=== PATIENT | male | born 1965 | race Caucasian/White ===

== ENCOUNTER 2017-10-21 15:43 | Emergency (ER) | payer BC, OTHER ==
[2017-10-21 15:47] VITALS: TEMP 98; BMI 30.6
[2017-10-21] MEDS ORDERED: predniSONE 20 MG TABLET (UD) PO ONE (15:53)
--- NOTE | 2017-10-21 15:56 | PDOC ---
History of Present Illness - General History Source: Patient Exam Limitations: No Limitations - History of Present Illness Initial Comments: 10/21/17 16:01 The patient is a 52 year old male, with a significant past medical history of asthma(with prior hospitalizations and ICU stay without intubation) and hypertension, who presents to the emergency department with chest tightness for approximately 2 days. The patient reports waking up yesterday with chest tightness and shortness of breath. Patient reports using Symbicort daily Albuterol with no relief. Today, patient reports waking up with wheezing and a cough productive of white-yellow sputum. Patient reports using 6 pumps of his Albuterol today with relief of cough and wheezing. Patient reports tachycardia, which is typical after he uses his Albuterol. He denies any recent fever, chills , headache, or dizziness. He denies any chest pain or diaphoresis. He denies any nausea or vomiting. 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 Allergies: NKDA Past Surgical History: None reported. Social History: Nonsmoker. No ETOH or recreational drug use. <Dandre Harrington - Last Filed: 10/21/17 16:00> - General History Source: Patient Exam Limitations: No Limitations <Milton Escalante - Last Filed: 10/21/17 16:59> - General Chief Complaint: Asthma Stated Complaint: asthma Time Seen by Provider: 10/21/17 15:45 Past History <Dandre Harrington - Last Filed: 10/21/17 16:00> - Past Medical History Asthma: Yes Cardiac Disorders: Yes (TAA. 1 EPISODE ASTHMA RELATED A-FIB 5 YRS AGO) COPD: No HTN: Yes - Suicide/Smoking/Psychosocial Hx Smoking History: Never smoked Have you smoked in the past 12 months: Yes Number of Cigarettes Smoked Daily: 3 'Breaking Loose' booklet given: 09/13/14 Hx Alcohol Use: No Drug/Substance Use Hx: No Substance Use Type: None <Milton Escalante - Last Filed: 10/21/17 16:59> - Past Medical History Allergies/Adverse Reactions: Allergies Allergy/AdvReac Type Severity Reaction Status Date / Time No Known Allergies Allergy Verified 09/13/14 10:16 Home Medications: Ambulatory Orders Albuterol Sulfate Inhaler - [Ventolin HFA Inhaler -] 1 - 2 inh PO QID PRN Aspirin Coated [Ecotrin -] 325 mg PO Q48H 09/13/14 Budesonide/Formeterol Fumarate [SYMBICORT 160/4.5mcg -] 1 inh PO DAILY 10/21/17 Diltiazem Cd [Cardizem Cd -] 300 mg PO DAILY 10/21/17 Prednisone [Deltasone] 60 mg PO DAILY #12 tablet 10/21/17 Review of Systems - Review of Systems Able to Perform ROS?: Yes Comments:: 10/21/17 16:01 GENERAL/CONSTITUTIONAL: No fever or chills. No weakness. HEAD, EYES, EARS, NOSE AND THROAT: No change in vision. No ear pain or discharge. No sore throat. CARDIOVASCULAR: Yes shortness of breath. No chest pain. RESPIRATORY: Yes cough productive of white-yellow sputum, wheezing, and chest tightness, No hemoptysis. GASTROINTESTINAL: No nausea, vomiting, diarrhea or constipation. GENITOURINARY: No dysuria, frequency, or change in urination. MUSCULOSKELETAL: No joint or muscle swelling or pain. No neck or back pain. SKIN: No rash NEUROLOGIC: No headache, vertigo, loss of consciousness, or change in strength/ sensation. ENDOCRINE: No increased thirst. No abnormal weight change. HEMATOLOGIC/LYMPHATIC: No anemia, easy bleeding, or history of blood clots. ALLERGIC/IMMUNOLOGIC: No hives or skin allergy. <Dandre Harrington - Last Filed: 10/21/17 16:00> *Physical Exam - Vital Signs Last Vital Signs Temp Pulse Resp BP Pulse Ox 98 F 141 H 22 158/127 97 10/21/17 15:44 10/21/17 15:44 10/21/17 15:44 10/21/17 15:44 10/21/17 15:44 - Physical Exam Comments: 10/21/17 16:01 GENERAL: Awake, alert, and fully oriented, in no acute distress HEAD: No signs of trauma EYES: PERRLA, EOMI, sclera anicteric, conjunctiva clear ENT: Auricles normal inspection, hearing grossly normal, nares patent, oropharynx clear without exudates. Moist mucosa NECK: Normal ROM, supple, no lymphadenopathy, JVD, or masses LUNGS: Breath sounds equal, clear to auscultation bilaterally. No wheezes, and no crackles HEART: Tachycardic. Regular rhythm, normal S1 and S2, no murmurs, rubs or gallops ABDOMEN: Soft, nontender, normoactive bowel sounds. No guarding, no rebound. No masses EXTREMITIES: Normal range of motion, no edema. No clubbing or cyanosis. No cords, erythema, or tenderness NEUROLOGICAL: Cranial nerves II through XII grossly intact. Normal speech, normal gait SKIN: Warm, Dry, normal turgor, no rashes or lesions noted. <Dandre Harrington - Last Filed: 10/21/17 16:00> - Vital Signs Last Vital Signs Temp Pulse Resp BP Pulse Ox 98 F 141 H 22 158/127 97 10/21/17 15:44 10/21/17 15:44 10/21/17 15:44 10/21/17 15:44 10/21/17 15:44 <Milton Escalante - Last Filed: 10/21/17 16:59> Medical Decision Making - Medical Decision Making 10/21/17 15:54 A portion of this note was documented by scribe services under my direction. I have reviewed the details of the note, within reason, and agree with the documentation with the following case summary and management plan written by me. Patient treated in the ED. Nursing notes are reviewed and incorporated into the medical decision-making. Vital signs reviewed. Vital Signs Temp Pulse Resp BP Pulse Ox 98 F 141 H 22 158/127 97 10/21/17 15:44 10/21/17 15:44 10/21/17 15:44 10/21/17 15:44 10/21/17 15:44 52-year-old male with past mental history of hypertension, asthma with prior hospitalizations and ICU stays without intubations, currently on Symbicort, presents with asthma exacerbation. Patient reports that yesterday felt tightness and wheezing that worsened today. Reports clearish productive cough but denies fevers or chills. Patient had taken several pumps of his albuterol which states he always makes him tachycardic. Reports that his wheezing is cleared up but was concerned so came to the ED. Patient lungs are clear now but with notable tachycardia likely secondary to albuterol. We'll give him prednisone and observe the patient. If the patient's symptoms are improved the heart rate improves, patient be discharged home with albuterol and prednisone. Diagnosis: Asthma exacerbation 10/21/17 16:54 Patient has been observed. Breathing comfortably. HR 70. I discussed the physical exam findings, ancillary test results and final diagnoses with the patient. I answered all of the patient's questions. The patient was satisfied with the care received and felt comfortable with the discharge plan and treatment plan. The patient will call their primary care physician within 24 hours to arrange follow-up and will return to the Emergency Department with any new, persistant or worsening symptoms. <Milton Escalante - Last Filed: 10/21/17 16:59> *DC/Admit/Observation/Transfer - Attestations Scribe Attestion: 10/21/17 16:01 Documentation prepared by Dandre Harrington, acting as biomedical analytical scientist for Milton Escalante MD. <Dandre Harrington - Last Filed: 10/21/17 16:00> - Discharge Dispostion Admit: No <Milton Escalante - Last Filed: 10/21/17 16:59> Diagnosis at time of Disposition: Asthma exacerbation attacks Qualifiers: Asthma severity: unspecified severity Asthma persistence: unspecified Qualified Code(s): J45.901 - Unspecified asthma with (acute) exacerbation - Discharge Dispostion Disposition: HOME Condition at time of disposition: Improved - Prescriptions Prescriptions: Prednisone [Deltasone] 60 mg PO DAILY #12 tablet - Patient Instructions Printed Discharge Instructions: Asthma -- Adult Additional Instructions: Take 2 puffs of albuterol every 4 hours as needed for wheezing. Continue to take the prednisone daily. Follow up with your doctor.
[2017-10-21] MEDS ORDERED: predniSONE 20 MG TABLET (UD) ONE (16:01)
[2017-10-21 17:09] VITALS: BP 166/90; PULSE 70
== END 2017-10-21 17:09 | disposition home or self-care (01) ==
LOC: FER 15:43
DX: J45.901 Unspecified asthma with (acute) exacerbation (principal); I10 Essential (primary) hypertension; Z86.79 Personal history of other diseases of the circulatory system; Z79.82 Long term (current) use of aspirin
CPT/HCPCS: 99281-25

== ENCOUNTER 2018-09-20 23:17 | Inpatient (IN) | payer OTHER ==
[2018-09-20] MEDS ORDERED: ALBUTEROL SO4 2.5/IPRATROPIUM 0.5 INH SOL 3 ML VIAL.NEB. NEB ONE ×2 (23:23→23:47)
[2018-09-21 00:12] LABS: VENOUS PC02 34.4 mmHg (38-52); VENOUS PH 7.49 (7.32-7.42); VENOUS PO2 42.8 mmHg (28-48)
[2018-09-21] MEDS ORDERED: ALBUTEROL SO4 2.5/IPRATROPIUM 0.5 INH SOL 3 ML VIAL.NEB. NEB ONE (00:14)
[2018-09-21 00:18] LABS: BASO % 1.1 % (0-2.0); EOS % 0.1 % (0-4.5); HEMATOCRIT 43.8 % (35.4-49); HEMOGLOBIN 14.6 GM/dL (11.7-16.9); LYMPH % 7.8 % (8-40); MCHC 33.3 g/dl (32.0-35.9); MEAN PLT VOLUME 7.7 fl (7.5-11.1); MONO % 14.7 % (3.8-10.2); NEUT % 76.3 % (42.8-82.8); PLATELET COUNT 234 K/MM3 (134-434); RBC 4.71 M/mm3 (4.00-5.60); RDW 12.9 % (11.9-15.9)
--- NOTE | 2018-09-21 00:19 | PDOC ---
History of Present Illness - General Chief Complaint: Asthma Stated Complaint: ASTHMA Time Seen by Provider: 09/20/18 23:35 History Source: Patient Exam Limitations: No Limitations - History of Present Illness Initial Comments: 53 year old male, with a significant past medical history of AFIB, asthma(with prior hospitalizations and ICU stay without intubation) and hypertension is here with Shortness of breath, difficulty breathing, cough and a recent fever. He states that for the past 3 weeks he has experienced extreme SOB with exertion , the inability to lie flat at night, and feels like he is choking when he lies down. He states he needs to keep his head elevated in order to sleep properly. He went to urgent care twice and they originally gave him methylprednisolone, that didn't work, then he went back and they gave him azithromycin. He is almost done with his Abx course. He endorses significant chest pain with exertion. He is not currently experiencing any chest pain. He has also has a productive cough with Left sided chest pain for the past 3 days. Patient does not have a primary care provider - He needs a referall. He also describes these hot and cold symptoms where everyone else in the room is cold but he is sweating. Occasionally he breaks out in sweats, experiences heat and cold intolerance. PCP: None Allergies: NKA, NKDA Social Hx: Significant alcohol/beer consumption on weekends. Denies cigarettes or illicit drug usage. Past History - Past Medical History Allergies/Adverse Reactions: Allergies Allergy/AdvReac Type Severity Reaction Status Date / Time No Known Allergies Allergy Verified 09/13/14 10:16 Home Medications: Ambulatory Orders Albuterol Sulfate Inhaler - [Ventolin HFA Inhaler -] 1 - 2 inh PO QID PRN Budesonide/Formeterol Fumarate [SYMBICORT 160/4.5mcg -] 1 inh PO DAILY 10/21/17 Diltiazem Cd [Cardizem Cd -] 300 mg PO DAILY 10/21/17 Loratadine [Claritin] 10 mg PO DAILY 09/21/18 Valsartan 40 mg PO DAILY 09/21/18 Asthma: Yes Cardiac Disorders: Yes (TAA. 1 EPISODE ASTHMA RELATED A-FIB 5 YRS AGO) COPD: No HTN: Yes - Suicide/Smoking/Psychosocial Hx Smoking History: Never smoked Have you smoked in the past 12 months: Yes Number of Cigarettes Smoked Daily: 3 'Breaking Loose' booklet given: 09/13/14 Hx Alcohol Use: No Drug/Substance Use Hx: No Substance Use Type: None Review of Systems - Review of Systems Comments:: CONSTITUTIONAL: Present: Fever, chills, diaphoresis Absent: generalized weakness, malaise, loss of appetite HEENT: Absent: rhinorrhea, nasal congestion, throat pain, throat swelling, difficulty swallowing, mouth swelling, ear pain, eye pain, visual Changes CARDIOVASCULAR: Present: Chest pain, peripheral edema, lightheadedness Absent: syncope, palpitations, irregular heart rate RESPIRATORY: Present: Cough, shortness of breath, dyspnea with exertion, orthopnea Absent: wheezing, stridor, hemoptysis GASTROINTESTINAL: Present: Nausea Absent: abdominal pain, abdominal distension, vomiting, diarrhea, constipation, melena, hematochezia GENITOURINARY: Absent: dysuria, frequency, urgency, hesitancy, hematuria, flank pain, genital pain MUSCULOSKELETAL: Absent: myalgia, arthralgia, joint swelling SKIN: Absent: rash, itching, pallor HEMATOLOGIC/IMMUNOLOGIC: Absent: easy bleeding, easy bruising, lymphadenopathy, frequent infections ENDOCRINE: Absent: unexplained weight gain, unexplained weight loss, heat intolerance, cold intolerance NEUROLOGIC: Present: Dizziness Absent: headache, focal weakness or paresthesias, unsteady gait, seizure, mental status changes, bladder or bowel incontinence PSYCHIATRIC: Absent: anxiety, depression, suicidal or homicidal ideation, hallucinations. *Physical Exam - Vital Signs Last Vital Signs Temp Pulse Resp BP Pulse Ox 100.3 F H 135 H 26 H 115/83 100 09/20/18 23:20 09/20/18 23:20 09/20/18 23:20 09/20/18 23:20 09/20/18 23:20 - Physical Exam Comments: GENERAL: Well developed, well nourished. Awake and alert. No acute distress. HEENT: Normocephalic, atraumatic. PERRLA, EOMI. No conjunctival pallor. Sclera are non- icteric. Moist mucous membranes. Oropharynx is clear. NECK: Supple. Full ROM. No JVD. Carotid pulses 2+ and symmetric, without bruits. No thyromegaly. No lymphadenopathy. CARDIOVASCULAR: Tachycardic rate and regular rhythm. No murmurs, rubs, or gallops. Distal pulses are 2+ and symmetric. PULMONARY: Clear evidence of respiratory distress. However, Lungs are clear to auscultation bilaterally. No wheezing, rales or rhonchi. ABDOMINAL: Soft. Non-tender. Non-distended. No rebound or guarding. No organomegaly. Normoactive bowel sounds. MUSCULOSKELETAL Normal range of motion at all joints. No bony deformities or tenderness. No CVA tenderness. EXTREMITIES: No cyanosis. No clubbing. No edema. No calf tenderness. SKIN: Warm and dry. Normal capillary refill. No rashes. No jaundice. NEUROLOGICAL: Alert, awake, appropriate. Cranial nerves 2-12 intact. No deficits to light touch in face, upper extremities and lower extremities. No motor deficits in the in face, upper extremities and lower extremities. Normal speech. Gait is normal without ataxia. PSYCHIATRIC: Cooperative. Good eye contact. Appropriate mood and affect. ED Treatment Course - LABORATORY CBC & Chemistry Diagram: 09/21/18 00:09 09/21/18 00:09 - ADDITIONAL ORDERS Additional order review: Laboratory Results 09/20/18 23:58 VBG pH 7.49 H POC VBG pCO2 34.4 L POC VBG pO2 42.8 Mixed VBG HCO3 25.6 H - RADIOLOGY Radiology Studies Ordered: Category Date Time Status CHEST PA & LAT [RAD] Stat Radiology 09/20/18 23:47 Ordered Medical Decision Making - Medical Decision Making 53 year old male, with a significant past medical history of AFIB, asthma(with prior hospitalizations and ICU stay without intubation) and hypertension is here with Shortness of breath, difficulty breathing, cough and a recent fever. Patient is febrile here in the ED. DD includes but not limited to: CHF, Asthma exacerbation, PNA, AFIB, ACS, URI, influenza. Plan: Cbc, Cmp, Trop, Bnp, Tsh, Ekg, influenza, CXR, re-assess. Cbc shows elevated WBC of 11. Cmp shows hyponatremia of 130 BNP elevated to 2442 Trop negative. Given hot and cold symptoms, hx of AFIB, will send TSH to evaluate for thyroid abnormalities. CXR shows a Left sided Pneumonia. He has been taking azithromycin. This is failed outpatient treatment. 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 Patient meets SIRS. Also has a source of infection - lungs PNA. He is septic. Given clinical history, hx of AFIB and hypertension, elevated BNP this patient is likely experiencing new onset heart failure. Patient will be admitted for heart failure, PNA, AFIB, Sepsis. Abx started here in ED. Given CXR read of upper lobe PNA we will put the patient in isolation. *DC/Admit/Observation/Transfer Diagnosis at time of Disposition: Pneumonia, A-fib, Heart failure, Asthma attack - Discharge Dispostion Condition at time of disposition: Guarded Decision to Admit order: Yes - Referrals - Patient Instructions - Post Discharge Activity
[2018-09-21 00:32] LABS: URINE APPEARANCE CLEAR; URINE BILIRUBIN NEGATIVE (<2.0 mg/dL); URINE COLOR YELLOW; URINE GLUCOSE (UA) NEGATIVE (NEGATIVE); URINE KETONE 1+ (NEGATIVE); URINE LEUK ESTERASE TRACE (NEGATIVE); URINE NITRITE NEGATIVE (NEGATIVE); URINE PROTEIN 1+ (NEGATIVE); URINE UROBILINOGEN NEGATIVE mg/dL (0.2-1.0)
[2018-09-21 00:43] LABS: URINE BACTERIA RARE /hpf (NONE SEEN)
[2018-09-21 00:56] LABS: ALBUMIN 3.5 g/dl (3.4-5.0); ALK PHOS 66 U/L (45-117); ANION GAP 11 MMOL/L (8-16); BILIRUBIN,TOTAL 1.1 mg/dL (0.2-1); BLOOD UREA NITROGEN 14 mg/dL (7-18); CALCIUM 8.5 mg/dL (8.5-10.1); CHLORIDE 95 mmol/L (98-107); CO2 25 mmol/L (21-32); CREATININE 0.8 mg/dL (0.55-1.3); GLUCOSE,RANDOM 113 mg/dL (74-106); N-TERMINAL BNP 2442.2 pg/ml (5-125); POTASSIUM 3.9 mmol/L (3.5-5.1); SGOT/AST 24 U/L (15-37); SGPT/ALT 25 U/L (13-61); SODIUM 130 mmol/L (136-145); TOT PROT 6.9 g/dl (6.4-8.2)
[2018-09-21] MEDS ORDERED: ACETAMINOPHEN 1000 MG/100 ML VIAL (NON FORMULARY) IVPB ONE (01:07)
[2018-09-21] MEDS ORDERED: ACETAMINOPHEN INJECTION 100 ML IVPB ONE (01:21)
--- NOTE | 2018-09-21 01:42 | PDOC ---
Attending Attestation - Resident Resident Name: Ángel Olivares - ED Attending Attestation I have performed the following: I have examined & evaluated the patient, The case was reviewed & discussed with the resident, I agree w/resident's findings & plan, Exceptions are as noted - HPI HPI: 09/21/18 01:42 The patient is a 53 year old male with past medical history of atrial fibrillation, hypertension, and asthma (requiring ICU stay, no intubations) who presents with 3 weeks of worsening shortness of breath both at rest and with exertion, cough, and fever. His symptoms have not been relieved by courses of prednisone or z-pack which was prescribed by urgent care on two separate occasions. Patient states he also is unable to lie flat at night and was experiencing lower extremity swelling which was treated after taking his HCTZ. Patient denies any weakness, chest pain, palpitations, nausea, vomiting, diarrhea, or urinary complaints. - Physicial Exam PE: 09/21/18 01:42 agree with resident exam - Medical Decision Making 09/21/18 01:42 53yo M hx asthma presents to the ED with progressive ALCOCER, chest discomfort not releived by nebs, steroids, azithromycin. HR elevated to 130s, but pt getting nebs at the time of vitals check. Work up remarkable for elevated BNP. Story concerning for new onset CHF. CXR pending, will admit for cardiac w/u. Heart Score/ECG Review #1 09/21/18 01:44 Twelve-lead EKG was performed and reviewed by me. Sinus tachycardia, rate 133. Normal axis. Baseline is unclear, no evidence of ST elevations.
[2018-09-21] MEDS ORDERED: predniSONE 20 MG TABLET (UD) PO ONE (02:28)
[2018-09-21] MEDS ORDERED: VANCOMYCIN 1,000 MG in DEXTROSE 5%-WATER - 250 ML IVPB ONE (02:29)
[2018-09-21] MEDS ORDERED: PIPERACILLIN/TAZOB 4.5 GM 4.5 GM in DEXTROSE 5%-WATER 100 ML IVPB ONE (02:33)
[2018-09-21] MEDS ORDERED: predniSONE 20 MG TABLET (UD) ONE (02:53)
[2018-09-21] MEDS ORDERED: VANCOMYCIN 1 GRAM (PRE-DOCKED) 1,000 MG/250 ML BAG IVPB ONE (02:53)
[2018-09-21] MEDS ORDERED: PIPERACILLIN/TAZOB 4.5 GM 4.5 GM/100 ML BAG IVPB ONE (02:53)
--- NOTE | 2018-09-21 04:34 | HP ---
CHIEF COMPLAINT: Shortness of breath PCP: HISTORY OF PRESENT ILLNESS: Patient is a 53 year old male with history of asthma, Afib (no on anticoagulation), hypertension, presents with complaint of shortness of breath for the past three weeks. States that symptoms occurred with cough that has become productive with clear to yellow sputum. Denies subjective fevers, however admits chills, and night sweats. Endorses intermittent nausea, without vomiting. 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 Further admits new onset of two pillow orthopnea over the past three weeks. He went to urgent care center on two occasions, and received Medrol dose pack on first visit, and azithromycin on second visit which were not palliative. 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 ER course was notable for: (1) EKG showed Aflutter 2:1 AV conduction. (2) Vancomycin, Zosyn, Ofirmev, Duonebs, Prednisone (3) Recent Travel: PAST MEDICAL HISTORY: asthma, Afib (no on anticoagulation), hypertension PAST SURGICAL HISTORY: Social History: Smoking:Former smoker, Quit 3 years ago Alcohol: Admits approx 6 beers, socially three times a week Drugs: Denies Family History: Allergies No Known Allergies Allergy (Verified 09/13/14 10:16) HOME MEDICATIONS: Home Medications Medication Instructions Recorded Albuterol Sulfate Inhaler - 1 - 2 inh PO QID PRN 09/13/14 [Ventolin HFA Inhaler -] Budesonide/Formeterol Fumarate 1 inh PO DAILY 10/21/17 [SYMBICORT 160/4.5mcg -] Diltiazem Cd [Cardizem Cd -] 300 mg PO DAILY 10/21/17 Loratadine [Claritin] 10 mg PO DAILY 09/21/18 Valsartan 40 mg PO DAILY 09/21/18 REVIEW OF SYSTEMS As per HPI PHYSICAL EXAMINATION Vital Signs - 24 hr 09/20/18 09/21/18 23:20 03:41 Temperature 100.3 F H Pulse Rate 135 H Respiratory 26 H Rate Blood Pressure 115/83 O2 Sat by Pulse 100 96 Oximetry (%) GENERAL: Awake, alert, and fully oriented, in no acute distress. HEAD: Normal with no signs of trauma. EYES: Pupils equal, round and reactive to light, extraocular movements intact, sclera anicteric, conjunctiva clear. No lid lag. EARS, NOSE, THROAT: Ears normal, nares patent, oropharynx clear without exudates. Moist mucous membranes. NECK: Normal range of motion, supple without lymphadenopathy, JVD, or masses. LUNGS: Breath sounds equal, clear to auscultation bilaterally. No wheezes, and no crackles. No accessory muscle use. HEART: Regular rate and rhythm, normal S1 and S2 without murmur, rub or gallop. ABDOMEN: Soft, nontender, not distended, normoactive bowel sounds, no guarding, no rebound, no masses. No hepatomegaly or splenomegaly. MUSCULOSKELETAL: Normal range of motion at all joints. No bony deformities or tenderness. No CVA tenderness. UPPER EXTREMITIES: 2+ radial pulses b/l, warm, well-perfused. No cyanosis noted. LOWER EXTREMITIES: 2+ dorsalis pulses b/l, warm, well-perfused. No calf tenderness b/l. 1+ lower extremity pitting edema b/l. NEUROLOGICAL: Cranial nerves II-XII intact. Normal speech. Normal gait. PSYCHIATRIC: Cooperative. Good eye contact. Appropriate mood and affect. SKIN: Warm, dry, normal turgor, no rashes or lesions noted, normal capillary refill. Laboratory Results - last 24 hr 09/20/18 09/21/18 09/21/18 23:58 00:09 00:09 WBC 11.0 H RBC 4.71 Hgb 14.6 Hct 43.8 MCV 93.0 MCH 31.0 MCHC 33.3 RDW 12.9 Plt Count 234 MPV 7.7 Absolute Neuts (auto) 8.4 H Neutrophils % 76.3 Lymphocytes % 7.8 L Monocytes % 14.7 H Eosinophils % 0.1 Basophils % 1.1 Nucleated RBC % 0 VBG pH 7.49 H POC VBG pCO2 34.4 L POC VBG pO2 42.8 Mixed VBG HCO3 25.6 H Sodium 130 L Potassium 3.9 Chloride 95 L Carbon Dioxide 25 Anion Gap 11 BUN 14 Creatinine 0.8 Creat Clearance w eGFR > 60 Random Glucose 113 H Calcium 8.5 Total Bilirubin 1.1 H AST 24 ALT 25 Alkaline Phosphatase 66 Troponin I < 0.02 B-Natriuretic Peptide 2442.2 H Total Protein 6.9 Albumin 3.5 TSH 0.62 Urine Color Urine Appearance Urine pH Ur Specific [place] Urine Protein Urine Glucose (UA) Urine Ketones Urine Blood Urine Nitrite Urine Bilirubin Urine Urobilinogen Ur Leukocyte Esterase Urine WBC (Auto) Urine RBC (Auto) Urine Bacteria 09/21/18 09/21/18 00:11 02:35 WBC RBC Hgb Hct MCV MCH MCHC RDW Plt Count MPV Absolute Neuts (auto) Neutrophils % Lymphocytes % Monocytes % Eosinophils % Basophils % Nucleated RBC % VBG pH POC VBG pCO2 POC VBG pO2 Mixed VBG HCO3 Sodium Potassium Chloride Carbon Dioxide Anion Gap BUN Creatinine Creat Clearance w eGFR Random Glucose Calcium Total Bilirubin AST ALT Alkaline Phosphatase Troponin I B-Natriuretic Peptide Total Protein Albumin TSH 0.84 D Urine Color Yellow Urine Appearance Clear Urine pH 6.0 Ur Specific [place] 1.017 Urine Protein 1+ H Urine Glucose (UA) Negative Urine Ketones 1+ H Urine Blood 1+ H Urine Nitrite Negative Urine Bilirubin Negative Urine Urobilinogen Negative Ur Leukocyte Esterase Trace Urine WBC (Auto) 2 Urine RBC (Auto) 3 Urine Bacteria Rare ASSESSMENT/PLAN: Patient is a 53 year old male with history of asthma, Afib (no on anticoagulation), hypertension, presents with complaint of shortness of breath for the past three weeks. Shortness of breath -May be secondary to heart failure vs possible community acquired pneumonia -EKG showed atrial flutter with 2:1 AV conduction. HR 133bpm. -Troponin negative at 0.02. Trend troponins -BNP 2442.2 -F/U cardiac ECHO -F/U cardiology consult (Wil Lizarraga) -Daily weights -Intake and output -Lasix 40 IV Q12H -Metoprolol 25 mg PO daily -Lisinopril 5.0 mg PO daily Questionable pneumonia -Azithromycin 500mg IV daily -Ceftriaxone 1 gram IV daily -F/U urine for pneumonia, legionella -F/U blood cultures -F/U sputum cultures Hyponatremia -F/U urine electrolytes -F/U serum and urine osmolality -F/U urine creatinine Afib -Patient states he is not on coumadin anymore, and only takes aspirin for anticoagulation. -Continue cardizem 300mg PO daily -Continue Aspirin 325mg PO daily -F/U cardiology consult FEN -No IV fluids. -Hyponatremia. Follow CMP -Sodium controlled diet Prophylaxis -Heparin [id number] TID Disposition -Admit to telemetry Visit type - Emergency Visit Emergency Visit: Yes ED Registration Date: 09/21/18 Care time: The patient presented to the Emergency Department on the above date and was hospitalized for further evaluation of their emergent condition. - New Patient This patient is new to me today: Yes Date on this admission: 09/21/18 - Critical Care Critical Care patient: No
--- NOTE | 2018-09-21 06:41 | PN ---
Teaching Attending Note Name of Resident: Emil Esqueda ATTENDING PHYSICIAN STATEMENT I saw and evaluated the patient. Chart, data, imaging reviewed. I reviewed the resident's note and discussed the case with the resident. I agree with the resident's findings and plan as documented. SUBJECTIVE: 53 year old male with history of asthma, Afib (no on anticoagulation), hypertension, presents with progressive shortness of breath for the past three weeks. Endorses a productive yellow-sputum cough. States that he steady put on weight over last 2 years. Reports + orthopnea, decreased exercise tolerance. Denied overt chest pain. 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 OBJECTIVE: Last Vital Signs Temp Pulse Resp BP Pulse Ox 100.3 F H 135 H 26 H 115/83 96 09/20/18 23:20 09/20/18 23:20 09/20/18 23:20 09/20/18 23:20 09/21/18 03:41 General -nontoxic, nad heent-at, nc neck -no jvd noted cv-s1+s2+tachycardia, regular, s3 gallop+ chest -clear to auscultation abdomen-obese, soft, nt ext-1+ pedal edema b/l Abnormal Lab Results 09/20/18 09/21/18 09/21/18 23:58 00:09 00:09 WBC 11.0 H Absolute Neuts (auto) 8.4 H Lymphocytes % 7.8 L Monocytes % 14.7 H VBG pH 7.49 H POC VBG pCO2 34.4 L Mixed VBG HCO3 25.6 H Sodium 130 L Chloride 95 L Random Glucose 113 H Total Bilirubin 1.1 H B-Natriuretic Peptide 2442.2 H Urine Protein Urine Ketones Urine Blood 09/21/18 00:11 WBC Absolute Neuts (auto) Lymphocytes % Monocytes % VBG pH POC VBG pCO2 Mixed VBG HCO3 Sodium Chloride Random Glucose Total Bilirubin B-Natriuretic Peptide Urine Protein 1+ H Urine Ketones 1+ H Urine Blood 1+ H CXR reviewed- b/l pulmonary vascular congestion noted, sharp costophrenic angles ekg- a- flutter 2:1 ASSESSMENT AND PLAN: #Likely new onset of CHF given high BNP, +orthopnea, pedal edema, pulm vascular congestion. Possibly also underlying community acquired pneumonia as productive cough is endorsed, cannot r/o infiltrates on CXR. + aflutter with hx of afib, electively not on anticoagulation. -admit to telemetry -cardiology consult -transthoracic echo -i/o -daily weights -furosemide 40mg IV q12hrs -bblocker -ACEi -trend troponin -salt restriction -free water restriction #Possible CAP -blood cultures x2 -sputum culture -urine legionella ag -ceftriaxone -azithromycin #hyponatremia- likely SIADH possibly from CAP or hypervolemic hyponatremia in setting of CHF -urine lytes, cr -serum osm -urine osm -tsh heparin sc for DVT ppx
[2018-09-21] MEDS ORDERED: ALBUTEROL SO4 8 GM HFA INHALER IH PRN (07:26)
[2018-09-21 09:51] LABS: HEMATOCRIT 47.6 % (35.4-49); HEMOGLOBIN 15.7 GM/dL (11.7-16.9); MEAN CELL VOLUME 93.9 fl (80-96); MEAN PLT VOLUME 7.7 fl (7.5-11.1); PLATELET COUNT 241 K/MM3 (134-434); RBC 5.07 M/mm3 (4.00-5.60); RDW 13.3 % (11.9-15.9)
[2018-09-21] MEDS ORDERED: LORATADINE 10 MG TABLET ONE (09:52)
[2018-09-21] MEDS ORDERED: AZITHROMYCIN IVPB 500 MG/250 ML BAG IVPB ONE (09:52)
[2018-09-21] MEDS ORDERED: CEFTRIAXONE 1 GM/50 ML BAG ONE (09:53)
[2018-09-21] MEDS ORDERED: VALSARTAN 40 MG TABLET (FP) PO SCH (10:00)
[2018-09-21] MEDS ORDERED: LISINOPRIL 5 MG TABLET (FP) PO SCH (10:00)
[2018-09-21] MEDS ORDERED: metoPROLOL SUCCINATE 25 MG TAB.SR.24H (FP) PO SCH (10:00)
[2018-09-21] MEDS ORDERED: ASPIRIN 325 MG TABLET PO SCH (10:00)
[2018-09-21] MEDS: BUDESONIDE/FORMETEROL FUMARATE 160/4.5 mcg INHALER IH SCH (10:09)
[2018-09-21] MEDS: LORATADINE 10 MG TABLET PO SCH (10:09)
[2018-09-21] MEDS: HEPARIN NA (PORCINE) 5,000 UNITS/ML 1ML VIAL SQ SCH ×3 (10:09→22:06)
[2018-09-21] MEDS: CEFTRIAXONE 1 GM in DEXTROSE 5%-WATER - 50 ML IVPB SCH (10:09)
[2018-09-21] MEDS: AZITHROMYCIN IVPB 500 MG in DEXTROSE 5%-WATER - 250 ML IVPB SCH (10:38)
[2018-09-21 10:45] LABS: ALK PHOS 83 U/L (45-117); ANION GAP 12 MMOL/L (8-16); BILIRUBIN,TOTAL 1.2 mg/dL (0.2-1); BLOOD UREA NITROGEN 10 mg/dL (7-18); CHLORIDE 100 mmol/L (98-107); CO2 24 mmol/L (21-32); CREATININE 0.7 mg/dL (0.55-1.3); GLUCOSE,RANDOM 136 mg/dL (74-106); MAGNESIUM 2.7 mg/dL (1.8-2.4); POTASSIUM 4.1 mmol/L (3.5-5.1); SGOT/AST 23 U/L (15-37); SGPT/ALT 30 U/L (13-61); SODIUM 136 mmol/L (136-145); TOT PROT 8.2 g/dl (6.4-8.2)
--- NOTE | 2018-09-21 11:07 | EKG ---
Test Reason : Blood Pressure : / mmHG Vent. Rate : 133 BPM Atrial Rate : 266 BPM P-R Int : 000 ms QRS Dur : 084 ms QT Int : 270 ms P-R-T Axes : -88 -29 089 degrees QTc Int : 401 ms SINUS TACHYCARDIA INFERIOR INFARCT , AGE UNDETERMINED ANTERIOR INFARCT (CITED ON OR BEFORE 21-SEP-2018) ABNORMAL ECG Confirmed by CATHRYN FERREIRA MD ([id number]) on 09/21/2018 11:07:21 AM Referred By: Confirmed By:CATHRYN FERREIRA MD
[2018-09-21] MEDS ORDERED: dilTIAZem HCL 125 MG/25 ML - 25 ML VIAL ONE (13:22)
--- NOTE | 2018-09-21 13:23 | CON.CARD ---
Consult Consult Specialty:: Cardiology Referred by:: Hospitalist Reason for Consultation:: Cardiac evaluation - History of Present Illness Chief Complaint: Shortness of breath and cough History of Present Illness: Patient is 53 year old male with underlying history of PAF (not on anticoagulation) and bronchial asthma and history of bronchitis who presents with chills, shortness of breath and cough. He initially went to Urgent care 3 weeks ago and was given Medrol pack. He returned again with persistent symptoms and was given Zithromax, but his symptoms did not improve. He came in yesterday to [place] ED and was found with acute left upper lobe infiltrate compatible with pneumonia on CT of chest. He was given IV antibiotics. Monitor also reveals atrial flutter with RVR. He denies chest pain at this time. SOB has improved. Denies palpitations. Denies paroxysmal nocturnal dyspnea or orthopnea. Denies fever. Denies nausea, vomiting, diarrhea or abdominal pain. Denies headache or lightheadedness. - History Source History Provided By: Patient, Medical Record Limitations to Obtaining History: No Limitations - Past Medical History Cardio/Vascular: Yes: AFIB, HTN Pulmonary: Yes: Asthma, Bronchitis - Past Surgical History Past Surgical History: Yes: None - Alcohol/Substance Use Hx Alcohol Use: Yes - Smoking History Smoking history: Former smoker Have you smoked in the past 12 months: Yes Aproximately how many cigarettes per day: 3 Home Medications - Allergies Allergies/Adverse Reactions: Allergies Allergy/AdvReac Type Severity Reaction Status Date / Time No Known Allergies Allergy Verified 09/13/14 10:16 - Home Medications Home Medications: Ambulatory Orders Albuterol Sulfate Inhaler - [Ventolin HFA Inhaler -] 1 - 2 inh PO QID PRN Budesonide/Formeterol Fumarate [SYMBICORT 160/4.5mcg -] 1 inh PO DAILY 10/21/17 Diltiazem Cd [Cardizem Cd -] 300 mg PO DAILY 10/21/17 Loratadine [Claritin] 10 mg PO DAILY 09/21/18 Valsartan 40 mg PO DAILY 09/21/18 Family Disease History - Family Disease History Other Family History: History of AF Review of Systems - Review of Systems Constitutional: reports: Chills. denies: Fever Cardiovascular: reports: Chest Pain, Palpitations, Shortness of Breath Respiratory: reports: Cough, SOB, Wheezing. denies: Hemoptysis, Orthopnea, PND , SOB on Exertion Gastrointestinal: denies: Abdominal Pain, Constipation, Diarrhea, Melena, Nausea , Rectal Bleeding, Vomiting Genitourinary: denies: Dysuria, Hematuria Neurological: denies: Dizziness, Headache, Seizure, Syncope Vital Signs: Vital Signs Temperature 97.6 F 09/21/18 13:00 Pulse Rate 125 H 09/21/18 13:00 Respiratory Rate 100 H 09/21/18 13:00 Blood Pressure 114/84 09/21/18 13:00 O2 Sat by Pulse Oximetry (%) 100 09/21/18 13:00 Eyes: Yes: PERRL HENT: Yes: Atraumatic Neck: Yes: Supple Respiratory: Yes: Diminished Gastrointestinal: Yes: Normal Bowel Sounds, Soft. No: Tenderness Cardiovascular: Yes: Tachycardia, Pulse Irregular JVD: No Carotid Bruit: No PMI: Non-Displaced Heart Sounds: Yes: S1, S2. No: Gallop Murmur: No: Systolic Murmur, Diastolic Murmur Edema: No - Other Data Labs, Other Data: CBC, BMP 09/21/18 09:43 09/21/18 09:43 Troponin, BNP 09/21/18 09/21/18 00:09 09:43 Troponin I < 0.02 < 0.02 B-Natriuretic Peptide 2442.2 H Laboratory Results - last 24 hr 09/20/18 09/21/18 09/21/18 23:58 00:09 00:09 WBC 11.0 H RBC 4.71 Hgb 14.6 Hct 43.8 MCV 93.0 MCH 31.0 MCHC 33.3 RDW 12.9 Plt Count 234 MPV 7.7 Absolute Neuts (auto) 8.4 H Neutrophils % 76.3 Lymphocytes % 7.8 L Monocytes % 14.7 H Eosinophils % 0.1 Basophils % 1.1 Nucleated RBC % 0 ESR VBG pH 7.49 H POC VBG pCO2 34.4 L POC VBG pO2 42.8 Mixed VBG HCO3 25.6 H Sodium 130 L Potassium 3.9 Chloride 95 L Carbon Dioxide 25 Anion Gap 11 BUN 14 Creatinine 0.8 Creat Clearance w eGFR > 60 Random Glucose 113 H Serum Osmolality Calcium 8.5 Phosphorus Magnesium Total Bilirubin 1.1 H AST 24 ALT 25 Alkaline Phosphatase 66 Troponin I < 0.02 C-Reactive Protein B-Natriuretic Peptide 2442.2 H Total Protein 6.9 Albumin 3.5 TSH 0.62 Urine Color Urine Appearance Urine pH Ur Specific [place] Urine Protein Urine Glucose (UA) Urine Ketones Urine Blood Urine Nitrite Urine Bilirubin Urine Urobilinogen Ur Leukocyte Esterase Urine WBC (Auto) Urine RBC (Auto) Urine Bacteria 09/21/18 09/21/18 09/21/18 00:11 02:35 09:43 WBC 8.0 RBC 5.07 Hgb 15.7 Hct 47.6 MCV 93.9 MCH 31.0 MCHC 33.0 RDW 13.3 Plt Count 241 MPV 7.7 Absolute Neuts (auto) Neutrophils % Lymphocytes % Monocytes % Eosinophils % Basophils % Nucleated RBC % ESR VBG pH POC VBG pCO2 POC VBG pO2 Mixed VBG HCO3 Sodium Potassium Chloride Carbon Dioxide Anion Gap BUN Creatinine Creat Clearance w eGFR Random Glucose Serum Osmolality Calcium Phosphorus Magnesium Total Bilirubin AST ALT Alkaline Phosphatase Troponin I C-Reactive Protein B-Natriuretic Peptide Total Protein Albumin TSH 0.84 D Urine Color Yellow Urine Appearance Clear Urine pH 6.0 Ur Specific [place] 1.017 Urine Protein 1+ H Urine Glucose (UA) Negative Urine Ketones 1+ H Urine Blood 1+ H Urine Nitrite Negative Urine Bilirubin Negative Urine Urobilinogen Negative Ur Leukocyte Esterase Trace Urine WBC (Auto) 2 Urine RBC (Auto) 3 Urine Bacteria Rare 09/21/18 09/21/18 09/21/18 09:43 09:43 09:43 WBC RBC Hgb Hct MCV MCH MCHC RDW Plt Count MPV Absolute Neuts (auto) Neutrophils % Lymphocytes % Monocytes % Eosinophils % Basophils % Nucleated RBC % ESR 25 H VBG pH POC VBG pCO2 POC VBG pO2 Mixed VBG HCO3 Sodium 136 Potassium 4.1 Chloride 100 Carbon Dioxide 24 Anion Gap 12 BUN 10 Creatinine 0.7 Creat Clearance w eGFR > 60 Random Glucose 136 H Serum Osmolality Calcium 9.0 Phosphorus 4.0 Magnesium 2.7 H Total Bilirubin 1.2 H AST 23 ALT 30 Alkaline Phosphatase 83 Troponin I < 0.02 C-Reactive Protein 16.2 H B-Natriuretic Peptide Total Protein 8.2 Albumin 4.0 TSH Urine Color Urine Appearance Urine pH Ur Specific [place] Urine Protein Urine Glucose (UA) Urine Ketones Urine Blood Urine Nitrite Urine Bilirubin Urine Urobilinogen Ur Leukocyte Esterase Urine WBC (Auto) Urine RBC (Auto) Urine Bacteria Atrial flutter with RVR Imaging - Results Chest X-ray: Report Reviewed (Left upper lobe pneumonia) Cat Scan: Report Reviewed (CT of chest left upper lobe infiltrates c/w acute pneumonia) EKG: Report Reviewed Problem List - Problems (1) Bronchial asthma Code(s): J45.909 - UNSPECIFIED ASTHMA, UNCOMPLICATED Qualifiers: Asthma severity: unspecified severity Asthma persistence: unspecified Asthma complication type: unspecified Qualified Code(s): J45.909 - Unspecified asthma, uncomplicated (2) HTN (hypertension) Code(s): I10 - ESSENTIAL (PRIMARY) HYPERTENSION Qualifiers: Hypertension type: essential hypertension Qualified Code(s): I10 - Essential (primary) hypertension (3) Atrial fibrillation Code(s): I48.91 - UNSPECIFIED ATRIAL FIBRILLATION Qualifiers: Atrial fibrillation type: paroxysmal Qualified Code(s): I48.0 - Paroxysmal atrial fibrillation (4) Atrial flutter Code(s): I48.92 - UNSPECIFIED ATRIAL FLUTTER Qualifiers: Atrial flutter type: typical Qualified Code(s): I48.3 - Typical atrial flutter (5) Pneumonia Code(s): J18.9 - PNEUMONIA, UNSPECIFIED ORGANISM Qualifiers: Pneumonia type: due to unspecified organism Laterality: left Lung location: upper lobe of lung Qualified Code(s): J18.1 - Lobar pneumonia, unspecified organism Assessment/Plan 1. Clinical presentation c/w acute left upper lobe pneumonia 2. Atrial flutter with RVR with prior history of PAF not on anticoagulation [id number] score likely 1 3. HTN 4. Bronchial asthma with history of bronchitis PLAN: 1. D/C Metoprolol and continue with Cardizem CD 300 mg QD. Give Cardizem 10 mg IVP 2. Add Eliquis 5 mg BID. If patient continues to be in atrial flutter, may consider MONICA +/- DC synchronized cardioversion 3. Echocardiography to assess LV/RV and valvular function 4. Antibiotic coverage and pulmonary input to follow. Bronchodilators and O2 as needed 5. D/C Furosemide as he does not appear to be in heart failure Further plans are to follow Wil Gallo MD
[2018-09-21] MEDS ORDERED: dilTIAZem HCL 50 MG/10 ML - 10 ML VIAL IVPUSH ONE (13:35)
--- NOTE | 2018-09-21 13:41 | PN ---
Progress Note (short form) - Note Progress Note: PULMONARY CONSULTATION DICTATED 09/21/18 IMP DYSPNEA RAO PNEUMONIA AFLUTTER ASTHMA HTN PLAN IV ABX CULTURES INHALED BRONCHODILATORS O2 RATE CONTROL PER CARDIOLOGY AC LEGIONELLA URINARY ANTIGEN COLD AGGLUTININS SPUTUM C+S F/U CHEST X-RAYS F/U CHEST CT 6 WKS TO CONFIRM RESOLUTION ON INFILTRATES Problem List - Problems (1) A-fib Code(s): I48.91 - UNSPECIFIED ATRIAL FIBRILLATION (2) Atrial fibrillation Code(s): I48.91 - UNSPECIFIED ATRIAL FIBRILLATION Qualifiers: Atrial fibrillation type: paroxysmal Qualified Code(s): I48.0 - Paroxysmal atrial fibrillation (3) Atrial flutter Code(s): I48.92 - UNSPECIFIED ATRIAL FLUTTER Qualifiers: Atrial flutter type: typical Qualified Code(s): I48.3 - Typical atrial flutter (4) HTN (hypertension) Code(s): I10 - ESSENTIAL (PRIMARY) HYPERTENSION Qualifiers: Hypertension type: essential hypertension Qualified Code(s): I10 - Essential (primary) hypertension (5) Pneumonia Code(s): J18.9 - PNEUMONIA, UNSPECIFIED ORGANISM Qualifiers: Pneumonia type: due to unspecified organism Laterality: left Lung location: upper lobe of lung Qualified Code(s): J18.1 - Lobar pneumonia, unspecified organism (6) Asthma Code(s): J45.909 - UNSPECIFIED ASTHMA, UNCOMPLICATED
[2018-09-21] MEDS ORDERED: FUROSEMIDE 40 MG/4 ML INJECTABLE VIAL IVPUSH SCH (14:00)
--- NOTE | 2018-09-21 14:10 | CONS ---
DATE OF CONSULTATION: 09/21/2018 REFERRING PHYSICIAN: Wil Gallo MD The patient is a 53-year-old white male with a past medical history of chronic asthma, maintained on Symbicort and albuterol, paroxysmal atrial fibrillation, maintained on aspirin, hypertension, nonsmoker admitted to [facility] with a complaint of a 3-week history of increasing shortness of breath and nonproductive cough. Patient states he started feeling the above symptoms. He went to an urgent care center and, at that time, was prescribed a Medrol Dosepak. Initially, he felt some improvement, but his symptoms recurred. He went back to the urgent care center and, at this time, was prescribed Zithromax, which has not offered significant improvement, at which time he presented to the emergency room. Of note, the patient states that he did have subjective fevers and some chills and night sweats over the past couple of weeks. The urgent care center, apparently, did not send any blood work and/or obtain a chest x-ray. The patient has some nausea without vomiting. Denies hemoptysis. Denies any chest pain or palpitations. Denies any weight loss. 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 Denies any history of recent travel. There is no history of DVT or PE in the past. PAST MEDICAL HISTORY: Again, includes asthma, atrial fibrillation, and hypertension. REVIEW OF SYSTEMS: Positive cough, positive mild sputum, positive chills, positive subjective fever. No chest pain, no palpitations. Positive nausea. No vomiting. SOCIAL HISTORY: History of smoking; quit a few years ago. No occupational exposures. CURRENT MEDICATIONS: Symbicort 160/4.5; Diovan; Zithromax; ceftriaxone; heparin; Ventolin; Toprol; Cardizem; Lasix; aspiring; and Claritin. PHYSICAL EXAMINATION: General: The patient is a well-developed, well-nourished male, awake, alert, in no acute distress. Vital Signs: He is currently afebrile. Heart rate is 125, blood pressure is 114/84, respiratory rate is 18, and O2 saturation is 100%. HEENT: Normocephalic, atraumatic. Neck: Supple. Heart: Tachycardic, S1 and S2. Chest: Clear. Abdomen: Soft. Bowel sounds are positive. Extremities: No cyanosis, edema. WBCs 8, hemoglobin 15.7, hematocrit 47.6 with a platelet count of 241,000. Venous blood gas pH 7.49, pCO2 of 34, pO2 of 42, bicarbonate of 26. BUN is 10, creatinine 0.7. BNP is 2442. Bilirubin is 1.2. Magnesium 2.7. Chest CT reveals a large left upper lobe consolidation. IMPRESSION: 1. Left upper lobe consolidation, consistent with pneumonia. 2. Atrial fibrillation/flutter. 3. Hypertension. 4. Chronic asthma. PLAN: Broad-spectrum antibiotics; inhaled bronchodilators; rate control, as per Cardiology; obtain followup chest x-ray as well as followup chest CT in approximately 6 weeks to document resolution of consolidation; monitor peak flow; send serum and legionella urinary antigen. NAHOMI MONTERROSO M.D. [id number]
[2018-09-21] MEDS: METOPROLOL TARTRATE 25 MG TABLET (FP) PO SCH ×2 (14:15→22:07)
[2018-09-21] MEDS ORDERED: METOPROLOL TARTRATE 25 MG TABLET (FP) ONE ×2 (14:20→22:33)
--- NOTE | 2018-09-21 14:22 | PN ---
Physical Exam: SUBJECTIVE: Patient seen and examined, breathing with some improvement, cough with greenish clear sputum, no chest pain, palpitations, or dizziness. reports last 3 weeks of symptoms with productive cough, shortness of breath and subjective fevers. No recent travel noted. No prior h/o weight loss, night sweats or gradual symptom onset. 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 OBJECTIVE: Vital Signs Period Temp Pulse Resp BP Sys/Garg Pulse Ox Last 24 Hr 97.6 F-100.3 F 124-135 18-100 107-131/67-97 96-100 GENERAL: The patient is awake, alert, and fully oriented, in no acute distress. HEAD: Normal with no signs of trauma. EYES: PERRL, extraocular movements intact, sclera anicteric, conjunctiva clear. No ptosis. neck: soft, supple, no JVD visualized Chest: few right basilar and left upper lobe rales, positive air entry, no wheezing ENT: Ears normal, nares patent, oropharynx clear without exudates, moist mucous membranes. NECK: Trachea midline, full range of motion, supple. CVS: S1S2 irregular ABDOMEN: Soft, nontender, nondistended, normoactive bowel sounds, no guarding, no rebound EXTREMITIES: 2+ pulses, warm, well-perfused, no edema. NEUROLOGICAL: Cranial nerves II through XII grossly intact. Normal speech, ambulating well in the room PSYCH: Normal mood, normal affect. SKIN: Warm, dry, normal turgor, no rashes or lesions noted Laboratory Results - last 24 hr 09/20/18 09/21/18 09/21/18 23:58 00:09 00:09 WBC 11.0 H RBC 4.71 Hgb 14.6 Hct 43.8 MCV 93.0 MCH 31.0 MCHC 33.3 RDW 12.9 Plt Count 234 MPV 7.7 Absolute Neuts (auto) 8.4 H Neutrophils % 76.3 Lymphocytes % 7.8 L Monocytes % 14.7 H Eosinophils % 0.1 Basophils % 1.1 Nucleated RBC % 0 ESR VBG pH 7.49 H POC VBG pCO2 34.4 L POC VBG pO2 42.8 Mixed VBG HCO3 25.6 H Sodium 130 L Potassium 3.9 Chloride 95 L Carbon Dioxide 25 Anion Gap 11 BUN 14 Creatinine 0.8 Creat Clearance w eGFR > 60 Random Glucose 113 H Serum Osmolality Calcium 8.5 Phosphorus Magnesium Total Bilirubin 1.1 H AST 24 ALT 25 Alkaline Phosphatase 66 Troponin I < 0.02 C-Reactive Protein B-Natriuretic Peptide 2442.2 H Total Protein 6.9 Albumin 3.5 TSH 0.62 Urine Color Urine Appearance Urine pH Ur Specific [place] Urine Protein Urine Glucose (UA) Urine Ketones Urine Blood Urine Nitrite Urine Bilirubin Urine Urobilinogen Ur Leukocyte Esterase Urine WBC (Auto) Urine RBC (Auto) Urine Bacteria 09/21/18 09/21/18 09/21/18 00:11 02:35 09:43 WBC 8.0 RBC 5.07 Hgb 15.7 Hct 47.6 MCV 93.9 MCH 31.0 MCHC 33.0 RDW 13.3 Plt Count 241 MPV 7.7 Absolute Neuts (auto) Neutrophils % Lymphocytes % Monocytes % Eosinophils % Basophils % Nucleated RBC % ESR VBG pH POC VBG pCO2 POC VBG pO2 Mixed VBG HCO3 Sodium Potassium Chloride Carbon Dioxide Anion Gap BUN Creatinine Creat Clearance w eGFR Random Glucose Serum Osmolality Calcium Phosphorus Magnesium Total Bilirubin AST ALT Alkaline Phosphatase Troponin I C-Reactive Protein B-Natriuretic Peptide Total Protein Albumin TSH 0.84 D Urine Color Yellow Urine Appearance Clear Urine pH 6.0 Ur Specific [place] 1.017 Urine Protein 1+ H Urine Glucose (UA) Negative Urine Ketones 1+ H Urine Blood 1+ H Urine Nitrite Negative Urine Bilirubin Negative Urine Urobilinogen Negative Ur Leukocyte Esterase Trace Urine WBC (Auto) 2 Urine RBC (Auto) 3 Urine Bacteria Rare 09/21/18 09/21/18 09/21/18 09:43 09:43 09:43 WBC RBC Hgb Hct MCV MCH MCHC RDW Plt Count MPV Absolute Neuts (auto) Neutrophils % Lymphocytes % Monocytes % Eosinophils % Basophils % Nucleated RBC % ESR 25 H VBG pH POC VBG pCO2 POC VBG pO2 Mixed VBG HCO3 Sodium 136 Potassium 4.1 Chloride 100 Carbon Dioxide 24 Anion Gap 12 BUN 10 Creatinine 0.7 Creat Clearance w eGFR > 60 Random Glucose 136 H Serum Osmolality Calcium 9.0 Phosphorus 4.0 Magnesium 2.7 H Total Bilirubin 1.2 H AST 23 ALT 30 Alkaline Phosphatase 83 Troponin I < 0.02 C-Reactive Protein 16.2 H B-Natriuretic Peptide Total Protein 8.2 Albumin 4.0 TSH Urine Color Urine Appearance Urine pH Ur Specific [place] Urine Protein Urine Glucose (UA) Urine Ketones Urine Blood Urine Nitrite Urine Bilirubin Urine Urobilinogen Ur Leukocyte Esterase Urine WBC (Auto) Urine RBC (Auto) Urine Bacteria 09/21/18 09:43 WBC RBC Hgb Hct MCV MCH MCHC RDW Plt Count MPV Absolute Neuts (auto) Neutrophils % Lymphocytes % Monocytes % Eosinophils % Basophils % Nucleated RBC % ESR VBG pH POC VBG pCO2 POC VBG pO2 Mixed VBG HCO3 Sodium Potassium Chloride Carbon Dioxide Anion Gap BUN Creatinine Creat Clearance w eGFR Random Glucose Serum Osmolality 295 Calcium Phosphorus Magnesium Total Bilirubin AST ALT Alkaline Phosphatase Troponin I C-Reactive Protein B-Natriuretic Peptide Total Protein Albumin TSH Urine Color Urine Appearance Urine pH Ur Specific [place] Urine Protein Urine Glucose (UA) Urine Ketones Urine Blood Urine Nitrite Urine Bilirubin Urine Urobilinogen Ur Leukocyte Esterase Urine WBC (Auto) Urine RBC (Auto) Urine Bacteria Active Medications Generic Name Dose Route Start Last Admin Trade Name Freq PRN Reason Stop Dose Admin Albuterol Sulfate 2 puff 09/21/18 07:26 Ventolin Hfa Inhaler - IH Q6H PRN ASTHMA Apixaban 5 mg 09/21/18 13:45 Eliquis - PO BID RADHA Budesonide/Formoterol Fumarate 1 puff 09/21/18 10:00 09/21/18 10:09 Symbicort 160/4.5mcg - IH Not Given DAILY RADHA Diltiazem HCl 300 mg 09/21/18 10:00 09/21/18 10:08 Cardizem Cd - PO 300 mg DAILY RADHA Administration Heparin Sodium (Porcine) 5,000 unit 09/21/18 07:15 09/21/18 10:09 Heparin - SQ 5,000 unit TID RADHA Administration Azithromycin 500 mg/ Dextrose 250 mls @ 250 mls/hr 09/21/18 10:00 09/21/18 10 :38 IVPB 250 mls/hr DAILY RADHA Administration Ceftriaxone Sodium 1 gm/ 50 mls @ 100 mls/hr 09/21/18 10:00 09/21/18 10:09 Dextrose IVPB 100 mls/hr DAILY RADHA Administration Loratadine 10 mg 09/21/18 10:00 09/21/18 10:09 Claritin - PO 10 mg DAILY RADHA Administration Metoprolol Tartrate 25 mg 09/21/18 13:45 Lopressor - PO BID RADHA Valsartan 40 mg 09/21/18 10:00 09/21/18 10:09 Diovan - PO 40 mg DAILY RADHA Administration Microbiology 09/21/18 00:09 Nasopharyngeal Swab Influenza Types A,B Antigen - Final 09/21/18 00:09 Nasopharyngeal Swab - Final CXR - RAO PNA CT chest - RAO PNA EKG Aflutter with RVR ASSESSMENT/PLAN: 53 yom with PMHx of paroxysmal Afib not on AC (prior h/o being on coumadin), Asthma/bronchitis, admitted with RAO CAP and Atrial flutter with RVR. -RAO PNA with early sepsis -Atrial flutter with RVR -Hyponatremia, hypovolumic vs r/o Legionella -H/o Bronchial Asthma/Bronchitis -HTN PLan: Ceftriaxone/azithromycin. Blood/sputum cx. Urine PNA studies. Flu swab neg. Pulmonary input noted. Symbicort/Albuterol prn. Current clinical presentation consistent with CAP in the setting of sick contacts/Asthma rather than TB. Cardiology input noted. Cardizem/low dose betablocker. Started on eliquis. Follow up 2D echo. Hold off on lasix, strict I/Os, daily weights. Continue valsartan DVTPPX started on eliquis as above Dispo pending clinical improvement. Plan discussed with patient and nursing in detail, all questions answered. Visit type - Emergency Visit Emergency Visit: Yes ED Registration Date: 09/21/18 Care time: The patient presented to the Emergency Department on the above date and was hospitalized for further evaluation of their emergent condition. - New Patient This patient is new to me today: Yes Date on this admission: 09/21/18 - Critical Care Critical Care patient: No - Discharge Referral Referred to [facility] Med [facility] No
[2018-09-21] MEDS: APIXABAN 5 MG TABLET PO SCH ×2 (15:57→22:07)
[2018-09-21] MEDS ORDERED: HEPARIN NA (PORCINE) 5,000 UNITS/ML 1ML VIAL ONE (22:33)
[2018-09-22] MEDS ORDERED: HEPARIN NA (PORCINE) 5,000 UNITS/ML 1ML VIAL ONE (06:01)
[2018-09-22] MEDS: HEPARIN NA (PORCINE) 5,000 UNITS/ML 1ML VIAL SQ SCH (06:11)
[2018-09-22 06:19] LABS: BASO % 1.1 % (0-2.0); EOS % 1.3 % (0-4.5); HEMATOCRIT 43.2 % (35.4-49); HEMOGLOBIN 14.4 GM/dL (11.7-16.9); LYMPH % 18.7 % (8-40); MCH 30.9 pg (25.7-33.7); MCHC 33.3 g/dl (32.0-35.9); MEAN CELL VOLUME 92.9 fl (80-96); MEAN PLT VOLUME 7.2 fl (7.5-11.1); MONO % 11.6 % (3.8-10.2); NEUT % 67.3 % (42.8-82.8); PLATELET COUNT 234 K/MM3 (134-434); RBC 4.65 M/mm3 (4.00-5.60); RDW 13.1 % (11.9-15.9); WHITE BLOOD COUNT 9.5 K/mm3 (4.0-10.0)
[2018-09-22 06:48] LABS: ALBUMIN 3.2 g/dl (3.4-5.0); ALK PHOS 58 U/L (45-117); ANION GAP 11 MMOL/L (8-16); BILIRUBIN,TOTAL 0.6 mg/dL (0.2-1); BLOOD UREA NITROGEN 16 mg/dL (7-18); CALCIUM 8.1 mg/dL (8.5-10.1); CHLORIDE 103 mmol/L (98-107); CO2 24 mmol/L (21-32); CREATININE 0.7 mg/dL (0.55-1.3); GLUCOSE,RANDOM 103 mg/dL (74-106); MAGNESIUM 2.3 mg/dL (1.8-2.4); PHOSPHOROUS 3.2 mg/dL (2.5-4.9); POTASSIUM 3.9 mmol/L (3.5-5.1); SGOT/AST 19 U/L (15-37); SGPT/ALT 27 U/L (13-61); SODIUM 138 mmol/L (136-145); TOT PROT 6.4 g/dl (6.4-8.2)
[2018-09-22 06:57] LABS: INR 1.43 (0.83-1.09); PROTHROMBIN TIME (PATIENT) 16.9 SEC (9.7-13.0)
--- NOTE | 2018-09-22 09:13 | PN ---
Teaching Attending Note Name of Resident: Robyn Garcia ATTENDING PHYSICIAN STATEMENT I saw and evaluated the patient. I reviewed the resident's note and discussed the case with the resident. I agree with the resident's findings and plan as documented with exceptions below. SUBJECTIVE: Patient seen and examined. still with palpitations, dyspnea,cough. episode of dizziness yesterday. OBJECTIVE: Vital Signs Period Temp Pulse Resp BP Sys/Garg Pulse Ox Last 24 Hr 97.6 F-98.3 F 16-126 16-100 107-131/76-97 99-100 Intake & Output 09/19/18 09/20/18 09/21/18 09/22/18 23:59 23:59 23:59 23:59 Weight 245 lb General; sitting in bed, able to talk in full sentences Chest:decreased air entry all over, no wheezing or rales appreciated today Abdomen; soft, NT, ND, positive bowel sounds Extremities: no pedal edema Active Medications Albuterol Sulfate (Ventolin Hfa Inhaler -) 2 puff IH Q6H PRN PRN Reason: ASTHMA Last Admin: 09/21/18 17:04 Dose: 2 inh Apixaban (Eliquis -) 5 mg PO BID [facility] Last Admin: 09/21/18 22:07 Dose: 5 mg Budesonide/Formoterol Fumarate (Symbicort 160/4.5mcg -) 1 puff IH DAILY [facility] Last Admin: 09/21/18 10:09 Dose: Not Given Diltiazem HCl (Cardizem Cd -) 300 mg PO DAILY [facility] Last Admin: 09/21/18 10:08 Dose: 300 mg Heparin Sodium (Porcine) (Heparin -) 5,000 unit SQ TID [facility] Last Admin: 09/22/18 06:11 Dose: 5,000 unit Azithromycin 500 mg/ Dextrose 250 mls @ 250 mls/hr IVPB DAILY [facility] Last Admin: 09/21/18 10:38 Dose: 250 mls/hr Ceftriaxone Sodium 1 gm/ (Dextrose) 50 mls @ 100 mls/hr IVPB DAILY [facility] Last Admin: 09/21/18 10:09 Dose: 100 mls/hr Loratadine (Claritin -) 10 mg PO DAILY [facility] Last Admin: 09/21/18 10:09 Dose: 10 mg Metoprolol Tartrate (Lopressor -) 25 mg PO BID [facility] Last Admin: 09/21/18 22:07 Dose: 25 mg Valsartan (Diovan -) 40 mg PO DAILY [facility] Last Admin: 09/21/18 10:09 Dose: 40 mg Laboratory Results - last 24 hr 09/21/18 09/21/18 09/21/18 09:43 09:43 09:43 WBC 8.0 RBC 5.07 Hgb 15.7 Hct 47.6 MCV 93.9 MCH 31.0 MCHC 33.0 RDW 13.3 Plt Count 241 MPV 7.7 Absolute Neuts (auto) Neutrophils % Lymphocytes % Monocytes % Eosinophils % Basophils % Nucleated RBC % ESR PT with INR INR Sodium 136 Potassium 4.1 Chloride 100 Carbon Dioxide 24 Anion Gap 12 BUN 10 Creatinine 0.7 Creat Clearance w eGFR > 60 Random Glucose 136 H Serum Osmolality Calcium 9.0 Phosphorus 4.0 Magnesium 2.7 H Total Bilirubin 1.2 H AST 23 ALT 30 Alkaline Phosphatase 83 Troponin I < 0.02 C-Reactive Protein 16.2 H Total Protein 8.2 Albumin 4.0 Urine Osmolality Ur Random Sodium Ur Random Potassium Ur Random Chloride Urine Creatinine 09/21/18 09/21/18 09/21/18 09:43 09:43 18:50 WBC RBC Hgb Hct MCV MCH MCHC RDW Plt Count MPV Absolute Neuts (auto) Neutrophils % Lymphocytes % Monocytes % Eosinophils % Basophils % Nucleated RBC % ESR 25 H PT with INR INR Sodium Potassium Chloride Carbon Dioxide Anion Gap BUN Creatinine Creat Clearance w eGFR Random Glucose Serum Osmolality 295 Calcium Phosphorus Magnesium Total Bilirubin AST ALT Alkaline Phosphatase Troponin I C-Reactive Protein Total Protein Albumin Urine Osmolality Ur Random Sodium < 18 L Ur Random Potassium 44.0 Ur Random Chloride < 11 L Urine Creatinine 09/21/18 09/21/18 09/22/18 18:50 18:50 06:00 WBC 9.5 RBC 4.65 Hgb 14.4 Hct 43.2 MCV 92.9 MCH 30.9 MCHC 33.3 RDW 13.1 Plt Count 234 MPV 7.2 L Absolute Neuts (auto) 6.4 Neutrophils % 67.3 Lymphocytes % 18.7 D Monocytes % 11.6 H Eosinophils % 1.3 D Basophils % 1.1 Nucleated RBC % 0 ESR PT with INR INR Sodium Potassium Chloride Carbon Dioxide Anion Gap BUN Creatinine Creat Clearance w eGFR Random Glucose Serum Osmolality Calcium Phosphorus Magnesium Total Bilirubin AST ALT Alkaline Phosphatase Troponin I C-Reactive Protein Total Protein Albumin Urine Osmolality 582 Ur Random Sodium Ur Random Potassium Ur Random Chloride Urine Creatinine 158.0 H 09/22/18 09/22/18 06:00 06:00 WBC RBC Hgb Hct MCV MCH MCHC RDW Plt Count MPV Absolute Neuts (auto) Neutrophils % Lymphocytes % Monocytes % Eosinophils % Basophils % Nucleated RBC % ESR PT with INR 16.90 H INR 1.43 H Sodium 138 Potassium 3.9 Chloride 103 Carbon Dioxide 24 Anion Gap 11 BUN 16 Creatinine 0.7 Creat Clearance w eGFR > 60 Random Glucose 103 Serum Osmolality Calcium 8.1 L Phosphorus 3.2 Magnesium 2.3 Total Bilirubin 0.6 AST 19 ALT 27 Alkaline Phosphatase 58 Troponin I C-Reactive Protein Total Protein 6.4 Albumin 3.2 L Urine Osmolality Ur Random Sodium Ur Random Potassium Ur Random Chloride Urine Creatinine Microbiology 09/21/18 00:09 Nasopharyngeal Swab Influenza Types A,B Antigen - Final 09/21/18 00:09 Nasopharyngeal Swab - Final ASSESSMENT AND PLAN: 53 yom with PMHx of paroxysmal Afib not on AC (prior h/o being on coumadin), Asthma/bronchitis, admitted with RAO CAP and Atrial flutter with RVR. -RAO PNA with early sepsis -Atrial flutter with RVR -Hyponatremia, hypovolumic vs r/o Legionella -Suspected acute COPD exacerbation (heavy smoking history now with decreased entry and improvement with steroids) -H/o Bronchial Asthma/Bronchitis -HTN PLan: Ceftriaxone/azithromycin day 2. Blood/sputum cx. Urine PNA studies. Flu swab neg. Pulmonary input noted. Symbicort/Albuterol prn. HIV ab screen pos ID consult with Dr. Zaman. Isolation precautions per ID. Cardiology input noted. Start cardizem drip. Follow up 2D echo Sotalol per cardiology. If fails to revert, possible MONICA with DCCV tomorrow. Continue eliquis. Hold off on lasix, strict I/Os, daily weights. Continue valsartan as tolerated. DVTPPX started on eliquis as above Dispo pending clinical improvement. Plan discussed with patient and nursing in detail, all questions answered. Discussed with Dr. Zaman.
[2018-09-22] MEDS: LORATADINE 10 MG TABLET PO SCH (09:30)
[2018-09-22] MEDS: CEFTRIAXONE 1 GM in DEXTROSE 5%-WATER - 50 ML IVPB SCH (09:31)
[2018-09-22] MEDS: METOPROLOL TARTRATE 25 MG TABLET (FP) PO SCH (09:32)
[2018-09-22] MEDS: APIXABAN 5 MG TABLET PO SCH ×2 (09:32→21:25)
[2018-09-22] MEDS: AZITHROMYCIN IVPB 500 MG in DEXTROSE 5%-WATER - 250 ML IVPB SCH (09:32)
[2018-09-22] MEDS ORDERED: AZITHROMYCIN IVPB 500 MG/250 ML BAG IVPB ONE (09:35)
[2018-09-22] MEDS ORDERED: CEFTRIAXONE 1 GM/50 ML BAG ONE (09:35)
--- NOTE | 2018-09-22 11:25 | PN ---
Progress Note, Physician History of Present Illness: Remains in rapid aflutter despite efforts at rate-control, reports dyspnea, light-headedness, palpitations and chest tightness. - Current Medication List Current Medications: Active Medications Albuterol Sulfate (Ventolin Hfa Inhaler -) 2 puff IH Q6H PRN PRN Reason: ASTHMA Last Admin: 09/21/18 17:04 Dose: 2 inh Apixaban (Eliquis -) 5 mg PO BID [facility] Last Admin: 09/22/18 09:32 Dose: 5 mg Budesonide/Formoterol Fumarate (Symbicort 160/4.5mcg -) 1 puff IH DAILY [facility] Last Admin: 09/21/18 10:09 Dose: Not Given Diltiazem HCl (Cardizem Cd -) 300 mg PO DAILY [facility] Last Admin: 09/22/18 09:30 Dose: 300 mg Heparin Sodium (Porcine) (Heparin -) 5,000 unit SQ TID [facility] Last Admin: 09/22/18 06:11 Dose: 5,000 unit Azithromycin 500 mg/ Dextrose 250 mls @ 250 mls/hr IVPB DAILY [facility] Last Admin: 09/22/18 09:32 Dose: 250 mls/hr Ceftriaxone Sodium 1 gm/ (Dextrose) 50 mls @ 100 mls/hr IVPB DAILY [facility] Last Admin: 09/22/18 09:31 Dose: 100 mls/hr Loratadine (Claritin -) 10 mg PO DAILY [facility] Last Admin: 09/22/18 09:30 Dose: 10 mg Metoprolol Tartrate (Lopressor -) 25 mg PO BID [facility] Last Admin: 09/22/18 09:32 Dose: 25 mg Valsartan (Diovan -) 40 mg PO DAILY [facility] Last Admin: 09/21/18 10:09 Dose: 40 mg - Objective Vital Signs: Vital Signs Temperature 98.1 F 09/22/18 11:19 Pulse Rate 126 H 09/22/18 11:19 Respiratory Rate 17 09/22/18 11:19 Blood Pressure 107/70 09/22/18 11:19 O2 Sat by Pulse Oximetry (%) 98 09/22/18 09:52 Constitutional: Yes: No Distress, Calm Neck: Yes: Supple Cardiovascular: Yes: Regular Rate and Rhythm, Tachycardia Respiratory: Yes: Regular, CTA Bilaterally Gastrointestinal: Yes: Normal Bowel Sounds, Soft Edema: No Labs: CBC, BMP 09/22/18 06:00 09/22/18 06:00 INR, PTT INR 1.43 (0.83-1.09) H 09/22/18 06:00 - ....Imaging EKG: Report Reviewed (Tele: Rapid aflutter) Problem List - Problems (1) Asthma Code(s): J45.909 - UNSPECIFIED ASTHMA, UNCOMPLICATED Qualifiers: Asthma severity: mild Asthma persistence: intermittent (2) Atrial flutter Code(s): I48.92 - UNSPECIFIED ATRIAL FLUTTER Qualifiers: Atrial flutter type: typical Qualified Code(s): I48.3 - Typical atrial flutter (3) HTN (hypertension) Code(s): I10 - ESSENTIAL (PRIMARY) HYPERTENSION Qualifiers: Hypertension type: essential hypertension Qualified Code(s): I10 - Essential (primary) hypertension (4) Pneumonia Code(s): J18.9 - PNEUMONIA, UNSPECIFIED ORGANISM Qualifiers: Pneumonia type: due to unspecified organism Laterality: left Lung location: upper lobe of lung Qualified Code(s): J18.1 - Lobar pneumonia, unspecified organism Assessment/Plan 1. Dyspnea with acute left upper lobe pneumonia 2. Atrial flutter with RVR with prior history of PAF not on anticoagulation [id number] score likely 1 3. HTN 4. Bronchial asthma with history of bronchitis PLAN: 1. Change Lopressor 25 bid to sotalol 80 bid with check QTc after LVEF assessment, Diovan 40qd and start Cardizem gtt for improved rate-control 2. Continue Eliquis 5 mg BID, d/c subq heparin. If patient continues to be in atrial flutter, may consider MONICA +/- DC synchronized cardioversion, hold NPO after MN in case 3. F/u echocardiography to assess LV/RV and valvular function 4. Empiric antibiotic coverage, Bronchodilators and O2 as needed
[2018-09-22] MEDS ORDERED: dilTIAZem HCL 50 MG/10 ML - 10 ML VIAL IVPUSH ONE (12:19)
[2018-09-22] MEDS ORDERED: SOTALOL HCL 80 MG TABLET (FP) PO SCH (12:30)
[2018-09-22] MEDS ORDERED: DILTIAZEM INJECTION 125 MG in SODIUM CHLORIDE 100 ML IVPB SCH (12:30)
[2018-09-22 12:49] VITALS: BMI 29.4
[2018-09-22] MEDS: BUDESONIDE/FORMETEROL FUMARATE 160/4.5 mcg INHALER IH SCH (12:57)
--- NOTE | 2018-09-22 13:34 | CON.ID ---
Consult Consult Specialty:: infectious disease Referred by:: hospitalist Reason for Consultation:: pneumonia - History of Present Illness Chief Complaint: sob for 3 weeks. fevers. 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 in June history of afib as well no weight loss denies HIV risk factors lives with mother no vomiting, no chest pain prelim HIV test is positive- no history of blood transfusion no travel history has lived only in [place] - History Source History Provided By: Patient, Medical Record - Past Medical History Cardio/Vascular: Yes: AFIB, HTN Pulmonary: Yes: Asthma, Bronchitis - Past Surgical History Past Surgical History: Yes: Laminectomy (cervical) - Alcohol/Substance Use Hx Alcohol Use: No - Smoking History Smoking history: Former smoker Have you smoked in the past 12 months: Yes Aproximately how many cigarettes per day: 3 - Social History ADL: Independent Occupation: [employer] Place of : [facility] [facility] [employer] [facility] History of Recent Travel: No Home Medications - Allergies Allergies/Adverse Reactions: Allergies Allergy/AdvReac Type Severity Reaction Status Date / Time No Known Allergies Allergy Verified 09/13/14 10:16 - Home Medications Home Medications: Ambulatory Orders Albuterol Sulfate Inhaler - [Ventolin HFA Inhaler -] 1 - 2 inh PO QID PRN Budesonide/Formeterol Fumarate [SYMBICORT 160/4.5mcg -] 1 inh PO DAILY 10/21/17 Diltiazem Cd [Cardizem Cd -] 300 mg PO DAILY 10/21/17 Loratadine [Claritin] 10 mg PO DAILY 09/21/18 Valsartan 40 mg PO DAILY 09/21/18 Family Disease History - Family Disease History Other Family History: History of AF Review of Systems - Review of Systems Constitutional: reports: Chills, Fever Eyes: reports: No Symptoms HENT: reports: No Symptoms Neck: reports: No Symptoms Cardiovascular: reports: No Symptoms. denies: Chest Pain, Edema Respiratory: reports: Cough Gastrointestinal: reports: No Symptoms. denies: Abdominal Pain Genitourinary: reports: No Symptoms Musculoskeletal: reports: No Symptoms Physical Exam Vital Signs: Vital Signs Temperature 97.9 F 09/22/18 12:48 Pulse Rate 126 H 09/22/18 12:48 Respiratory Rate 17 09/22/18 12:48 Blood Pressure 107/70 09/22/18 12:48 O2 Sat by Pulse Oximetry (%) 97 09/22/18 12:33 Constitutional: Yes: Well Nourished, No Distress, Anxious Eyes: Yes: Conjunctiva Clear HENT: Yes: Atraumatic, Normocephalic Neck: Yes: Supple, Trachea Midline Cardiovascular: Yes: Regular Rate and Rhythm Respiratory: Yes: Regular, Diminished (RAO) Gastrointestinal: Yes: Normal Bowel Sounds, Soft. No: Tenderness, Tenderness, Rebound ...Rectal Exam: Yes: Deferred Renal/: No: CVA Tenderness - Left, CVA Tenderness - Right Musculoskeletal: Yes: WNL Extremities: Yes: WNL Edema: No Peripheral Pulses WNL: Yes Integumentary: Yes: WNL Psychiatric: Yes: Alert, Oriented Labs: CBC, BMP 09/22/18 06:00 09/22/18 06:00 Microbiology 09/21/18 18:50 Urine - Urine Clean Catch Legionella Antigen - Final 09/21/18 18:50 Urine - Urine Clean Catch Streptococcus pneumoniae Antigen ( M - Final 09/21/18 07:14 Blood - Peripheral Venous Blood Culture - Preliminary NO GROWTH OBTAINED AFTER 24 HOURS, INCUBATION TO CONTINUE FOR 4 DAYS. 09/21/18 07:14 Blood - Peripheral Venous Blood Culture - Preliminary NO GROWTH OBTAINED AFTER 24 HOURS, INCUBATION TO CONTINUE FOR 4 DAYS. 09/21/18 00:11 Urine - Urine Clean Catch Urine Culture - Final 09/21/18 00:09 Nasopharyngeal Swab Influenza Types A,B Antigen - Final 09/21/18 00:09 Nasopharyngeal Swab - Final Imaging - Results Chest X-ray: Report Reviewed, Image Reviewed Cat Scan: Report Reviewed, Image Reviewed Problem List - Problems (1) Pneumonia Code(s): J18.9 - PNEUMONIA, UNSPECIFIED ORGANISM Qualifiers: Pneumonia type: due to unspecified organism Laterality: left Lung location: upper lobe of lung Qualified Code(s): J18.1 - Lobar pneumonia, unspecified organism (2) A-fib Code(s): I48.91 - UNSPECIFIED ATRIAL FIBRILLATION Assessment/Plan RAO pneumonia- r/o TB, r/o CAP prelim hiv antibiody test positive- confirmation pending- WILL WAIT FOR CONFIRMATION BEFORE SPEAKING WITH PATIENT would isolate await quantiferon gold sputum afb time 3/AFB NAAT rocephin to continue d/c zithromax management afib per cardiology
--- NOTE | 2018-09-22 13:46 | PN ---
Progress Note (short form) - Note Progress Note: Congested cough. No hemoptysis. Right neck/back pain form stretcher. SOB a little better. Intake & Output 09/19/18 09/20/18 09/21/18 09/22/18 23:59 23:59 23:59 23:59 Weight 245 lb 241 lb 14.4 oz Last Vital Signs Temp Pulse Resp BP Pulse Ox 97.9 F 126 H 17 107/70 97 09/22/18 12:48 09/22/18 12:48 09/22/18 12:48 09/22/18 12:48 09/22/18 12:33 Active Medications Albuterol Sulfate (Ventolin Hfa Inhaler -) 2 puff IH Q6H PRN PRN Reason: ASTHMA Last Admin: 09/21/18 17:04 Dose: 2 inh Apixaban (Eliquis -) 5 mg PO BID [facility] Last Admin: 09/22/18 09:32 Dose: 5 mg Budesonide/Formoterol Fumarate (Symbicort 160/4.5mcg -) 1 puff IH DAILY [facility] Last Admin: 09/21/18 10:09 Dose: Not Given Ceftriaxone Sodium 1 gm/ (Dextrose) 50 mls @ 100 mls/hr IVPB DAILY [facility] Last Admin: 09/22/18 09:31 Dose: 100 mls/hr Diltiazem HCl 125 mg/ Sodium (Chloride) 125 mls @ 5 mls/hr IVPB TITR [facility]; Protocol Influenza Virus Vaccine Quadrival (Flulaval Quad [id number]) 60 mcg IM .ONCE ONE Stop: 09/24/18 10:01 Loratadine (Claritin -) 10 mg PO DAILY [facility] Last Admin: 09/22/18 09:30 Dose: 10 mg Prednisone (Deltasone -) 60 mg PO DAILY [facility] Sotalol HCl (Betapace -) 80 mg PO BID [facility] Last Admin: 09/22/18 12:57 Dose: 80 mg Valsartan (Diovan -) 40 mg PO DAILY [facility] Last Admin: 09/21/18 10:09 Dose: 40 mg Constitutional: Yes: No Distress Neck: Yes: Supple Cardiovascular: Yes: Regular Rate and Rhythm, Tachycardia Respiratory: Yes: few scattered rhonchi on the left Gastrointestinal: Yes: Normal Bowel Sounds, Soft Edema: No Labs: Laboratory Results - last 24 hr 09/21/18 09/21/18 09/21/18 18:50 18:50 18:50 WBC RBC Hgb Hct MCV MCH MCHC RDW Plt Count MPV Absolute Neuts (auto) Neutrophils % Lymphocytes % Monocytes % Eosinophils % Basophils % Nucleated RBC % PT with INR INR Sodium Potassium Chloride Carbon Dioxide Anion Gap BUN Creatinine Creat Clearance w eGFR Random Glucose Calcium Phosphorus Magnesium Total Bilirubin AST ALT Alkaline Phosphatase Total Protein Albumin Urine Osmolality 582 Ur Random Sodium < 18 L Ur Random Potassium 44.0 Ur Random Chloride < 11 L Urine Creatinine 158.0 H HIV 1&2 Antibody Screen HIV P24 Antigen 09/22/18 09/22/18 09/22/18 06:00 06:00 06:00 WBC 9.5 RBC 4.65 Hgb 14.4 Hct 43.2 MCV 92.9 MCH 30.9 MCHC 33.3 RDW 13.1 Plt Count 234 MPV 7.2 L Absolute Neuts (auto) 6.4 Neutrophils % 67.3 Lymphocytes % 18.7 D Monocytes % 11.6 H Eosinophils % 1.3 D Basophils % 1.1 Nucleated RBC % 0 PT with INR 16.90 H INR 1.43 H Sodium 138 Potassium 3.9 Chloride 103 Carbon Dioxide 24 Anion Gap 11 BUN 16 Creatinine 0.7 Creat Clearance w eGFR > 60 Random Glucose 103 Calcium 8.1 L Phosphorus 3.2 Magnesium 2.3 Total Bilirubin 0.6 AST 19 ALT 27 Alkaline Phosphatase 58 Total Protein 6.4 Albumin 3.2 L Urine Osmolality Ur Random Sodium Ur Random Potassium Ur Random Chloride Urine Creatinine HIV 1&2 Antibody Screen HIV P24 Antigen 09/22/18 06:00 WBC RBC Hgb Hct MCV MCH MCHC RDW Plt Count MPV Absolute Neuts (auto) Neutrophils % Lymphocytes % Monocytes % Eosinophils % Basophils % Nucleated RBC % PT with INR INR Sodium Potassium Chloride Carbon Dioxide Anion Gap BUN Creatinine Creat Clearance w eGFR Random Glucose Calcium Phosphorus Magnesium Total Bilirubin AST ALT Alkaline Phosphatase Total Protein Albumin Urine Osmolality Ur Random Sodium Ur Random Potassium Ur Random Chloride Urine Creatinine HIV 1&2 Antibody Screen Preliminary positive HIV P24 Antigen Negative Problem List - Problems (1) A-fib Code(s): I48.91 - UNSPECIFIED ATRIAL FIBRILLATION (2) Atrial fibrillation Code(s): I48.91 - UNSPECIFIED ATRIAL FIBRILLATION Qualifiers: Atrial fibrillation type: paroxysmal Qualified Code(s): I48.0 - Paroxysmal atrial fibrillation (3) Atrial flutter Code(s): I48.92 - UNSPECIFIED ATRIAL FLUTTER Qualifiers: Atrial flutter type: typical Qualified Code(s): I48.3 - Typical atrial flutter (4) HTN (hypertension) Code(s): I10 - ESSENTIAL (PRIMARY) HYPERTENSION Qualifiers: Hypertension type: essential hypertension Qualified Code(s): I10 - Essential (primary) hypertension (5) Pneumonia Code(s): J18.9 - PNEUMONIA, UNSPECIFIED ORGANISM Qualifiers: Pneumonia type: due to unspecified organism Laterality: left Lung location: upper lobe of lung Qualified Code(s): J18.1 - Lobar pneumonia, unspecified organism (6) Asthma Code(s): J45.909 - UNSPECIFIED ASTHMA, UNCOMPLICATED IMP DYSPNEA RAO PNEUMONIA AFLUTTER ASTHMA HTN PLAN IV ABX PER ID CULTURES INHALED BRONCHODILATORS O2 RATE CONTROL PER CARDIOLOGY AC LEGIONELLA URINARY ANTIGEN COLD AGGLUTININS SPUTUM C+S F/U CHEST X-RAYS F/U CHEST CT 6 WKS TO CONFIRM RESOLUTION ON INFILTRATES DR LITTLE
[2018-09-22] MEDS ORDERED: ACETAMINOPHEN 325 MG TABLET (FP) ONE (13:48)
[2018-09-22] MEDS ORDERED: MORPHINE SULFATE 2 MG/ML VIAL IVPUSH PRN ×2 (14:00→14:01)
[2018-09-22] MEDS: predniSONE 20 MG TABLET (UD) PO SCH (14:04)
[2018-09-22] MEDS ORDERED: CEFTRIAXONE 1 GM in DEXTROSE 5%-WATER - 50 ML IVPB ONE (14:30)
--- NOTE | 2018-09-22 14:30 | ECHO ---
Name: JACKIE DIANE Exam:Adult Echocardiogram Study Date: 09/22/2018 01:12 PM Age: 53 yrs Reason For Study: HEART FAILURE Height: 76 in Weight: 245 lb BSA: 2.4 m2 BP: 103/67 mmHg MMode/2D Measurements & Calculations IVSd: 1.1 cm Ao root diam: 3.8 cm LVIDd: 6.0 cm LA dimension: 5.6 cm LVIDs: 4.9 cm LVPWd: 1.2 cm EDV(Teich): 182.6 ml LVOT diam: 2.2 cm ESV(Teich): 110.8 ml TAPSE: 1.4 cm RV S Ty: 7.0 cm/sec Doppler Measurements & Calculations MR max ty: 345.4 cm/sec TR max ty: 236.2 cm/sec MR max P.7 mmHg TR max P.3 mmHg Procedure A complete two-dimensional transthoracic echocardiogram was performed (2D, M-mode, Doppler and color flow Doppler). Left Ventricle The left ventricle is mildly dilated. Left ventricular systolic function is severely reduced. Ejectio n Fraction = 30-35%. There is severe global hypokinesis of the left ventricle. Right Ventricle The right ventricle is not well visualized. Reduced RV systolic function with RV systolic TDI of 7 cm /s. Atria The left atrium is moderately dilated. The right atrium is moderately dilated. Mitral Valve The mitral valve is normal in structure and function. There is mild mitral regurgitation. Tricuspid Valve The tricuspid valve is normal in structure and function. There is mild to moderate tricuspid regurgit ation. Pulmonary artery systolic pressure is at least 37 mmHg assuming RA pressure of 15 mmHg (dilated IVC a nd <50% collapse). Aortic Valve The aortic valve is normal in structure and function. No aortic regurgitation is present. Pulmonic Valve The pulmonic valve is not well visualized. Great Vessels The aortic root is normal size. Pericardium/Pleura There is no pericardial effusion. Interpretation Summary The left ventricle is mildly dilated. Left ventricular systolic function is severely reduced. There is severe global hypokinesis of the left ventricle. Ejection Fraction = 30-35%. Reduced RV systolic function with RV systolic TDI of 7 cm/s The left atrium is moderately dilated. The right atrium is moderately dilated. There is mild mitral regurgitation. There is mild to moderate tricuspid regurgitation. Pulmonary artery systolic pressure is at least 37 mmHg assuming RA pressure of 15 mmHg (dilated IVC a nd <50% collapse) There is no pericardial effusion. Previous study is not available for comparison Wil Gallo MD 09/22/2018 02:30 PM
[2018-09-22] MEDS ORDERED: DEXTROSE 5%-WATER - 50 ML IVPB ONE (14:36)
[2018-09-22] MEDS ORDERED: cefTRIAXone SODIUM 1 GM VIAL ONE (14:36)
[2018-09-22] MEDS ORDERED: DIGOXIN 0.5 MG/2 ML AMPUL IVPUSH ONE (14:39)
--- NOTE | 2018-09-22 18:09 | PN ---
Physical Exam: SUBJECTIVE: Patient seen and examined this morning at bedside. Continues to have cough productive of yellow phlegm. Denies fevers, chills, chest pain, palpitations SOB, nausea, vomiting, diarrhea , constipation, abdominal pain, dysuria. OBJECTIVE: Vital Signs Period Temp Pulse Resp BP Sys/Garg Pulse Ox Last 24 Hr 97.6 F-98.2 F 16-126 16-18 107-125/70-94 97-99 GENERAL: A&Ox3, NAD HEAD: NCAT EYES: PERRL, EOMI EARS, NOSE, THROAT: Oropharynx clear without exudates. Moist mucous membranes. NECK: No JVD LUNGS: Diminished breath sounds throughout. No wheezes. HEART: Regular rate and rhythm, normal S1 and S2 without murmur ABDOMEN: Soft, nontender, not distended, + bowel sounds, no guarding EXTREMITIES: 2+ pulses, No edema. NEUROLOGICAL: Cranial nerves II-XII intact. Normal speech. C5-T1 and L4-S1 gross sensation intact. 5/5 Muscle strength to Handgrip, elbow flexion/extension , Hip flexion, Dorsiflexion, plantarflexion. SKIN: Warm, dry, no rashes or lesions noted Laboratory Results - last 24 hr 09/21/18 09/21/18 09/21/18 18:50 18:50 18:50 WBC RBC Hgb Hct MCV MCH MCHC RDW Plt Count MPV Absolute Neuts (auto) Neutrophils % Lymphocytes % Monocytes % Eosinophils % Basophils % Nucleated RBC % PT with INR INR Sodium Potassium Chloride Carbon Dioxide Anion Gap BUN Creatinine Creat Clearance w eGFR Random Glucose Calcium Phosphorus Magnesium Total Bilirubin AST ALT Alkaline Phosphatase Total Protein Albumin Urine Osmolality 582 Ur Random Sodium < 18 L Ur Random Potassium 44.0 Ur Random Chloride < 11 L Urine Creatinine 158.0 H HIV 1&2 Antibody Screen HIV P24 Antigen 09/22/18 09/22/18 09/22/18 06:00 06:00 06:00 WBC 9.5 RBC 4.65 Hgb 14.4 Hct 43.2 MCV 92.9 MCH 30.9 MCHC 33.3 RDW 13.1 Plt Count 234 MPV 7.2 L Absolute Neuts (auto) 6.4 Neutrophils % 67.3 Lymphocytes % 18.7 D Monocytes % 11.6 H Eosinophils % 1.3 D Basophils % 1.1 Nucleated RBC % 0 PT with INR 16.90 H INR 1.43 H Sodium 138 Potassium 3.9 Chloride 103 Carbon Dioxide 24 Anion Gap 11 BUN 16 Creatinine 0.7 Creat Clearance w eGFR > 60 Random Glucose 103 Calcium 8.1 L Phosphorus 3.2 Magnesium 2.3 Total Bilirubin 0.6 AST 19 ALT 27 Alkaline Phosphatase 58 Total Protein 6.4 Albumin 3.2 L Urine Osmolality Ur Random Sodium Ur Random Potassium Ur Random Chloride Urine Creatinine HIV 1&2 Antibody Screen HIV P24 Antigen 09/22/18 06:00 WBC RBC Hgb Hct MCV MCH MCHC RDW Plt Count MPV Absolute Neuts (auto) Neutrophils % Lymphocytes % Monocytes % Eosinophils % Basophils % Nucleated RBC % PT with INR INR Sodium Potassium Chloride Carbon Dioxide Anion Gap BUN Creatinine Creat Clearance w eGFR Random Glucose Calcium Phosphorus Magnesium Total Bilirubin AST ALT Alkaline Phosphatase Total Protein Albumin Urine Osmolality Ur Random Sodium Ur Random Potassium Ur Random Chloride Urine Creatinine HIV 1&2 Antibody Screen Negative HIV P24 Antigen Negative Microbiology 09/21/18 18:32 Sputum - Expectorated Gram Stain - Final 09/21/18 18:50 Urine - Urine Clean Catch Legionella Antigen - Final 09/21/18 18:50 Urine - Urine Clean Catch Streptococcus pneumoniae Antigen ( M - Final 09/21/18 07:14 Blood - Peripheral Venous Blood Culture - Preliminary NO GROWTH OBTAINED AFTER 24 HOURS, INCUBATION TO CONTINUE FOR 4 DAYS. 09/21/18 07:14 Blood - Peripheral Venous Blood Culture - Preliminary NO GROWTH OBTAINED AFTER 24 HOURS, INCUBATION TO CONTINUE FOR 4 DAYS. 09/21/18 00:11 Urine - Urine Clean Catch Urine Culture - Final 09/21/18 00:09 Nasopharyngeal Swab Influenza Types A,B Antigen - Final 09/21/18 00:09 Nasopharyngeal Swab - Final Active Medications Albuterol Sulfate (Ventolin Hfa Inhaler -) 2 puff IH Q6H PRN PRN Reason: ASTHMA Last Admin: 09/21/18 17:04 Dose: 2 inh Apixaban (Eliquis -) 5 mg PO BID [facility] Last Admin: 09/22/18 09:32 Dose: 5 mg Budesonide/Formoterol Fumarate (Symbicort 160/4.5mcg -) 1 puff IH DAILY [facility] Last Admin: 09/21/18 10:09 Dose: Not Given Carvedilol (Coreg -) 6.25 mg PO BID [facility] Ceftriaxone Sodium 2 gm/ (Dextrose) 100 mls @ 100 mls/hr IVPB DAILY [facility]; Protocol Influenza Virus Vaccine Quadrival (Flulaval Quad [id number]) 60 mcg IM .ONCE ONE Stop: 09/24/18 10:01 Loratadine (Claritin -) 10 mg PO DAILY [facility] Last Admin: 09/22/18 09:30 Dose: 10 mg Morphine Sulfate (Morphine Sulfate) 2 mg IVPUSH Q4H PRN PRN Reason: PAIN LEVEL 6-10 Last Admin: 09/22/18 16:10 Dose: 2 mg Morphine Sulfate (Morphine Sulfate) 1 mg IVPUSH Q4H PRN PRN Reason: PAIN LEVEL 1-5 Last Admin: 09/22/18 14:41 Dose: 1 mg Prednisone (Deltasone -) 60 mg PO DAILY [facility] Last Admin: 09/22/18 14:04 Dose: 60 mg Valsartan (Diovan -) 40 mg PO DAILY [facility] Last Admin: 09/21/18 10:09 Dose: 40 mg IMAGING: -EKG: SINUS TACHYCARDIA, INFERIOR INFARCT , AGE UNDETERMINED, ANTERIOR INFARCT ( CITED ON OR BEFORE 21-SEP-2018), VR 133 bpm, QTc 401 -ECHO: LV is mildly dilated, LV SF is severely reduced, Global hypokinesis of the LV, EF 30-35%, Reduced RV Systolic function, LA and RA are moderately dilated, Mild MR, Mild to Mod TR -CXR: Left upper lobe presumed pneumonia. If findings do not resolve then further imaging with CT is suggested. -CT Chest without contrast: Extensive left upper lobe consolidation consistent with an acute pneumonia. Clinical correlation and follow-up recommended. ASSESSMENT/PLAN: 53 y/o M with PMHx of asthma, Afib (not on anticoagulation), HTN, presents with SOB for the past three weeks. 1. AFib with RVR -Troponin < 0.02 x2 -BNP 2442.2 -EKG: Sinus tachy -ECHO: LV SF is severely reduced, Global hypokinesis of the LV, EF 30-35% -Cardiology (Dr. Gallo) consulted, appreciate rec's, Carvedilol 6.25 bid, Diovan 40qd, Continue Eliquis 5 mg BID, d/c subq heparin. If patient continues to be in atrial flutter, may consider MONICA +/- DC synchronized cardioversion, hold NPO after MN in case -Strict I&Os, Daily weights -Continue Carvedilol, Diovan -Continue Eliquis 5 mg BID 2. RAO pneumonia -Isoltation -Ceftriaxone 2 gram IV daily (Started on 09/21) -Continue Ventolin, Symbicort, Prednisone -Completed Azithromycin course (09/21-09/22) -Urine for pneumonia, legionella negative -Flu swab negative -Blood cultures NGTD -Sputum cultures pending -HIV Screen noted -ID (Dr. Zaman) consulted, appreciate rec's, would isolate, await quantiferon gold, sputum afb time 3/AFB NAAT, rocephin to continue, d/c zithromax -Pulmonology (Dr. Buck) consulted, appreciate rec's, COLD AGGLUTININS, F/ U CHEST X-RAYS, F/U CHEST CT 6 WKS TO CONFIRM RESOLUTION ON INFILTRATES 3. Hyponatremia -Resolved -Urine electrolytes, serum and urine osmolality, urine creatinine noted 4. FEN -PO fluids -Continue to monitor for Hyponatremia -Sodium controlled diet 5. PPx -DVT: Eliquis Dispo: telemetry-Inpatient Visit type - Emergency Visit Emergency Visit: Yes ED Registration Date: 09/21/18 Care time: The patient presented to the Emergency Department on the above date and was hospitalized for further evaluation of their emergent condition. - New Patient This patient is new to me today: Yes Date on this admission: 09/22/18 - Critical Care Critical Care patient: No - Discharge Referral Referred to [facility] Med P.C.: No
[2018-09-22] MEDS ORDERED: CARVEDILOL 6.25 MG TABLET (FP) PO SCH (22:00)
--- NOTE | 2018-09-23 06:35 | PN ---
Progress Note (short form) - Note Progress Note: Chief Complaint: Events noted, notes reviewed, denies any chest pain, reports dyspnea this morning with wheeze, atrial flutter persists with 2:1 conduction, rapid ventricular response History of Present Illness: Seen and examined on telemetry. Events noted, notes reviewed, denies any chest pain, reports dyspnea this morning with wheeze, atrial flutter persists with 2: 1 conduction, rapid ventricular response Echocardiography revealed systolic LV size dysfunction with LVEF 30-35%, LAE, mild MR, mild to moderate TR with RVSP 37 mmHg - Current Medication List Current Medications Albuterol Sulfate (Ventolin Hfa Inhaler -) 2 puff IH Q6H PRN PRN Reason: ASTHMA Last Admin: 09/21/18 17:04 Dose: 2 inh Apixaban (Eliquis -) 5 mg PO BID [facility] Last Admin: 09/22/18 21:25 Dose: 5 mg Budesonide/Formoterol Fumarate (Symbicort 160/4.5mcg -) 1 puff IH DAILY [facility] Last Admin: 09/22/18 12:57 Dose: 1 puff Carvedilol (Coreg -) 6.25 mg PO BID [facility] Last Admin: 09/22/18 21:25 Dose: 6.25 mg Ceftriaxone Sodium 2 gm/ (Dextrose) 100 mls @ 100 mls/hr IVPB DAILY [facility]; Protocol Influenza Virus Vaccine Quadrival (Flulaval Quad [id number]) 60 mcg IM .ONCE ONE Stop: 09/24/18 10:01 Loratadine (Claritin -) 10 mg PO DAILY [facility] Last Admin: 09/22/18 09:30 Dose: 10 mg Morphine Sulfate (Morphine Sulfate) 2 mg IVPUSH Q4H PRN PRN Reason: PAIN LEVEL 6-10 Last Admin: 09/22/18 16:10 Dose: 2 mg Morphine Sulfate (Morphine Sulfate) 1 mg IVPUSH Q4H PRN PRN Reason: PAIN LEVEL 1-5 Last Admin: 09/22/18 14:41 Dose: 1 mg Prednisone (Deltasone -) 60 mg PO DAILY [facility] Last Admin: 09/22/18 14:04 Dose: 60 mg Valsartan (Diovan -) 40 mg PO DAILY [facility] Last Admin: 09/21/18 10:09 Dose: 40 mg Review of Systems Cardiovascular: As noted above Respiratory: denies: reports: Cough and Sputum Production Gastrointestinal: denies: Nausea, Vomiting, Diarrhea, Constipation or Abdominal Discomfort Musculoskeletal: No Symptoms Reported Endocrine: No Symptoms Reported - Objective Vital Signs: Last Vital Signs Temp Pulse Resp BP Pulse Ox 98.0 F 110 H 17 125/97 96 09/23/18 06:03 09/23/18 06:03 09/23/18 06:03 09/23/18 06:03 09/22/18 21:00 Intake & Output 09/20/18 09/21/18 09/22/18 09/23/18 23:59 23:59 23:59 23:59 Intake Total 500 Output Total 800 Balance -300 Weight 245 lb 241 lb 14.4 oz Constitutional: No Distress Respiratory: Bilateral Scattered Rhonchi and Expiratory Wheeze Cardiovascular: S1 S2 Regular Rate and Rhythm Tachycardia Gastrointestinal: Soft Benign Normal Bowel Sounds Ext: No Edema intact distal pulses no calf tenderness Labs: CBC, BMP 09/23/18 05:30 BMP pending from this AM Hepatic Panel Total Bilirubin 0.6 mg/dL (0.2-1) 09/22/18 06:00 AST 19 U/L (15-37) 09/22/18 06:00 ALT 27 U/L (13-61) 09/22/18 06:00 Alkaline Phosphatase 58 U/L (45-117) 09/22/18 06:00 Albumin 3.2 g/dl (3.4-5.0) L 09/22/18 06:00 Assessment/Plan Assessment: 1. Dyspnea acute exacerbation of asthma with left upper lobe pneumonia 2. Persistent atrial flutter with RVR with prior history of paroxysmal atrial fibrillation on anticoagulation with DOAC's/Eliquis [id number] score of 1-2 3. 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 HTN 5. History of bronchial asthma with acute exacerbation as noted above 6. Preliminary HIV positive test 7. To exclude tuberculosis PLAN: 1. Continue Coreg and titrate as tolerated and as needed 2. Initiate Entresto in substitution for Diovan 3. Continue Eliquis 4. Will discuss with ID service in reference to timing of procedure MONICA guided synchronized cardioversion (since patient currently on respiratory isolation), above was reviewed in detail with the patient Thee Tompkins M.D.
[2018-09-23 06:45] LABS: BASO % 0.3 % (0-2.0); EOS % 0.1 % (0-4.5); HEMATOCRIT 43.1 % (35.4-49); LYMPH % 12.2 % (8-40); MCH 30.3 pg (25.7-33.7); MCHC 32.4 g/dl (32.0-35.9); MEAN CELL VOLUME 93.5 fl (80-96); MEAN PLT VOLUME 7.8 fl (7.5-11.1); MONO % 12.2 % (3.8-10.2); NEUT % 75.2 % (42.8-82.8); PLATELET COUNT 259 K/MM3 (134-434); RBC 4.61 M/mm3 (4.00-5.60); RDW 13.3 % (11.9-15.9); WHITE BLOOD COUNT 9.1 K/mm3 (4.0-10.0)
[2018-09-23 07:13] LABS: ALBUMIN 3.1 g/dl (3.4-5.0); ALK PHOS 58 U/L (45-117); ANION GAP 9 MMOL/L (8-16); BILIRUBIN,TOTAL 0.5 mg/dL (0.2-1); BLOOD UREA NITROGEN 13 mg/dL (7-18); CALCIUM 8.2 mg/dL (8.5-10.1); CHLORIDE 102 mmol/L (98-107); CO2 29 mmol/L (21-32); CREATININE 0.7 mg/dL (0.55-1.3); GLUCOSE,RANDOM 98 mg/dL (74-106); MAGNESIUM 2.5 mg/dL (1.8-2.4); PHOSPHOROUS 3.6 mg/dL (2.5-4.9); POTASSIUM 4.4 mmol/L (3.5-5.1); SGOT/AST 16 U/L (15-37); SGPT/ALT 29 U/L (13-61); SODIUM 140 mmol/L (136-145); TOT PROT 6.2 g/dl (6.4-8.2)
--- NOTE | 2018-09-23 08:37 | PN ---
Teaching Attending Note Name of Resident: Robyn Garcia ATTENDING PHYSICIAN STATEMENT I saw and evaluated the patient. I reviewed the resident's note and discussed the case with the resident. I agree with the resident's findings and plan as documented with exceptions below. SUBJECTIVE: Patient seen and examined. Breathing improved, Palpitations better, no chest pain or new concerns. OBJECTIVE: Vital Signs Period Temp Pulse Resp BP Sys/Garg Pulse Ox Last 24 Hr 97.9 F-98.2 F 76-126 16-17 104-125/70-97 96-98 Intake & Output 09/20/18 09/21/18 09/22/18 09/23/18 23:59 23:59 23:59 23:59 Intake Total 500 Output Total 800 Balance -300 Weight 245 lb 241 lb 14.4 oz General: sitting in bed breathing better, minimal use of accessory muscles of respiration Chest: improved air entry, few left sided rales Abdomen: soft, NT, ND, positive bowel sounds CVS: S1s2 irregular, tachycardic Extremities: no edema Home Medications Medication Instructions Recorded Albuterol Sulfate Inhaler - 1 - 2 inh PO QID PRN 09/13/14 [Ventolin HFA Inhaler -] Budesonide/Formeterol Fumarate 1 inh PO DAILY 10/21/17 [SYMBICORT 160/4.5mcg -] Diltiazem Cd [Cardizem Cd -] 300 mg PO DAILY 10/21/17 Loratadine [Claritin] 10 mg PO DAILY 09/21/18 Valsartan 40 mg PO DAILY 09/21/18 Active Medications Albuterol Sulfate (Ventolin Hfa Inhaler -) 2 puff IH Q6H PRN PRN Reason: ASTHMA Last Admin: 09/21/18 17:04 Dose: 2 inh Apixaban (Eliquis -) 5 mg PO BID [facility] Last Admin: 09/22/18 21:25 Dose: 5 mg Budesonide/Formoterol Fumarate (Symbicort 160/4.5mcg -) 1 puff IH DAILY [facility] Last Admin: 09/22/18 12:57 Dose: 1 puff Carvedilol (Coreg -) 12.5 mg PO BID [facility] Ceftriaxone Sodium 2 gm/ (Dextrose) 100 mls @ 100 mls/hr IVPB DAILY [facility]; Protocol Influenza Virus Vaccine Quadrival (Flulaval Quad [id number]) 60 mcg IM .ONCE ONE Stop: 09/24/18 10:01 Loratadine (Claritin -) 10 mg PO DAILY [facility] Last Admin: 09/22/18 09:30 Dose: 10 mg Morphine Sulfate (Morphine Sulfate) 2 mg IVPUSH Q4H PRN PRN Reason: PAIN LEVEL 6-10 Last Admin: 09/22/18 16:10 Dose: 2 mg Morphine Sulfate (Morphine Sulfate) 1 mg IVPUSH Q4H PRN PRN Reason: PAIN LEVEL 1-5 Last Admin: 09/22/18 14:41 Dose: 1 mg Prednisone (Deltasone -) 60 mg PO DAILY [facility] Last Admin: 09/22/18 14:04 Dose: 60 mg Sacubitril/Valsartan (Entresto 24 Mg-26 Mg Tablet) 1 tab PO BID [facility] Laboratory Results - last 24 hr 09/22/18 09/23/18 09/23/18 06:00 05:30 05:30 WBC 9.1 RBC 4.61 Hgb 14.0 Hct 43.1 MCV 93.5 MCH 30.3 MCHC 32.4 RDW 13.3 Plt Count 259 MPV 7.8 Absolute Neuts (auto) 6.8 Neutrophils % 75.2 Lymphocytes % 12.2 D Monocytes % 12.2 H Eosinophils % 0.1 D Basophils % 0.3 Nucleated RBC % 0 Sodium 140 Potassium 4.4 Chloride 102 Carbon Dioxide 29 Anion Gap 9 BUN 13 Creatinine 0.7 Creat Clearance w eGFR > 60 Random Glucose 98 Calcium 8.2 L Phosphorus 3.6 Magnesium 2.5 H Total Bilirubin 0.5 AST 16 ALT 29 Alkaline Phosphatase 58 Total Protein 6.2 L Albumin 3.1 L HIV 1&2 Antibody Screen Negative HIV P24 Antigen Negative Microbiology 09/22/18 21:45 Sputum - Expectorated AFB Smear Concentration - Preliminary 09/22/18 21:45 Sputum - Expectorated Mycobacterial Culture - Preliminary 09/22/18 15:20 Sputum - Expectorated AFB Smear Concentration - Preliminary 09/22/18 15:20 Sputum - Expectorated Mycobacterial Culture - Preliminary 09/21/18 18:32 Sputum - Expectorated Gram Stain - Final 09/21/18 18:50 Urine - Urine Clean Catch Legionella Antigen - Final 09/21/18 18:50 Urine - Urine Clean Catch Streptococcus pneumoniae Antigen ( M - Final 09/21/18 07:14 Blood - Peripheral Venous Blood Culture - Preliminary NO GROWTH OBTAINED AFTER 24 HOURS, INCUBATION TO CONTINUE FOR 4 DAYS. 09/21/18 07:14 Blood - Peripheral Venous Blood Culture - Preliminary NO GROWTH OBTAINED AFTER 24 HOURS, INCUBATION TO CONTINUE FOR 4 DAYS. 09/21/18 00:11 Urine - Urine Clean Catch Urine Culture - Final 09/21/18 00:09 Nasopharyngeal Swab Influenza Types A,B Antigen - Final 09/21/18 00:09 Nasopharyngeal Swab - Final 2D echo results reviewed ASSESSMENT AND PLAN: 53 yom with PMHx of paroxysmal Afib not on AC (prior h/o being on coumadin), Asthma/bronchitis, admitted with RAO CAP and Atrial flutter with RVR. -RAO PNA with early sepsis -Atrial flutter with RVR -New cardiomyopathy, ?Ischemic vs tachycardia induced -Hyponatremia, hypovolumic vs r/o Legionella -Suspected acute COPD exacerbation (heavy smoking history now with decreased entry and improvement with steroids) -H/o Bronchial Asthma/Bronchitis -HTN PLan: Ceftriaxone day 3, ID input noted, Off azithromycin for now. Blood/sputum cx Sputum AFB stain neg, but low suspicion based on presentation. Urine PNA studies/Flu swab neg. HIV screen neg. Isolation precautions per ID. Pulmonary input noted. Symbicort/Albuterol prn. Continue Prednisone Cardiology input noted. 2D noted. New cardiomyopathy. Started on coreg/eliquis. Valsartan changed to entresto. MONICA/DCCV per cardiology. Will need ischemic work up once rate improved and infectious concerns better Lasix prn per volume status. Strict I/Os and daily weights. DVTPPX started on eliquis as above Dispo pending clinical improvement. Plan discussed with patient in detail, all questions answered.
[2018-09-23] MEDS ORDERED: DEXTROSE 5%-WATER 100 ML IVPB ONE (09:51)
[2018-09-23] MEDS: CARVEDILOL 12.5 MG TABLET (FP) PO SCH ×2 (09:55→21:00)
[2018-09-23] MEDS: APIXABAN 5 MG TABLET PO SCH ×2 (09:55→21:00)
[2018-09-23] MEDS: predniSONE 20 MG TABLET (UD) PO SCH (09:55)
[2018-09-23] MEDS: LORATADINE 10 MG TABLET PO SCH (09:55)
[2018-09-23] MEDS: SACUBITRIL/VALSARTAN 24 MG-26 MG TABLET PO SCH ×2 (09:56→21:00)
[2018-09-23] MEDS: BUDESONIDE/FORMETEROL FUMARATE 160/4.5 mcg INHALER IH SCH (09:56)
[2018-09-23] MEDS: CEFTRIAXONE 2 GM in DEXTROSE 5%-WATER 100 ML IVPB SCH (09:56)
--- NOTE | 2018-09-23 14:27 | PN ---
Progress Note (short form) - Note Progress Note: much calmer breathing improved with steorids Vital Signs Period Temp Pulse Resp BP Sys/Garg Pulse Ox Last 24 Hr 98.0 F-98.2 F 76-126 17-18 104-136/77-97 96-100 cor-rrr, tachycardia lungs clear abd soft,nt ext no edema CBC, BMP 09/23/18 05:30 09/23/18 05:30 Microbiology 09/22/18 15:20 Sputum - Expectorated AFB Smear Concentration - Preliminary 09/22/18 15:20 Sputum - Expectorated Direct Acid Fast Bacilli Smear - Final 09/22/18 15:20 Sputum - Expectorated Mycobacterial Culture - Preliminary 09/22/18 21:45 Sputum - Expectorated AFB Smear Concentration - Preliminary 09/22/18 21:45 Sputum - Expectorated Direct Acid Fast Bacilli Smear - Final 09/22/18 21:45 Sputum - Expectorated Mycobacterial Culture - Preliminary 09/23/18 07:00 Sputum - Expectorated AFB Smear Concentration - Preliminary 09/23/18 07:00 Sputum - Expectorated Direct Acid Fast Bacilli Smear - Final 09/23/18 07:00 Sputum - Expectorated Mycobacterial Culture - Preliminary 09/21/18 07:14 Blood - Peripheral Venous Blood Culture - Preliminary NO GROWTH OBTAINED AFTER 48 HOURS, INCUBATION TO CONTINUE FOR 3 DAYS. 09/21/18 07:14 Blood - Peripheral Venous Blood Culture - Preliminary NO GROWTH OBTAINED AFTER 48 HOURS, INCUBATION TO CONTINUE FOR 3 DAYS. 09/21/18 18:32 Sputum - Expectorated Gram Stain - Final 09/21/18 18:32 Sputum - Expectorated Sputum Culture - Preliminary NORMAL RESPIRATORY ABIMAEL 09/21/18 18:50 Urine - Urine Clean Catch Legionella Antigen - Final 09/21/18 18:50 Urine - Urine Clean Catch Streptococcus pneumoniae Antigen ( M - Final 09/21/18 00:11 Urine - Urine Clean Catch Urine Culture - Final 09/21/18 00:09 Nasopharyngeal Swab Influenza Types A,B Antigen - Final 09/21/18 00:09 Nasopharyngeal Swab - Final a/p RUL pneumonia HIV negative! suspicion for TB is low should get quantiferon and smears from [facility] back in am would procedd with cardioversion if needed will d/w cardiology Problem List - Problems (1) Pneumonia Code(s): J18.9 - PNEUMONIA, UNSPECIFIED ORGANISM Qualifiers: Pneumonia type: due to unspecified organism Laterality: left Lung location: upper lobe of lung Qualified Code(s): J18.1 - Lobar pneumonia, unspecified organism (2) A-fib Code(s): I48.91 - UNSPECIFIED ATRIAL FIBRILLATION
--- NOTE | 2018-09-23 16:50 | PN ---
Progress Note (short form) - Note Progress Note: Cough and breathing improved. No CP. Feels overall better. No hemoptysis. Intake & Output 09/20/18 09/21/18 09/22/18 09/23/18 23:59 23:59 23:59 23:59 Intake Total 500 Output Total 800 Balance -300 Weight 245 lb 241 lb 14.4 oz 234 lb 7 oz Last Vital Signs Temp Pulse Resp BP Pulse Ox 98.1 F 125 H 18 124/77 100 09/23/18 13:11 09/23/18 13:11 09/23/18 13:11 09/23/18 13:11 09/23/18 09:00 Active Medications Albuterol Sulfate (Ventolin Hfa Inhaler -) 2 puff IH Q6H PRN PRN Reason: ASTHMA Last Admin: 09/21/18 17:04 Dose: 2 inh Apixaban (Eliquis -) 5 mg PO BID [facility] Last Admin: 09/23/18 09:55 Dose: 5 mg Budesonide/Formoterol Fumarate (Symbicort 160/4.5mcg -) 1 puff IH DAILY [facility] Last Admin: 09/23/18 09:56 Dose: 1 puff Carvedilol (Coreg -) 12.5 mg PO BID [facility] Last Admin: 09/23/18 09:55 Dose: 12.5 mg Ceftriaxone Sodium 2 gm/ (Dextrose) 100 mls @ 100 mls/hr IVPB DAILY [facility]; Protocol Last Admin: 09/23/18 09:56 Dose: 100 mls/hr Influenza Virus Vaccine Quadrival (Flulaval Quad [id number]) 60 mcg IM .ONCE ONE Stop: 09/24/18 10:01 Loratadine (Claritin -) 10 mg PO DAILY [facility] Last Admin: 09/23/18 09:55 Dose: 10 mg Morphine Sulfate (Morphine Sulfate) 2 mg IVPUSH Q4H PRN PRN Reason: PAIN LEVEL 6-10 Last Admin: 09/22/18 16:10 Dose: 2 mg Morphine Sulfate (Morphine Sulfate) 1 mg IVPUSH Q4H PRN PRN Reason: PAIN LEVEL 1-5 Last Admin: 09/22/18 14:41 Dose: 1 mg Prednisone (Deltasone -) 60 mg PO DAILY [facility] Last Admin: 09/23/18 09:55 Dose: 60 mg Sacubitril/Valsartan (Entresto 24 Mg-26 Mg Tablet) 1 tab PO BID [facility] Last Admin: 09/23/18 09:56 Dose: 1 tab Constitutional: Yes: No Distress Neck: Yes: Supple Cardiovascular: Yes: S1S2, AFlutter Respiratory: Yes: few scattered rhonchi on the left Gastrointestinal: Yes: Normal Bowel Sounds, Soft Edema: No Labs: Laboratory Results - last 24 hr 09/23/18 09/23/18 05:30 05:30 WBC 9.1 RBC 4.61 Hgb 14.0 Hct 43.1 MCV 93.5 MCH 30.3 MCHC 32.4 RDW 13.3 Plt Count 259 MPV 7.8 Absolute Neuts (auto) 6.8 Neutrophils % 75.2 Lymphocytes % 12.2 D Monocytes % 12.2 H Eosinophils % 0.1 D Basophils % 0.3 Nucleated RBC % 0 Sodium 140 Potassium 4.4 Chloride 102 Carbon Dioxide 29 Anion Gap 9 BUN 13 Creatinine 0.7 Creat Clearance w eGFR > 60 Random Glucose 98 Calcium 8.2 L Phosphorus 3.6 Magnesium 2.5 H Total Bilirubin 0.5 AST 16 ALT 29 Alkaline Phosphatase 58 Total Protein 6.2 L Albumin 3.1 L Problem List - Problems (1) A-fib Code(s): I48.91 - UNSPECIFIED ATRIAL FIBRILLATION (2) Atrial fibrillation Code(s): I48.91 - UNSPECIFIED ATRIAL FIBRILLATION Qualifiers: Atrial fibrillation type: paroxysmal Qualified Code(s): I48.0 - Paroxysmal atrial fibrillation (3) Atrial flutter Code(s): I48.92 - UNSPECIFIED ATRIAL FLUTTER Qualifiers: Atrial flutter type: typical Qualified Code(s): I48.3 - Typical atrial flutter (4) HTN (hypertension) Code(s): I10 - ESSENTIAL (PRIMARY) HYPERTENSION Qualifiers: Hypertension type: essential hypertension Qualified Code(s): I10 - Essential (primary) hypertension (5) Pneumonia Code(s): J18.9 - PNEUMONIA, UNSPECIFIED ORGANISM Qualifiers: Pneumonia type: due to unspecified organism Laterality: left Lung location: upper lobe of lung Qualified Code(s): J18.1 - Lobar pneumonia, unspecified organism (6) Asthma Code(s): J45.909 - UNSPECIFIED ASTHMA, UNCOMPLICATED IMP DYSPNEA RAO PNEUMONIA AFLUTTER ASTHMA HTN PLAN IV ABX PER ID FOLLOW CULTURES INHALED BRONCHODILATORS O2 RATE CONTROL PER CARDIOLOGY AC F/U CHEST CT 6 WKS TO CONFIRM RESOLUTION ON INFILTRATES FOR POSSIBLE DCCV DR LITTLE
--- NOTE | 2018-09-23 18:14 | PN ---
Physical Exam: SUBJECTIVE: Patient seen and examined this morning at bedside. No new complaints. No overnight events as per nursing staff. Denies fevers, chills, chest pain, palpitations SOB, nausea, vomiting, diarrhea , constipation, abdominal pain, dysuria. OBJECTIVE: Vital Signs Period Temp Pulse Resp BP Sys/Garg Pulse Ox Last 24 Hr 98.0 F-98.1 F 110-126 17-18 104-136/77-97 96-100 GENERAL: A&Ox3, NAD HEAD: NCAT EYES: PERRL, EOMI EARS, NOSE, THROAT: Oropharynx clear without exudates. Moist mucous membranes. NECK: No JVD LUNGS: Air entry improving. No wheezes. HEART: Regular rate and rhythm, normal S1 and S2 without murmur ABDOMEN: Soft, nontender, not distended, + bowel sounds, no guarding EXTREMITIES: 2+ pulses, No edema. NEUROLOGICAL: Cranial nerves II-XII intact. Normal speech. C5-T1 and L4-S1 gross sensation intact. 5/5 Muscle strength to Handgrip, elbow flexion/extension , Hip flexion, Dorsiflexion, plantarflexion. SKIN: Warm, dry, no rashes or lesions noted Laboratory Results - last 24 hr 09/23/18 09/23/18 05:30 05:30 WBC 9.1 RBC 4.61 Hgb 14.0 Hct 43.1 MCV 93.5 MCH 30.3 MCHC 32.4 RDW 13.3 Plt Count 259 MPV 7.8 Absolute Neuts (auto) 6.8 Neutrophils % 75.2 Lymphocytes % 12.2 D Monocytes % 12.2 H Eosinophils % 0.1 D Basophils % 0.3 Nucleated RBC % 0 Sodium 140 Potassium 4.4 Chloride 102 Carbon Dioxide 29 Anion Gap 9 BUN 13 Creatinine 0.7 Creat Clearance w eGFR > 60 Random Glucose 98 Calcium 8.2 L Phosphorus 3.6 Magnesium 2.5 H Total Bilirubin 0.5 AST 16 ALT 29 Alkaline Phosphatase 58 Total Protein 6.2 L Albumin 3.1 L Microbiology 09/22/18 15:20 Sputum - Expectorated AFB Smear Concentration - Preliminary 09/22/18 15:20 Sputum - Expectorated Direct Acid Fast Bacilli Smear - Final 09/22/18 15:20 Sputum - Expectorated Mycobacterial Culture - Preliminary 09/22/18 21:45 Sputum - Expectorated AFB Smear Concentration - Preliminary 09/22/18 21:45 Sputum - Expectorated Direct Acid Fast Bacilli Smear - Final 09/22/18 21:45 Sputum - Expectorated Mycobacterial Culture - Preliminary 09/23/18 07:00 Sputum - Expectorated AFB Smear Concentration - Preliminary 09/23/18 07:00 Sputum - Expectorated Direct Acid Fast Bacilli Smear - Final 09/23/18 07:00 Sputum - Expectorated Mycobacterial Culture - Preliminary 09/21/18 07:14 Blood - Peripheral Venous Blood Culture - Preliminary NO GROWTH OBTAINED AFTER 48 HOURS, INCUBATION TO CONTINUE FOR 3 DAYS. 09/21/18 07:14 Blood - Peripheral Venous Blood Culture - Preliminary NO GROWTH OBTAINED AFTER 48 HOURS, INCUBATION TO CONTINUE FOR 3 DAYS. 09/21/18 18:32 Sputum - Expectorated Gram Stain - Final 09/21/18 18:32 Sputum - Expectorated Sputum Culture - Preliminary NORMAL RESPIRATORY ABIMAEL 09/21/18 18:50 Urine - Urine Clean Catch Legionella Antigen - Final 09/21/18 18:50 Urine - Urine Clean Catch Streptococcus pneumoniae Antigen ( M - Final 09/21/18 00:11 Urine - Urine Clean Catch Urine Culture - Final 09/21/18 00:09 Nasopharyngeal Swab Influenza Types A,B Antigen - Final 09/21/18 00:09 Nasopharyngeal Swab - Final Active Medications Albuterol Sulfate (Ventolin Hfa Inhaler -) 2 puff IH Q6H PRN PRN Reason: ASTHMA Last Admin: 09/21/18 17:04 Dose: 2 inh Apixaban (Eliquis -) 5 mg PO BID [facility] Last Admin: 09/23/18 09:55 Dose: 5 mg Budesonide/Formoterol Fumarate (Symbicort 160/4.5mcg -) 1 puff IH DAILY [facility] Last Admin: 09/23/18 09:56 Dose: 1 puff Carvedilol (Coreg -) 12.5 mg PO BID [facility] Last Admin: 09/23/18 09:55 Dose: 12.5 mg Ceftriaxone Sodium 2 gm/ (Dextrose) 100 mls @ 100 mls/hr IVPB DAILY [facility]; Protocol Last Admin: 09/23/18 09:56 Dose: 100 mls/hr Influenza Virus Vaccine Quadrival (Flulaval Quad [id number]) 60 mcg IM .ONCE ONE Stop: 09/24/18 10:01 Loratadine (Claritin -) 10 mg PO DAILY [facility] Last Admin: 09/23/18 09:55 Dose: 10 mg Morphine Sulfate (Morphine Sulfate) 2 mg IVPUSH Q4H PRN PRN Reason: PAIN LEVEL 6-10 Last Admin: 09/22/18 16:10 Dose: 2 mg Morphine Sulfate (Morphine Sulfate) 1 mg IVPUSH Q4H PRN PRN Reason: PAIN LEVEL 1-5 Last Admin: 09/22/18 14:41 Dose: 1 mg Prednisone (Deltasone -) 60 mg PO DAILY [facility] Last Admin: 09/23/18 09:55 Dose: 60 mg Sacubitril/Valsartan (Entresto 24 Mg-26 Mg Tablet) 1 tab PO BID [facility] Last Admin: 09/23/18 09:56 Dose: 1 tab IMAGING: -EKG: SINUS TACHYCARDIA, INFERIOR INFARCT , AGE UNDETERMINED, ANTERIOR INFARCT ( CITED ON OR BEFORE 21-SEP-2018), VR 133 bpm, QTc 401 -ECHO: LV is mildly dilated, LV SF is severely reduced, Global hypokinesis of the LV, EF 30-35%, Reduced RV Systolic function, LA and RA are moderately dilated, Mild MR, Mild to Mod TR -CXR: Left upper lobe presumed pneumonia. If findings do not resolve then further imaging with CT is suggested. -CT Chest without contrast: Extensive left upper lobe consolidation consistent with an acute pneumonia. Clinical correlation and follow-up recommended. ASSESSMENT/PLAN: 53 y/o M with PMHx of asthma, Afib (not on anticoagulation), HTN, presents with SOB for the past three weeks. 1. Atrial Flutter with RVR -Cardiology (Dr. Gallo) consulted, appreciate rec's, Carvedilol 6.25 BID and titrate as needed. D/C Diovan, Started on Entresto. Continue Eliquis 5 mg BID. MONICA +/- DC synchronized cardioversion pending ID rec's -Started on Entresto -Continue Carvedilol -Continue Eliquis 5 mg BID -Troponin < 0.02 x2 -BNP 2442.2 -EKG: Sinus tachy -ECHO: LV SF is severely reduced, Global hypokinesis of the LV, EF 30-35% -Strict I&Os, Daily weights -Will likely need Ischemic work up once HR improved and infection resolved 2. RAO pneumonia -Isolation -Ceftriaxone 2 gram IV daily (Started on 09/21) -Continue Ventolin, Symbicort, Prednisone -Completed Azithromycin course (09/21-09/22) -Urine for pneumonia, legionella negative -Flu swab negative -Blood cultures NGTD -Sputum cultures pending -HIV Screen negative -ID (Dr. Zaman) consulted, appreciate rec's, would isolate, rocephin to continue, suspicion for TB is low should get quantiferon and smears from [facility] back in am, would proceed with cardioversion if needed -Pulmonology (Dr. Buck) consulted, appreciate rec's, COLD AGGLUTININS, F/ U CHEST X-RAYS, F/U CHEST CT 6 WKS TO CONFIRM RESOLUTION ON INFILTRATES 3. Hyponatremia -Resolved -Urine electrolytes, serum and urine osmolality, urine creatinine noted 4. FEN -PO fluids -Continue to monitor for Hyponatremia -Sodium controlled diet 5. PPx -DVT: Eliquis Dispo: telemetry-Inpatient Visit type - Emergency Visit Emergency Visit: Yes ED Registration Date: 09/21/18 Care time: The patient presented to the Emergency Department on the above date and was hospitalized for further evaluation of their emergent condition. - New Patient This patient is new to me today: No - Critical Care Critical Care patient: No - Discharge Referral Referred to [facility] Med [facility] No
[2018-09-24] MEDS ORDERED: MORPHINE SULFATE 2 MG/ML VIAL IVPUSH PRN (07:32)
--- NOTE | 2018-09-24 07:37 | PN ---
Teaching Attending Note Name of Resident: Robyn Garcia ATTENDING PHYSICIAN STATEMENT I saw and evaluated the patient. I reviewed the resident's note and discussed the case with the resident. I agree with the resident's findings and plan as documented with exceptions below. SUBJECTIVE: Patient seen and examined, breathing improved, intermittent palpitations, no chest pressure, but no new complaints. OBJECTIVE: Vital Signs Period Temp Pulse Resp BP Sys/Garg Pulse Ox Last 24 Hr 98.1 F-98.5 F 119-126 18-26 113-143/77-112 100-100 Intake & Output 09/21/18 09/22/18 09/23/18 09/24/18 23:59 23:59 23:59 23:59 Intake Total 500 400 0 Output Total 800 Balance -300 400 0 Weight 241 lb 14.4 oz 234 lb 7 oz 239 lb 10.279 oz General: sitting in bed in no acute distress, no tachypnea, able to talk in full sentences CVS: S1s2 regular tachycardic chest: improved air entry all over, no rales or wheezing appreciated. Abdomen; soft, obese, NT Extremities: no edema Active Medications Albuterol Sulfate (Ventolin Hfa Inhaler -) 2 puff IH Q6H PRN PRN Reason: ASTHMA Last Admin: 09/21/18 17:04 Dose: 2 inh Apixaban (Eliquis -) 5 mg PO BID [facility] Last Admin: 09/23/18 21:00 Dose: 5 mg Budesonide/Formoterol Fumarate (Symbicort 160/4.5mcg -) 1 puff IH DAILY [facility] Last Admin: 09/23/18 09:56 Dose: 1 puff Carvedilol (Coreg -) 12.5 mg PO BID [facility] Last Admin: 09/23/18 21:00 Dose: 12.5 mg Ceftriaxone Sodium 2 gm/ (Dextrose) 100 mls @ 100 mls/hr IVPB DAILY [facility]; Protocol Last Admin: 09/23/18 09:56 Dose: 100 mls/hr Influenza Virus Vaccine Quadrival (Flulaval Quad [id number]) 60 mcg IM .ONCE ONE Stop: 09/24/18 10:01 Loratadine (Claritin -) 10 mg PO DAILY [facility] Last Admin: 09/23/18 09:55 Dose: 10 mg Morphine Sulfate (Morphine Sulfate) 1 mg IVPUSH Q4H PRN PRN Reason: PAIN LEVEL 6-10 Prednisone (Deltasone -) 60 mg PO DAILY [facility] Last Admin: 09/23/18 09:55 Dose: 60 mg Sacubitril/Valsartan (Entresto 24 Mg-26 Mg Tablet) 1 tab PO BID [facility] Last Admin: 09/23/18 21:00 Dose: 1 tab Microbiology 09/22/18 15:20 Sputum - Expectorated AFB Smear Concentration - Preliminary 09/22/18 15:20 Sputum - Expectorated Direct Acid Fast Bacilli Smear - Final 09/22/18 15:20 Sputum - Expectorated Mycobacterial Culture - Preliminary 09/22/18 21:45 Sputum - Expectorated AFB Smear Concentration - Preliminary 09/22/18 21:45 Sputum - Expectorated Direct Acid Fast Bacilli Smear - Final 09/22/18 21:45 Sputum - Expectorated Mycobacterial Culture - Preliminary 09/23/18 07:00 Sputum - Expectorated AFB Smear Concentration - Preliminary 09/23/18 07:00 Sputum - Expectorated Direct Acid Fast Bacilli Smear - Final 09/23/18 07:00 Sputum - Expectorated Mycobacterial Culture - Preliminary 09/21/18 07:14 Blood - Peripheral Venous Blood Culture - Preliminary NO GROWTH OBTAINED AFTER 48 HOURS, INCUBATION TO CONTINUE FOR 3 DAYS. 09/21/18 07:14 Blood - Peripheral Venous Blood Culture - Preliminary NO GROWTH OBTAINED AFTER 48 HOURS, INCUBATION TO CONTINUE FOR 3 DAYS. 09/21/18 18:32 Sputum - Expectorated Gram Stain - Final 09/21/18 18:32 Sputum - Expectorated Sputum Culture - Preliminary NORMAL RESPIRATORY ABIMAEL 09/21/18 18:50 Urine - Urine Clean Catch Legionella Antigen - Final 09/21/18 18:50 Urine - Urine Clean Catch Streptococcus pneumoniae Antigen ( M - Final 09/21/18 00:11 Urine - Urine Clean Catch Urine Culture - Final 09/21/18 00:09 Nasopharyngeal Swab Influenza Types A,B Antigen - Final 09/21/18 00:09 Nasopharyngeal Swab - Final ASSESSMENT AND PLAN: 53 yom with PMHx of paroxysmal Afib not on AC (prior h/o being on coumadin), Asthma/bronchitis, admitted with RAO CAP and Atrial flutter with RVR, found with new cardiomyopathy -RAO PNA with early sepsis -Atrial flutter with RVR -New cardiomyopathy, ?Ischemic vs tachycardia induced -Hyponatremia, hypovolumic, legionella ruled out -Suspected acute COPD exacerbation (heavy smoking history now with decreased entry and improvement with steroids) -H/o Bronchial Asthma/Bronchitis -HTN PLan: Ceftriaxone day 4, ID input noted, Off azithromycin for now. Blood/sputum cx Sputum AFB stain neg, TB QFT neg, discussed with Dr. Zaman, d/c airborne precautions. Urine PNA studies/Flu swab neg. HIV screen neg. Pulmonary input noted. Symbicort/Albuterol prn. Taper prednisone to 50 mg daily. Cardiology input noted. 2D noted. New cardiomyopathy. Started on coreg/eliquis. Valsartan changed to entresto. Plan for MONICA/DCCV tomorrow. Will need ischemic work up once rate improved and infectious concerns better and repeat 2d Echo outpatient. Lasix prn per volume status. Strict I/Os and daily weights. DVTPPX started on eliquis as above Dispo pending clinical improvement. Plan discussed with patient and nursing in detail, all questions answered.
[2018-09-24] MEDS ORDERED: DEXTROSE 5%-WATER 100 ML IVPB ONE (08:29)
[2018-09-24] MEDS: APIXABAN 5 MG TABLET PO SCH ×2 (09:52→21:52)
[2018-09-24] MEDS: CARVEDILOL 12.5 MG TABLET (FP) PO SCH ×2 (09:52→21:52)
[2018-09-24] MEDS: LORATADINE 10 MG TABLET PO SCH (09:52)
[2018-09-24] MEDS: SACUBITRIL/VALSARTAN 24 MG-26 MG TABLET PO SCH ×2 (09:53→21:52)
[2018-09-24] MEDS: predniSONE 20 MG TABLET (UD) PO SCH (09:53)
[2018-09-24] MEDS: CEFTRIAXONE 2 GM in DEXTROSE 5%-WATER 100 ML IVPB SCH (09:54)
[2018-09-24] MEDS: BUDESONIDE/FORMETEROL FUMARATE 160/4.5 mcg INHALER IH SCH (09:54)
[2018-09-24] MEDS ORDERED: FLU VACCINE QUAD 60 MCG/0.5 ML (MDV 18-19) IM ONE (10:00)
[2018-09-24] MEDS ORDERED: HEMOQUE TEST 1 EACH EACH ONE (10:33)
--- NOTE | 2018-09-24 11:27 | PN ---
Progress Note, Physician History of Present Illness: Remains in rapid aflutter despite efforts at rate-control, reports dyspnea, light-headedness, palpitations and chest tightness. Low suspicion for TB. - Current Medication List Current Medications: Active Medications Albuterol Sulfate (Ventolin Hfa Inhaler -) 2 puff IH Q6H PRN PRN Reason: ASTHMA Last Admin: 09/21/18 17:04 Dose: 2 inh Apixaban (Eliquis -) 5 mg PO BID [facility] Last Admin: 09/24/18 09:52 Dose: 5 mg Budesonide/Formoterol Fumarate (Symbicort 160/4.5mcg -) 1 puff IH DAILY [facility] Last Admin: 09/24/18 09:54 Dose: 1 puff Carvedilol (Coreg -) 12.5 mg PO BID [facility] Last Admin: 09/24/18 09:52 Dose: 12.5 mg Ceftriaxone Sodium 2 gm/ (Dextrose) 100 mls @ 100 mls/hr IVPB DAILY [facility]; Protocol Last Admin: 09/24/18 09:54 Dose: 100 mls/hr Loratadine (Claritin -) 10 mg PO DAILY [facility] Last Admin: 09/24/18 09:52 Dose: 10 mg Prednisone (Deltasone -) 60 mg PO DAILY [facility] Last Admin: 09/24/18 09:53 Dose: 60 mg Sacubitril/Valsartan (Entresto 24 Mg-26 Mg Tablet) 1 tab PO BID [facility] Last Admin: 09/24/18 09:53 Dose: 1 tab - Objective Vital Signs: Vital Signs Temperature 98.5 F 09/24/18 06:00 Pulse Rate 126 H 09/24/18 06:00 Respiratory Rate 22 H 09/24/18 06:00 Blood Pressure 141/112 H 09/24/18 06:00 O2 Sat by Pulse Oximetry (%) 100 09/23/18 22:00 Constitutional: Yes: No Distress, Calm Neck: Yes: Supple Cardiovascular: Yes: Tachycardia Respiratory: Yes: Regular, CTA Bilaterally Gastrointestinal: Yes: Normal Bowel Sounds, Soft Edema: No Labs: CBC, BMP 09/23/18 05:30 09/23/18 05:30 INR, PTT INR 1.43 (0.83-1.09) H 09/22/18 06:00 - ....Imaging EKG: Report Reviewed (Rapid aflutter) Problem List - Problems (1) Asthma Code(s): J45.909 - UNSPECIFIED ASTHMA, UNCOMPLICATED Qualifiers: Asthma severity: mild Asthma persistence: intermittent (2) Atrial flutter Code(s): I48.92 - UNSPECIFIED ATRIAL FLUTTER Qualifiers: Atrial flutter type: typical Qualified Code(s): I48.3 - Typical atrial flutter (3) HTN (hypertension) Code(s): I10 - ESSENTIAL (PRIMARY) HYPERTENSION Qualifiers: Hypertension type: essential hypertension Qualified Code(s): I10 - Essential (primary) hypertension (4) Pneumonia Code(s): J18.9 - PNEUMONIA, UNSPECIFIED ORGANISM Qualifiers: Pneumonia type: due to unspecified organism Laterality: left Lung location: upper lobe of lung Qualified Code(s): J18.1 - Lobar pneumonia, unspecified organism Assessment/Plan Echocardiography revealed systolic LV size dysfunction with LVEF 30-35%, LAE, mild MR, mild to moderate TR with RVSP 37 mmHg 1. Dyspnea referable to acute exacerbation of asthma with left upper lobe pneumonia 2. Persistent atrial flutter with RVR with prior history of paroxysmal atrial fibrillation on anticoagulation with DOAC's/Eliquis [id number] score of 1-2 3. 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 HTN 5. Low suspicion for TB, HIV negative PLAN: 1. Start cardizem gtt for rate control 2. Continue Coreg 12.5 bid and Entresto 24/26 bid with uptitration as tolerated and as needed 3. Continue Eliquis 5 bid 4. Plan for MONICA guided synchronized cardioversion tomorrow given difficulty with rate-control 5. Empiric antibiotic coverage, bronchodilators, oral steroids and O2 as needed 6. Ischemic evaluation once clinically improved
[2018-09-24] MEDS ORDERED: dilTIAZem HCL 125 MG/25 ML - 25 ML VIAL ONE (11:40)
[2018-09-24] MEDS ORDERED: dilTIAZem HCL 50 MG/10 ML - 10 ML VIAL IVPUSH ONE (11:45)
[2018-09-24] MEDS ORDERED: DILTIAZEM INJECTION 125 MG in SODIUM CHLORIDE 100 ML IVPB SCH (11:45)
[2018-09-24] MEDS ORDERED: predniSONE 20 MG TABLET (UD) PO SCH (13:22)
--- NOTE | 2018-09-24 13:35 | PN ---
Progress Note (short form) - Note Progress Note: much calmer breathing improved with steroids no complaints still tachycardic Vital Signs Period Temp Pulse Resp BP Sys/Garg Pulse Ox Last 24 Hr 98.1 F-98.5 F 119-132 18-26 113-143/86-112 100-100 cor-rrr lungs decresed bs at bases abd soft,nt ext no edema CBC, BMP 09/23/18 05:30 09/23/18 05:30 sputum avb negative times 3,(smear) quantiferon negative Microbiology 09/21/18 18:32 Sputum - Expectorated Gram Stain - Final 09/21/18 18:32 Sputum - Expectorated Sputum Culture - Final NORMAL RESPIRATORY ABIMAEL 09/21/18 07:14 Blood - Peripheral Venous Blood Culture - Preliminary NO GROWTH OBTAINED AFTER 72 HOURS, INCUBATION TO CONTINUE FOR 2 DAYS. 09/21/18 07:14 Blood - Peripheral Venous Blood Culture - Preliminary NO GROWTH OBTAINED AFTER 72 HOURS, INCUBATION TO CONTINUE FOR 2 DAYS. 09/22/18 15:20 Sputum - Expectorated AFB Smear Concentration - Preliminary 09/22/18 15:20 Sputum - Expectorated Direct Acid Fast Bacilli Smear - Final 09/22/18 15:20 Sputum - Expectorated Mycobacterial Culture - Preliminary 09/22/18 21:45 Sputum - Expectorated AFB Smear Concentration - Preliminary 09/22/18 21:45 Sputum - Expectorated Direct Acid Fast Bacilli Smear - Final 09/22/18 21:45 Sputum - Expectorated Mycobacterial Culture - Preliminary 09/23/18 07:00 Sputum - Expectorated AFB Smear Concentration - Preliminary 09/23/18 07:00 Sputum - Expectorated Direct Acid Fast Bacilli Smear - Final 09/23/18 07:00 Sputum - Expectorated Mycobacterial Culture - Preliminary 09/21/18 18:50 Urine - Urine Clean Catch Legionella Antigen - Final 09/21/18 18:50 Urine - Urine Clean Catch Streptococcus pneumoniae Antigen ( M - Final 09/21/18 00:11 Urine - Urine Clean Catch Urine Culture - Final 09/21/18 00:09 Nasopharyngeal Swab Influenza Types A,B Antigen - Final 09/21/18 00:09 Nasopharyngeal Swab - Final a/p RUL pneumonia d/c isolation continue rocephin for pneumonia f/u chest ct atrial flutter- per cardiology Problem List - Problems (1) Pneumonia Code(s): J18.9 - PNEUMONIA, UNSPECIFIED ORGANISM Qualifiers: Pneumonia type: due to unspecified organism Laterality: left Lung location: upper lobe of lung Qualified Code(s): J18.1 - Lobar pneumonia, unspecified organism (2) A-fib Code(s): I48.91 - UNSPECIFIED ATRIAL FIBRILLATION
--- NOTE | 2018-09-24 13:50 | PN ---
Progress Note (short form) - Note Progress Note: PULMONARY States breathing is improving. Heart rates still rapid, does feel palpitations. Vital Signs Period Temp Pulse Resp BP Sys/Garg Pulse Ox Last 24 Hr 98.1 F-98.5 F 119-132 18-26 113-143/86-112 100-100 Intake & Output 09/21/18 09/22/18 09/23/18 09/24/18 23:59 23:59 23:59 23:59 Intake Total 500 400 0 Output Total 800 Balance -300 400 0 Weight 109.724 kg 106.339 kg 108.7 kg Gen: mildly tachypneic with speaking Heart: tachycardic, regular Lung: decreased breath sounds at the bases Abd: soft, nontender Ext: no edema CBC, BMP 09/23/18 05:30 09/23/18 05:30 Active Medications Albuterol Sulfate (Ventolin Hfa Inhaler -) 2 puff IH Q6H PRN PRN Reason: ASTHMA Last Admin: 09/21/18 17:04 Dose: 2 inh Apixaban (Eliquis -) 5 mg PO BID [facility] Last Admin: 09/24/18 09:52 Dose: 5 mg Budesonide/Formoterol Fumarate (Symbicort 160/4.5mcg -) 1 puff IH DAILY [facility] Last Admin: 09/24/18 09:54 Dose: 1 puff Carvedilol (Coreg -) 12.5 mg PO BID [facility] Last Admin: 09/24/18 09:52 Dose: 12.5 mg Ceftriaxone Sodium 2 gm/ (Dextrose) 100 mls @ 100 mls/hr IVPB DAILY [facility]; Protocol Last Admin: 09/24/18 09:54 Dose: 100 mls/hr Diltiazem HCl 125 mg/ Sodium (Chloride) 125 mls @ 5 mls/hr IVPB TITR [facility]; Protocol Loratadine (Claritin -) 10 mg PO DAILY [facility] Last Admin: 09/24/18 09:52 Dose: 10 mg Prednisone 40 mg/ Prednisone (10 mg) 50 mg PO DAILY [facility] Sacubitril/Valsartan (Entresto 24 Mg-26 Mg Tablet) 1 tab PO BID [facility] Last Admin: 09/24/18 09:53 Dose: 1 tab A/P Pneumonia Acute Asthma Exacerbation Atrial Flutter with RVR LV Systolic Dysfunction HTN - continue antibiotics - prednisone taper - inhaled bronchodilators with ipratropium - will hold symbicort due to uncontrolled rates - for possible MONICA/DCCV - continue anticoagulation - telemetry monitoring
--- NOTE | 2018-09-24 16:20 | PN ---
Physical Exam: SUBJECTIVE: Patient seen and examined this morning at bedside. Continues to have wheezes. No overnight events as per nursing staff. OBJECTIVE: Vital Signs Period Temp Pulse Resp BP Sys/Garg Pulse Ox Last 24 Hr 98.1 F-98.5 F 119-132 18-26 113-143/86-112 100-100 GENERAL: A&Ox3, NAD HEAD: NCAT EYES: PERRL, EOMI EARS, NOSE, THROAT: Oropharynx clear without exudates. Moist mucous membranes. NECK: No JVD LUNGS: Air entry improving. Wheezes heard at the bases HEART: Regular rate and rhythm, normal S1 and S2 without murmur ABDOMEN: Soft, nontender, not distended, + bowel sounds, no guarding EXTREMITIES: 2+ pulses, No edema. NEUROLOGICAL: Cranial nerves II-XII intact. Normal speech. C5-T1 and L4-S1 gross sensation intact. 5/5 Muscle strength to Handgrip, elbow flexion/extension , Hip flexion, Dorsiflexion, plantarflexion. SKIN: Warm, dry, no rashes or lesions noted Laboratory Results - last 24 hr 09/21/18 09:40 TB Test (QFT) Nil 0.05 TB Test (QFT) Mitogen >10.0 TB Test (QFT) Negative TB Positive Criteria TB Test (QFT) Interp No Result Required. Microbiology 09/23/18 07:00 Sputum - Expectorated AFB Smear Concentration - Final 09/23/18 07:00 Sputum - Expectorated Direct Acid Fast Bacilli Smear - Final 09/23/18 07:00 Sputum - Expectorated Mycobacterial Culture - Preliminary 09/22/18 15:20 Sputum - Expectorated AFB Smear Concentration - Final 09/22/18 15:20 Sputum - Expectorated Direct Acid Fast Bacilli Smear - Final 09/22/18 15:20 Sputum - Expectorated Mycobacterial Culture - Preliminary 09/22/18 21:45 Sputum - Expectorated AFB Smear Concentration - Final 09/22/18 21:45 Sputum - Expectorated Direct Acid Fast Bacilli Smear - Final 09/22/18 21:45 Sputum - Expectorated Mycobacterial Culture - Preliminary 09/21/18 18:32 Sputum - Expectorated Gram Stain - Final 09/21/18 18:32 Sputum - Expectorated Sputum Culture - Final NORMAL RESPIRATORY ABIMAEL 09/21/18 07:14 Blood - Peripheral Venous Blood Culture - Preliminary NO GROWTH OBTAINED AFTER 72 HOURS, INCUBATION TO CONTINUE FOR 2 DAYS. 09/21/18 07:14 Blood - Peripheral Venous Blood Culture - Preliminary NO GROWTH OBTAINED AFTER 72 HOURS, INCUBATION TO CONTINUE FOR 2 DAYS. 09/21/18 18:50 Urine - Urine Clean Catch Legionella Antigen - Final 09/21/18 18:50 Urine - Urine Clean Catch Streptococcus pneumoniae Antigen ( M - Final 09/21/18 00:11 Urine - Urine Clean Catch Urine Culture - Final 09/21/18 00:09 Nasopharyngeal Swab Influenza Types A,B Antigen - Final 09/21/18 00:09 Nasopharyngeal Swab - Final Active Medications Apixaban (Eliquis -) 5 mg PO BID [facility] Last Admin: 09/24/18 09:52 Dose: 5 mg Carvedilol (Coreg -) 12.5 mg PO BID [facility] Last Admin: 09/24/18 09:52 Dose: 12.5 mg Ceftriaxone Sodium 2 gm/ (Dextrose) 100 mls @ 100 mls/hr IVPB DAILY [facility]; Protocol Last Admin: 09/24/18 09:54 Dose: 100 mls/hr Diltiazem HCl 125 mg/ Sodium (Chloride) 125 mls @ 5 mls/hr IVPB TITR [facility]; Protocol Ipratropium [place] (Atrovent 0.02% Nebulizer -) 1 amp NEB RQID [facility] Loratadine (Claritin -) 10 mg PO DAILY [facility] Last Admin: 09/24/18 09:52 Dose: 10 mg Prednisone 40 mg/ Prednisone (10 mg) 50 mg PO DAILY [facility] Sacubitril/Valsartan (Entresto 24 Mg-26 Mg Tablet) 1 tab PO BID [facility] Last Admin: 09/24/18 09:53 Dose: 1 tab IMAGING: -EKG: SINUS TACHYCARDIA, INFERIOR INFARCT , AGE UNDETERMINED, ANTERIOR INFARCT ( CITED ON OR BEFORE 21-SEP-2018), VR 133 bpm, QTc 401 -ECHO: LV is mildly dilated, LV SF is severely reduced, Global hypokinesis of the LV, EF 30-35%, Reduced RV Systolic function, LA and RA are moderately dilated, Mild MR, Mild to Mod TR -CXR: Left upper lobe presumed pneumonia. If findings do not resolve then further imaging with CT is suggested. -CT Chest without contrast: Extensive left upper lobe consolidation consistent with an acute pneumonia. Clinical correlation and follow-up recommended. ASSESSMENT/PLAN: 53 y/o M with PMHx of asthma, Afib (not on anticoagulation), HTN, presents with SOB for the past three weeks. 1. Atrial Flutter with RVR -Cardiology (Dr. Gallo) consulted, appreciate rec's, Carvedilol 12.5mg BID and titrate as needed. D/C Diovan, Started on Entresto. Continue Eliquis 5 mg BID. MONICA +/- DC synchronized cardioversion pending tmrw -Cardizen GTT started -Continue Carvedilol, Entresto -Continue Eliquis 5 mg BID -Troponin < 0.02 x2 -BNP 2442.2 -EKG: Sinus tachy -ECHO: LV SF is severely reduced, Global hypokinesis of the LV, EF 30-35% -Strict I&Os, Daily weights -Will likely need Ischemic work up once HR improved and infection resolved 2. RAO pneumonia -D/C Isolation -TB Quantiferon negative, AFB Gram stain negative -Ceftriaxone 2 gram IV daily (Started on 09/21) -Continue Ventolin, Symbicort, Prednisone -Completed Azithromycin course (09/21-09/22) -Urine for pneumonia, legionella negative -Flu swab negative -Blood cultures NGTD -Sputum cultures pending -HIV Screen negative -ID (Dr. Zaman) consulted, appreciate rec's, would isolate, rocephin to continue, suspicion for TB is low should get quantiferon and smears from [facility] back in am, would proceed with cardioversion if needed -Pulmonology (Dr. Buck) consulted, appreciate rec's, COLD AGGLUTININS, F/ U CHEST X-RAYS, F/U CHEST CT 6 WKS TO CONFIRM RESOLUTION ON INFILTRATES 3. Hyponatremia -Resolved -Urine electrolytes, serum and urine osmolality, urine creatinine noted 4. FEN -PO fluids -Continue to monitor for Hyponatremia -Sodium controlled diet 5. PPx -DVT: Eliquis Dispo: DCCV tmrw Visit type - Emergency Visit Emergency Visit: Yes ED Registration Date: 09/21/18 Care time: The patient presented to the Emergency Department on the above date and was hospitalized for further evaluation of their emergent condition. - New Patient This patient is new to me today: No - Critical Care Critical Care patient: No - Discharge Referral Referred to [facility] Med P.C.: No
[2018-09-24] MEDS: IPRATROPIUM BR 0.02% 0.5 MG/2.5 ML VIAL.NEB. NEB SCH ×2 (19:00→20:50)
[2018-09-24] MEDS ORDERED: PT OWN MED DRAWER 7, Y5N ONE (21:43)
[2018-09-25 06:14] LABS: BASO % 1.1 % (0-2.0); EOS % 0.5 % (0-4.5); HEMATOCRIT 45.1 % (35.4-49); HEMOGLOBIN 14.9 GM/dL (11.7-16.9); LYMPH % 22.1 % (8-40); MCH 30.6 pg (25.7-33.7); MCHC 33.1 g/dl (32.0-35.9); MEAN CELL VOLUME 92.7 fl (80-96); MEAN PLT VOLUME 7.6 fl (7.5-11.1); NEUT % 63.3 % (42.8-82.8); PLATELET COUNT 333 K/MM3 (134-434); RBC 4.87 M/mm3 (4.00-5.60); WHITE BLOOD COUNT 8.6 K/mm3 (4.0-10.0)
[2018-09-25 06:56] LABS: ALK PHOS 53 U/L (45-117); ANION GAP 10 MMOL/L (8-16); BILIRUBIN,TOTAL 0.3 mg/dL (0.2-1); BLOOD UREA NITROGEN 15 mg/dL (7-18); CALCIUM 8.6 mg/dL (8.5-10.1); CHLORIDE 104 mmol/L (98-107); CO2 28 mmol/L (21-32); CREATININE 0.7 mg/dL (0.55-1.3); GLUCOSE,RANDOM 82 mg/dL (74-106); MAGNESIUM 2.5 mg/dL (1.8-2.4); PHOSPHOROUS 3.6 mg/dL (2.5-4.9); POTASSIUM 3.9 mmol/L (3.5-5.1); SGOT/AST 22 U/L (15-37); SGPT/ALT 36 U/L (13-61); SODIUM 141 mmol/L (136-145); TOT PROT 5.9 g/dl (6.4-8.2)
[2018-09-25] MEDS: IPRATROPIUM BR 0.02% 0.5 MG/2.5 ML VIAL.NEB. NEB SCH ×4 (08:05→21:06)
[2018-09-25] MEDS ORDERED: predniSONE 20 MG TABLET (UD) ONE (09:16)
[2018-09-25] MEDS ORDERED: predniSONE 10 MG TABLET (UD) ONE (09:17)
[2018-09-25] MEDS ORDERED: DEXTROSE 5%-WATER 100 ML IVPB ONE (09:18)
--- NOTE | 2018-09-25 09:37 | PN ---
Progress Note, Physician History of Present Illness: Afib/Aflutter with improved rate-control on Cardizem gtt, reports improvement in dyspnea, light-headedness, palpitations and chest tightness. - Current Medication List Current Medications: Active Medications Apixaban (Eliquis -) 5 mg PO BID [facility] Last Admin: 09/24/18 21:52 Dose: 5 mg Carvedilol (Coreg -) 12.5 mg PO BID [facility] Last Admin: 09/24/18 21:52 Dose: 12.5 mg Ceftriaxone Sodium 2 gm/ (Dextrose) 100 mls @ 100 mls/hr IVPB DAILY [facility]; Protocol Last Admin: 09/24/18 09:54 Dose: 100 mls/hr Diltiazem HCl 125 mg/ Sodium (Chloride) 125 mls @ 5 mls/hr IVPB TITR [facility]; Protocol Last Admin: 09/24/18 19:00 Dose: 10 mg/hr, 10 mls/hr Ipratropium [place] (Atrovent 0.02% Nebulizer -) 1 amp NEB RQID [facility] Last Admin: 09/25/18 08:05 Dose: 1 amp Loratadine (Claritin -) 10 mg PO DAILY [facility] Last Admin: 09/24/18 09:52 Dose: 10 mg Prednisone 40 mg/ Prednisone (10 mg) 50 mg PO DAILY [facility] Sacubitril/Valsartan (Entresto 24 Mg-26 Mg Tablet) 1 tab PO BID [facility] Last Admin: 09/24/18 21:52 Dose: 1 tab - Objective Vital Signs: Vital Signs Temperature 97.8 F 09/25/18 06:00 Pulse Rate 91 H 09/25/18 06:00 Respiratory Rate 16 09/25/18 06:00 Blood Pressure 123/84 09/25/18 06:00 O2 Sat by Pulse Oximetry (%) 100 09/24/18 22:00 Constitutional: Yes: No Distress, Calm Neck: Yes: Supple Cardiovascular: Yes: Pulse Irregular Respiratory: Yes: Regular, CTA Bilaterally Gastrointestinal: Yes: Normal Bowel Sounds, Soft Edema: No Labs: CBC, BMP 09/25/18 05:30 09/25/18 05:30 INR, PTT INR 1.43 (0.83-1.09) H 09/22/18 06:00 - ....Imaging EKG: Report Reviewed (Tele: Rate-controlled afib) Problem List - Problems (1) Asthma Code(s): J45.909 - UNSPECIFIED ASTHMA, UNCOMPLICATED Qualifiers: Asthma severity: mild Asthma persistence: intermittent (2) Atrial flutter Code(s): I48.92 - UNSPECIFIED ATRIAL FLUTTER Qualifiers: Atrial flutter type: typical Qualified Code(s): I48.3 - Typical atrial flutter (3) HTN (hypertension) Code(s): I10 - ESSENTIAL (PRIMARY) HYPERTENSION Qualifiers: Hypertension type: essential hypertension Qualified Code(s): I10 - Essential (primary) hypertension (4) Pneumonia Code(s): J18.9 - PNEUMONIA, UNSPECIFIED ORGANISM Qualifiers: Pneumonia type: due to unspecified organism Laterality: left Lung location: upper lobe of lung Qualified Code(s): J18.1 - Lobar pneumonia, unspecified organism Assessment/Plan Echocardiography revealed systolic LV size dysfunction with LVEF 30-35%, LAE, mild MR, mild to moderate TR with RVSP 37 mmHg 1. Dyspnea referable to acute exacerbation of asthma with left upper lobe pneumonia 2. Persistent atrial flutter with RVR with prior history of paroxysmal atrial fibrillation on anticoagulation with DOAC's/Eliquis [id number] score of 1-2 3. 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 HTN 5. Low suspicion for TB, HIV negative PLAN: 1. Continue cardizem gtt for rate control 2. Continue Coreg 12.5 bid and Entresto 24/26 bid with uptitration as tolerated and as needed 3. Continue Eliquis 5 bid 4. Plan for MONICA guided synchronized cardioversion tomorrow given difficulty with rate-control 5. Empiric antibiotic coverage, bronchodilators, oral steroids and O2 as needed 6. Ischemic evaluation once clinically improved
[2018-09-25] MEDS: CEFTRIAXONE 2 GM in DEXTROSE 5%-WATER 100 ML IVPB SCH (10:17)
[2018-09-25] MEDS: APIXABAN 5 MG TABLET PO SCH ×2 (10:18→21:25)
[2018-09-25] MEDS: CARVEDILOL 12.5 MG TABLET (FP) PO SCH ×2 (10:18→21:25)
[2018-09-25] MEDS: predniSONE 40 MG, predniSONE 10 MG PO SCH (10:18)
[2018-09-25] MEDS: LORATADINE 10 MG TABLET PO SCH (10:18)
[2018-09-25] MEDS: SACUBITRIL/VALSARTAN 24 MG-26 MG TABLET PO SCH ×2 (10:19→21:26)
[2018-09-25] MEDS ORDERED: LIDOCAINE VISCOUS 2% ORAL/TOP 20 ML UNIT-DOSE CUP ONE (10:30)
[2018-09-25] MEDS ORDERED: PROPOFOL 20 ML ONE ×3 (10:40)
[2018-09-25] MEDS ORDERED: MIDAZOLAM HCL 2 MG/2 ML SINGLE DOSE VIAL ONE (10:41)
[2018-09-25] MEDS ORDERED: LIDOCAINE HCL/PF 2% SDV 5ML VIAL ONE (10:41)
[2018-09-25] MEDS ORDERED: LIDOCAINE VISCOUS 2% ORAL/TOP 20 ML UNIT-DOSE CUP MM ONE (11:02)
--- NOTE | 2018-09-25 12:07 | EKG ---
Test Reason : Blood Pressure : / mmHG Vent. Rate : 081 BPM Atrial Rate : 081 BPM P-R Int : 198 ms QRS Dur : 096 ms QT Int : 370 ms P-R-T Axes : 054 004 118 degrees QTc Int : 429 ms NORMAL SINUS RHYTHM POSSIBLE LEFT ATRIAL ENLARGEMENT INFERIOR INFARCT (CITED ON OR BEFORE 21-SEP-2018) T WAVE ABNORMALITY, CONSIDER LATERAL ISCHEMIA ABNORMAL ECG WHEN COMPARED WITH ECG OF 21-SEP-2018 00:28, SIGNIFICANT CHANGES HAVE OCCURRED Confirmed by CATHRYN FERREIRA MD ([id number]) on 09/25/2018 12:07:27 PM Referred By: RONY PABON Confirmed By:CATHRYN FERREIRA MD
--- NOTE | 2018-09-25 12:43 | PN ---
Progress Note (short form) - Note Progress Note: MONICA/synchronized cardioversion Risks and benefits discussed with patient and consent was signed MONICA report is to follow 1. Severe LV systolic dysfunction 2. Mild to moderate eccentric MR 3. Mild TR 4. PFO with left to right shunt via color Doppler. Bubbles pass right to left with valsalva 5. No pericardial effusion 6. Small atherosclerotic plaque in thoracic aorta and aortic arch Successful synchronized cardioversion to sinus rhythm with 120J Check 12 lead ECG Consider adding Amiodarone for short term and consider sleep study as outpatient most likely has BEA Wil Gallo MD Problem List - Problems (1) Bronchial asthma Code(s): J45.909 - UNSPECIFIED ASTHMA, UNCOMPLICATED Qualifiers: Asthma severity: unspecified severity Asthma persistence: unspecified Asthma complication type: unspecified Qualified Code(s): J45.909 - Unspecified asthma, uncomplicated (2) HTN (hypertension) Code(s): I10 - ESSENTIAL (PRIMARY) HYPERTENSION Qualifiers: Hypertension type: essential hypertension Qualified Code(s): I10 - Essential (primary) hypertension (3) Atrial fibrillation Code(s): I48.91 - UNSPECIFIED ATRIAL FIBRILLATION Qualifiers: Atrial fibrillation type: paroxysmal Qualified Code(s): I48.0 - Paroxysmal atrial fibrillation (4) Atrial flutter Code(s): I48.92 - UNSPECIFIED ATRIAL FLUTTER Qualifiers: Atrial flutter type: typical Qualified Code(s): I48.3 - Typical atrial flutter (5) Pneumonia Code(s): J18.9 - PNEUMONIA, UNSPECIFIED ORGANISM Qualifiers: Pneumonia type: due to unspecified organism Laterality: left Lung location: upper lobe of lung Qualified Code(s): J18.1 - Lobar pneumonia, unspecified organism
--- NOTE | 2018-09-25 12:54 | PN ---
Physical Exam: SUBJECTIVE: Patient seen and examined this morning at bedside. Breathing continues to improve. No new complaints. OBJECTIVE: Vital Signs Period Temp Pulse Resp BP Sys/Garg Pulse Ox Last 24 Hr 97.8 F-98.5 F 91-133 16-23 93-133/70-98 100 GENERAL: A&Ox3, NAD HEAD: NCAT EYES: PERRL, EOMI EARS, NOSE, THROAT: Oropharynx clear without exudates. Moist mucous membranes. NECK: No JVD LUNGS: Air entry improving. Wheezes improving HEART: Regular rate and rhythm, normal S1 and S2 without murmur ABDOMEN: Soft, nontender, not distended, + bowel sounds, no guarding EXTREMITIES: 2+ pulses, No edema. NEUROLOGICAL: Cranial nerves II-XII intact. Normal speech. C5-T1 and L4-S1 gross sensation intact. 5/5 Muscle strength to Handgrip, elbow flexion/extension , Hip flexion, Dorsiflexion, plantarflexion. SKIN: Warm, dry, no rashes or lesions noted Laboratory Results - last 24 hr 09/21/18 09/25/18 09/25/18 09:40 05:30 05:30 WBC 8.6 RBC 4.87 Hgb 14.9 Hct 45.1 MCV 92.7 MCH 30.6 MCHC 33.1 RDW 13.0 Plt Count 333 D MPV 7.6 Absolute Neuts (auto) 5.5 Neutrophils % 63.3 Lymphocytes % 22.1 D Monocytes % 13.0 H Eosinophils % 0.5 D Basophils % 1.1 D Nucleated RBC % 0 Sodium 141 Potassium 3.9 Chloride 104 Carbon Dioxide 28 Anion Gap 10 BUN 15 Creatinine 0.7 Creat Clearance w eGFR > 60 Random Glucose 82 Calcium 8.6 Phosphorus 3.6 Magnesium 2.5 H Total Bilirubin 0.3 AST 22 ALT 36 Alkaline Phosphatase 53 Total Protein 5.9 L Albumin 3.0 L TB Test (QFT) Nil 0.05 TB Test (QFT) Mitogen >10.0 TB Test (QFT) Negative TB Positive Criteria TB Test (QFT) Interp No Result Required. Microbiology 09/21/18 07:14 Blood - Peripheral Venous Blood Culture - Preliminary NO GROWTH OBTAINED AFTER 96 HOURS, INCUBATION TO CONTINUE FOR 1 DAYS. 09/21/18 07:14 Blood - Peripheral Venous Blood Culture - Preliminary NO GROWTH OBTAINED AFTER 96 HOURS, INCUBATION TO CONTINUE FOR 1 DAYS. 09/23/18 07:00 Sputum - Expectorated AFB Smear Concentration - Final 09/23/18 07:00 Sputum - Expectorated Direct Acid Fast Bacilli Smear - Final 09/23/18 07:00 Sputum - Expectorated Mycobacterial Culture - Preliminary 09/22/18 15:20 Sputum - Expectorated AFB Smear Concentration - Final 09/22/18 15:20 Sputum - Expectorated Direct Acid Fast Bacilli Smear - Final 09/22/18 15:20 Sputum - Expectorated Mycobacterial Culture - Preliminary 09/22/18 21:45 Sputum - Expectorated AFB Smear Concentration - Final 09/22/18 21:45 Sputum - Expectorated Direct Acid Fast Bacilli Smear - Final 09/22/18 21:45 Sputum - Expectorated Mycobacterial Culture - Preliminary 09/21/18 18:32 Sputum - Expectorated Gram Stain - Final 09/21/18 18:32 Sputum - Expectorated Sputum Culture - Final NORMAL RESPIRATORY ABIMAEL 09/21/18 18:50 Urine - Urine Clean Catch Legionella Antigen - Final 09/21/18 18:50 Urine - Urine Clean Catch Streptococcus pneumoniae Antigen ( M - Final 09/21/18 00:11 Urine - Urine Clean Catch Urine Culture - Final 09/21/18 00:09 Nasopharyngeal Swab Influenza Types A,B Antigen - Final 09/21/18 00:09 Nasopharyngeal Swab - Final Active Medications Apixaban (Eliquis -) 5 mg PO BID [facility] Last Admin: 09/25/18 10:18 Dose: 5 mg Carvedilol (Coreg -) 12.5 mg PO BID [facility] Last Admin: 09/25/18 10:18 Dose: 12.5 mg Ceftriaxone Sodium 2 gm/ (Dextrose) 100 mls @ 100 mls/hr IVPB DAILY [facility]; Protocol Last Admin: 09/25/18 10:17 Dose: 100 mls/hr Diltiazem HCl 125 mg/ Sodium (Chloride) 125 mls @ 5 mls/hr IVPB TITR [facility]; Protocol Last Admin: 09/24/18 19:00 Dose: 10 mg/hr, 10 mls/hr Ipratropium [place] (Atrovent 0.02% Nebulizer -) 1 amp NEB RQID [facility] Last Admin: 09/25/18 11:10 Dose: Not Given Loratadine (Claritin -) 10 mg PO DAILY [facility] Last Admin: 09/25/18 10:18 Dose: 10 mg Prednisone 40 mg/ Prednisone (10 mg) 50 mg PO DAILY [facility] Last Admin: 09/25/18 10:18 Dose: 50 mg Sacubitril/Valsartan (Entresto 24 Mg-26 Mg Tablet) 1 tab PO BID [facility] Last Admin: 09/25/18 10:19 Dose: 1 tab IMAGING: -EKG: SINUS TACHYCARDIA, INFERIOR INFARCT , AGE UNDETERMINED, ANTERIOR INFARCT ( CITED ON OR BEFORE 21-SEP-2018), VR 133 bpm, QTc 401 -ECHO: LV is mildly dilated, LV SF is severely reduced, Global hypokinesis of the LV, EF 30-35%, Reduced RV Systolic function, LA and RA are moderately dilated, Mild MR, Mild to Mod TR -CXR: Left upper lobe presumed pneumonia. If findings do not resolve then further imaging with CT is suggested. -CT Chest without contrast: Extensive left upper lobe consolidation consistent with an acute pneumonia. Clinical correlation and follow-up recommended. ASSESSMENT/PLAN: 53 y/o M with PMHx of asthma, Afib (not on anticoagulation), HTN, presents with SOB for the past three weeks. 1. Atrial Flutter with RVR -Cardiology (Dr. Gallo) consulted, appreciate rec's -DC synchronized cardioversion (09/25), Successful synchronized cardioversion to sinus rhythm with 120J -MONICA report pending -Continue Cardizen GTT -Continue Carvedilol, Entresto -Continue Eliquis 5 mg BID -Troponin < 0.02 x2 -BNP 2442.2 -EKG: Sinus tachy -ECHO: LV SF is severely reduced, Global hypokinesis of the LV, EF 30-35% -Strict I&Os, Daily weights -Will likely need Ischemic work up once HR improved and infection resolved 2. RAO pneumonia -D/C Isolation -TB Quantiferon negative, AFB Gram stain negative -Ceftriaxone 2 gram IV daily (Started on 09/21) -Continue Ventolin, Symbicort, Prednisone -Completed Azithromycin course (09/21-09/22) -Urine for pneumonia, legionella negative -Flu swab negative -Blood cultures NGTD -Sputum cultures pending -HIV Screen negative -ID (Dr. Zaman) consulted, appreciate rec's -Pulmonology (Dr. Buck) consulted, appreciate rec's, COLD AGGLUTININS, F/ U CHEST X-RAYS, F/U CHEST CT 6 WKS TO CONFIRM RESOLUTION ON INFILTRATES 3. Hyponatremia -Resolved -Urine electrolytes, serum and urine osmolality, urine creatinine noted 4. FEN -PO fluids -Continue to monitor for Hyponatremia -Sodium controlled diet 5. PPx -DVT: Eliquis Dispo: DCCV tmrw Visit type - Emergency Visit Emergency Visit: Yes ED Registration Date: 09/21/18 Care time: The patient presented to the Emergency Department on the above date and was hospitalized for further evaluation of their emergent condition. - New Patient This patient is new to me today: No - Critical Care Critical Care patient: No - Discharge Referral Referred to [facility] Med P.C.: No
[2018-09-25] MEDS ORDERED: AMIODARONE HCL 200 MG TABLET (FP) PO SCH (13:00)
[2018-09-25] MEDS: AMIODARONE HCL 200 MG TABLET (FP) PO SCH ×2 (13:39→21:25)
--- NOTE | 2018-09-25 13:40 | PN ---
Progress Note (short form) - Note Progress Note: s/p cardioversion this am alert Vital Signs Period Temp Pulse Resp BP Sys/Garg Pulse Ox Last 24 Hr 97.7 F-98.5 F 86-133 16-24 93-133/70-97 94-100 cor-rrr lungs scattered wheeze abd soft,nt ext no edema CBC, BMP 09/25/18 05:30 09/25/18 05:30 Microbiology 09/21/18 07:14 Blood - Peripheral Venous Blood Culture - Preliminary NO GROWTH OBTAINED AFTER 96 HOURS, INCUBATION TO CONTINUE FOR 1 DAYS. 09/21/18 07:14 Blood - Peripheral Venous Blood Culture - Preliminary NO GROWTH OBTAINED AFTER 96 HOURS, INCUBATION TO CONTINUE FOR 1 DAYS. 09/23/18 07:00 Sputum - Expectorated AFB Smear Concentration - Final 09/23/18 07:00 Sputum - Expectorated Direct Acid Fast Bacilli Smear - Final 09/23/18 07:00 Sputum - Expectorated Mycobacterial Culture - Preliminary 09/22/18 15:20 Sputum - Expectorated AFB Smear Concentration - Final 09/22/18 15:20 Sputum - Expectorated Direct Acid Fast Bacilli Smear - Final 09/22/18 15:20 Sputum - Expectorated Mycobacterial Culture - Preliminary 09/22/18 21:45 Sputum - Expectorated AFB Smear Concentration - Final 09/22/18 21:45 Sputum - Expectorated Direct Acid Fast Bacilli Smear - Final 09/22/18 21:45 Sputum - Expectorated Mycobacterial Culture - Preliminary 09/21/18 18:32 Sputum - Expectorated Gram Stain - Final 09/21/18 18:32 Sputum - Expectorated Sputum Culture - Final NORMAL RESPIRATORY ABIMAEL 09/21/18 18:50 Urine - Urine Clean Catch Legionella Antigen - Final 09/21/18 18:50 Urine - Urine Clean Catch Streptococcus pneumoniae Antigen ( M - Final 09/21/18 00:11 Urine - Urine Clean Catch Urine Culture - Final 09/21/18 00:09 Nasopharyngeal Swab Influenza Types A,B Antigen - Final 09/21/18 00:09 Nasopharyngeal Swab - Final sputum afb negative times 3,(smear) quantiferon negative Current Medications Amiodarone HCl (Cordarone -) 200 mg PO BID [facility] Last Admin: 09/25/18 13:39 Dose: 200 mg Apixaban (Eliquis -) 5 mg PO BID [facility] Last Admin: 09/25/18 10:18 Dose: 5 mg Carvedilol (Coreg -) 12.5 mg PO BID [facility] Last Admin: 09/25/18 10:18 Dose: 12.5 mg Ceftriaxone Sodium 2 gm/ (Dextrose) 100 mls @ 100 mls/hr IVPB DAILY [facility]; Protocol Last Admin: 09/25/18 10:17 Dose: 100 mls/hr Ipratropium [place] (Atrovent 0.02% Nebulizer -) 1 amp NEB RQID [facility] Last Admin: 09/25/18 11:10 Dose: Not Given Loratadine (Claritin -) 10 mg PO DAILY [facility] Last Admin: 09/25/18 10:18 Dose: 10 mg Prednisone 40 mg/ Prednisone (10 mg) 50 mg PO DAILY [facility] Last Admin: 09/25/18 10:18 Dose: 50 mg Sacubitril/Valsartan (Entresto 24 Mg-26 Mg Tablet) 1 tab PO BID [facility] Last Admin: 09/25/18 10:19 Dose: 1 tab a/p RUL pneumonia continue rocephin for pneumonia repeat cxray in am f/u chest ct atrial flutter- s/p cardioversion Problem List - Problems (1) Pneumonia Code(s): J18.9 - PNEUMONIA, UNSPECIFIED ORGANISM Qualifiers: Pneumonia type: due to unspecified organism Laterality: left Lung location: upper lobe of lung Qualified Code(s): J18.1 - Lobar pneumonia, unspecified organism (2) A-fib Code(s): I48.91 - UNSPECIFIED ATRIAL FIBRILLATION
--- NOTE | 2018-09-25 14:13 | PN ---
Progress Note (short form) - Note Progress Note: Just returning from [facility]. Sleepy but arousable. Overall cough and breathing improved. No CP. No hemoptysis. Intake & Output 09/22/18 09/23/18 09/24/18 09/25/18 23:59 23:59 23:59 23:59 Intake Total 500 400 620 270 Output Total 800 350 Balance -300 400 620 -80 Weight 241 lb 14.4 oz 234 lb 7 oz 239 lb 10.279 oz 235 lb 10.786 oz Last Vital Signs Temp Pulse Resp BP Pulse Ox 97.7 F 86 24 H 133/79 94 L 09/25/18 10:00 09/25/18 10:00 09/25/18 10:00 09/25/18 10:00 09/25/18 09:00 Active Medications Amiodarone HCl (Cordarone -) 200 mg PO BID [facility] Last Admin: 09/25/18 13:39 Dose: 200 mg Apixaban (Eliquis -) 5 mg PO BID [facility] Last Admin: 09/25/18 10:18 Dose: 5 mg Carvedilol (Coreg -) 12.5 mg PO BID [facility] Last Admin: 09/25/18 10:18 Dose: 12.5 mg Ceftriaxone Sodium 2 gm/ (Dextrose) 100 mls @ 100 mls/hr IVPB DAILY [facility]; Protocol Last Admin: 09/25/18 10:17 Dose: 100 mls/hr Ipratropium [place] (Atrovent 0.02% Nebulizer -) 1 amp NEB RQID [facility] Last Admin: 09/25/18 11:10 Dose: Not Given Loratadine (Claritin -) 10 mg PO DAILY [facility] Last Admin: 09/25/18 10:18 Dose: 10 mg Prednisone 40 mg/ Prednisone (10 mg) 50 mg PO DAILY [facility] Last Admin: 09/25/18 10:18 Dose: 50 mg Sacubitril/Valsartan (Entresto 24 Mg-26 Mg Tablet) 1 tab PO BID [facility] Last Admin: 09/25/18 10:19 Dose: 1 tab Constitutional: Yes: No Distress Neck: Yes: Supple Cardiovascular: Yes: S1S2, AFlutter Respiratory: Yes: few scattered rhonchi on the left Gastrointestinal: Yes: Normal Bowel Sounds, Soft Edema: No Labs: Laboratory Results - last 24 hr 09/21/18 09/25/1809/25/18 09:40 05:30 05:30 WBC 8.6 RBC 4.87 Hgb 14.9 Hct 45.1 MCV 92.7 MCH 30.6 MCHC 33.1 RDW 13.0 Plt Count 333 D MPV 7.6 Absolute Neuts (auto) 5.5 Neutrophils % 63.3 Lymphocytes % 22.1 D Monocytes % 13.0 H Eosinophils % 0.5 D Basophils % 1.1 D Nucleated RBC % 0 Sodium 141 Potassium 3.9 Chloride 104 Carbon Dioxide 28 Anion Gap 10 BUN 15 Creatinine 0.7 Creat Clearance w eGFR > 60 Random Glucose 82 Calcium 8.6 Phosphorus 3.6 Magnesium 2.5 H Total Bilirubin 0.3 AST 22 ALT 36 Alkaline Phosphatase 53 Total Protein 5.9 L Albumin 3.0 L TB Test (QFT) Nil 0.05 TB Test (QFT) Mitogen >10.0 TB Test (QFT) Negative TB Positive Criteria TB Test (QFT) Interp No Result Required. Problem List - Problems (1) A-fib Code(s): I48.91 - UNSPECIFIED ATRIAL FIBRILLATION (2) Atrial fibrillation Code(s): I48.91 - UNSPECIFIED ATRIAL FIBRILLATION Qualifiers: Atrial fibrillation type: paroxysmal Qualified Code(s): I48.0 - Paroxysmal atrial fibrillation (3) Atrial flutter Code(s): I48.92 - UNSPECIFIED ATRIAL FLUTTER Qualifiers: Atrial flutter type: typical Qualified Code(s): I48.3 - Typical atrial flutter (4) HTN (hypertension) Code(s): I10 - ESSENTIAL (PRIMARY) HYPERTENSION Qualifiers: Hypertension type: essential hypertension Qualified Code(s): I10 - Essential (primary) hypertension (5) Pneumonia Code(s): J18.9 - PNEUMONIA, UNSPECIFIED ORGANISM Qualifiers: Pneumonia type: due to unspecified organism Laterality: left Lung location: upper lobe of lung Qualified Code(s): J18.1 - Lobar pneumonia, unspecified organism (6) Asthma Code(s): J45.909 - UNSPECIFIED ASTHMA, UNCOMPLICATED IMP DYSPNEA RAO PNEUMONIA AFLUTTER ASTHMA HTN PLAN IV ABX PER ID FOLLOW CULTURES INHALED BRONCHODILATORS O2 RATE CONTROL PER CARDIOLOGY AC F/U CHEST CT 6 WKS TO CONFIRM RESOLUTION ON INFILTRATES DR LITTLE
[2018-09-25] MEDS ORDERED: PT OWN MED DRAWER 7, Y5N ONE (19:55)
--- NOTE | 2018-09-25 20:17 | PN ---
Teaching Attending Note Name of Resident: Jovany Sloan ATTENDING PHYSICIAN STATEMENT I saw and evaluated the patient. I reviewed the resident's note and discussed the case with the resident. I agree with the resident's findings and plan as documented. SUBJECTIVE: Patient is feeling better with no acute distress s/p MONICA today and cardioversion for uncontrolled afib. OBJECTIVE: Vital Signs Temperature 98.4 F 09/25/18 14:00 Pulse Rate 99 H 09/25/18 16:00 Respiratory Rate 19 09/25/18 16:00 Blood Pressure 108/73 09/25/18 16:00 O2 Sat by Pulse Oximetry (%) 94 L 09/25/18 09:00 GENERAL: The patient is awake, alert, and fully oriented, in no acute distress. HEAD: Normal with no signs of trauma. EYES: PERRL, extraocular movements intact, sclera anicteric, conjunctiva clear. No ptosis. neck: soft, supple, no JVD visualized Chest: few right basilar and left upper lobe rales, positive air entry, no wheezing ENT: Ears normal, nares patent, oropharynx clear without exudates, moist mucous membranes. NECK: Trachea midline, full range of motion, supple. CVS: S1S2 irregular ABDOMEN: Soft, nontender, nondistended, normoactive bowel sounds, no guarding, no rebound EXTREMITIES: 2+ pulses, warm, well-perfused, no edema. NEUROLOGICAL: Cranial nerves II through XII grossly intact. Normal speech, ambulating well in the room PSYCH: Normal mood, normal affect. SKIN: Warm, dry, normal turgor, no rashes or lesions noted CBCD WBC 8.6 K/mm3 (4.0-10.0) 09/25/18 05:30 RBC 4.87 M/mm3 (4.00-5.60) 09/25/18 05:30 Hgb 14.9 GM/dL (11.7-16.9) 09/25/18 05:30 Hct 45.1 % (35.4-49) 09/25/18 05:30 MCV 92.7 fl (80-96) 09/25/18 05:30 MCHC 33.1 g/dl (32.0-35.9) 09/25/18 05:30 RDW 13.0 % (11.9-15.9) 09/25/18 05:30 Plt Count 333 K/MM3 (134-434) D 09/25/18 05:30 MPV 7.6 fl (7.5-11.1) 09/25/18 05:30 CMP Sodium 141 mmol/L (136-145) 09/25/18 05:30 Potassium 3.9 mmol/L (3.5-5.1) 09/25/18 05:30 Chloride 104 mmol/L (98-107) 09/25/18 05:30 Carbon Dioxide 28 mmol/L (21-32) 09/25/18 05:30 Anion Gap 10 MMOL/L (8-16) 09/25/18 05:30 BUN 15 mg/dL (7-18) 09/25/18 05:30 Creatinine 0.7 mg/dL (0.55-1.3) 09/25/18 05:30 Creat Clearance w eGFR > 60 (>60) 09/25/18 05:30 Random Glucose 82 mg/dL (74-106) 09/25/18 05:30 Calcium 8.6 mg/dL (8.5-10.1) 09/25/18 05:30 Total Bilirubin 0.3 mg/dL (0.2-1) 09/25/18 05:30 AST 22 U/L (15-37) 09/25/18 05:30 ALT 36 U/L (13-61) 09/25/18 05:30 Alkaline Phosphatase 53 U/L (45-117) 09/25/18 05:30 Total Protein 5.9 g/dl (6.4-8.2) L 09/25/18 05:30 Albumin 3.0 g/dl (3.4-5.0) L 09/25/18 05:30 CARDIAC ENZYMES Troponin I < 0.02 ng/ml (0.00-0.05) 09/21/18 09:43 Home Medications Medication Instructions Recorded Albuterol Sulfate Inhaler - 1 - 2 inh PO QID PRN 09/13/14 [Ventolin HFA Inhaler -] Budesonide/Formeterol Fumarate 1 inh PO DAILY 10/21/17 [SYMBICORT 160/4.5mcg -] Diltiazem Cd [Cardizem Cd -] 300 mg PO DAILY 10/21/17 Loratadine [Claritin] 10 mg PO DAILY 09/21/18 Valsartan 40 mg PO DAILY 09/21/18 Current Medications Generic Name Dose Route Start Last Admin Trade Name Ravinq PRN Reason Stop Dose Admin Amiodarone HCl 200 mg 09/25/18 13:00 09/25/18 21:25 Cordarone - PO 200 mg BID [facility] Administration Apixaban 5 mg 09/21/18 13:45 09/25/18 21:25 Eliquis - PO 5 mg BID [facility] Administration Carvedilol 12.5 mg 09/23/18 10:00 09/25/18 21:25 Coreg - PO 12.5 mg BID [facility] Administration Ceftriaxone Sodium 2 gm/ 100 mls @ 100 mls/hr 09/23/18 10:00 09/25/18 10:17 Dextrose IVPB 100 mls/hr DAILY [facility] Administration Protocol Ipratropium [place] 1 amp 09/24/18 16:00 09/25/18 21:06 Atrovent 0.02% Nebulizer - NEB 1 amp RQID [facility] Administration Loratadine 10 mg 09/21/18 10:00 09/25/18 10:18 Claritin - PO 10 mg DAILY [facility] Administration Prednisone 40 mg/ Prednisone 50 mg 09/25/18 10:00 09/25/18 10:18 10 mg PO 50 mg DAILY [facility] Administration Sacubitril/Valsartan 1 tab 09/23/18 10:00 09/25/18 21:26 Entresto 24 Mg-26 Mg Tablet PO 1 tab BID [facility] Administration Microbiology 09/21/18 07:14 Blood - Peripheral Venous Blood Culture - Preliminary NO GROWTH OBTAINED AFTER 96 HOURS, INCUBATION TO CONTINUE FOR 1 DAYS. 09/21/18 07:14 Blood - Peripheral Venous Blood Culture - Preliminary NO GROWTH OBTAINED AFTER 96 HOURS, INCUBATION TO CONTINUE FOR 1 DAYS. 09/23/18 07:00 Sputum - Expectorated AFB Smear Concentration - Final 09/23/18 07:00 Sputum - Expectorated Direct Acid Fast Bacilli Smear - Final 09/23/18 07:00 Sputum - Expectorated Mycobacterial Culture - Preliminary 09/22/18 15:20 Sputum - Expectorated AFB Smear Concentration - Final 09/22/18 15:20 Sputum - Expectorated Direct Acid Fast Bacilli Smear - Final 09/22/18 15:20 Sputum - Expectorated Mycobacterial Culture - Preliminary 09/22/18 21:45 Sputum - Expectorated AFB Smear Concentration - Final 09/22/18 21:45 Sputum - Expectorated Direct Acid Fast Bacilli Smear - Final 09/22/18 21:45 Sputum - Expectorated Mycobacterial Culture - Preliminary 09/21/18 18:32 Sputum - Expectorated Gram Stain - Final 09/21/18 18:32 Sputum - Expectorated Sputum Culture - Final NORMAL RESPIRATORY ABIMAEL 09/21/18 18:50 Urine - Urine Clean Catch Legionella Antigen - Final 09/21/18 18:50 Urine - Urine Clean Catch Streptococcus pneumoniae Antigen ( M - Final 09/21/18 00:11 Urine - Urine Clean Catch Urine Culture - Final 09/21/18 00:09 Nasopharyngeal Swab Influenza Types A,B Antigen - Final 09/21/18 00:09 Nasopharyngeal Swab - Final ECHO 09/22/2018: left ventricle dilated mildly, Left ventricular systolic function is severely reduced, severe global hypokinesis of the left ventricle, EJF 30-35%, LV function is severely reduced. left atrium and right atrium is dilated moderately, mild to moderate MR, mild to moderate TR, pulmonary artery pressure is at least 37mmhg, RA pressure of 15mmHg. No pericardial effusion. ASSESSMENT AND PLAN: Patient is a 53 yo male with PMHx of paroxysmal Afib not on AC (prior h/o being on coumadin), Asthma/bronchitis, admitted with RAO CAP and Atrial flutter with RVR, found with new cardiomyopathy #RAO PNA with early sepsis, Ceftriaxone day 5 , id appreciated ,legionella ruled out, AFBx3 negative, Strept pneum.neagtive, Influenza is neg. #Atrial flutter with RVR s/p Cardioversion and MONICA, on Eliquis #Global hypokinesis of left ventricle with EJF of 30-35%, cardio is on the case. patient is started on Coreg, Ricardo and Amiodorane (TSH 0.84) #Suspected COPD exacerbation/asthma with heavy smoking history , will continue with Prednisone, atrovent nebs, #HTN on Ricardo, Coreg. DVT PX: Eliquis
[2018-09-26 06:21] LABS: BASO % 0.7 % (0-2.0); EOS % 0.3 % (0-4.5); HEMATOCRIT 43.3 % (35.4-49); HEMOGLOBIN 14.4 GM/dL (11.7-16.9); LYMPH % 19.4 % (8-40); MCH 30.8 pg (25.7-33.7); MCHC 33.2 g/dl (32.0-35.9); MEAN CELL VOLUME 92.7 fl (80-96); MEAN PLT VOLUME 7.1 fl (7.5-11.1); MONO % 11.2 % (3.8-10.2); NEUT % 68.4 % (42.8-82.8); PLATELET COUNT 324 K/MM3 (134-434); RBC 4.67 M/mm3 (4.00-5.60); RDW 12.8 % (11.9-15.9); WHITE BLOOD COUNT 8.8 K/mm3 (4.0-10.0)
[2018-09-26 07:53] LABS: ALK PHOS 51 U/L (45-117); ANION GAP 10 MMOL/L (8-16); BILIRUBIN,TOTAL 0.4 mg/dL (0.2-1); BLOOD UREA NITROGEN 15 mg/dL (7-18); CALCIUM 8.2 mg/dL (8.5-10.1); CHLORIDE 103 mmol/L (98-107); CO2 29 mmol/L (21-32); CREATININE 0.8 mg/dL (0.55-1.3); GLUCOSE,RANDOM 81 mg/dL (74-106); MAGNESIUM 2.3 mg/dL (1.8-2.4); PHOSPHOROUS 3.5 mg/dL (2.5-4.9); POTASSIUM 4.3 mmol/L (3.5-5.1); SGOT/AST 14 U/L (15-37); SGPT/ALT 35 U/L (13-61); SODIUM 141 mmol/L (136-145)
[2018-09-26] MEDS: IPRATROPIUM BR 0.02% 0.5 MG/2.5 ML VIAL.NEB. NEB SCH ×4 (08:36→22:27)
--- NOTE | 2018-09-26 08:49 | PN ---
Teaching Attending Note Name of Resident: Robyn Garcia ATTENDING PHYSICIAN STATEMENT I saw and evaluated the patient. I reviewed the resident's note and discussed the case with the resident. I agree with the resident's findings and plan as documented. SUBJECTIVE: Patient is comfortable with no acute distress, HR is better controlled now. s/p cardioversion. OBJECTIVE: Vital Signs Temperature 98 F 09/26/18 06:20 Pulse Rate 101 H 09/26/18 06:20 Respiratory Rate 20 09/26/18 06:20 Blood Pressure 136/104 H 09/26/18 06:20 O2 Sat by Pulse Oximetry (%) 94 L 09/25/18 20:00 GENERAL: The patient is awake, alert, and fully oriented, in no acute distress. HEAD: Normal with no signs of trauma. EYES: PERRL, extraocular movements intact, sclera anicteric, conjunctiva clear. neck: soft, supple, no JVD visualized Chest: few right basilar and left upper lobe rales, positive air entry, no wheezing ENT: Ears normal, oropharynx clear without exudates, moist mucous membranes. NECK: Trachea midline, full range of motion, supple. CVS: S1S2 irregular ABDOMEN: Soft, nontender, nondistended, normoactive bowel sounds, no guarding, no rebound EXTREMITIES: 2+ pulses, warm, well-perfused, no edema. NEUROLOGICAL: Cranial nerves II through XII grossly intact. Normal speech, ambulating well in the room PSYCH: Normal mood, normal affect. SKIN: Warm, dry, normal turgor, no rashes or lesions noted CBCD WBC 8.8 K/mm3 (4.0-10.0) 09/26/18 05:30 RBC 4.67 M/mm3 (4.00-5.60) 09/26/18 05:30 Hgb 14.4 GM/dL (11.7-16.9) 09/26/18 05:30 Hct 43.3 % (35.4-49) 09/26/18 05:30 MCV 92.7 fl (80-96) 09/26/18 05:30 MCHC 33.2 g/dl (32.0-35.9) 09/26/18 05:30 RDW 12.8 % (11.9-15.9) 09/26/18 05:30 Plt Count 324 K/MM3 (134-434) 09/26/18 05:30 MPV 7.1 fl (7.5-11.1) L 09/26/18 05:30 CMP Sodium 141 mmol/L (136-145) 09/26/18 05:30 Potassium 4.3 mmol/L (3.5-5.1) 09/26/18 05:30 Chloride 103 mmol/L (98-107) 09/26/18 05:30 Carbon Dioxide 29 mmol/L (21-32) 09/26/18 05:30 Anion Gap 10 MMOL/L (8-16) 09/26/18 05:30 BUN 15 mg/dL (7-18) 09/26/18 05:30 Creatinine 0.8 mg/dL (0.55-1.3) 09/26/18 05:30 Creat Clearance w eGFR > 60 (>60) 09/26/18 05:30 Random Glucose 81 mg/dL (74-106) 09/26/18 05:30 Calcium 8.2 mg/dL (8.5-10.1) L 09/26/18 05:30 Total Bilirubin 0.4 mg/dL (0.2-1) 09/26/18 05:30 AST 14 U/L (15-37) L 09/26/18 05:30 ALT 35 U/L (13-61) 09/26/18 05:30 Alkaline Phosphatase 51 U/L (45-117) 09/26/18 05:30 Total Protein 6.0 g/dl (6.4-8.2) L 09/26/18 05:30 Albumin 3.0 g/dl (3.4-5.0) L 09/26/18 05:30 CARDIAC ENZYMES Troponin I < 0.02 ng/ml (0.00-0.05) 09/21/18 09:43 Current Medications Generic Name Dose Route Start Last Admin Trade Name Freq PRN Reason Stop Dose Admin Amiodarone HCl 200 mg 09/25/18 13:00 09/25/18 21:25 Cordarone - PO 200 mg BID [facility] Administration Apixaban 5 mg 09/21/18 13:45 09/25/18 21:25 Eliquis - PO 5 mg BID [facility] Administration Carvedilol 12.5 mg 09/23/18 10:00 09/25/18 21:25 Coreg - PO 12.5 mg BID [facility] Administration Ceftriaxone Sodium 2 gm/ 100 mls @ 100 mls/hr 09/23/18 10:00 09/25/18 10:17 Dextrose IVPB 100 mls/hr DAILY [facility] Administration Protocol Ipratropium [place] 1 amp 09/24/18 16:00 09/26/18 08:36 Atrovent 0.02% Nebulizer - NEB 1 amp RQID [facility] Administration Loratadine 10 mg 09/21/18 10:00 09/25/18 10:18 Claritin - PO 10 mg DAILY [facility] Administration Prednisone 40 mg/ Prednisone 50 mg 09/25/18 10:00 09/25/18 10:18 10 mg PO 50 mg DAILY [facility] Administration Sacubitril/Valsartan 1 tab 09/23/18 10:00 09/25/18 21:26 Entresto 24 Mg-26 Mg Tablet PO 1 tab BID [facility] Administration Home Medications Medication Instructions Recorded Albuterol Sulfate Inhaler - 1 - 2 inh PO QID PRN 09/13/14 [Ventolin HFA Inhaler -] Budesonide/Formeterol Fumarate 1 inh PO DAILY 10/21/17 [SYMBICORT 160/4.5mcg -] Diltiazem Cd [Cardizem Cd -] 300 mg PO DAILY 10/21/17 Loratadine [Claritin] 10 mg PO DAILY 09/21/18 Valsartan 40 mg PO DAILY 09/21/18 Microbiology 09/21/18 07:14 Blood - Peripheral Venous Blood Culture - Preliminary NO GROWTH OBTAINED AFTER 96 HOURS, INCUBATION TO CONTINUE FOR 1 DAYS. 09/21/18 07:14 Blood - Peripheral Venous Blood Culture - Preliminary NO GROWTH OBTAINED AFTER 96 HOURS, INCUBATION TO CONTINUE FOR 1 DAYS. 09/23/18 07:00 Sputum - Expectorated AFB Smear Concentration - Final 09/23/18 07:00 Sputum - Expectorated Direct Acid Fast Bacilli Smear - Final 09/23/18 07:00 Sputum - Expectorated Mycobacterial Culture - Preliminary 09/22/18 15:20 Sputum - Expectorated AFB Smear Concentration - Final 09/22/18 15:20 Sputum - Expectorated Direct Acid Fast Bacilli Smear - Final 09/22/18 15:20 Sputum - Expectorated Mycobacterial Culture - Preliminary 09/22/18 21:45 Sputum - Expectorated AFB Smear Concentration - Final 09/22/18 21:45 Sputum - Expectorated Direct Acid Fast Bacilli Smear - Final 09/22/18 21:45 Sputum - Expectorated Mycobacterial Culture - Preliminary 09/21/18 18:32 Sputum - Expectorated Gram Stain - Final 09/21/18 18:32 Sputum - Expectorated Sputum Culture - Final NORMAL RESPIRATORY ABIMAEL 09/21/18 18:50 Urine - Urine Clean Catch Legionella Antigen - Final 09/21/18 18:50 Urine - Urine Clean Catch Streptococcus pneumoniae Antigen ( M - Final 09/21/18 00:11 Urine - Urine Clean Catch Urine Culture - Final 09/21/18 00:09 Nasopharyngeal Swab Influenza Types A,B Antigen - Final 09/21/18 00:09 Nasopharyngeal Swab - Final ECHO 09/22/2018: left ventricle dilated mildly, Left ventricular systolic function is severely reduced, severe global hypokinesis of the left ventricle, EJF 30-35%, LV function is severely reduced. left atrium and right atrium is dilated moderately, mild to moderate MR, mild to moderate TR, pulmonary artery pressure is at least 37mmhg, RA pressure of 15mmHg. No pericardial effusion. ASSESSMENT AND PLAN: Patient is a 53 yo male with PMHx of paroxysmal Afib not on AC (prior h/o being on coumadin), Asthma/bronchitis, admitted with RAO CAP and Atrial flutter with RVR, found with new cardiomyopathy #RAO PNA with sepsis, On Ceftriaxone , id appreciated ,legionella ruled out, AFBx3 negative, Strept pneum.neagtive, Influenza is neg. #Atrial flutter with RVR s/p Cardioversion and MONICA, on Eliquis , will continue to monitor the HR , on Amiodoran for now, cardio on the case #Global hypokinesis of left ventricle with EJF of 30-35%, cardio is on the case. patient is started on Coreg, Ricardo and Amiodorane (TSH 0.84) #Suspected COPD exacerbation/asthma with heavy smoking history , will continue with Prednisone, atrovent nebs, #HTN on Ricardo, Coreg. DVT PX: Eliquis
[2018-09-26] MEDS ORDERED: predniSONE 10 MG TABLET (UD) ONE (10:16)
[2018-09-26] MEDS ORDERED: predniSONE 20 MG TABLET (UD) ONE (10:16)
[2018-09-26] MEDS ORDERED: DEXTROSE 5%-WATER 100 ML IVPB ONE (10:17)
[2018-09-26] MEDS ORDERED: PT OWN MED DRAWER 7, Y5N ONE (10:17)
[2018-09-26] MEDS: CARVEDILOL 12.5 MG TABLET (FP) PO SCH (10:19)
[2018-09-26] MEDS: LORATADINE 10 MG TABLET PO SCH (10:19)
[2018-09-26] MEDS: AMIODARONE HCL 200 MG TABLET (FP) PO SCH ×2 (10:19→22:06)
[2018-09-26] MEDS: predniSONE 40 MG, predniSONE 10 MG PO SCH (10:19)
[2018-09-26] MEDS: APIXABAN 5 MG TABLET PO SCH ×2 (10:19→22:06)
[2018-09-26] MEDS: SACUBITRIL/VALSARTAN 24 MG-26 MG TABLET PO SCH ×2 (10:20→22:07)
[2018-09-26] MEDS: CEFTRIAXONE 2 GM in DEXTROSE 5%-WATER 100 ML IVPB SCH (10:20)
--- NOTE | 2018-09-26 10:55 | PN ---
Progress Note, Physician History of Present Illness: Reports improvement in dyspnea, light-headedness, palpitations and chest tightness post DCCV and remain in SR. - Current Medication List Current Medications: Active Medications Amiodarone HCl (Cordarone -) 200 mg PO BID [facility] Last Admin: 09/26/18 10:19 Dose: 200 mg Apixaban (Eliquis -) 5 mg PO BID [facility] Last Admin: 09/26/18 10:19 Dose: 5 mg Carvedilol (Coreg -) 12.5 mg PO BID [facility] Last Admin: 09/26/18 10:19 Dose: 12.5 mg Ceftriaxone Sodium 2 gm/ (Dextrose) 100 mls @ 100 mls/hr IVPB DAILY [facility]; Protocol Last Admin: 09/26/18 10:20 Dose: 100 mls/hr Ipratropium [place] (Atrovent 0.02% Nebulizer -) 1 amp NEB RQID [facility] Last Admin: 09/26/18 08:36 Dose: 1 amp Loratadine (Claritin -) 10 mg PO DAILY [facility] Last Admin: 09/26/18 10:19 Dose: 10 mg Prednisone 40 mg/ Prednisone (10 mg) 50 mg PO DAILY [facility] Last Admin: 09/26/18 10:19 Dose: 50 mg Sacubitril/Valsartan (Entresto 24 Mg-26 Mg Tablet) 1 tab PO BID [facility] Last Admin: 09/26/18 10:20 Dose: 1 tab - Objective Vital Signs: Vital Signs Temperature 98 F 09/26/18 06:20 Pulse Rate 101 H 09/26/18 06:20 Respiratory Rate 20 09/26/18 06:20 Blood Pressure 136/104 H 09/26/18 06:20 O2 Sat by Pulse Oximetry (%) 94 L 09/25/18 20:00 Constitutional: Yes: No Distress, Calm Neck: Yes: Supple Cardiovascular: Yes: Regular Rate and Rhythm Respiratory: Yes: Regular, CTA Bilaterally, On Nasal O2 Gastrointestinal: Yes: Normal Bowel Sounds, Soft Edema: No Labs: CBC, BMP 09/26/18 05:30 09/26/18 05:30 INR, PTT INR 1.43 (0.83-1.09) H 09/22/18 06:00 - ....Imaging Chest X-ray: Report Reviewed (Resolved RAO infiltrate) EKG: Report Reviewed (Tele: SR) Problem List - Problems (1) Asthma Code(s): J45.909 - UNSPECIFIED ASTHMA, UNCOMPLICATED Qualifiers: Asthma severity: mild Asthma persistence: intermittent (2) Atrial flutter Code(s): I48.92 - UNSPECIFIED ATRIAL FLUTTER Qualifiers: Atrial flutter type: typical Qualified Code(s): I48.3 - Typical atrial flutter (3) HTN (hypertension) Code(s): I10 - ESSENTIAL (PRIMARY) HYPERTENSION Qualifiers: Hypertension type: essential hypertension Qualified Code(s): I10 - Essential (primary) hypertension (4) Pneumonia Code(s): J18.9 - PNEUMONIA, UNSPECIFIED ORGANISM Qualifiers: Pneumonia type: due to unspecified organism Laterality: left Lung location: upper lobe of lung Qualified Code(s): J18.1 - Lobar pneumonia, unspecified organism (5) History of cardioversion Code(s): Z98.890 - OTHER SPECIFIED POSTPROCEDURAL STATES (6) Systolic dysfunction without heart failure Code(s): I51.89 - OTHER ILL-DEFINED HEART DISEASES (7) Patent foramen ovale Code(s): Q21.1 - ATRIAL SEPTAL DEFECT Assessment/Plan Echocardiography revealed severe LV systolic dysfunction with LVEF 30-35%, LAE, mild MR, mild to moderate TR with RVSP 37 mmHg MONICA report is to follow 1. Severe LV systolic dysfunction 2. Mild to moderate eccentric MR 3. Mild TR 4. PFO with left to right shunt via color Doppler. Bubbles pass right to left with valsalva 5. No pericardial effusion 6. Small atherosclerotic plaque in thoracic aorta and aortic arch ASSESSMENT: 1. Dyspnea referable to acute exacerbation of asthma with left upper lobe pneumonia improving 2. Persistent atrial flutter with RVR with prior history of paroxysmal atrial fibrillation on anticoagulation with DOAC's/Eliquis [id number] score of 1-2 3. Dilated probably nonischemic cardiomyopathy, possible tachycardia-induced myopathy 4. PFO 5. HTN 6. Ruled out for AFB, HIV negative 7. Suspect OSAS PLAN: 1. Continue amio 200 bid oral load 2. Increase Coreg 25 bid and Entresto 24/26 bid and eventual aldactone with uptitration as tolerated 3. Continue Eliquis 5 bid 4. Complete empiric antibiotic coverage, bronchodilators, oral steroids and O2 as needed 5. Ischemic evaluation once clinically improved 6. PSG as outpatient, [facility] prior to d/c
--- NOTE | 2018-09-26 13:04 | PN ---
Progress Note (short form) - Note Progress Note: s/p cardioversion feels well alert Vital Signs Period Temp Pulse Resp BP Sys/Garg Pulse Ox Last 24 Hr 97.6 F-98.4 F 88-108 18-24 95-136/66-104 94 cor-rrr lungs clear crackles Left upper lobe abd soft,nt ext no edema CBC, BMP 09/26/18 05:30 09/26/18 05:30 Microbiology 09/21/18 07:14 Blood - Peripheral Venous Blood Culture - Final NO GROWTH AFTER 5 DAYS INCUBATION 09/21/18 07:14 Blood - Peripheral Venous Blood Culture - Final NO GROWTH AFTER 5 DAYS INCUBATION 09/23/18 07:00 Sputum - Expectorated AFB Smear Concentration - Final 09/23/18 07:00 Sputum - Expectorated Direct Acid Fast Bacilli Smear - Final 09/23/18 07:00 Sputum - Expectorated Mycobacterial Culture - Preliminary 09/22/18 15:20 Sputum - Expectorated AFB Smear Concentration - Final 09/22/18 15:20 Sputum - Expectorated Direct Acid Fast Bacilli Smear - Final 09/22/18 15:20 Sputum - Expectorated Mycobacterial Culture - Preliminary 09/22/18 21:45 Sputum - Expectorated AFB Smear Concentration - Final 09/22/18 21:45 Sputum - Expectorated Direct Acid Fast Bacilli Smear - Final 09/22/18 21:45 Sputum - Expectorated Mycobacterial Culture - Preliminary 09/21/18 18:32 Sputum - Expectorated Gram Stain - Final 09/21/18 18:32 Sputum - Expectorated Sputum Culture - Final NORMAL RESPIRATORY ABIMAEL 09/21/18 18:50 Urine - Urine Clean Catch Legionella Antigen - Final 09/21/18 18:50 Urine - Urine Clean Catch Streptococcus pneumoniae Antigen ( M - Final 09/21/18 00:11 Urine - Urine Clean Catch Urine Culture - Final 09/21/18 00:09 Nasopharyngeal Swab Influenza Types A,B Antigen - Final 09/21/18 00:09 Nasopharyngeal Swab - Final sputum afb negative times 3,(smear) quantiferon negative Current Medications Amiodarone HCl (Cordarone -) 200 mg PO BID [facility] Last Admin: 09/26/18 10:19 Dose: 200 mg Apixaban (Eliquis -) 5 mg PO BID [facility] Last Admin: 10/26/18 10:19 Dose: 5 mg Carvedilol (Coreg -) 12.5 mg PO BID [facility] Last Admin: 09/26/18 10:19 Dose: 12.5 mg Ceftriaxone Sodium 2 gm/ (Dextrose) 100 mls @ 100 mls/hr IVPB DAILY [facility]; Protocol Last Admin: 09/26/18 10:20 Dose: 100 mls/hr Ipratropium [place] (Atrovent 0.02% Nebulizer -) 1 amp NEB RQID [facility] Last Admin: 09/26/18 12:29 Dose: 1 amp Loratadine (Claritin -) 10 mg PO DAILY [facility] Last Admin: 09/26/18 10:19 Dose: 10 mg Prednisone 40 mg/ Prednisone (10 mg) 50 mg PO DAILY [facility] Last Admin: 09/26/18 10:19 Dose: 50 mg Sacubitril/Valsartan (Entresto 24 Mg-26 Mg Tablet) 1 tab PO BID [facility] Last Admin: 09/26/18 10:20 Dose: 1 tab cxray resolving a/p RUL pneumoniar-resolving day #6 of 7 ceftriaxone atrial flutter- s/p cardioversion please call back if needed Problem List - Problems (1) Pneumonia Code(s): J18.9 - PNEUMONIA, UNSPECIFIED ORGANISM Qualifiers: Pneumonia type: due to unspecified organism Laterality: left Lung location: upper lobe of lung Qualified Code(s): J18.1 - Lobar pneumonia, unspecified organism (2) A-fib Code(s): I48.91 - UNSPECIFIED ATRIAL FIBRILLATION
--- NOTE | 2018-09-26 13:25 | PN ---
Progress Note (short form) - Note Progress Note: OOB to chair. Overall feels better. SOB and cough improving. No CP. Intake & Output 09/23/18 09/24/18 09/25/18 09/26/18 23:59 23:59 23:59 23:59 Intake Total 400 620 920 100 Output Total 350 Balance 400 620 570 100 Weight 234 lb 7 oz 239 lb 10.279 oz 235 lb 10.786 oz 233 lb 7 oz Last Vital Signs Temp Pulse Resp BP Pulse Ox 98 F 101 H 20 136/104 H 94 L 09/26/18 06:20 09/26/18 06:20 09/26/18 06:20 09/26/18 06:20 09/25/18 20:00 Active Medications Amiodarone HCl (Cordarone -) 200 mg PO BID [facility] Last Admin: 09/26/18 10:19 Dose: 200 mg Apixaban (Eliquis -) 5 mg PO BID [facility] Last Admin: 09/26/18 10:19 Dose: 5 mg Carvedilol (Coreg -) 12.5 mg PO BID [facility] Last Admin: 09/26/18 10:19 Dose: 12.5 mg Ceftriaxone Sodium 2 gm/ (Dextrose) 100 mls @ 100 mls/hr IVPB DAILY [facility]; Protocol Last Admin: 09/26/18 10:20 Dose: 100 mls/hr Ipratropium [place] (Atrovent 0.02% Nebulizer -) 1 amp NEB RQID [facility] Last Admin: 09/26/18 12:29 Dose: 1 amp Loratadine (Claritin -) 10 mg PO DAILY [facility] Last Admin: 09/26/18 10:19 Dose: 10 mg Prednisone 40 mg/ Prednisone (10 mg) 50 mg PO DAILY [facility] Last Admin: 09/26/18 10:19 Dose: 50 mg Sacubitril/Valsartan (Entresto 24 Mg-26 Mg Tablet) 1 tab PO BID [facility] Last Admin: 09/26/18 10:20 Dose: 1 tab Constitutional: Yes: No Distress Neck: Yes: Supple Cardiovascular: Yes: S1S2, normal Respiratory: Yes: few scattered rhonchi on the left Gastrointestinal: Yes: Normal Bowel Sounds, Soft Edema: No Labs: Laboratory Results - last 24 hr 09/26/18 09/26/18 05:30 05:30 WBC 8.8 RBC 4.67 Hgb 14.4 Hct 43.3 MCV 92.7 MCH 30.8 MCHC 33.2 RDW 12.8 Plt Count 324 MPV 7.1 L Absolute Neuts (auto) 6.0 Neutrophils % 68.4 Lymphocytes % 19.4 Monocytes % 11.2 H Eosinophils % 0.3 Basophils % 0.7 Nucleated RBC % 0 Sodium 141 Potassium 4.3 Chloride 103 Carbon Dioxide 29 Anion Gap 10 BUN 15 Creatinine 0.8 Creat Clearance w eGFR > 60 Random Glucose 81 Calcium 8.2 L Phosphorus 3.5 Magnesium 2.3 Total Bilirubin 0.4 AST 14 L ALT 35 Alkaline Phosphatase 51 Total Protein 6.0 L Albumin 3.0 L Problem List - Problems (1) A-fib Code(s): I48.91 - UNSPECIFIED ATRIAL FIBRILLATION (2) Atrial fibrillation Code(s): I48.91 - UNSPECIFIED ATRIAL FIBRILLATION Qualifiers: Atrial fibrillation type: paroxysmal Qualified Code(s): I48.0 - Paroxysmal atrial fibrillation (3) Atrial flutter Code(s): I48.92 - UNSPECIFIED ATRIAL FLUTTER Qualifiers: Atrial flutter type: typical Qualified Code(s): I48.3 - Typical atrial flutter (4) HTN (hypertension) Code(s): I10 - ESSENTIAL (PRIMARY) HYPERTENSION Qualifiers: Hypertension type: essential hypertension Qualified Code(s): I10 - Essential (primary) hypertension (5) Pneumonia Code(s): J18.9 - PNEUMONIA, UNSPECIFIED ORGANISM Qualifiers: Pneumonia type: due to unspecified organism Laterality: left Lung location: upper lobe of lung Qualified Code(s): J18.1 - Lobar pneumonia, unspecified organism (6) Asthma Code(s): J45.909 - UNSPECIFIED ASTHMA, UNCOMPLICATED IMP DYSPNEA RAO PNEUMONIA AFLUTTER ASTHMA HTN PLAN IV ABX PER ID INHALED BRONCHODILATORS O2 AC F/U CHEST CT 6 WKS TO CONFIRM RESOLUTION ON INFILTRATES DR LITTLE
--- NOTE | 2018-09-26 14:02 | PN ---
Physical Exam: SUBJECTIVE: Patient seen and examined this morning at bedside. Breathing continues to improve. No new complaints. OBJECTIVE: Vital Signs Period Temp Pulse Resp BP Sys/Garg Pulse Ox Last 24 Hr 97.6 F-98.4 F 88-108 18-24 95-136/66-104 94 GENERAL: A&Ox3, NAD HEAD: NCAT EYES: PERRL, EOMI EARS, NOSE, THROAT: Oropharynx clear without exudates. Moist mucous membranes. NECK: No JVD LUNGS: Air entry improving. Wheezes improving HEART: Regular rate and rhythm, normal S1 and S2 without murmur ABDOMEN: Soft, nontender, not distended, + bowel sounds, no guarding EXTREMITIES: 2+ pulses, No edema. NEUROLOGICAL: Cranial nerves II-XII intact. Normal speech. C5-T1 and L4-S1 gross sensation intact. 5/5 Muscle strength to Handgrip, elbow flexion/extension , Hip flexion, Dorsiflexion, plantarflexion. SKIN: Warm, dry, no rashes or lesions noted Laboratory Results - last 24 hr 09/26/18 09/26/18 05:30 05:30 WBC 8.8 RBC 4.67 Hgb 14.4 Hct 43.3 MCV 92.7 MCH 30.8 MCHC 33.2 RDW 12.8 Plt Count 324 MPV 7.1 L Absolute Neuts (auto) 6.0 Neutrophils % 68.4 Lymphocytes % 19.4 Monocytes % 11.2 H Eosinophils % 0.3 Basophils % 0.7 Nucleated RBC % 0 Sodium 141 Potassium 4.3 Chloride 103 Carbon Dioxide 29 Anion Gap 10 BUN 15 Creatinine 0.8 Creat Clearance w eGFR > 60 Random Glucose 81 Calcium 8.2 L Phosphorus 3.5 Magnesium 2.3 Total Bilirubin 0.4 AST 14 L ALT 35 Alkaline Phosphatase 51 Total Protein 6.0 L Albumin 3.0 L Microbiology 09/21/18 07:14 Blood - Peripheral Venous Blood Culture - Final NO GROWTH AFTER 5 DAYS INCUBATION 09/21/18 07:14 Blood - Peripheral Venous Blood Culture - Final NO GROWTH AFTER 5 DAYS INCUBATION 09/23/18 07:00 Sputum - Expectorated AFB Smear Concentration - Final 09/23/18 07:00 Sputum - Expectorated Direct Acid Fast Bacilli Smear - Final 09/23/18 07:00 Sputum - Expectorated Mycobacterial Culture - Preliminary 09/22/18 15:20 Sputum - Expectorated AFB Smear Concentration - Final 09/22/18 15:20 Sputum - Expectorated Direct Acid Fast Bacilli Smear - Final 09/22/18 15:20 Sputum - Expectorated Mycobacterial Culture - Preliminary 09/22/18 21:45 Sputum - Expectorated AFB Smear Concentration - Final 09/22/18 21:45 Sputum - Expectorated Direct Acid Fast Bacilli Smear - Final 09/22/18 21:45 Sputum - Expectorated Mycobacterial Culture - Preliminary 09/21/18 18:32 Sputum - Expectorated Gram Stain - Final 09/21/18 18:32 Sputum - Expectorated Sputum Culture - Final NORMAL RESPIRATORY ABIMAEL 09/21/18 18:50 Urine - Urine Clean Catch Legionella Antigen - Final 09/21/18 18:50 Urine - Urine Clean Catch Streptococcus pneumoniae Antigen ( M - Final 09/21/18 00:11 Urine - Urine Clean Catch Urine Culture - Final 09/21/18 00:09 Nasopharyngeal Swab Influenza Types A,B Antigen - Final 09/21/18 00:09 Nasopharyngeal Swab - Final Active Medications Amiodarone HCl (Cordarone -) 200 mg PO BID [facility] Last Admin: 09/26/18 10:19 Dose: 200 mg Apixaban (Eliquis -) 5 mg PO BID [facility] Last Admin: 09/26/18 10:19 Dose: 5 mg Carvedilol (Coreg -) 12.5 mg PO BID [facility] Last Admin: 09/26/18 10:19 Dose: 12.5 mg Ceftriaxone Sodium 2 gm/ (Dextrose) 100 mls @ 100 mls/hr IVPB DAILY [facility]; Protocol Last Admin: 09/26/18 10:20 Dose: 100 mls/hr Ipratropium [place] (Atrovent 0.02% Nebulizer -) 1 amp NEB RQID [facility] Last Admin: 09/26/18 12:29 Dose: 1 amp Loratadine (Claritin -) 10 mg PO DAILY [facility] Last Admin: 09/26/18 10:19 Dose: 10 mg Prednisone 40 mg/ Prednisone (10 mg) 50 mg PO DAILY [facility] Last Admin: 09/26/18 10:19 Dose: 50 mg Sacubitril/Valsartan (Entresto 24 Mg-26 Mg Tablet) 1 tab PO BID [facility] Last Admin: 09/26/18 10:20 Dose: 1 tab IMAGING: -EKG: SINUS TACHYCARDIA, INFERIOR INFARCT , AGE UNDETERMINED, ANTERIOR INFARCT ( CITED ON OR BEFORE 21-SEP-2018), VR 133 bpm, QTc 401 -ECHO: LV is mildly dilated, LV SF is severely reduced, Global hypokinesis of the LV, EF 30-35%, Reduced RV Systolic function, LA and RA are moderately dilated, Mild MR, Mild to Mod TR -CXR: Left upper lobe presumed pneumonia. If findings do not resolve then further imaging with CT is suggested. -CT Chest without contrast: Extensive left upper lobe consolidation consistent with an acute pneumonia. Clinical correlation and follow-up recommended. ASSESSMENT/PLAN: 53 y/o M with PMHx of asthma, Afib (not on anticoagulation), HTN, presents with SOB for the past three weeks. 1. Atrial Flutter with RVR -Cardiology (Dr. Park) consulted, appreciate rec's, Continue Amiodarone, Eliquis. Increase Coreg. Uptitrate Entresto and aldactone. -DC synchronized cardioversion (09/25), Successful synchronized cardioversion to sinus rhythm with 120J -MONICA report pending -Increase Carvedilol to 25mg BID (12.5 previously) -Continue Entresto, Amiodarone -Continue Eliquis 5 mg BID -Troponin < 0.02 x2 -BNP 2442.2 -EKG: Sinus tachy -ECHO: LV SF is severely reduced, Global hypokinesis of the LV, EF 30-35% -Strict I&Os, Daily weights -Will likely need Ischemic work up once HR improved and infection resolved 2. RAO pneumonia -D/C Isolation -TB Quantiferon negative, AFB Gram stain negative -Ceftriaxone 2 gram IV daily (Started on 09/21), course completion on 09/27 -Continue Ventolin, Symbicort, Prednisone -Completed Azithromycin course (09/21-09/22) -Urine for pneumonia, legionella negative -Flu swab negative -Blood cultures NGTD -Sputum cultures pending -HIV Screen negative -ID (Dr. Zaman) consulted, appreciate rec's -Pulmonology (Dr. Buck) consulted, appreciate rec's, COLD AGGLUTININS, F/ U CHEST X-RAYS, F/U CHEST CT 6 WKS TO CONFIRM RESOLUTION ON INFILTRATES 3. Hyponatremia -Resolved -Urine electrolytes, serum and urine osmolality, urine creatinine noted 4. FEN -PO fluids -Continue to monitor for Hyponatremia -Sodium controlled diet 5. PPx -DVT: Eliquis Dispo: Tele monitoring Visit type - Emergency Visit Emergency Visit: Yes ED Registration Date: 09/21/18 Care time: The patient presented to the Emergency Department on the above date and was hospitalized for further evaluation of their emergent condition. - New Patient This patient is new to me today: No - Critical Care Critical Care patient: No - Discharge Referral Referred to [facility] No
[2018-09-26] MEDS ORDERED: CARVEDILOL 12.5 MG TABLET (FP) PO ONE (15:05)
[2018-09-26] MEDS: CARVEDILOL 25 MG TABLET (FP) PO SCH (22:06)
[2018-09-27] MEDS: IPRATROPIUM BR 0.02% 0.5 MG/2.5 ML VIAL.NEB. NEB SCH ×2 (08:40→12:09)
--- NOTE | 2018-09-27 08:46 | PN ---
Progress Note (short form) - Note Progress Note: Vital Signs Temperature 98.3 F 09/27/18 05:00 Pulse Rate 92 H 09/27/18 05:00 Respiratory Rate 18 09/27/18 05:00 Blood Pressure 125/88 09/27/18 05:00 O2 Sat by Pulse Oximetry (%) 95 09/26/18 21:00 GENERAL: The patient is awake, alert, and fully oriented, in no acute distress. HEAD: Normal with no signs of trauma. EYES: PERRL, extraocular movements intact, sclera anicteric, conjunctiva clear. neck: soft, supple, no JVD visualized Chest: few right basilar and left upper lobe rales, positive air entry, no wheezing ENT: Ears normal, oropharynx clear without exudates, moist mucous membranes. NECK: Trachea midline, full range of motion, supple. CVS: S1S2 irregular ABDOMEN: Soft, nontender, nondistended, normoactive bowel sounds, no guarding, no rebound EXTREMITIES: 2+ pulses, warm, well-perfused, no edema. NEUROLOGICAL: Cranial nerves II through XII grossly intact. Normal speech, ambulating well in the room PSYCH: Normal mood, normal affect. SKIN: Warm, dry, normal turgor, no rashes or lesions noted CBCD WBC 8.8 K/mm3 (4.0-10.0) 09/26/18 05:30 RBC 4.67 M/mm3 (4.00-5.60) 09/26/18 05:30 Hgb 14.4 GM/dL (11.7-16.9) 09/26/18 05:30 Hct 43.3 % (35.4-49) 09/26/18 05:30 MCV 92.7 fl (80-96) 09/26/18 05:30 MCHC 33.2 g/dl (32.0-35.9) 09/26/18 05:30 RDW 12.8 % (11.9-15.9) 09/26/18 05:30 Plt Count 324 K/MM3 (134-434) 09/26/18 05:30 MPV 7.1 fl (7.5-11.1) L 09/26/18 05:30 CMP Sodium 141 mmol/L (136-145) 09/26/18 05:30 Potassium 4.3 mmol/L (3.5-5.1) 09/26/18 05:30 Chloride 103 mmol/L (98-107) 09/26/18 05:30 Carbon Dioxide 29 mmol/L (21-32) 09/26/18 05:30 Anion Gap 10 MMOL/L (8-16) 09/26/18 05:30 BUN 15 mg/dL (7-18) 09/26/18 05:30 Creatinine 0.8 mg/dL (0.55-1.3) 09/26/18 05:30 Creat Clearance w eGFR > 60 (>60) 09/26/18 05:30 Random Glucose 81 mg/dL (74-106) 09/26/18 05:30 Calcium 8.2 mg/dL (8.5-10.1) L 09/26/18 05:30 Total Bilirubin 0.4 mg/dL (0.2-1) 09/26/18 05:30 AST 14 U/L (15-37) L 09/26/18 05:30 ALT 35 U/L (13-61) 09/26/18 05:30 Alkaline Phosphatase 51 U/L (45-117) 09/26/18 05:30 Total Protein 6.0 g/dl (6.4-8.2) L 09/26/18 05:30 Albumin 3.0 g/dl (3.4-5.0) L 09/26/18 05:30 CARDIAC ENZYMES Troponin I < 0.02 ng/ml (0.00-0.05) 09/21/18 09:43 Current Medications Generic Name Dose Route Start Last Admin Trade Name Niels PRN Reason Stop Dose Admin Amiodarone HCl 200 mg 09/25/18 13:00 09/26/18 22:06 Cordarone - PO 200 mg BID [facility] Administration Apixaban 5 mg 09/21/18 13:45 09/26/18 22:06 Eliquis - PO 5 mg BID [facility] Administration Carvedilol 25 mg 09/26/18 22:00 09/26/18 22:06 Coreg - PO 25 mg BID [facility] Administration Ceftriaxone Sodium 2 gm/ 100 mls @ 100 mls/hr 09/23/18 10:00 09/26/18 10:20 Dextrose IVPB 100 mls/hr DAILY [facility] Administration Protocol Ipratropium [place] 1 amp 09/24/18 16:00 09/26/18 22:27 Atrovent 0.02% Nebulizer - NEB 1 amp RQID [facility] Administration Loratadine 10 mg 09/21/18 10:00 09/26/18 10:19 Claritin - PO 10 mg DAILY [facility] Administration Prednisone 40 mg/ Prednisone 50 mg 09/25/18 10:00 09/26/18 10:19 10 mg PO 50 mg DAILY [facility] Administration Sacubitril/Valsartan 1 tab 09/23/18 10:00 09/26/18 22:07 Entresto 24 Mg-26 Mg Tablet PO 1 tab BID [facility] Administration Home Medications Medication Instructions Recorded Albuterol Sulfate Inhaler - 1 - 2 inh PO QID PRN 09/13/14 [Ventolin HFA Inhaler -] Budesonide/Formeterol Fumarate 1 inh PO DAILY 10/21/17 [SYMBICORT 160/4.5mcg -] Diltiazem Cd [Cardizem Cd -] 300 mg PO DAILY 10/21/17 Loratadine [Claritin] 10 mg PO DAILY 09/21/18 Valsartan 40 mg PO DAILY 09/21/18 ECHO 09/22/2018: left ventricle dilated mildly, Left ventricular systolic function is severely reduced, severe global hypokinesis of the left ventricle, EJF 30-35%, LV function is severely reduced. left atrium and right atrium is dilated moderately, mild to moderate MR, mild to moderate TR, pulmonary artery pressure is at least 37mmhg, RA pressure of 15mmHg. No pericardial effusion. ASSESSMENT AND PLAN: Patient is a 53 yo male with PMHx of paroxysmal Afib not on AC (prior h/o being on coumadin), Asthma/bronchitis, admitted with RAO CAP and Atrial flutter with RVR, found with new cardiomyopathy #RAO PNA with sepsis, On Ceftriaxone , id appreciated ,legionella ruled out, AFBx3 negative, Strept pneum.neagtive, Influenza is neg. #Atrial flutter with RVR s/p Cardioversion and MONICA, on Eliquis , will continue to monitor the HR , on Amiodoran for now, cardio on the case #Global hypokinesis of left ventricle with EJF of 30-35%, cardio is on the case. patient is started on Coreg, Ricardo and Amiodorane (TSH 0.84) #Suspected COPD exacerbation/asthma with heavy smoking history , will continue with Prednisone, atrovent nebs, #HTN on Ricardo, Coreg. DVT PX: Neil
--- NOTE | 2018-09-27 08:52 | PN ---
Progress Note (short form) - Note Progress Note: Chief Complaint: Events noted, notes reviewed, denies any chest pain or dyspnea , sinus rhythm is maintained History of Present Illness: Seen and examined on telemetry. Events noted, notes reviewed, denies any chest pain or dyspnea, sinus rhythm is maintained Echocardiography revealed systolic LV size dysfunction with LVEF 30-35%, LAE, mild MR, mild to moderate TR with RVSP 37 mmHg - Current Medication List Current Medications Amiodarone HCl (Cordarone -) 200 mg PO BID [facility] Last Admin: 09/26/18 22:06 Dose: 200 mg Apixaban (Eliquis -) 5 mg PO BID [facility] Last Admin: 09/26/18 22:06 Dose: 5 mg Carvedilol (Coreg -) 25 mg PO BID [facility] Last Admin: 09/26/18 22:06 Dose: 25 mg Ceftriaxone Sodium 2 gm/ (Dextrose) 100 mls @ 100 mls/hr IVPB DAILY [facility]; Protocol Last Admin: 09/26/18 10:20 Dose: 100 mls/hr Ipratropium [place] (Atrovent 0.02% Nebulizer -) 1 amp NEB RQID [facility] Last Admin: 09/26/18 22:27 Dose: 1 amp Loratadine (Claritin -) 10 mg PO DAILY [facility] Last Admin: 09/26/18 10:19 Dose: 10 mg Prednisone 40 mg/ Prednisone (10 mg) 50 mg PO DAILY [facility] Last Admin: 09/26/18 10:19 Dose: 50 mg Sacubitril/Valsartan (Entresto 24 Mg-26 Mg Tablet) 1 tab PO BID [facility] Last Admin: 09/26/18 22:07 Dose: 1 tab Review of Systems Cardiovascular: As noted above Respiratory: denies: denies: Cough or Sputum Production Gastrointestinal: denies: Nausea, Vomiting, Diarrhea, Constipation or Abdominal Discomfort Musculoskeletal: No Symptoms Reported Endocrine: No Symptoms Reported - Objective Vital Signs: Last Vital Signs Temp Pulse Resp BP Pulse Ox 98.3 F 92 H 18 125/88 95 09/27/18 05:00 09/27/18 05:00 09/27/18 05:00 09/27/18 05:00 09/26/18 21:00 Intake & Output 09/24/18 09/25/18 09/26/18 09/27/18 23:59 23:59 23:59 23:59 Intake Total 620 920 630 250 Output Total 350 Balance 620 570 630 250 Weight 239 lb 10.279 oz 235 lb 10.786 oz 233 lb 7 oz 234 lb 3.2 oz Constitutional: No Distress Respiratory: Clear to A&P Cardiovascular: S1 S2 Regular Rate and Rhythm Gastrointestinal: Soft Benign Normal Bowel Sounds Ext: No Edema intact distal pulses no calf tenderness Labs: CBC, BMP 09/26/18 05:30 09/26/18 05:30 Hepatic Panel Total Bilirubin 0.4 mg/dL (0.2-1) 09/26/18 05:30 AST 14 U/L (15-37) L 09/26/18 05:30 ALT 35 U/L (13-61) 09/26/18 05:30 Alkaline Phosphatase 51 U/L (45-117) 09/26/18 05:30 Albumin 3.0 g/dl (3.4-5.0) L 09/26/18 05:30 Assessment/Plan Assessment: 1. Paroxysmal atrial flutter post MONICA guided cardioversion, with prior history of paroxysmal atrial fibrillation on anticoagulation with DOAC's/Eliquis [id number] score of 1-2 2. Dilated probably non ischemic cardiomyopathy, possible tachycardia induced cardiomyopathy 3. Acute exacerbation of asthma with left upper lobe pneumonia, resolving 4. HTN 5. History of bronchial asthma with acute exacerbation as noted above PLAN: 1. Continue Coreg 2. Continue Entresto and titrate dosage as tolerated and as needed 3. Continue Eliquis 4. Life-Vest utilization pending LVEF re-assessment in 90 days as per current guidelines, and if LVEF remains less than 35% to proceed with prophylactic ICD implantation 5. Additional outpatient evaluation would include R&LHC/coronary angiography 6. Advised to ambulate and can be D/C home from the cardiovascular point of view if clinically stable and F/U in the office in 1 week Above was discussed in detail with the patient Thee Tompkins M.D.
[2018-09-27] MEDS ORDERED: predniSONE 20 MG TABLET (UD) ONE (09:00)
[2018-09-27] MEDS ORDERED: predniSONE 10 MG TABLET (UD) ONE (09:00)
[2018-09-27] MEDS ORDERED: DEXTROSE 5%-WATER 100 ML IVPB ONE (09:01)
[2018-09-27] MEDS ORDERED: PT OWN MED DRAWER 7, Y5N ONE (09:51)
[2018-09-27] MEDS: SACUBITRIL/VALSARTAN 24 MG-26 MG TABLET PO SCH (09:52)
[2018-09-27] MEDS: predniSONE 40 MG, predniSONE 10 MG PO SCH (09:52)
[2018-09-27] MEDS: AMIODARONE HCL 200 MG TABLET (FP) PO SCH (09:52)
[2018-09-27] MEDS: APIXABAN 5 MG TABLET PO SCH (09:52)
[2018-09-27] MEDS: CEFTRIAXONE 2 GM in DEXTROSE 5%-WATER 100 ML IVPB SCH (09:53)
[2018-09-27] MEDS: LORATADINE 10 MG TABLET PO SCH (09:53)
[2018-09-27] MEDS: CARVEDILOL 25 MG TABLET (FP) PO SCH (09:53)
[2018-09-27 12:16] VITALS: BP 109/69; PULSE 75; TEMP 97.5
--- NOTE | 2018-09-27 12:30 | DS ---
Physical Exam: SUBJECTIVE: Patient seen and examined PAtient is feeling better , wants to go home. OBJECTIVE: Vital Signs Temperature 97.5 F L 09/27/18 09:00 Pulse Rate 75 09/27/18 09:00 Respiratory Rate 18 09/27/18 09:00 Blood Pressure 109/69 09/27/18 09:00 O2 Sat by Pulse Oximetry (%) 94 L 09/27/18 09:00 PHYSICAL EXAM GENERAL: The patient is awake, alert, and fully oriented, in no acute distress. HEAD: Normal with no signs of trauma. EYES: PERRL, extraocular movements intact, sclera anicteric, conjunctiva clear. ENT: Ears normal, oropharynx clear without exudates, moist mucous membranes. NECK: Trachea midline, full range of motion, supple. LUNGS: Breath sounds equal, clear to auscultation bilaterally, no wheezes, no crackles, no accessory muscle use. HEART: Regular rate and rhythm, S1, S2 without murmur, rub or gallop. ABDOMEN: Soft, nontender, nondistended, normoactive bowel sounds, no guarding, no rebound, no hepatosplenomegaly, no masses. EXTREMITIES: 2+ pulses, warm, well-perfused, no edema. NEUROLOGICAL: Cranial nerves II through XII grossly intact. Normal speech, gait not observed. PSYCH: Normal mood, normal affect. SKIN: Warm, dry, normal turgor, no rashes or lesions noted. LABS Laboratory Results - last 24 hr 09/27/18 06:35 TSH 1.73 D Free T4 1.22 H CBCD WBC 8.8 K/mm3 (4.0-10.0) 09/26/18 05:30 RBC 4.67 M/mm3 (4.00-5.60) 09/26/18 05:30 Hgb 14.4 GM/dL (11.7-16.9) 09/26/18 05:30 Hct 43.3 % (35.4-49) 09/26/18 05:30 MCV 92.7 fl (80-96) 09/26/18 05:30 MCHC 33.2 g/dl (32.0-35.9) 09/26/18 05:30 RDW 12.8 % (11.9-15.9) 09/26/18 05:30 Plt Count 324 K/MM3 (134-434) 09/26/18 05:30 MPV 7.1 fl (7.5-11.1) L 09/26/18 05:30 CMP Sodium 141 mmol/L (136-145) 09/26/18 05:30 Potassium 4.3 mmol/L (3.5-5.1) 09/26/18 05:30 Chloride 103 mmol/L (98-107) 09/26/18 05:30 Carbon Dioxide 29 mmol/L (21-32) 09/26/18 05:30 Anion Gap 10 MMOL/L (8-16) 09/26/18 05:30 BUN 15 mg/dL (7-18) 09/26/18 05:30 Creatinine 0.8 mg/dL (0.55-1.3) 09/26/18 05:30 Creat Clearance w eGFR > 60 (>60) 09/26/18 05:30 Random Glucose 81 mg/dL (74-106) 09/26/18 05:30 Calcium 8.2 mg/dL (8.5-10.1) L 09/26/18 05:30 Total Bilirubin 0.4 mg/dL (0.2-1) 09/26/18 05:30 AST 14 U/L (15-37) L 09/26/18 05:30 ALT 35 U/L (13-61) 09/26/18 05:30 Alkaline Phosphatase 51 U/L (45-117) 09/26/18 05:30 Total Protein 6.0 g/dl (6.4-8.2) L 09/26/18 05:30 Albumin 3.0 g/dl (3.4-5.0) L 09/26/18 05:30 CARDIAC ENZYMES Troponin I < 0.02 ng/ml (0.00-0.05) 09/21/18 09:43 Current Medications Generic Name Dose Route Start Last Admin Trade Name Freq PRN Reason Stop Dose Admin Amiodarone HCl 200 mg 09/25/18 13:00 09/27/18 09:52 Cordarone - PO 200 mg BID RADHA Administration Apixaban 5 mg 09/21/18 13:45 09/27/18 09:52 Eliquis - PO 5 mg BID RADHA Administration Carvedilol 25 mg 09/26/18 22:00 09/27/18 09:53 Coreg - PO 25 mg BID RADHA Administration Ceftriaxone Sodium 2 gm/ 100 mls @ 100 mls/hr 09/23/18 10:00 09/27/18 09:53 Dextrose IVPB 100 mls/hr DAILY RADHA Administration Protocol Ipratropium [place] 1 amp 09/24/18 16:00 09/27/18 12:09 Atrovent 0.02% Nebulizer - NEB Not Given RQID RADHA Loratadine 10 mg 09/21/18 10:00 09/27/18 09:53 Claritin - PO 10 mg DAILY RADHA Administration Prednisone 40 mg/ Prednisone 50 mg 09/25/18 10:00 09/27/18 09:52 10 mg PO 50 mg DAILY RADHA Administration Sacubitril/Valsartan 1 tab 09/23/18 10:00 09/27/18 09:52 Entresto 24 Mg-26 Mg Tablet PO 1 tab BID RADHA Administration Home Medications Medication Instructions Recorded Albuterol Sulfate Inhaler - 1 - 2 inh PO QID PRN 09/13/14 [Ventolin HFA Inhaler -] Budesonide/Formeterol Fumarate 1 inh PO DAILY 10/21/17 [SYMBICORT 160/4.5mcg -] Diltiazem Cd [Cardizem Cd -] 300 mg PO DAILY 10/21/17 Loratadine [Claritin] 10 mg PO DAILY 09/21/18 Valsartan 40 mg PO DAILY 09/21/18 HOSPITAL COURSE: Date of Admission:09/21/18 Date of Discharge: 09/27/18 ECHO 09/22/2018: left ventricle dilated mildly, Left ventricular systolic function is severely reduced, severe global hypokinesis of the left ventricle, EJF 30-35%, LV function is severely reduced. left atrium and right atrium is dilated moderately, mild to moderate MR, mild to moderate TR, pulmonary artery pressure is at least 37mmhg, RA pressure of 15mmHg. No pericardial effusion. ASSESSMENT AND PLAN: Patient is a 53 yo male with PMHx of paroxysmal Afib not on AC (prior h/o being on coumadin), Asthma/bronchitis, admitted with RAO CAP and Atrial flutter with RVR, found with new cardiomyopathy #RAO PNA s/p sepsis, On Ceftriaxone 06/07 , id appreciated ,legionella ruled out , AFBx3 negative, Strept pneum.neagtive, Influenza is neg. will give 3 more days ceftin 500mg BID #Paroxysmal Atrial flutter with RVR s/p Cardioversion and MONICA, on Eliquis continue and on Amiodarone 20mg po bid x 7 days given until he sees dr. Gallo for evaluation for Life Vest. discussed with will continue Ricardo,coreg, eliquis. will discontinue Claritin and discussed with the patient not to take the medication with Amiodarone since DDx. #Global hypokinesis of left ventricle with EJF of 30-35%, cardio is on the case. patient is started on Coreg, Ricardo and Amiodorane (TSH 0.84) continue #Suspected COPD exacerbation/asthma with heavy smoking history , will continue with Prednisone with 12 day day taper dose, giving atrovent nebs #25 Rx. #HTN on Ricardo, Coreg. DVT PX: Eliquis per vineyardist: Life-Vest utilization pending LVEF re-assessment in 90 days as per current guidelines, and if LVEF remains less than 35% to proceed with prophylactic ICD implantation. Additional outpatient evaluation would include R&LHC/coronary angiography F/U with Dr. Gallo in the office in 1 week discharge time 45 minutes. Minutes to complete discharge: 45 Discharge Summary Reason For Visit: HEART FAILURE/ATRIAL FIBRILLATION/PNEMONIA Current Active Problems A-fib (Acute) Asthma (Acute) Asthma attack (Acute) Atrial fibrillation (Acute) Atrial flutter (Acute) Bronchial asthma (Acute) HTN (hypertension) (Acute) Heart failure (Acute) History of cardioversion (Acute) Patent foramen ovale (Acute) Pneumonia (Acute) Systolic dysfunction without heart failure (Acute) Condition: Guarded - Instructions Diet, Activity, Other Instructions: F/U CHEST CT 6 WKS TO CONFIRM RESOLUTION ON INFILTRATES Consider sleep study as outpatient most likely has BEA per vineyardist: Life-Vest utilization re-assessment in 90 days as per current guidelines, and if LVEF remains less than 35% to proceed with prophylactic ICD implantation. Additional outpatient evaluation would include right and left heart coronary angiography F/U with Dr. Gallo in the office in 1 week Follow with Pulmonary within a week for an evaluations of sleep apnea. Low fat and Low carb. diet is recommended. - Home Medications Comprehensive Discharge Medication List: Ambulatory Orders Albuterol Sulfate Inhaler - [Ventolin HFA Inhaler -] 1 - 2 inh PO QID PRN Budesonide/Formeterol Fumarate [SYMBICORT 160/4.5mcg -] 1 inh PO DAILY 10/21/17 Diltiazem Cd [Cardizem Cd -] 300 mg PO DAILY 10/21/17 Loratadine [Claritin] 10 mg PO DAILY 09/21/18 Valsartan 40 mg PO DAILY 09/21/18 This patient is new to me today: No Emergency Visit: Yes ED Registration Date: 09/21/18 Care time: The patient presented to the Emergency Department on the above date and was hospitalized for further evaluation of their emergent condition. Critical Care patient: No - Discharge Referral Referred to [facility] Med P.C.: No
== END 2018-09-27 02:00 | disposition home or self-care (01) | DRG 308 ==
LOC: JER 23:17 → JERBED 09-21 01:41 → J2W 09-22 11:26 → J4W 09-26 19:48
PROVIDERS: ADMIT Internal Medicine; ATTEND Internal Medicine
PROC: 5A2204Z Restoration of Cardiac Rhythm, Single (ICD-10-PCS; principal; 2018-09-25 10:30)
DX: I48.92 Unspecified atrial flutter (principal); J18.1 Lobar pneumonia, unspecified organism; E87.1 Hypo-osmolality and hyponatremia; J45.901 Unspecified asthma with (acute) exacerbation; I42.8 Other cardiomyopathies; I10 Essential (primary) hypertension; E66.9 Obesity, unspecified; Z68.28 Body mass index [BMI] 28.0-28.9, adult; I48.0 Paroxysmal atrial fibrillation; R00.0 Tachycardia, unspecified; G72.89 Other specified myopathies; I08.1 Rheumatic disorders of both mitral and tricuspid valves; I70.0 Atherosclerosis of aorta; Z87.891 Personal history of nicotine dependence
CPT/HCPCS: 36415; 71045-TC-FY; 71046-TC-FY; 71250-TC; 80053; 81003; 81015; 82436; 82570; 82803; 83735; 83880; 83930; 83935; 84100; 84133; 84300; 84439; 84443; 84481; 84484; 85025; 85027; 85610; 85651; 86140; 86480; 87040; 87070; 87086; 87116; 87205; 87206; 87389; 87804; 87899; 90688; 93005; 93010; 93306-TC; 93312; 93325; 94640; 97116-GP; 97161-GP; 99284-25; G0008; J0131; J1644

== ENCOUNTER 2019-09-04 11:18 | Inpatient (IN) | payer OTHER ==
--- NOTE | 2019-09-04 11:35 | PDOC ---
History of Present Illness - General Chief Complaint: Alcohol intoxication Stated Complaint: Alcohol intoxication Time Seen by Provider: 09/04/19 11:34 History Source: Patient Exam Limitations: No Limitations - History of Present Illness Initial Comments: 09/04/19 13:44 Ellis Sullivan is a 54yM w PMHx CHF and asthma presenting with back pain s/p fall and alcohol intoxication. Has been drinking unmeasurable large amounts of alcohol everyday for past 2 months after being diagnosed with CHF. Last night/ this morning, pt fell down 2 times on back. Reports no LOC or head trauma. Associated nausea, vomited once non bloody this morning, midsternal chest pain for last few days. Last drink around 9am this morning. Denies fever, SOB, AB pain, urinary/bowel movement changes. Has been passing gas Past History - Past Medical History Allergies/Adverse Reactions: Allergies Allergy/AdvReac Type Severity Reaction Status Date / Time No Known Allergies Allergy Verified 09/13/14 10:16 Home Medications: Ambulatory Orders Albuterol Sulfate Inhaler - [Ventolin HFA Inhaler -] 1 - 2 inh PO QID PRN Budesonide/Formeterol Fumarate [SYMBICORT 160/4.5mcg -] 1 inh PO DAILY 10/21/17 Amiodarone HCl [Cordarone -] 200 mg PO BID #14 tablet 09/27/18 Apixaban [Eliquis -] 5 mg PO BID #60 tablet 09/27/18 Carvedilol [Coreg -] 25 mg PO BID #60 tablet 09/27/18 Cefuroxime Axetil [Ceftin -] 500 mg PO Q12H #6 tablet 09/27/18 Ipratropium 0.02% Nebulizer [Atrovent 0.02% Nebulizer -] 1 amp NEB RQID PRN #25 amp 09/27/18 Sacubitril/Valsartan [Entresto 24 mg-26 mg Tablet] 1 tab PO BID #60 tablet 09/27 predniSONE [Deltasone -] See Taper PO DAILY #30 tablet 09/27/18 Anemia: No Asthma: Yes Cancer: No Cardiac Disorders: Yes (TAA. 1 EPISODE ASTHMA RELATED A-FIB 5 YRS AGO) CVA: No COPD: No CHF: No Dementia: No Diabetes: No GI Disorders: No Disorders: No HTN: Yes Hypercholesterolemia: No Liver Disease: No Seizures: No Thyroid Disease: No - Surgical History Abdominal Surgery: No Appendectomy: No Cardiac Surgery: No Cholecystectomy: No Lung Surgery: No Neurologic Surgery: No Orthopedic Surgery: No - Psycho Social/Smoking Cessation Hx Smoking History: Never smoked Have you smoked in the past 12 months: Yes Number of Cigarettes Smoked Daily: 3 'Breaking Loose' booklet given: 09/13/14 Hx Alcohol Use: Yes Drug/Substance Use Hx: No Substance Use Type: Alcohol Hx Substance Use Treatment: No Review of Systems - Review of Systems Constitutional: No: Chills, Fever HEENTM: No: Eye Pain, Recent change in vision, Nose Pain, Throat Pain, Mouth Pain Respiratory: No: Cough, Shortness of Breath Cardiac (ROS): Yes: Chest Pain. No: Edema, Palpitations, Syncope ABD/GI: Yes: Nausea, Vomiting. No: Abdominal Distended, Constipated, Diarrhea : No: Burning, Dysuria, Discharge, Frequency, Flank Pain, Hematuria Musculoskeletal: Yes: Back Pain (low). No: Joint Pain, Joint Swelling, Muscle Pain Integumentary: No: Bruising, Dryness, Erythema Neurological: No: Headache, Seizure, Tingling, Tremors Psychiatric: No: Anxiety, Depression, Stressors Endocrine: No: Excessive Sweating, Flushing, Intolerance to Cold, Intolerance to Heat Hematologic/Lymphatic: No: Anemia, Blood Clots *Physical Exam - Vital Signs Last Vital Signs Temp Pulse Resp BP Pulse Ox 98.2 F 98 H 19 139/82 96 09/04/19 11:19 09/04/19 11:19 09/04/19 11:19 09/04/19 11:19 09/04/19 11:19 - Physical Exam General Appearance: Yes: Nourished, Appropriately Dressed, Intoxicated, Obese HEENT: positive: EOMI, MILLIE, Normal Voice, Hearing Grossly Normal. negative: Scleral Icterus (R), Scleral Icterus (L), Nasal Congestion, Rhinorrhea Neck: positive: Supple. negative: Tender, Rigid, Decreased range of motion ( full ROM) Respiratory/Chest: positive: Lungs Clear, Normal Breath Sounds. negative: Chest Tender, Respiratory Distress, Crackles, Rales, Rhonchi, Stridor, Wheezing Cardiovascular: positive: Regular Rhythm, S1, S2, Tachycardia. negative: Edema , Murmur Musculoskeletal: negative: CVA Tenderness (R), CVA Tenderness (L) Extremity: positive: Pelvis Stable, Delayed Capillary Refill (4s). negative: Pedal Edema Integumentary: positive: Other (generalized flushed skin). 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 negative: Numbness, Confused, Disoriented ED Treatment Course - LABORATORY CBC & Chemistry Diagram: 09/04/19 12:30 09/04/19 12:30 Medical Decision Making - Medical Decision Making 09/04/19 11:58 CBC CMP trop BNP CXR EKG 1L NS, lido patch, tylenol for headache, librium for withdrawl (tremors) EKG shows NSR, HR 95, QTc 429, no ST changes CXR shows cardiomegaly, no acute process, unchanged Head/c-spine CT showed oblique oriented fracture at junction of lateral mass and body of C2 with mild step-off, cortical disruption. Subtle nondisplaced fx similar location contralateral side. Indeterminate age of fractures, no acute brain bleed. Disc space narrowing, face joint arthropathy lo BNP, neg trop, normal CBC CMP In c-collar --- Ellis Sullivan is a 54yM w PMHx CHF and asthma presenting with back pain s/p fall and alcohol intoxication. Head/c-spine CT showed oblique oriented fracture at junction of lateral mass and body of C2 with mild step-off, cortical disruption. Subtle nondisplaced fx similar location contralateral side. Neck supple, not rigid/tender. Placed in C- collar Low back pain likely MSK d/t fall. Low concern for cauda equina/spinal stenosis (normal BLE sensation, no urinary/bowel movement changes, no deformities palpable, minimal tenderness on exam, pt ambulating without assistance in ED). No evidence of ACS w negative trop, EKG NSR, no evidence of CHF w low BNP, no BLE edema. Given 1L NS, lido patch for back pain, tylenol for headache, librium for withdrawl (tremors) Consulted Dr Mi neurosaugust regarding C2 fracture. Advised to get c-spine MRI w/o contrast Admit to med/surg hospitalist for C2 fracture -pending c-spine MRI Amenable to go to [facility] for alcohol detox after medically cleared PCP Haylee 09/04/19 15:28 Discharge - Discharge Information Problems reviewed: Yes Clinical Impression/Diagnosis: Alcohol intoxication Qualifiers: Complication of substance-induced condition: uncomplicated Qualified Code(s): F10.920 - Alcohol use, unspecified with intoxication, uncomplicated Back pain Qualifiers: Back pain location: low back pain Chronicity: acute Back pain laterality: midline Sciatica presence: without sciatica Qualified Code(s): M54.5 - Low back pain Condition: Improved Disposition: HOME - Admission No - Follow up/Referral - Patient Discharge Instructions Patient Printed Discharge Instructions: DI for Alcohol Abuse Additional Instructions: You were seen for back pain after falling while drinking alcohol. Your labs and imaging did not show anything concerning Take off your back pain relief patch tonight. Drink lots of water and stay away from alcohol You agreed to go to [facility] for alcohol detox. Come back to the ED if you have worsening chest pain, trouble breathing, or vomiting blood. - Post Discharge Activity
[2019-09-04] MEDS ORDERED: LIDOCAINE 5% TOPICAL PATCH TP ONE (11:57)
[2019-09-04] MEDS ORDERED: SODIUM CHLORIDE 0.9% 500 ML INFUS.BAG IV ONE ×2 (11:57→15:24)
[2019-09-04] MEDS ORDERED: LIDOCAINE 5% TOPICAL PATCH ONE ×2 (12:35→17:49)
[2019-09-04 12:51] LABS: BASO % 1.1 % (0-2.0); EOS % 1.4 % (0-4.5); HEMOGLOBIN 15.3 GM/dL (11.7-16.9); LYMPH % 33.6 % (8-40); MCH 31.5 pg (25.7-33.7); MCHC 34.1 g/dl (32.0-35.9); MEAN CELL VOLUME 92.4 fl (80-96); MEAN PLT VOLUME 6.8 fl (7.5-11.1); MONO % 11.1 % (3.8-10.2); NEUT % 52.8 % (42.8-82.8); PLATELET COUNT 237 K/MM3 (134-434); RBC 4.87 M/mm3 (4.00-5.60); RDW 14.5 % (11.9-15.9); WHITE BLOOD COUNT 4.9 K/mm3 (4.0-10.0)
[2019-09-04 13:20] LABS: ALBUMIN 4.2 g/dl (3.4-5.0); BILIRUBIN,TOTAL 0.2 mg/dL (0.2-1); BLOOD UREA NITROGEN 9.4 mg/dL (7-18); CALCIUM 9.3 mg/dL (8.5-10.1); CREATININE 0.6 mg/dL (0.55-1.3); POTASSIUM 4.4 mmol/L (3.5-5.1); TOT PROT 7.8 g/dl (6.4-8.2)
[2019-09-04] MEDS ORDERED: chlordiazePOXIDE HCL 25 MG CAPSULE PO ONE (13:27)
--- NOTE | 2019-09-04 13:47 | PDOC ---
Attending Attestation - Resident Resident Name: MinervaOlaf - ED Attending Attestation I have performed the following: I have examined & evaluated the patient, The case was reviewed & discussed with the resident, I agree w/resident's findings & plan, Exceptions are as noted - HPI HPI: 09/04/19 13:44 54 yo male h/o afib, htn pfo. chf, EF 35% on eloquis, etoh abuse, here with c/o iintoxication, had fall around 2 am. states he did not hit his head he believes. was last sober for 40 days over a year ago. no known h/o liver disease or cirrhosis. pt states he would like to go to detox. denies ames, no n/v no weaknes, no f/c no cp no sob. last drink was just prior to presenting to ed, unsure exactly what time. - Physicial Exam PE: 09/04/19 13:45 awake alert head atraumatic. no cervical spine tenderness. lungs clear bilat heart rrr no mrg abd soft nt nd obese. ext wwp no edema. no calf tendernes. alert oriented x 3 speech clear. - Medical Decision Making 09/04/19 13:46 54 yo male h/o etoh abuse, chf afib htn her with fall intox requesting detox. plan ct head cervical spine, labs, if cleared then to [facility] [place]. 09/04/19 16:[address] unremarkable. cervical spine addendum with oblique age indeterminate C2 fracture. in collar, admitted after discussion with DR keene who requested MRI spine. pt will require Ciwa precautios and would like detox from etoh on dc . Heart Score/ECG Review #1 General ECG Interpretation: Sinus Rhythm, Normal Rate (95), Normal Intervals, No acute ischemic changes
[2019-09-04] MEDS ORDERED: ACETAMINOPHEN 500 MG TABLET (FP) PO ONE ×2 (13:50→15:15)
[2019-09-04] MEDS ORDERED: ACETAMINOPHEN 325 MG TABLET (FP) ONE (14:03)
[2019-09-04] MEDS ORDERED: chlordiazePOXIDE HCL 25 MG CAPSULE ONE (14:03)
[2019-09-04] MEDS ORDERED: THIAMINE HCL 100 MG TABLET (FP) PO ONE (17:12)
[2019-09-04] MEDS ORDERED: chlordiazePOXIDE HCL 10 MG CAPSULE PO PRN (17:17)
[2019-09-04] MEDS ORDERED: THIAMINE HCL 100 MG TABLET (FP) ONE (17:30)
--- NOTE | 2019-09-04 17:41 | HP ---
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 Sullivan is a 54 year old man with a past medical history of afib (not on eliquis), HTN, CHF (EF35%), asthma, and alcohol abuse who presents to the ED s/ p 2 falls in his bedroom while drunk. The patient reports he was in his bedroom when he suddenly fell to the floor "because I was drunk" and then couldn't get back up. The patient called his brother who then called an ambulance that brought him to [facility]. Patient endorses feeling anxious, having tremors, feeling generally weak, and nauseated. Denies any numbness or tingling in his hands/ feet, LOC during fall, head trauma, vomiting, chest pains, shortness of breath, urinary or fecal incontinence, saddle anesthesia, fever. The patient reports that he had previously drank a 12 pack of beer nightly for many years however about 3 months ago he lost his job and then started drinking a pint of vodka in addition to the beer. Note: patient is aware he has afib but states he stopped taking his eliquis 10mo ago (not on the advice of any doctor) because it was expensive and made him bleed. ER course was notable for: (1)EKG shows NSR, HR 95, QTc 429, no ST changes, CXR shows cardiomegaly, no acute process, unchanged (2)Head/c-spine CT showed oblique oriented fracture at junction of lateral mass and body of C2 with mild step-off, cortical disruption. Subtle nondisplaced fx similar location contralateral side. Indeterminate age of fractures, no acute brain bleed. Disc space narrowing, face joint arthropathy (3)low BNP, neg trop, normal CBC CMP Recent Travel: denies PAST MEDICAL HISTORY: afib (not on eliquis), HTN, CHF (EF35%), asthma, and alcohol abuse PAST SURGICAL HISTORY: discectomy C6-C7, more than 10 years ago, cardiac angiogram and cath at [facility] in october- reports it was normal Social History: Smoking: previous 1 pack per week smoker, quit 5 years ago Alcohol: previously drank 12 pack of beer nightly for years, 2 months ago began drinking 1 pint vodka in addition Drugs: denies Allergies No Known Allergies Allergy (Verified 09/13/14 10:16) HOME MEDICATIONS: Home Medications Medication Instructions Recorded Albuterol Sulfate Inhaler - 1 - 2 inh PO QID PRN 09/13/14 [Ventolin HFA Inhaler -] Budesonide/Formeterol Fumarate 1 inh PO DAILY 10/21/17 [SYMBICORT 160/4.5mcg -] Amiodarone HCl [Cordarone -] 200 mg PO BID #14 tablet 09/27/18 Apixaban [Eliquis -] 5 mg PO BID #60 tablet 09/27/18 Carvedilol [Coreg -] 25 mg PO BID #60 tablet 09/27/18 Cefuroxime Axetil [Ceftin -] 500 mg PO Q12H #6 tablet 09/27/18 Ipratropium 0.02% Nebulizer 1 amp NEB RQID PRN #25 amp 09/27/18 [Atrovent 0.02% Nebulizer -] Sacubitril/Valsartan [Entresto 24 1 tab PO BID #60 tablet 09/27/18 mg-26 mg Tablet] predniSONE [Deltasone -] See Taper PO DAILY #30 tablet 09/27/18 REVIEW OF SYSTEMS CONSTITUTIONAL: generalized weakness Absent: fever, chills, diaphoresis, , malaise, loss of appetite, weight change HEENT: Absent: rhinorrhea, nasal congestion, throat pain, throat swelling, difficulty swallowing, mouth swelling, ear pain, eye pain, visual changes CARDIOVASCULAR: Absent: chest pain, syncope, palpitations, irregular heart rate, lightheadedness , peripheral edema RESPIRATORY: Absent: cough, shortness of breath, dyspnea with exertion, orthopnea, wheezing, stridor, hemoptysis GASTROINTESTINAL:nausea, Absent: abdominal pain, abdominal distension, vomiting, diarrhea, constipation, melena, hematochezia GENITOURINARY: Absent: dysuria, frequency, urgency, hesitancy, hematuria, flank pain, genital pain MUSCULOSKELETAL: Absent: myalgia, arthralgia, joint swelling, back pain, neck pain SKIN: Absent: rash, itching, pallor HEMATOLOGIC/IMMUNOLOGIC: Absent: easy bleeding, easy bruising, lymphadenopathy, frequent infections ENDOCRINE: Absent: unexplained weight gain, unexplained weight loss, heat intolerance, cold intolerance NEUROLOGIC: headache, Absent: focal weakness or paresthesias, dizziness, unsteady gait, seizure, mental status changes, bladder or bowel incontinence PSYCHIATRIC: anxiety Absent: , depression, suicidal or homicidal ideation, hallucinations. PHYSICAL EXAMINATION Vital Signs - 24 hr 09/04/19 09/04/19 11:19 15:00 Temperature 98.2 F 98.5 F Pulse Rate 98 H Pulse Rate [ 82 Left Radial] Respiratory 19 19 Rate Blood Pressure 139/82 Blood Pressure 136/78 [Right Arm] O2 Sat by Pulse 96 100 Oximetry (%) GENERAL: Awake, alert, and fully oriented, in no acute distress. HEAD: Normal with no signs of trauma, wearing C-collar, not complaining of pain besides headache EYES: Pupils equal, round and reactive to light, extraocular movements intact, sclera anicteric, conjunctiva clear. No lid lag. Horizontal nystagmus. EARS, NOSE, THROAT: Ears normal, nares patent, oropharynx clear without exudates. Dry mucous membranes. NECK: in C collar LUNGS: Breath sounds equal, clear to auscultation bilaterally on the frontal lung prater. No wheezes, and no crackles. No accessory muscle use. HEART: Regular rate and rhythm, normal S1 and S2 without murmur, rub or gallop. ABDOMEN: Soft, obese, nontender, not distended, normoactive bowel sounds, no guarding, no rebound, no masses. MUSCULOSKELETAL: Normal range of motion at all joints. No bony deformities or tenderness. UPPER EXTREMITIES: 2+ pulses, warm, well-perfused. No cyanosis. No clubbing. No peripheral edema. 1+ reflexes bilaterally, sensation grossly intact, no asterixis, no cerbellar signs/ good coordination. 5/5 strength bilaterally. LOWER EXTREMITIES: 2+ pulses, warm, well-perfused. No calf tenderness. No peripheral edema. 1+ reflexes bilaterally, sensation grossly intact, no asterixis, no cerbellar signs/ good coordination, 5/5 strength bilaterally. NEUROLOGICAL: Cranial nerves II-XII intact. Normal speech. PSYCHIATRIC: Cooperative. Good eye contact. Appropriate mood and affect. SKIN: Warm, dry, normal turgor, no rashes or lesions noted, normal capillary refill. Laboratory Results - last 24 hr 09/04/19 09/04/19 09/04/19 12:30 12:30 12:30 WBC 4.9 RBC 4.87 Hgb 15.3 Hct 45.0 MCV 92.4 MCH 31.5 MCHC 34.1 RDW 14.5 D Plt Count 237 D MPV 6.8 L Absolute Neuts (auto) 2.6 Neutrophils % 52.8 D Lymphocytes % 33.6 D Monocytes % 11.1 H Eosinophils % 1.4 D Basophils % 1.1 Nucleated RBC % 0 Sodium 138 Potassium 4.4 Chloride 103 Carbon Dioxide 28 Anion Gap 7 L BUN 9.4 Creatinine 0.6 Est GFR (CKD-EPI)AfAm 130.27 Est GFR (CKD-EPI)NonAf 112.40 Random Glucose 124 H Calcium 9.3 Total Bilirubin 0.2 AST 27 ALT 35 Alkaline Phosphatase 71 Creatine Kinase 134 Troponin I < 0.02 B-Natriuretic Peptide Total Protein 7.8 Albumin 4.2 Alcohol, Quantitative 372.6 H 09/04/19 12:30 WBC RBC Hgb Hct MCV MCH MCHC RDW Plt Count MPV Absolute Neuts (auto) Neutrophils % Lymphocytes % Monocytes % Eosinophils % Basophils % Nucleated RBC % Sodium Potassium Chloride Carbon Dioxide Anion Gap BUN Creatinine Est GFR (CKD-EPI)AfAm Est GFR (CKD-EPI)NonAf Random Glucose Calcium Total Bilirubin AST ALT Alkaline Phosphatase Creatine Kinase Troponin I B-Natriuretic Peptide 29.2 Total Protein Albumin Alcohol, Quantitative ASSESSMENT/PLAN: Mr. Sullivan is a 54 year old man with a past medical history of afib (not on eliquis), HTN, CHF (EF35%), asthma, and alcohol abuse who presents to the ED s/ p 2 falls in his bedroom while drunk. 1. Fall 2/2 acute alcohol intoxication - Head/c-spine CT showed oblique oriented fracture at junction of lateral mass and body of C2 with mild step-off, cortical disruption. Subtle nondisplaced fx similar location contralateral side. Neck supple, not rigid/ tender. - Placed in C-collar - Neurosurgers (dr. keene) consulted - MRI c-spine - lidocaine patch - tylenol prn for pain 2. Alcohol withdrawal- no evidence of wernicke's, mild tremor, good coordination without cerebellar signs. No asterixis. - [facility] 13 - stat mag and phos, labs otherwise look OK but patient is chronic alcoholic and at risk of refeeding syndrome. If mag and phos normal, can restart Na/ fat/ cholesterol controlled diet. - Librium protocol for withdrawal - PO thiamine daily - PO folate daily - PO multivitamin - careful rehydration with NS fluid boluses because the patient has hx of CHFrEF (35%) and is at risk of becoming volume overloaded - Protonix 40 3. CHF - resume home medications - careful rehydration to avoid vol overload 4. Afib - will hold AC for now pending results of MRI incase patient needs procedure - will consider resuming after result of MRI FEN -500L NS bolus now, reassess vol status in AM - replete lytes PRN, if K+, Mag, Phos normal resume diet - NPO until lytes return, resume diet if normal Dispo: admit to med-surg. Patient amenable to go to [facility] for alcohol detox after medically cleared Visit type - Emergency Visit Emergency Visit: Yes ED Registration Date: 09/04/19 Care time: The patient presented to the Emergency Department on the above date and was hospitalized for further evaluation of their emergent condition. - New Patient This patient is new to me today: Yes Date on this admission: 09/04/19 - Critical Care Critical Care patient: No ATTENDING PHYSICIAN STATEMENT I saw and evaluated the patient. I reviewed the resident's note and discussed the case with the resident. I agree with the resident's findings and plan as documented. SUBJECTIVE: OBJECTIVE: ASSESSMENT AND PLAN:
[2019-09-04] MEDS ORDERED: SODIUM CHLORIDE 500 ML IV STA (17:50)
[2019-09-04] MEDS: LIDOCAINE 5% TOPICAL PATCH TP SCH (17:53)
--- NOTE | 2019-09-04 17:57 | PN ---
Teaching Attending Note Name of Resident: Janna Brannon ATTENDING PHYSICIAN STATEMENT I saw and evaluated the patient. I reviewed the resident's note and discussed the case with the resident. I agree with the resident's findings and plan as documented. SUBJECTIVE: CC: fall HPI: 54 y/o man with h/o P AFib/A flutter, non ischemic cardiomyopathy, PFO, HTN, ETOh abuse, Asthma, who presented with a fall while intoxicated. he drinks beer and Vodka daily . last night he was drunk, and fell backwards . brother was called and patient was brought to ER. he denies any dizziness, palpitations, or cp /SOB before or after the fall. he denies any pain in neck, or weaknes, numbness or tingling. no urinary sx or fever , or diarrhea . in ER CT of head and C spine showed C 2 Fx ( reviewed) EKG ( sinus rhythm, Q waves in inferior leads, old ). OBJECTIVE: NAD , awake, alert, and oriented . HEENT: dry MMM, nl oropharynx, no thrush. no bruising on neck . b/l horizontal nystagmus CV: RRR, NO MRG Lungs: CATB Abd: : obese, soft, NT, ND , NL BS. Ext : No edema , no erythema, tremor in hands neuro: EOMI, no facial droop, round equal pupils reactive to light. tongue at mid line. strength 5/5 in upper and lower extremities proximally and distally. sensation to light touch nl. reflexes unable to obtain as he is not relaxed ASSESSMENT AND PLAN: 54 y/o man with h/o P AFib/A flutter, non ischemic cardiomyopathy, PFO, HTN, ETOh abuse, Asthma, who presented with a fall while intoxicated. he was found to have C2 Fx and ETOH Withdrawal 1-S/p fall with resultant B/l C2 Fx on CT scan : - No syncope. mecahnical fall - C2 fx, will cont collar. change soft collar to hard collar - tylenol if has any pain - MRI . - dr. Cullen was called in ER - No neuro deficits 2- ETOH WD: No signs of Wernicke's. - start librium protocol - start folate, thiamine , and MVT. - he was not given IV thiamine in Er, will give 200 mg once - check Phos and Mg and replete before feeding 3- H/o chronic Systolic heart failure: last echo in system with EF of 35%. had cath in 10/19 and was told it was neg. - volume depleted at this time. - Monitor on IVF for now - per previous notes, he is on coreg , and entresto. will confirm dosages and order 4- H/o AFib/A flutter. now in sinus. He is not compliant with his eliquis - will hold eliquis until decision on any procedure for C2 Fx - confirm coreg and resume 5- DVT px : start SQ heparin. can hold for any procedure
[2019-09-04] MEDS ORDERED: THIAMINE HCL 200 MG/2 ML VIAL IVPB ONE (17:59)
[2019-09-04] MEDS ORDERED: SODIUM CHLORIDE 1,000 ML IV SCH (18:00)
[2019-09-04] MEDS ORDERED: THIAMINE HCL 200 MG/2 ML VIAL ONE (18:36)
[2019-09-04] MEDS ORDERED: ALBUTEROL SO4 2.5/IPRATROPIUM 0.5 INH SOL 3 ML VIAL.NEB. NEB ONE (20:32)
[2019-09-04] MEDS: HEPARIN NA (PORCINE) 5,000 UNITS/ML 1ML VIAL SQ SCH (21:10)
[2019-09-04] MEDS: chlordiazePOXIDE HCL 25 MG CAPSULE PO SCH (21:10)
[2019-09-04] MEDS: LIDOCAINE PATCH REMOVAL MC SCH (21:11)
[2019-09-04] MEDS ORDERED: LIDOCAINE PATCH REMOVAL MC SCH ×2 (22:00)
[2019-09-04] MEDS: ACETAMINOPHEN 325 MG TABLET (FP) PO PRN (22:04)
[2019-09-05] MEDS ORDERED: BISMUTH SUBSALICYLATE 262 MG/15 ML BTL PO ONE (02:01)
[2019-09-05] MEDS ORDERED: LORazepam 1 MG TABLET PO ONE (03:23)
[2019-09-05] MEDS: chlordiazePOXIDE HCL 25 MG CAPSULE PO SCH ×3 (05:30→21:14)
[2019-09-05] MEDS: HEPARIN NA (PORCINE) 5,000 UNITS/ML 1ML VIAL SQ SCH ×3 (05:30→21:14)
[2019-09-05] MEDS: ACETAMINOPHEN 325 MG TABLET (FP) PO PRN (05:31)
[2019-09-05] MEDS ORDERED: PT OWN MED DRAWER 7, Y5N ONE ×2 (09:15→09:46)
[2019-09-05 09:21] LABS: BASO % 0.8 % (0-2.0); EOS % 1.2 % (0-4.5); HEMATOCRIT 40.7 % (35.4-49); HEMOGLOBIN 14.1 GM/dL (11.7-16.9); LYMPH % 15.9 % (8-40); MCH 31.8 pg (25.7-33.7); MCHC 34.7 g/dl (32.0-35.9); MEAN CELL VOLUME 91.9 fl (80-96); MEAN PLT VOLUME 6.8 fl (7.5-11.1); MONO % 12.3 % (3.8-10.2); NEUT % 69.8 % (42.8-82.8); PLATELET COUNT 219 K/MM3 (134-434); RBC 4.43 M/mm3 (4.00-5.60); RDW 14.7 % (11.9-15.9); WHITE BLOOD COUNT 7.8 K/mm3 (4.0-10.0)
[2019-09-05 09:44] LABS: INR 0.97 (0.83-1.09); PROTHROMBIN TIME (PATIENT) 11.4 SEC (9.7-13.0)
[2019-09-05 09:50] LABS: ALBUMIN 4.2 g/dl (3.4-5.0); BILIRUBIN,TOTAL 0.8 mg/dL (0.2-1); BLOOD UREA NITROGEN 10.6 mg/dL (7-18); CALCIUM 8.8 mg/dL (8.5-10.1); CREATININE 0.9 mg/dL (0.55-1.3); MAGNESIUM 1.9 mg/dL (1.8-2.4); PHOSPHOROUS 2.1 mg/dL (2.5-4.9); POTASSIUM 3.5 mmol/L (3.5-5.1); TOT PROT 7.4 g/dl (6.4-8.2)
[2019-09-05] MEDS ORDERED: FLU VACCINE QUAD 60 MCG/0.5 ML (MDV 19-20) IM ONE (10:00)
[2019-09-05] MEDS ORDERED: PANTOPRAZOLE SODIUM 40 MG VIAL IVPUSH SCH (10:00)
--- NOTE | 2019-09-05 10:00 | EKG ---
Test Reason : Blood Pressure : / mmHG Vent. Rate : 095 BPM Atrial Rate : 095 BPM P-R Int : 186 ms QRS Dur : 094 ms QT Int : 342 ms P-R-T Axes : 056 -13 042 degrees QTc Int : 429 ms NORMAL SINUS RHYTHM INFERIOR INFARCT (CITED ON OR BEFORE 21-SEP-2018) ABNORMAL ECG Confirmed by THERON DONIS MD ([id number]) on 09/05/2019 10:00:20 AM Referred By: Confirmed By:THERON DONIS MD
[2019-09-05] MEDS: CARVEDILOL 12.5 MG TABLET (FP) PO SCH ×2 (10:04→21:14)
[2019-09-05] MEDS: AMIODARONE HCL 200 MG TABLET (FP) PO SCH ×2 (10:04→21:14)
[2019-09-05] MEDS: SACUBITRIL/VALSARTAN 24 MG-26 MG TABLET PO SCH ×2 (10:04→21:43)
[2019-09-05] MEDS: LIDOCAINE 5% TOPICAL PATCH TP SCH (10:05)
[2019-09-05] MEDS: FOLIC ACID 1 MG TABLET (FP) PO SCH (10:05)
[2019-09-05] MEDS: PANTOPRAZOLE 40 MG TABLET (FP) PO SCH (10:06)
[2019-09-05] MEDS: MULTIVITAMINS (DAILY MVI) TABLET (FP) PO SCH (10:06)
[2019-09-05] MEDS: BUDESONIDE/FORMETEROL FUMARATE 160/4.5 mcg INHALER IH SCH (10:06)
[2019-09-05] MEDS: THIAMINE HCL 100 MG TABLET (FP) PO SCH (10:06)
[2019-09-05] MEDS: IBUPROFEN 600 MG TABLET (FP) PO PRN ×3 (10:06→23:24)
[2019-09-05] MEDS ORDERED: NAPH,MB-DB/K PH,MBDB POWDER PACKET PO ONE (11:30)
--- NOTE | 2019-09-05 11:31 | PN ---
Teaching Attending Note Name of Resident: Janna Brannon ATTENDING PHYSICIAN STATEMENT I saw and evaluated the patient. I reviewed the resident's note and discussed the case with the resident. I agree with the resident's findings and plan as documented. SUBJECTIVE: No fever or chills. has pain in LUQ , which was intermitted for few weeks prior to admission . radiated like a belt to L flank no dysuria , no hematuria . feels anxious OBJECTIVE: NAD , awake, alert, and oriented . HEENT: MMM. . b/l horizontal nystagmus CV: RRR, NO MRG Lungs: CATB Abd: : obese, soft, mild TTP in LUQ, ND , NL BS. Ext : No edema , no erythema, tremor in hands MS: No TTP over spine or paraspinal muscles in L area ASSESSMENT AND PLAN: 54 y/o man with h/o P AFib/A flutter, non ischemic cardiomyopathy, PFO, HTN, ETOh abuse, Asthma, who presented with a fall while intoxicated. he was found to have C2 Fx and ETOH Withdrawal 1-S/p fall with resultant B/l C2 Fx on CT scan : - Cont hard collar. - MRI of C spine pending - tylenol and add ibuprofen for pain - neuro sx eval pending 2- ETOH WD: No signs of Wernicke's. - cont librium protocol - Cont folate, thiamine , and MVT. - replete hypophosphatemia 3- H/o chronic Systolic heart failure: - tolerated fluids, will end in 24 hr from start. - cont oral hydration -cont to try to reach is pharmacy to confirm meds 4- H/o AFib/A flutter. now in sinus. He is not compliant with his eliquis - will hold eliquis until decision on any procedure for C2 Fx - resume coreg 5- HTn: resume coreg and Entresto , pending confirmation of his meds 6- Abd pain: check lipase. if neg will check L spine xray to r/o referred pain from L spine to L flank 7-DVT px : SQ heparin. can hold for any procedure
[2019-09-05] MEDS: IPRATROPIUM BR 0.02% 0.5 MG/2.5 ML VIAL.NEB. NEB SCH ×3 (12:04→20:12)
--- NOTE | 2019-09-05 14:08 | PN ---
Physical Exam: SUBJECTIVE: Patient seen and examined at the bedside. Patient reports he has left sided abdominal pain that radiates toward the mid epigastrum. Patient reports he had this pain prior to his fall/ hospitalization. OBJECTIVE: Vital Signs Period Temp Pulse Resp BP Sys/Garg Pulse Ox Last 24 Hr 97.5 F-99.4 F 82-121 19-21 127-160/68-123 98-100 GENERAL: The patient is awake, alert, and fully oriented, in no acute distress. HEAD: Normal with no signs of trauma. EYES: PERRL, extraocular movements intact, sclera anicteric, conjunctiva clear. No ptosis. bilateral horizontal nystagmus ENT: Ears normal, nares patent, oropharynx clear without exudates, moist mucous membranes. NECK: C-collar in place LUNGS: Breath sounds equal, clear to auscultation bilaterally, no wheezes, no crackles, no accessory muscle use. HEART: Regular rate and rhythm, S1, S2 without murmur, rub or gallop. ABDOMEN: Soft, pbese, tender to palpation in the LUQ, nondistended, normoactive bowel sounds EXTREMITIES: 2+ pulses, warm, well-perfused, no edema, bilateral tremor noted in hands NEUROLOGICAL: Cranial nerves II through XII grossly intact. Normal speech, gait not observed. PSYCH: Normal mood, normal affect. SKIN: Warm, dry, normal turgor, no rashes or lesions noted Laboratory Results - last 24 hr 09/04/19 09/04/19 09/04/19 12:30 12:30 19:00 WBC RBC Hgb Hct MCV MCH MCHC RDW Plt Count MPV Absolute Neuts (auto) Neutrophils % Lymphocytes % Monocytes % Eosinophils % Basophils % Nucleated RBC % PT with INR INR Sodium 138 Potassium 4.4 Chloride 103 Carbon Dioxide 28 Anion Gap 7 L BUN 9.4 Creatinine 0.6 Est GFR (CKD-EPI)AfAm 130.27 Est GFR (CKD-EPI)NonAf 112.40 Random Glucose 124 H Calcium 9.3 Phosphorus Cancelled 3.0 Magnesium Cancelled 2.0 Total Bilirubin 0.2 AST 27 ALT 35 Alkaline Phosphatase 71 B-Natriuretic Peptide 29.2 Total Protein 7.8 Albumin 4.2 Alcohol, Quantitative 372.6 H 09/05/19 09/05/19 09/05/19 09:00 09:00 09:00 WBC 7.8 RBC 4.43 Hgb 14.1 Hct 40.7 MCV 91.9 MCH 31.8 MCHC 34.7 RDW 14.7 Plt Count 219 MPV 6.8 L Absolute Neuts (auto) 5.5 Neutrophils % 69.8 D Lymphocytes % 15.9 D Monocytes % 12.3 H Eosinophils % 1.2 Basophils % 0.8 Nucleated RBC % 0 PT with INR 11.40 INR 0.97 Sodium 135 L Potassium 3.5 Chloride 100 Carbon Dioxide 27 Anion Gap 8 BUN 10.6 Creatinine 0.9 Est GFR (CKD-EPI)AfAm 110.27 Est GFR (CKD-EPI)NonAf 95.14 Random Glucose 146 H Calcium 8.8 Phosphorus 2.1 L Magnesium 1.9 Total Bilirubin 0.8 AST 24 ALT 30 Alkaline Phosphatase 69 B-Natriuretic Peptide Total Protein 7.4 Albumin 4.2 Alcohol, Quantitative Active Medications Generic Name Dose Route Start Last Admin Trade Name Freq PRN Reason Stop Dose Admin Acetaminophen 650 mg 09/04/19 17:28 09/05/19 05:31 Tylenol - PO 650 mg Q6H PRN Administration Fever Or Pain Albuterol Sulfate 2 puff 09/05/19 08:04 Ventolin Hfa Inhaler - IH Q6H PRN SHORT OF BREATH/WHEEZING Amiodarone HCl 200 mg 09/05/19 10:00 09/05/19 10:04 Cordarone - PO 200 mg BID RADHA Administration Budesonide/Formoterol Fumarate 1 puff 09/05/19 10:00 09/05/19 10:06 Symbicort 160/4.5mcg - IH 1 puff DAILY RADHA Administration Carvedilol 12.5 mg 09/05/19 10:00 09/05/19 10:04 Coreg - PO 12.5 mg BID RADHA Administration Chlordiazepoxide HCl 10 mg 09/07/19 00:00 Librium - PO 09/07/19 23:59 Q12H PRN Signs/symptoms of Withdrawal Chlordiazepoxide HCl 10 mg 09/04/19 17:17 Librium - PO 09/06/19 23:59 Q8H PRN Signs/symptoms of Withdrawal Chlordiazepoxide HCl 25 mg 09/04/19 21:00 09/05/19 13:26 Librium - PO 09/05/19 21:01 25 mg Q8H RADHA Administration Chlordiazepoxide HCl 15 mg 09/06/19 05:00 Librium - PO 09/06/19 21:01 Q8H RADHA Chlordiazepoxide HCl 10 mg 09/07/19 05:00 Librium - PO 09/07/19 21:01 Q8H RADHA Chlordiazepoxide HCl 10 mg 09/08/19 05:00 Librium - PO 09/08/19 05:01 ONCE ONE Folic Acid 1 mg 09/05/19 10:00 09/05/19 10:05 Folic Acid - PO 1 mg DAILY RADHA Administration Heparin Sodium (Porcine) 5,000 unit 09/04/19 22:00 09/05/19 13:26 Heparin - SQ 5,000 unit TID RADHA Administration Sodium Chloride 1,000 mls @ 50 mls/hr 09/04/19 18:00 09/04/19 18:45 Normal Saline - IV 09/05/19 17:58 50 mls/hr ASDIR RADHA Administration Ibuprofen 600 mg 09/05/19 08:58 09/05/19 10:06 Motrin - PO 600 mg Q6H PRN Administration PAIN LEVEL 4 - 6 Ipratropium [place] 1 amp 09/05/19 12:00 09/05/19 12:04 Atrovent 0.02% Nebulizer - NEB 1 amp RQID RADHA Administration Lidocaine 1 patch 09/04/19 17:45 09/05/19 10:05 Lidoderm Patch - TP 1 patch DAILY RADHA Administration Miscellaneous 1 each 09/04/19 22:00 09/04/19 21:11 Lidoderm Patch Removal MC 1 each DAILY@2200 RADHA Administration Multivitamins/Minerals/Vitamin C 1 tab 09/05/19 10:00 09/05/19 10:06 Tab-A-Vit - PO 1 tab DAILY RADHA Administration Pantoprazole Sodium 40 mg 09/05/19 10:00 09/05/19 10:06 Protonix - PO 40 mg DAILY RADHA Administration Sacubitril/Valsartan 1 tab 09/05/19 10:00 09/05/19 10:04 Entresto 24 Mg-26 Mg Tablet PO 1 tab BID RADHA Administration Thiamine HCl 100 mg 09/05/19 10:00 09/05/19 10:06 Vitamin B1 - PO 100 mg DAILY RADHA Administration Imaging: - Head/c-spine CT showed oblique oriented fracture at junction of lateral mass and body of C2 with mild step-off, cortical disruption. Subtle nondisplaced fx similar location contralateral side. Neck supple, not rigid/tender. ASSESSMENT/PLAN: Mr. Sullivan is a 54 year old man with a past medical history of afib (not on eliquis), HTN, CHF (EF35%), asthma, and alcohol abuse who presents to the ED s/ p 2 falls in his bedroom while drunk. 1. Fall 2/2 acute alcohol intoxication with resultant bilateral C2 Fx on CT scan - continue C-collar (hard) - Neurosurgers (dr. keene) consulted - MRI c-spine still pending - lidocaine patch - tylenol prn for pain - ibuprofen prn for pain 2. Alcohol withdrawal- no evidence of wernicke's, mild tremor, good coordination without cerebellar signs. No asterixis. - Continue librium protocol for withdrawal - PO thiamine daily - PO folate daily - PO multivitamin - replete phosphate prn - patient tolerated IVF without becoming vol overload, encourage PO fluid intake - Protonix 40 3. L sided abdominal pain radiating to epigastrum - check lipase - f/u L spine xray to r/out referred pain from L spine to L flank 4. CHF - resume home medications once confirmed with pharmacy - resuming coreg and entresto - careful rehydration to avoid vol overload 5. Afib - will hold AC for now pending results of MRI incase patient needs procedure - will consider resuming after result of MRI - continuing coreg for now FEN - Encourage PO fluid intake - replete lytes PRN - low fat diet DVT px : SQ heparin. can hold for any procedure Dispo: admit to med-surg. Patient amenable to go to [facility] for alcohol detox after medically cleared Visit type - Emergency Visit Emergency Visit: Yes ED Registration Date: 09/04/19 Care time: The patient presented to the Emergency Department on the above date and was hospitalized for further evaluation of their emergent condition. - New Patient This patient is new to me today: No - Critical Care Critical Care patient: No - Discharge Referral Referred to [facility] No ATTENDING PHYSICIAN STATEMENT I saw and evaluated the patient. I reviewed the resident's note and discussed the case with the resident. I agree with the resident's findings and plan as documented. SUBJECTIVE: OBJECTIVE: ASSESSMENT AND PLAN:
[2019-09-05] MEDS: LIDOCAINE PATCH REMOVAL MC SCH (21:14)
--- NOTE | 2019-09-05 23:39 | CONSULT ---
Consult - text type - Consultation Consultation Note: NEUROSURGERY CONSULTATION Ellis Sullivan is a 54 year old male who has a history of Atrial Fibrillation, HTN and CHF as well as daily EtOH consumption. He fell several days ago while intoxicated and has been having increased neck pain since this time. He remains at her Neurological baseline. CT demonstrates non-displaced fractures of the C2 vertebral body vertically through the lateral articular pillars. Patient is awake and alert on exam and complies with examination. Given his non- displaced fractures and lack of deficits, non-operative management would be an appropriate initial plan of care. Patient given Cervical collar with some control of his neck pain. Patient reports a pain in his chest wall on the Left side which has been there for 3 months and does not increase or decrease in intensity with activities or position. No acute Neurosurgical intervention indicated or planned. - GI/DVT prophylaxis - Fracture treatment with cervical orthosis - Physical Therapy - Will follow - If no etiology for his Chest wall pain is identified, will consider evaluation of Thoracic spine for potential nerve root compression
[2019-09-06] MEDS ORDERED: SODIUM CHLORIDE 1,000 ML IV ONE (00:03)
[2019-09-06] MEDS ORDERED: ACETAMINOPHEN 1000 MG/100 ML VIAL (NON FORMULARY) IVPB ONE (00:14)
[2019-09-06] MEDS: HEPARIN NA (PORCINE) 5,000 UNITS/ML 1ML VIAL SQ SCH ×3 (05:20→21:44)
[2019-09-06] MEDS: chlordiazePOXIDE 5 MG CAPSULE PO SCH ×3 (05:20→21:38)
[2019-09-06 08:10] LABS: BASO % 1.3 % (0-2.0); HEMOGLOBIN 13.7 GM/dL (11.7-16.9); LYMPH % 21.6 % (8-40); MCH 31.8 pg (25.7-33.7); MCHC 34.1 g/dl (32.0-35.9); MEAN CELL VOLUME 93.1 fl (80-96); MEAN PLT VOLUME 7.2 fl (7.5-11.1); MONO % 12.7 % (3.8-10.2); NEUT % 53.4 % (42.8-82.8); PLATELET COUNT 181 K/MM3 (134-434); RDW 14.6 % (11.9-15.9); WHITE BLOOD COUNT 5.1 K/mm3 (4.0-10.0)
[2019-09-06 08:26] LABS: BILIRUBIN,TOTAL 1.2 mg/dL (0.2-1); BLOOD UREA NITROGEN 13.6 mg/dL (7-18); CALCIUM 9.2 mg/dL (8.5-10.1); CREATININE 0.8 mg/dL (0.55-1.3); MAGNESIUM 2.2 mg/dL (1.8-2.4); PHOSPHOROUS 2.7 mg/dL (2.5-4.9); POTASSIUM 3.5 mmol/L (3.5-5.1); TOT PROT 7.2 g/dl (6.4-8.2)
[2019-09-06] MEDS: IPRATROPIUM BR 0.02% 0.5 MG/2.5 ML VIAL.NEB. NEB SCH ×4 (08:28→19:37)
[2019-09-06] MEDS ORDERED: PT OWN MED DRAWER 7, Y5N ONE ×2 (09:38→21:35)
[2019-09-06] MEDS: LACTATED RINGERS SOLUTION 1,000 ML/1,000 ML INFUS.BAG IV SCH ×2 (09:44→17:07)
[2019-09-06] MEDS: THIAMINE HCL 100 MG TABLET (FP) PO SCH (09:47)
[2019-09-06] MEDS: ACETAMINOPHEN 325 MG TABLET (FP) PO PRN (09:48)
[2019-09-06] MEDS: IBUPROFEN 600 MG TABLET (FP) PO PRN (09:52)
[2019-09-06] MEDS: MULTIVITAMINS (DAILY MVI) TABLET (FP) PO SCH (09:53)
[2019-09-06] MEDS: FOLIC ACID 1 MG TABLET (FP) PO SCH (09:53)
[2019-09-06] MEDS: CARVEDILOL 12.5 MG TABLET (FP) PO SCH ×2 (09:53→21:38)
[2019-09-06] MEDS: PANTOPRAZOLE 40 MG TABLET (FP) PO SCH (09:53)
[2019-09-06] MEDS: AMIODARONE HCL 200 MG TABLET (FP) PO SCH ×2 (09:53→21:38)
[2019-09-06] MEDS: SACUBITRIL/VALSARTAN 24 MG-26 MG TABLET PO SCH ×2 (09:54→21:37)
[2019-09-06] MEDS: BUDESONIDE/FORMETEROL FUMARATE 160/4.5 mcg INHALER IH SCH (09:54)
[2019-09-06] MEDS: LIDOCAINE 5% TOPICAL PATCH TP SCH (09:54)
--- NOTE | 2019-09-06 10:44 | PN ---
Progress Note (short form) - Note Progress Note: Subjective: no fever or chills. worsening in LUQ abd pain. No N/V. pain radiated up and down . Objective: Vital Signs: Last Vital Signs Temp Pulse Resp BP Pulse Ox 97.6 F 80 20 132/83 98 09/06/19 05:00 09/06/19 05:00 09/05/19 13:32 09/06/19 05:00 09/05/19 22:00 Laboratory Results - last 24 hr 09/05/19 09/06/19 09/06/19 09:00 07:30 07:30 WBC 5.1 RBC 4.30 Hgb 13.7 Hct 40.0 MCV 93.1 MCH 31.8 MCHC 34.1 RDW 14.6 Plt Count 181 MPV 7.2 L Absolute Neuts (auto) 2.7 Neutrophils % 53.4 D Lymphocytes % 21.6 D Monocytes % 12.7 H Eosinophils % 11.0 H D Basophils % 1.3 Nucleated RBC % 0 Sodium 135 L 136 Potassium 3.5 3.5 Chloride 100 101 Carbon Dioxide 27 28 Anion Gap 8 8 BUN 10.6 13.6 Creatinine 0.9 0.8 Est GFR (CKD-EPI)AfAm 110.27 115.74 Est GFR (CKD-EPI)NonAf 95.14 99.86 Random Glucose 146 H 99 Calcium 8.8 9.2 Phosphorus 2.1 L 2.7 Magnesium 1.9 2.2 Total Bilirubin 0.8 1.2 H AST 24 26 ALT 30 30 Alkaline Phosphatase 69 66 Total Protein 7.4 7.2 Albumin 4.2 4.0 Triglycerides 160 H Total Amylase 151 H Lipase 3953 H 2773 H Physical Exam: NAD , awake, alert HEENT: MMM. CV: RRR, NO MRG Lungs: CATB Abd: : obese, soft, mild TTP in LUQ, ND , NL BS. voluntary guarding . no rebound Ext : No edema, no erythema, tremor in hands ASSESSMENT AND PLAN: 54 y/o man with h/o P AFib/A flutter, non ischemic cardiomyopathy, PFO, HTN, ETOh abuse, Asthma, who presented with a fall while intoxicated. he was found to have C2 Fx and ETOH Withdrawal 1-S/p fall with resultant B/l C2 Fx on CT scan : - Cont hard collar. - MRI of C spine pending - cont pain meds - Dr. osullivan help appreciated 2- Abd pain, due to acute pancreatitis . likely alcohol induced. - check TG - check US of RUQ - increase IVF - make NPO - add morphine - No need fro CT of abd at this point. will perform if condition does not improve or if there are signs for necrosis 3- H/o chronic Systolic heart failure: - looks euvolemic and to - monitor on IVF -His pharmacy will be open tomorrow to confirm his cardiac meds 4- H/o AFib/A flutter. now in sinus. He is not compliant with his eliquis - will hold eliquis until decision on any procedure for C2 Fx - cont coreg 5- ETOH WD: No signs of Wernicke's. - cont librium protocol - Cont folate, thiamine , and MVT. 6- HTN: Cont coreg and Entresto , pending confirmation of his meds 7-DVT px : SQ heparin. can hold for any procedure HLOC Visit type - Emergency Visit Emergency Visit: Yes ED Registration Date: 09/04/19 Care time: The patient presented to the Emergency Department on the above date and was hospitalized for further evaluation of their emergent condition. - New Patient This patient is new to me today: No - Critical Care Critical Care patient: No
[2019-09-06] MEDS: MORPHINE SULFATE 2 MG/ML VIAL IVPUSH PRN ×2 (13:12→21:48)
[2019-09-06] MEDS: LIDOCAINE PATCH REMOVAL MC SCH (21:43)
[2019-09-07] MEDS ORDERED: chlordiazePOXIDE HCL 10 MG CAPSULE PO PRN
[2019-09-07] MEDS: LACTATED RINGERS SOLUTION 1,000 ML/1,000 ML INFUS.BAG IV SCH ×2 (00:03→10:28)
[2019-09-07] MEDS: MORPHINE SULFATE 2 MG/ML VIAL IVPUSH PRN ×4 (02:19→22:54)
[2019-09-07] MEDS ORDERED: chlordiazePOXIDE HCL 10 MG CAPSULE PO SCH (05:00)
[2019-09-07] MEDS ORDERED: chlordiazePOXIDE 5 MG CAPSULE ONE (05:45)
[2019-09-07] MEDS: HEPARIN NA (PORCINE) 5,000 UNITS/ML 1ML VIAL SQ SCH ×3 (05:54→22:36)
[2019-09-07] MEDS ORDERED: chlordiazePOXIDE 5 MG CAPSULE PO SCH (06:29)
[2019-09-07] MEDS ORDERED: chlordiazePOXIDE 5 MG CAPSULE PO PRN (06:30)
[2019-09-07] MEDS: IPRATROPIUM BR 0.02% 0.5 MG/2.5 ML VIAL.NEB. NEB SCH ×3 (08:45→16:57)
[2019-09-07 09:14] LABS: BLOOD UREA NITROGEN 11.7 mg/dL (7-18); CALCIUM 8.7 mg/dL (8.5-10.1); CREATININE 0.7 mg/dL (0.55-1.3); MAGNESIUM 2.1 mg/dL (1.8-2.4); PHOSPHOROUS 3.8 mg/dL (2.5-4.9); POTASSIUM 3.2 mmol/L (3.5-5.1)
[2019-09-07] MEDS: LIDOCAINE 5% TOPICAL PATCH TP SCH (10:25)
[2019-09-07] MEDS: SACUBITRIL/VALSARTAN 24 MG-26 MG TABLET PO SCH ×2 (10:26→22:36)
[2019-09-07] MEDS: AMIODARONE HCL 200 MG TABLET (FP) PO SCH ×2 (10:26→22:35)
[2019-09-07] MEDS: MULTIVITAMINS (DAILY MVI) TABLET (FP) PO SCH (10:26)
[2019-09-07] MEDS: THIAMINE HCL 100 MG TABLET (FP) PO SCH (10:26)
[2019-09-07] MEDS: PANTOPRAZOLE 40 MG TABLET (FP) PO SCH (10:26)
[2019-09-07] MEDS: CARVEDILOL 12.5 MG TABLET (FP) PO SCH ×2 (10:26→22:35)
[2019-09-07] MEDS: FOLIC ACID 1 MG TABLET (FP) PO SCH (10:26)
[2019-09-07] MEDS: BUDESONIDE/FORMETEROL FUMARATE 160/4.5 mcg INHALER IH SCH (10:28)
[2019-09-07] MEDS ORDERED: POTASSIUM CHLORIDE TABS 20 MEQ TABLET.ER (FP) PO ONE (11:00)
--- NOTE | 2019-09-07 11:15 | PN ---
Teaching Attending Note Name of Resident: Janna Brannon ATTENDING PHYSICIAN STATEMENT I saw and evaluated the patient. I reviewed the resident's note and discussed the case with the resident. I agree with the resident's findings and plan as documented. SUBJECTIVE: No fever or chills. no WESLEY . improved abd pain with pain meds. has cough OBJECTIVE: NAD, awake, alert HEENT: MMM. CV: RRR, no MRG , No JVD Lungs: CATB Abd: : obese, soft, mild TTP in LUQ, ND , NL BS. . no rebound or guarding today Ext : No edema, no erythema, No tremor ASSESSMENT AND PLAN: 54 y/o man with h/o P AFib/A flutter, non ischemic cardiomyopathy, PFO, HTN, ETOH abuse, Asthma, who presented with a fall while intoxicated. he was found to have C2 Fx and ETOH Withdrawal 1-S/p fall with resultant B/l C2 Fx on CT scan : - Cont hard collar. - MRI of C spine pending - cont pain meds 2- Acute pancreatitis . likely alcohol induced. No gall stones, and NL TG. Nl Calcium - cont IVF. will decrease dose tomorrow as he has CHF - cont NPO. if pain is better tomorrow , will start clears - cont morphine 3- H/o chronic Systolic heart failure: -check Cxray to evaluate for pulm congestion as he has new cough - monitor on IVF - His pharmacy will be open today to confirm his cardiac meds 4- H/o AFib/A flutter. now in sinus. He is not compliant with his eliquis - will hold eliquis until decision on any procedure for C2 Fx - cont coreg 5- ETOH WD: - Cont librium protocol . - Cont folate, thiamine , and MVT. 6- HTN: Cont coreg and Entresto, pending confirmation of his meds 7-DVT px: SQ heparin. can hold for any procedure HLOC
--- NOTE | 2019-09-07 11:22 | PN ---
Physical Exam: SUBJECTIVE: Patient seen and examined at the bedside, there were no acute events overnight. Appears comfortable in bed. OBJECTIVE: Vital Signs Period Temp Pulse Resp BP Sys/Garg Pulse Ox Last 24 Hr 97.6 F-97.7 F 80-87 18-20 140-152/90-97 98 GENERAL: The patient is awake, alert, and fully oriented, in no acute distress. HEAD: Normal with no signs of trauma. EYES: PERRL, extraocular movements intact, sclera anicteric, conjunctiva clear. No ptosis. horizontal nystagmus present but improving ENT: Ears normal, nares patent, oropharynx clear without exudates, moist mucous membranes. NECK: C-collar in place LUNGS: Breath sounds equal, clear to auscultation bilaterally, no wheezes, some faint scattered wheezes in the inferior lung prater, no accessory muscle use. HEART: Regular rate and rhythm, S1, S2 without murmur, rub or gallop, no JVD ABDOMEN: Soft, pbese, tender to palpation in the LUQ, nondistended, normoactive bowel sounds EXTREMITIES: 2+ pulses, warm, well-perfused, no edema, tremor not perceptible but able to be felt finger tip to finger tip. NEUROLOGICAL: Cranial nerves II through XII grossly intact. Normal speech, gait not observed. PSYCH: Normal mood, normal affect. SKIN: Warm, dry, normal turgor, no rashes or lesions noted Laboratory Results - last 24 hr 09/07/19 08:00 Sodium 138 Potassium 3.2 L Chloride 103 Carbon Dioxide 26 Anion Gap 9 BUN 11.7 Creatinine 0.7 Est GFR (CKD-EPI)AfAm 122.27 Est GFR (CKD-EPI)NonAf 105.50 Random Glucose 78 Calcium 8.7 Phosphorus 3.8 Magnesium 2.1 Active Medications Generic Name Dose Route Start Last Admin Trade Name Freq PRN Reason Stop Dose Admin Acetaminophen 650 mg 09/06/19 10:35 Tylenol - PO Q6H PRN PAIN LEVEL 1-5 Albuterol Sulfate 2 puff 09/05/19 08:04 Ventolin Hfa Inhaler - IH Q6H PRN SHORT OF BREATH/WHEEZING Amiodarone HCl 200 mg 09/05/19 10:00 09/07/19 10:26 Cordarone - PO 200 mg BID RADHA Administration Budesonide/Formoterol Fumarate 1 puff 09/05/19 10:00 09/07/19 10:28 Symbicort 160/4.5mcg - IH 1 puff DAILY RADHA Administration Carvedilol 12.5 mg 09/05/19 10:00 09/07/19 10:26 Coreg - PO 12.5 mg BID RADHA Administration Chlordiazepoxide HCl 10 mg 09/08/19 05:00 Librium - PO 09/08/19 05:01 ONCE ONE Chlordiazepoxide HCl 10 mg 09/07/19 06:29 Librium - PO 09/07/19 21:01 Q8H RADHA Chlordiazepoxide HCl 10 mg 09/07/19 06:30 Librium - PO 09/07/19 23:59 Q12H PRN Signs/symptoms of Withdrawal Folic Acid 1 mg 09/05/19 10:00 09/07/19 10:26 Folic Acid - PO 1 mg DAILY RADHA Administration Heparin Sodium (Porcine) 5,000 unit 09/04/19 22:00 09/07/19 05:54 Heparin - SQ 5,000 unit TID RADHA Administration Lactated Ringer's 1,000 ml in 1,000 mls @ 150 mls/hr 09/06/19 08:30 09/07/19 10:28 Lactated Ringers Solution IV 150 mls/hr ASDIR RADHA Administration Ipratropium [place] 1 amp 09/05/19 12:00 09/07/19 08:45 Atrovent 0.02% Nebulizer - NEB 1 amp RQID RADHA Administration Lidocaine 1 patch 09/04/19 17:45 09/07/19 10:25 Lidoderm Patch - TP 1 patch DAILY RADHA Administration Miscellaneous 1 each 09/04/19 22:00 09/06/19 21:43 Lidoderm Patch Removal MC 1 each DAILY@2200 RADHA Administration Morphine Sulfate 2 mg 09/06/19 10:34 09/07/19 08:36 Morphine Sulfate IVPUSH 2 mg Q4H PRN Administration PAIN LEVEL 6-10 Multivitamins/Minerals/Vitamin C 1 tab 09/05/19 10:00 09/07/19 10:26 Tab-A-Vit - PO 1 tab DAILY RADHA Administration Pantoprazole Sodium 40 mg 09/05/19 10:00 09/07/19 10:26 Protonix - PO 40 mg DAILY RADHA Administration Sacubitril/Valsartan 1 tab 09/05/19 10:00 09/07/19 10:26 Entresto 24 Mg-26 Mg Tablet PO 1 tab BID RADHA Administration Thiamine HCl 100 mg 09/05/19 10:00 09/07/19 10:26 Vitamin B1 - PO 100 mg DAILY RADHA Administration Imaging: - Head/c-spine CT showed oblique oriented fracture at junction of lateral mass and body of C2 with mild step-off, cortical disruption. Subtle nondisplaced fx similar location contralateral side. Neck supple, not rigid/tender. ASSESSMENT/PLAN: Mr. Sullivan is a 54 year old man with a past medical history of afib (not on eliquis), HTN, CHF (EF35%), asthma, and alcohol abuse who presents to the ED s/ p 2 falls in his bedroom while drunk. 1. Fall 2/2 acute alcohol intoxication with resultant bilateral C2 Fx on CT scan - continue C-collar (hard) - Neurosurgers (dr. keene) consulted - MRI c-spine still > per MRI the patient was taken down last week but was too anxious to tolerate the exam. Per patient, he was withdrawing and that is why he could not tolerate. Is willing to try againnow that his withdrawal improved. - Valium 5 PO if too anxious for MRI - lidocaine patch - tylenol prn for pain - ibuprofen prn for pain - plan to dc pt morphine in AM and start tramadol 2- Acute pancreatitis most likely alcohol induced. No gall stones, and NL TG. Nl Calcium - cont IVF LR @ 150cc - f/u CXR to look for vol overload given hx CHF - decrease fluids tomorrow to avoid vol overload - resume clears, advance diet as tolerated - cont morphine, dc in AM and start toradol since patient is ready to advance diet 3. Alcohol withdrawal- no evidence of wernicke's, mild tremor, good coordination without cerebellar signs. No asterixis. - Continue librium protocol for withdrawal - PO thiamine daily - PO folate daily - PO multivitamin 4. CHF -check Cxray to evaluate for pulm congestion as he has new cough and is on high vol fluids for pancreatitis - monitor on IVF - careful rehydration to avoid vol overload, plan to decrease fluids in AM - Patient reported he does not have refills on his meds because he is uninsured and unable to follow up with his doctors. Will continue his old medications and discuss with social work about helping patient to apply for insurance - plan to have pt follow up at [facility] - will discuss with patient in the AM whether he wished to resume/ pay for eliquis or if he would prefer coumadin (with the understanding that it will require frequent blood draws and close follow up) 5. Afib - will hold AC for now pending results of MRI incase patient needs procedure - will consider resuming after result of MRI - continuing coreg for now 6 HTN: Cont coreg and Entresto FEN - Encourage PO fluid intake - replete lytes PRN - low fat diet DVT px : SQ heparin. can hold for any procedure Dispo: admit to med-surg. Patient amenable to go to [facility] for alcohol detox after medically cleared Visit type - Emergency Visit Emergency Visit: Yes ED Registration Date: 09/04/19 Care time: The patient presented to the Emergency Department on the above date and was hospitalized for further evaluation of their emergent condition. - New Patient This patient is new to me today: No - Critical Care Critical Care patient: No - Discharge Referral Referred to [facility] Med P.C.: Yes ATTENDING PHYSICIAN STATEMENT I saw and evaluated the patient. I reviewed the resident's note and discussed the case with the resident. I agree with the resident's findings and plan as documented. SUBJECTIVE: OBJECTIVE: ASSESSMENT AND PLAN:
[2019-09-07] MEDS ORDERED: PT OWN MED DRAWER 7, Y5N ONE (22:33)
[2019-09-07] MEDS: LIDOCAINE PATCH REMOVAL MC SCH (22:36)
[2019-09-08] MEDS ORDERED: chlordiazePOXIDE 5 MG CAPSULE PO ONE (05:00)
[2019-09-08] MEDS: HEPARIN NA (PORCINE) 5,000 UNITS/ML 1ML VIAL SQ SCH ×3 (06:29→21:50)
[2019-09-08] MEDS: MORPHINE SULFATE 2 MG/ML VIAL IVPUSH PRN ×2 (06:43→17:59)
[2019-09-08] MEDS: IPRATROPIUM BR 0.02% 0.5 MG/2.5 ML VIAL.NEB. NEB SCH ×4 (07:50→20:52)
[2019-09-08 08:20] LABS: HEMATOCRIT 36.2 % (35.4-49); HEMOGLOBIN 12.3 GM/dL (11.7-16.9); MCH 31.6 pg (25.7-33.7); MCHC 33.9 g/dl (32.0-35.9); MEAN CELL VOLUME 93.1 fl (80-96); MEAN PLT VOLUME 7.2 fl (7.5-11.1); PLATELET COUNT 168 K/MM3 (134-434); RBC 3.88 M/mm3 (4.00-5.60); RDW 14.1 % (11.9-15.9); WHITE BLOOD COUNT 6.1 K/mm3 (4.0-10.0)
[2019-09-08] MEDS: LACTATED RINGERS SOLUTION 1,000 ML/1,000 ML INFUS.BAG IV SCH (08:45)
[2019-09-08 09:02] LABS: ALBUMIN 3.3 g/dl (3.4-5.0); BILIRUBIN,TOTAL 0.6 mg/dL (0.2-1); CALCIUM 8.8 mg/dL (8.5-10.1); CREATININE 0.8 mg/dL (0.55-1.3); POTASSIUM 3.6 mmol/L (3.5-5.1); TOT PROT 6.3 g/dl (6.4-8.2)
[2019-09-08] MEDS: PANTOPRAZOLE 40 MG TABLET (FP) PO SCH (09:09)
[2019-09-08] MEDS: FOLIC ACID 1 MG TABLET (FP) PO SCH (09:09)
[2019-09-08] MEDS: THIAMINE HCL 100 MG TABLET (FP) PO SCH (09:09)
[2019-09-08] MEDS: AMIODARONE HCL 200 MG TABLET (FP) PO SCH ×2 (09:10→21:50)
[2019-09-08] MEDS: MULTIVITAMINS (DAILY MVI) TABLET (FP) PO SCH (09:10)
[2019-09-08] MEDS: CARVEDILOL 12.5 MG TABLET (FP) PO SCH ×2 (09:10→21:50)
[2019-09-08] MEDS: LIDOCAINE 5% TOPICAL PATCH TP SCH (09:11)
[2019-09-08] MEDS: ACETAMINOPHEN 325 MG TABLET (FP) PO PRN (09:25)
[2019-09-08] MEDS: SACUBITRIL/VALSARTAN 24 MG-26 MG TABLET PO SCH ×2 (09:27→21:50)
[2019-09-08] MEDS: BUDESONIDE/FORMETEROL FUMARATE 160/4.5 mcg INHALER IH SCH (09:32)
[2019-09-08] MEDS ORDERED: traMADol HCL 50 MG TABLET PO PRN (10:00)
--- NOTE | 2019-09-08 11:34 | PN ---
Progress Note (short form) - Note Progress Note: Patient in bed wearing collar. Stable.
--- NOTE | 2019-09-08 15:56 | PN ---
Physical Exam: SUBJECTIVE: Patient seen and examined at the bedside, there were no acute events overnight. Patient states that he had increased pain with his clear diet. Also states that he has worsening back pain. OBJECTIVE: Vital Signs Period Temp Pulse Resp BP Sys/Garg Pulse Ox Last 24 Hr 97.8 F-98.8 F 74-90 16-20 146-157/97-102 96-96 GENERAL: The patient is awake, alert, and fully oriented, in no acute distress. HEAD: Normal with no signs of trauma. EYES: PERRL, extraocular movements intact, sclera anicteric, conjunctiva clear. No ptosis. horizontal nystagmus present but improving ENT: Ears normal, nares patent, oropharynx clear without exudates, moist mucous membranes. NECK: C-collar in place LUNGS: Breath sounds equal, clear to auscultation bilaterally, no wheezes, some faint scattered wheezes in the inferior lung prater, no accessory muscle use. HEART: Regular rate and rhythm, S1, S2 without murmur, rub or gallop, no JVD ABDOMEN: Soft, pbese, tender to palpation in the LUQ, nondistended, normoactive bowel sounds EXTREMITIES: 2+ pulses, warm, well-perfused, no edema, tremor not perceptible but able to be felt finger tip to finger tip. NEUROLOGICAL: Cranial nerves II through XII grossly intact. Normal speech, gait not observed. PSYCH: Normal mood, normal affect. SKIN: Warm, dry, normal turgor, no rashes or lesions noted Laboratory Results - last 24 hr 09/08/19 09/08/19 07:40 07:40 WBC 6.1 RBC 3.88 L Hgb 12.3 Hct 36.2 MCV 93.1 MCH 31.6 MCHC 33.9 RDW 14.1 Plt Count 168 MPV 7.2 L Sodium 139 Potassium 3.6 Chloride 102 Carbon Dioxide 27 Anion Gap 9 BUN 9.0 Creatinine 0.8 Est GFR (CKD-EPI)AfAm 115.74 Est GFR (CKD-EPI)NonAf 99.86 Random Glucose 108 H Calcium 8.8 Total Bilirubin 0.6 AST 39 H ALT 43 Alkaline Phosphatase 58 Total Protein 6.3 L Albumin 3.3 L Active Medications Generic Name Dose Route Start Last Admin Trade Name Freq PRN Reason Stop Dose Admin Acetaminophen 650 mg 09/06/19 10:35 09/08/19 09:25 Tylenol - PO 650 mg Q6H PRN Administration PAIN LEVEL 1-5 Albuterol Sulfate 2 puff 09/05/19 08:04 Ventolin Hfa Inhaler - IH Q6H PRN SHORT OF BREATH/WHEEZING Amiodarone HCl 200 mg 09/05/19 10:00 09/08/19 09:10 Cordarone - PO 200 mg BID RADHA Administration Budesonide/Formoterol Fumarate 1 puff 09/05/19 10:00 09/08/19 09:32 Symbicort 160/4.5mcg - IH 1 puff DAILY RADHA Administration Carvedilol 12.5 mg 09/05/19 10:00 09/08/19 09:10 Coreg - PO 12.5 mg BID RADHA Administration Folic Acid 1 mg 09/05/19 10:00 09/08/19 09:09 Folic Acid - PO 1 mg DAILY RADHA Administration Heparin Sodium (Porcine) 5,000 unit 09/04/19 22:00 09/08/19 14:01 Heparin - SQ 5,000 unit TID RADHA Administration Lactated Ringer's 1,000 ml in 1,000 mls @ 150 mls/hr 09/06/19 08:30 09/08/19 08:45 Lactated Ringers Solution IV 150 mls/hr ASDIR RADHA Administration Ipratropium [place] 1 amp 09/05/19 12:00 09/08/19 11:41 Atrovent 0.02% Nebulizer - NEB 1 amp RQID RADHA Administration Lidocaine 1 patch 09/04/19 17:45 09/08/19 09:11 Lidoderm Patch - TP 1 patch DAILY RADHA Administration Miscellaneous 1 each 09/04/19 22:00 09/07/19 22:36 Lidoderm Patch Removal MC 1 each DAILY@2200 RADHA Administration Multivitamins/Minerals/Vitamin C 1 tab 09/05/19 10:00 09/08/19 09:10 Tab-A-Vit - PO 1 tab DAILY RADHA Administration Pantoprazole Sodium 40 mg 09/05/19 10:00 09/08/19 09:09 Protonix - PO 40 mg DAILY RADHA Administration Sacubitril/Valsartan 1 tab 09/05/19 10:00 09/08/19 09:27 Entresto 24 Mg-26 Mg Tablet PO 1 tab BID RADHA Administration Thiamine HCl 100 mg 09/05/19 10:00 09/08/19 09:09 Vitamin B1 - PO 100 mg DAILY RADHA Administration Tramadol HCl 50 mg 09/08/19 10:00 09/08/19 09:24 Ultram - PO 50 mg Q8H PRN Administration PAIN LEVEL 7 - 10 Imaging: - Head/c-spine CT showed oblique oriented fracture at junction of lateral mass and body of C2 with mild step-off, cortical disruption. Subtle nondisplaced fx similar location contralateral side. Neck supple, not rigid/tender. ASSESSMENT/PLAN: Mr. Sullivan is a 54 year old man with a past medical history of afib (not on eliquis), HTN, CHF (EF35%), asthma, and alcohol abuse who presents to the ED s/ p 2 falls in his bedroom while drunk. 1. Fall 2/2 acute alcohol intoxication with resultant bilateral C2 Fx on CT scan - continue C-collar (hard) - Neurosurgers (dr. keene) consulted, no surgical intervention at this time - MRI c-spine still > MRI showing chronic fx at C2 without edema - lidocaine patch - tylenol prn for pain - ibuprofen prn for pain - cont morphine 2- Acute pancreatitis most likely alcohol induced. No gall stones, and NL TG. Nl Calcium - cont IVF LR @ 150cc- patient did not appear vol overloaded on physical exam this morning. Lungs sounded clear and chest x ray yesterday without evidence of vol overload. Will continue to monitor closely and will decrease rate of fluids should patient begin to show signs of vol overload. - NPO, patient was tried on clears yesterday but reports worsening abdominal pain, will DC diet and obtain CT abdomen/pelvis to r/o necrotizing pancreatitis or pseudocyst - f/u lipase tomorrow - cont morphine for now, will consider transitioning to toradol once patient' s pancreatitis is improving 3- Back pain: - patient complaining of new/ worsening back pain, will obtain lumbar/ thoracic ct to r/o any nerve impingement or compression 4. Alcohol withdrawal- no evidence of wernicke's, mild tremor, good coordination without cerebellar signs. No asterixis. - resolved - PO thiamine daily - PO folate daily - PO multivitamin 5. CHF -check Cxray to evaluate for pulm congestion as he has new cough and is on high vol fluids for pancreatitis - monitor on IVF - careful rehydration to avoid vol overload - Patient reported he does not have refills on his meds because he is uninsured and unable to follow up with his doctors. Will continue his old medications and discuss with social work about helping patient to apply for insurance - plan to have pt follow up at [facility] - will discuss with patient in the AM whether he wished to resume/ pay for eliquis or if he would prefer coumadin (with the understanding that it will require frequent blood draws and close follow up) 6. Afib - will hold AC for now pending results of lumbar thoracic CT - will consider resuming after result of above CT - continuing coreg for now 7. HTN: Cont coreg and Entresto FEN - Encourage PO fluid intake - replete lytes PRN - low fat diet DVT px : SQ heparin. can hold for any procedure Dispo: admit to med-surg. Patient amenable to go to [facility] for alcohol detox after medically cleared Visit type - Emergency Visit Emergency Visit: Yes ED Registration Date: 09/04/19 Care time: The patient presented to the Emergency Department on the above date and was hospitalized for further evaluation of their emergent condition. - New Patient This patient is new to me today: No - Critical Care Critical Care patient: No - Discharge Referral Referred to [facility] Med P.C.: No ATTENDING PHYSICIAN STATEMENT I saw and evaluated the patient. I reviewed the resident's note and discussed the case with the resident. I agree with the resident's findings and plan as documented. SUBJECTIVE: OBJECTIVE: ASSESSMENT AND PLAN:
--- NOTE | 2019-09-08 21:28 | PN ---
Teaching Attending Note Name of Resident: Janna Brannon ATTENDING PHYSICIAN STATEMENT I saw and evaluated the patient. I reviewed the resident's note and discussed the case with the resident. I agree with the resident's findings and plan as documented. SUBJECTIVE: Patient is c/o having neck pain. OBJECTIVE: Temperature 97.8 F 09/08/19 09:00 Pulse Rate 74 09/08/19 09:00 Respiratory Rate 16 09/08/19 09:00 Blood Pressure 152/102 H 09/08/19 09:00 O2 Sat by Pulse Oximetry (%) 96 09/08/19 09:00 GENERAL: The patient is awake, alert, and fully oriented, in no acute distress. HEAD: Normal with no signs of trauma. in a hard neck Collar. EYES: PERRL, extraocular movements intact, sclera anicteric, conjunctiva clear. ENT: Ears normal, oropharynx clear without exudates, moist mucous membranes. NECK: Trachea midline, full range of motion, supple. LUNGS: Breath sounds equal, clear to auscultation bilaterally, no wheezes, no crackles, no accessory muscle use. HEART: Regular rate and rhythm, S1, S2 without murmur, rub or gallop. ABDOMEN: Soft, nontender, nondistended, normoactive bowel sounds, no guarding, no rebound, no hepatosplenomegaly, no masses. EXTREMITIES: 2+ pulses, warm, well-perfused, no edema. NEUROLOGICAL: Cranial nerves II through XII grossly intact. Normal speech, gait not observed. PSYCH: Normal mood, normal affect. SKIN: Warm, dry, normal turgor, no rashes or lesions noted CBCD WBC 6.1 K/mm3 (4.0-10.0) 09/08/19 07:40 RBC 3.88 M/mm3 (4.00-5.60) L 09/08/19 07:40 Hgb 12.3 GM/dL (11.7-16.9) 09/08/19 07:40 Hct 36.2 % (35.4-49) 09/08/19 07:40 MCV 93.1 fl (80-96) 09/08/19 07:40 MCHC 33.9 g/dl (32.0-35.9) 09/08/19 07:40 RDW 14.1 % (11.9-15.9) 09/08/19 07:40 Plt Count 168 K/MM3 (134-434) 09/08/19 07:40 MPV 7.2 fl (7.5-11.1) L 09/08/19 07:40 CMP Sodium 139 mmol/L (136-145) 09/08/19 07:40 Potassium 3.6 mmol/L (3.5-5.1) 09/08/19 07:40 Chloride 102 mmol/L (98-107) 09/08/19 07:40 Carbon Dioxide 27 mmol/L (21-32) 09/08/19 07:40 Anion Gap 9 MMOL/L (8-16) 09/08/19 07:40 BUN 9.0 mg/dL (7-18) 09/08/19 07:40 Creatinine 0.8 mg/dL (0.55-1.3) 09/08/19 07:40 Random Glucose 108 mg/dL (74-106) H 09/08/19 07:40 Calcium 8.8 mg/dL (8.5-10.1) 09/08/19 07:40 Total Bilirubin 0.6 mg/dL (0.2-1) 09/08/19 07:40 AST 39 U/L (15-37) H 09/08/19 07:40 ALT 43 U/L (13-61) 09/08/19 07:40 Alkaline Phosphatase 58 U/L (45-117) 09/08/19 07:40 Total Protein 6.3 g/dl (6.4-8.2) L 09/08/19 07:40 Albumin 3.3 g/dl (3.4-5.0) L 09/08/19 07:40 CARDIAC ENZYMES Creatine Kinase 134 U/L (26-308) 09/04/19 12:30 Troponin I < 0.02 ng/ml (0.00-0.05) 09/04/19 12:30 Current Medications Generic Name Dose Route Start Last Admin Trade Name Freq PRN Reason Stop Dose Admin Acetaminophen 650 mg 09/06/19 10:35 09/08/19 09:25 Tylenol - PO 650 mg Q6H PRN Administration PAIN LEVEL 1-5 Albuterol Sulfate 2 puff 09/05/19 08:04 Ventolin Hfa Inhaler - IH Q6H PRN SHORT OF BREATH/WHEEZING Amiodarone HCl 200 mg 09/05/19 10:00 09/08/19 09:10 Cordarone - PO 200 mg BID RADHA Administration Budesonide/Formoterol Fumarate 1 puff 09/05/19 10:00 09/08/19 09:32 Symbicort 160/4.5mcg - IH 1 puff DAILY RADHA Administration Carvedilol 12.5 mg 09/05/19 10:00 09/08/19 09:10 Coreg - PO 12.5 mg BID RADHA Administration Folic Acid 1 mg 09/05/19 10:00 09/08/19 09:09 Folic Acid - PO 1 mg DAILY RADHA Administration Heparin Sodium (Porcine) 5,000 unit 09/04/19 22:00 09/08/19 14:01 Heparin - SQ 5,000 unit TID RADHA Administration Lactated Ringer's 1,000 ml in 1,000 mls @ 100 mls/hr 09/08/19 16:17 Lactated Ringers Solution IV ASDIR RADHA Ipratropium [place] 1 amp 09/05/19 12:00 09/08/19 20:52 Atrovent 0.02% Nebulizer - NEB 1 amp RQID RADHA Administration Lidocaine 1 patch 09/04/19 17:45 09/08/19 09:11 Lidoderm Patch - TP 1 patch DAILY RADHA Administration Miscellaneous 1 each 09/04/19 22:00 09/07/19 22:36 Lidoderm Patch Removal MC 1 each DAILY@2200 RADHA Administration Morphine Sulfate 2 mg 09/08/19 16:18 09/08/19 17:59 Morphine Sulfate IVPUSH 2 mg Q6H PRN Administration PAIN LEVEL 7 - 10 Multivitamins/Minerals/Vitamin C 1 tab 09/05/19 10:00 09/08/19 09:10 Tab-A-Vit - PO 1 tab DAILY RADHA Administration Pantoprazole Sodium 40 mg 09/05/19 10:00 09/08/19 09:09 Protonix - PO 40 mg DAILY RADHA Administration Sacubitril/Valsartan 1 tab 09/05/19 10:00 09/08/19 09:27 Entresto 24 Mg-26 Mg Tablet PO 1 tab BID RADHA Administration Thiamine HCl 100 mg 09/05/19 10:00 09/08/19 09:09 Vitamin B1 - PO 100 mg DAILY RADHA Administration Home Medications Medication Instructions Recorded Clonazepam [Klonopin] 0.5 mg PO DAILY 09/05/19 Escitalopram Oxalate [Lexapro -] 20 mg PO DAILY 09/05/19 Gabapentin [Neurontin] 300 mg PO DAILY 09/05/19 Assessment and plan: Patient is a 54 y/o man with h/o P AFib/A flutter, non ischemic cardiomyopathy, PFO, HTN, ETOH abuse, Asthma, who presented with a fall while intoxicated. he was found to have C2 Fx and ETOH Withdrawal #S/p fall with B/l C2 Fx on CT scan : Cont hard collar. MRI of spine , neuro sx on the case # Acute pancreatitis . likely alcohol induced. No gall stones, and NL TG. Nl Calcium , continue Ivf and morphine, npo will monitor # H/o chronic Systolic heart failure:stable cont coreg # H/o AFib/A flutter. now in sinus. He is not compliant with his eliquis - will hold eliquis until decision on any procedure for C2 Fx # ETOH WD: Cont librium protocol . Cont folate, thiamine , and MVT. # HTN: Cont coreg and Entresto, pending confirmation of his meds DVT px: SQ heparin.
[2019-09-08] MEDS ORDERED: PT OWN MED DRAWER 7, Y5N ONE (21:33)
[2019-09-08] MEDS: LIDOCAINE PATCH REMOVAL MC SCH (21:52)
[2019-09-09] MEDS: LACTATED RINGERS SOLUTION 1,000 ML/1,000 ML INFUS.BAG IV SCH (04:26)
[2019-09-09] MEDS: MORPHINE SULFATE 2 MG/ML VIAL IVPUSH PRN ×3 (04:34→21:50)
[2019-09-09] MEDS: HEPARIN NA (PORCINE) 5,000 UNITS/ML 1ML VIAL SQ SCH ×3 (06:32→21:41)
[2019-09-09] MEDS: ACETAMINOPHEN 325 MG TABLET (FP) PO PRN (06:38)
[2019-09-09] MEDS: IPRATROPIUM BR 0.02% 0.5 MG/2.5 ML VIAL.NEB. NEB SCH ×4 (07:35→21:27)
[2019-09-09 09:00] LABS: BASO % 0.7 % (0-2.0); EOS % 7.6 % (0-4.5); HEMATOCRIT 40.7 % (35.4-49); HEMOGLOBIN 13.6 GM/dL (11.7-16.9); LYMPH % 24.5 % (8-40); MCH 31.5 pg (25.7-33.7); MCHC 33.3 g/dl (32.0-35.9); MEAN CELL VOLUME 94.5 fl (80-96); MEAN PLT VOLUME 7.4 fl (7.5-11.1); MONO % 12.3 % (3.8-10.2); NEUT % 54.9 % (42.8-82.8); PLATELET COUNT 193 K/MM3 (134-434); RBC 4.31 M/mm3 (4.00-5.60); RDW 14.8 % (11.9-15.9); WHITE BLOOD COUNT 7.2 K/mm3 (4.0-10.0)
[2019-09-09] MEDS: PANTOPRAZOLE 40 MG TABLET (FP) PO SCH (09:31)
[2019-09-09] MEDS: SACUBITRIL/VALSARTAN 24 MG-26 MG TABLET PO SCH ×2 (09:31→21:42)
[2019-09-09] MEDS: CARVEDILOL 12.5 MG TABLET (FP) PO SCH ×2 (09:31→21:42)
[2019-09-09] MEDS: LIDOCAINE 5% TOPICAL PATCH TP SCH (09:31)
[2019-09-09] MEDS: MULTIVITAMINS (DAILY MVI) TABLET (FP) PO SCH (09:31)
[2019-09-09] MEDS: FOLIC ACID 1 MG TABLET (FP) PO SCH (09:31)
[2019-09-09] MEDS: THIAMINE HCL 100 MG TABLET (FP) PO SCH (09:31)
[2019-09-09] MEDS: BUDESONIDE/FORMETEROL FUMARATE 160/4.5 mcg INHALER IH SCH (09:32)
[2019-09-09] MEDS: AMIODARONE HCL 200 MG TABLET (FP) PO SCH ×2 (09:32→21:42)
[2019-09-09 09:46] LABS: ALBUMIN 3.7 g/dl (3.4-5.0); BILIRUBIN,TOTAL 0.7 mg/dL (0.2-1); BLOOD UREA NITROGEN 9.2 mg/dL (7-18); CALCIUM 9.2 mg/dL (8.5-10.1); CREATININE 0.9 mg/dL (0.55-1.3); POTASSIUM 3.4 mmol/L (3.5-5.1); TOT PROT 7.1 g/dl (6.4-8.2)
--- NOTE | 2019-09-09 13:17 | CON.GI ---
Consult Consult Specialty:: GI Reason for Consultation:: Management of acute pancreatitis - History of Present Illness Chief Complaint: Abdominal pain History of Present Illness: Patient reports abdominal pain of few month's duration. 2 types of pain. One in LLQ and one epigastric in location. Neither with radiation or association with nausea, vomiting, change in bowel habit. Over last week, both have been exacerbated by oral intake, but neither when any specific alleviating features. Noted to have elevated lipase and amylase. Ultrasound without gallstones or any GB changes (no pericholecystic fluid, sludge, wall thickening). CT scan yesterday with mild changes noted to pancreatic tail; no pseudocyst or evidence of necrosis. EtOH has become a problem for him, leading in part to fall that result in C-spine fracture. With no stones, only trivially elevated triglycerides, suspect that pancreatitis alcohol in etiology. With BUN at or near normal range, likely mild pancreatitis, though perhaps persistent. - Past Medical History Cardio/Vascular: Yes: AFIB, CHF, HTN Pulmonary: Yes: Asthma, Bronchitis - Past Surgical History Past Surgical History: Yes: Laminectomy (cervical) - Alcohol/Substance Use Hx Alcohol Use: Yes - Smoking History Smoking history: Former smoker Have you smoked in the past 12 months: Yes Aproximately how many cigarettes per day: 3 - Social History ADL: Independent Occupation: [employer] History of Recent Travel: No Home Medications - Allergies Allergies/Adverse Reactions: Allergies Allergy/AdvReac Type Severity Reaction Status Date / Time No Known Allergies Allergy Verified 09/13/14 10:16 - Home Medications Home Medications: Ambulatory Orders Clonazepam [Klonopin] 0.5 mg PO DAILY 09/05/19 Escitalopram Oxalate [Lexapro -] 20 mg PO DAILY 09/05/19 Gabapentin [Neurontin] 300 mg PO DAILY 09/05/19 Review of Systems - Review of Systems Gastrointestinal: reports: Abdominal Pain. denies: Constipation, Diarrhea, Dysphagia, Vomiting Physical Exam-GI Vital Signs: Vital Signs Temperature 98.5 F 09/09/19 02:00 Pulse Rate 75 09/09/19 02:00 Respiratory Rate 18 09/09/19 02:00 Blood Pressure 138/98 09/09/19 02:00 O2 Sat by Pulse Oximetry (%) 96 09/08/19 09:00 Constitutional: Yes: Well Nourished, No Distress, Calm ...Auscultate: Yes: Normoactive Bowel Sounds ...Palpate: Yes: Soft. No: Hepatomegaly, Mass, Splenomegaly, Tenderness Labs: CBC, BMP 09/09/19 08:35 09/09/19 08:35 INR, PTT INR 0.97 (0.83-1.09) 09/05/19 09:00 Imaging - Results Cat Scan: Report Reviewed Ultrasound: Report Reviewed Problem List - Problems (1) Pancreatitis, alcoholic, acute Assessment/Plan: Mild pancreatitis by [place] and other criteria. Would continue with pain management and advance diet as tolerated. OK to advance diet to clear liquids at this time. Serial lipase not of known value in management, but following symptoms, as you are, is. If unable to tolerate dietary advance, would consider parenteral nutrition. Alcohol avoidance reviewed with patient. Code(s): K85.20 - ALCOHOL INDUCED ACUTE PANCREATITIS WITHOUT NECROSIS OR INFCT Qualifiers: Acute pancreatitis complication: no infection or necrosis Qualified Code(s) : K85.20 - Alcohol induced acute pancreatitis without necrosis or infection
--- NOTE | 2019-09-09 17:33 | PN ---
Physical Exam: SUBJECTIVE: Patient seen and examined OBJECTIVE: Vital Signs Period Temp Pulse Resp BP Sys/Garg Pulse Ox Last 24 Hr 97.9 F-98.5 F 72-77 18-20 135-157/79-104 GENERAL: The patient is awake, alert, and fully oriented, in no acute distress. HEAD: Normal with no signs of trauma. EYES: PERRL, extraocular movements intact, sclera anicteric, conjunctiva clear. No ptosis. ENT: Ears normal, nares patent, oropharynx clear without exudates, moist mucous membranes. NECK: Trachea midline, full range of motion, supple. LUNGS: Breath sounds equal, clear to auscultation bilaterally, no wheezes, no crackles, no accessory muscle use. HEART: Regular rate and rhythm, S1, S2 without murmur, rub or gallop. ABDOMEN: Soft, nontender, nondistended, normoactive bowel sounds, no guarding, no rebound, no hepatosplenomegaly, no masses. EXTREMITIES: 2+ pulses, warm, well-perfused, no edema. NEUROLOGICAL: Cranial nerves II through XII grossly intact. Normal speech, gait not observed. PSYCH: Normal mood, normal affect. SKIN: Warm, dry, normal turgor, no rashes or lesions noted Laboratory Results - last 24 hr 09/09/19 09/09/19 08:35 08:35 WBC 7.2 RBC 4.31 Hgb 13.6 Hct 40.7 MCV 94.5 MCH 31.5 MCHC 33.3 RDW 14.8 Plt Count 193 MPV 7.4 L Absolute Neuts (auto) 3.9 Neutrophils % 54.9 Lymphocytes % 24.5 Monocytes % 12.3 H Eosinophils % 7.6 H Basophils % 0.7 Nucleated RBC % 0 Sodium 138 Potassium 3.4 L Chloride 102 Carbon Dioxide 28 Anion Gap 9 BUN 9.2 Creatinine 0.9 Est GFR (CKD-EPI)AfAm 110.27 Est GFR (CKD-EPI)NonAf 95.14 Random Glucose 92 Calcium 9.2 Total Bilirubin 0.7 AST 58 H ALT 69 H Alkaline Phosphatase 67 Total Protein 7.1 Albumin 3.7 Lipase 3794 H Active Medications Generic Name Dose Route Start Last Admin Trade Name Freq PRN Reason Stop Dose Admin Acetaminophen 650 mg 09/06/19 10:35 09/09/19 06:38 Tylenol - PO 650 mg Q6H PRN Administration PAIN LEVEL 1-5 Albuterol Sulfate 2 puff 09/05/19 08:04 Ventolin Hfa Inhaler - IH Q6H PRN SHORT OF BREATH/WHEEZING Amiodarone HCl 200 mg 09/05/19 10:00 09/09/19 09:32 Cordarone - PO 200 mg BID RADHA Administration Budesonide/Formoterol Fumarate 1 puff 09/05/19 10:00 09/09/19 09:32 Symbicort 160/4.5mcg - IH 1 puff DAILY RADHA Administration Carvedilol 12.5 mg 09/05/19 10:00 09/09/19 09:31 Coreg - PO 12.5 mg BID RADHA Administration Folic Acid 1 mg 09/05/19 10:00 09/09/19 09:31 Folic Acid - PO 1 mg DAILY RADHA Administration Heparin Sodium (Porcine) 5,000 unit 09/04/19 22:00 09/09/19 14:15 Heparin - SQ 5,000 unit TID RADHA Administration Lactated Ringer's 1,000 ml in 1,000 mls @ 100 mls/hr 09/08/19 16:17 09/09/19 04:26 Lactated Ringers Solution IV 100 mls/hr ASDIR RADHA Administration Ipratropium [place] 1 amp 09/05/19 12:00 09/09/19 16:05 Atrovent 0.02% Nebulizer - NEB 1 amp RQID RADHA Administration Lidocaine 1 patch 09/04/19 17:45 09/09/19 09:31 Lidoderm Patch - TP 1 patch DAILY RADHA Administration Miscellaneous 1 each 09/04/19 22:00 09/08/19 21:52 Lidoderm Patch Removal MC 1 each DAILY@2200 RADHA Administration Morphine Sulfate 2 mg 09/08/19 16:18 09/09/19 11:26 Morphine Sulfate IVPUSH 2 mg Q6H PRN Administration PAIN LEVEL 7 - 10 Multivitamins/Minerals/Vitamin C 1 tab 09/05/19 10:00 09/09/19 09:31 Tab-A-Vit - PO 1 tab DAILY RADHA Administration Pantoprazole Sodium 40 mg 09/05/19 10:00 09/09/19 09:31 Protonix - PO 40 mg DAILY RADHA Administration Sacubitril/Valsartan 1 tab 09/05/19 10:00 09/09/19 09:31 Entresto 24 Mg-26 Mg Tablet PO 1 tab BID RADHA Administration Thiamine HCl 100 mg 09/05/19 10:00 09/09/19 09:31 Vitamin B1 - PO 100 mg DAILY RADHA Administration Imaging: - Head/c-spine CT showed oblique oriented fracture at junction of lateral mass and body of C2 with mild step-off, cortical disruption. Subtle nondisplaced fx similar location contralateral side. Neck supple, not rigid/tender. ASSESSMENT/PLAN: Mr. Sullivan is a 54 year old man with a past medical history of afib (not on eliquis), HTN, CHF (EF35%), asthma, and alcohol abuse who presents to the ED s/ p 2 falls in his bedroom while drunk. 1. Fall 2/2 acute alcohol intoxication with resultant bilateral C2 Fx on CT scan - continue C-collar (hard) - Neurosurgers (dr. keene) consulted, no surgical intervention at this time - MRI c-spine still > MRI showing chronic fx at C2 without edema - lidocaine patch - tylenol prn for pain - ibuprofen prn for pain - cont morphine 2- Acute pancreatitis most likely alcohol induced. No gall stones, and NL TG. Nl Calcium - cont IVF LR @ 100cc- patient did not appear vol overloaded on physical exam this morning. Lungs sounded clear and chest x ray yesterday without evidence of vol overload. Will continue to monitor closely and will decrease rate of fluids should patient begin to show signs of vol overload. - CT scan showing some peripancreatic fat stranding, consistent with pancreatitis, no evidence of necrosis - advance diet to clear liquid diet - cont morphine for now, will consider transitioning to toradol once patient' s pancreatitis is improving - GI following, appreciate recommendations; Mild pancreatitis by [place] and other criteria. Would continue with pain management and advance diet as tolerated. OK to advance diet to clear liquids at this time. If unable to tolerate dietary advance, would consider parenteral nutrition. 3- Back pain: - patient complaining of new/ worsening back pain, will obtain lumbar/ thoracic ct to r/o any nerve impingement or compression 4. Alcohol withdrawal- no evidence of wernicke's, mild tremor, good coordination without cerebellar signs. No asterixis. - resolved - PO thiamine daily - PO folate daily - PO multivitamin 5. CHF -check Cxray to evaluate for pulm congestion as he has new cough and is on high vol fluids for pancreatitis - monitor on IVF - careful rehydration to avoid vol overload - Patient reported he does not have refills on his meds because he is uninsured and unable to follow up with his doctors. Will continue his old medications and discuss with social work about helping patient to apply for insurance - plan to have pt follow up at [facility] - will discuss with patient in the AM whether he wished to resume/ pay for eliquis or if he would prefer coumadin (with the understanding that it will require frequent blood draws and close follow up) 6. Afib - will hold AC for now pending results of lumbar thoracic CT - will consider resuming after result of above CT - continuing coreg for now 7. HTN: Cont coreg and Entresto FEN - LR@100cc/hr - replete lytes PRN - low fat diet DVT px : SQ heparin. can hold for any procedure Dispo: advancing diet as tolerated Visit type - Emergency Visit Emergency Visit: Yes ED Registration Date: 09/04/19 Care time: The patient presented to the Emergency Department on the above date and was hospitalized for further evaluation of their emergent condition. - New Patient This patient is new to me today: No - Critical Care Critical Care patient: No - Discharge Referral Referred to [facility] No ATTENDING PHYSICIAN STATEMENT I saw and evaluated the patient. I reviewed the resident's note and discussed the case with the resident. I agree with the resident's findings and plan as documented. SUBJECTIVE: OBJECTIVE: ASSESSMENT AND PLAN:
--- NOTE | 2019-09-09 20:22 | PN ---
Teaching Attending Note Name of Resident: Janna Brannon ATTENDING PHYSICIAN STATEMENT I saw and evaluated the patient. I reviewed the resident's note and discussed the case with the resident. I agree with the resident's findings and plan as documented. SUBJECTIVE: Patient continues to have mild abdominal pain but feels hungry. OBJECTIVE: Vital Signs Temperature 98.5 F 09/09/19 02:00 Pulse Rate 76 09/09/19 15:00 Respiratory Rate 20 09/09/19 15:00 Blood Pressure 145/90 09/09/19 15:00 O2 Sat by Pulse Oximetry (%) 96 09/08/19 09:00 GENERAL: The patient is awake, alert, and fully oriented, in no acute distress. HEAD: Normal with no signs of trauma. in a hard neck Collar. EYES: PERRL, extraocular movements intact, sclera anicteric, conjunctiva clear. ENT: Ears normal, oropharynx clear without exudates, moist mucous membranes. NECK: Trachea midline, full range of motion, supple. LUNGS: Breath sounds equal, clear to auscultation bilaterally, no wheezes, no crackles, no accessory muscle use. HEART: Regular rate and rhythm, S1, S2 without murmur, rub or gallop. ABDOMEN: Soft, mild midepigastric tenderness, ND, normoactive bowel sounds, no guarding, no rebound, no hepatosplenomegaly, no masses. EXTREMITIES: 2+ pulses, warm, well-perfused, no edema. NEUROLOGICAL: Cranial nerves II through XII grossly intact. Normal speech, gait not observed. PSYCH: Normal mood, normal affect. SKIN: Warm, dry, normal turgor, no rashes or lesions noted CBCD WBC 7.2 K/mm3 (4.0-10.0) 09/09/19 08:35 RBC 4.31 M/mm3 (4.00-5.60) 09/09/19 08:35 Hgb 13.6 GM/dL (11.7-16.9) 09/09/19 08:35 Hct 40.7 % (35.4-49) 09/09/19 08:35 MCV 94.5 fl (80-96) 09/09/19 08:35 MCHC 33.3 g/dl (32.0-35.9) 09/09/19 08:35 RDW 14.8 % (11.9-15.9) 09/09/19 08:35 Plt Count 193 K/MM3 (134-434) 09/09/19 08:35 MPV 7.4 fl (7.5-11.1) L 09/09/19 08:35 CMP Sodium 138 mmol/L (136-145) 09/09/19 08:35 Potassium 3.4 mmol/L (3.5-5.1) L 09/09/19 08:35 Chloride 102 mmol/L (98-107) 09/09/19 08:35 Carbon Dioxide 28 mmol/L (21-32) 09/09/19 08:35 Anion Gap 9 MMOL/L (8-16) 09/09/19 08:35 BUN 9.2 mg/dL (7-18) 09/09/19 08:35 Creatinine 0.9 mg/dL (0.55-1.3) 09/09/19 08:35 Random Glucose 92 mg/dL (74-106) 09/09/19 08:35 Calcium 9.2 mg/dL (8.5-10.1) 09/09/19 08:35 Total Bilirubin 0.7 mg/dL (0.2-1) 09/09/19 08:35 AST 58 U/L (15-37) H 09/09/19 08:35 ALT 69 U/L (13-61) H 09/09/19 08:35 Alkaline Phosphatase 67 U/L (45-117) 09/09/19 08:35 Total Protein 7.1 g/dl (6.4-8.2) 09/09/19 08:35 Albumin 3.7 g/dl (3.4-5.0) 09/09/19 08:35 CARDIAC ENZYMES Creatine Kinase 134 U/L (26-308) 09/04/19 12:30 Troponin I < 0.02 ng/ml (0.00-0.05) 09/04/19 12:30 Current Medications Generic Name Dose Route Start Last Admin Trade Name Freq PRN Reason Stop Dose Admin Acetaminophen 650 mg 09/06/19 10:35 09/09/19 06:38 Tylenol - PO 650 mg Q6H PRN Administration PAIN LEVEL 1-5 Albuterol Sulfate 2 puff 09/05/19 08:04 Ventolin Hfa Inhaler - IH Q6H PRN SHORT OF BREATH/WHEEZING Amiodarone HCl 200 mg 09/05/19 10:00 09/09/19 09:32 Cordarone - PO 200 mg BID RADHA Administration Budesonide/Formoterol Fumarate 1 puff 09/05/19 10:00 09/09/19 09:32 Symbicort 160/4.5mcg - IH 1 puff DAILY RADHA Administration Carvedilol 12.5 mg 09/05/19 10:00 09/09/19 09:31 Coreg - PO 12.5 mg BID RADHA Administration Folic Acid 1 mg 09/05/19 10:00 09/09/19 09:31 Folic Acid - PO 1 mg DAILY RADHA Administration Heparin Sodium (Porcine) 5,000 unit 09/04/19 22:00 09/09/19 14:15 Heparin - SQ 5,000 unit TID RADHA Administration Lactated Ringer's 1,000 ml in 1,000 mls @ 100 mls/hr 09/08/19 16:17 09/09/19 04:26 Lactated Ringers Solution IV 100 mls/hr ASDIR RADHA Administration Ipratropium [place] 1 amp 09/05/19 12:00 09/09/19 16:05 Atrovent 0.02% Nebulizer - NEB 1 amp RQID RADHA Administration Lidocaine 1 patch 09/04/19 17:45 09/09/19 09:31 Lidoderm Patch - TP 1 patch DAILY RADHA Administration Miscellaneous 1 each 09/04/19 22:00 09/08/19 21:52 Lidoderm Patch Removal MC 1 each DAILY@2200 RADHA Administration Morphine Sulfate 2 mg 09/08/19 16:18 09/09/19 11:26 Morphine Sulfate IVPUSH 2 mg Q6H PRN Administration PAIN LEVEL 7 - 10 Multivitamins/Minerals/Vitamin C 1 tab 09/05/19 10:00 09/09/19 09:31 Tab-A-Vit - PO 1 tab DAILY RADHA Administration Pantoprazole Sodium 40 mg 09/05/19 10:00 09/09/19 09:31 Protonix - PO 40 mg DAILY RADHA Administration Sacubitril/Valsartan 1 tab 09/05/19 10:00 09/09/19 09:31 Entresto 24 Mg-26 Mg Tablet PO 1 tab BID RADHA Administration Thiamine HCl 100 mg 09/05/19 10:00 09/09/19 09:31 Vitamin B1 - PO 100 mg DAILY RADHA Administration Home Medications Medication Instructions Recorded Clonazepam [Klonopin] 0.5 mg PO DAILY 09/05/19 Escitalopram Oxalate [Lexapro -] 20 mg PO DAILY 09/05/19 Gabapentin [Neurontin] 300 mg PO DAILY 09/05/19 Assessment and plan: Patient is a 54 y/o man with h/o P AFib/A flutter, non ischemic cardiomyopathy, PFO, HTN, ETOH abuse, Asthma, who presented with a fall while intoxicated. he was found to have C2 Fx and ETOH Withdrawal #S/p fall with B/l C2 Fx on CT scan : Cont hard collar. MRI of spine , neuro sx on the case # Acute alcoholic pancreatitis . will advance diet as tolerated , no gall stones , and NL TG. continue Ivf and morphine. # H/o chronic Systolic heart failure:stable cont coreg # H/o AFib/A flutter. now in sinus. He is not compliant with his eliquis - will hold eliquis until decision on any procedure for C2 Fx # ETOH WD: Cont librium protocol . Cont folate, thiamine , and MVT. # HTN: Cont coreg and Entresto. DVT px: SQ heparin.
[2019-09-09] MEDS: LIDOCAINE PATCH REMOVAL MC SCH (21:43)
[2019-09-10] MEDS: LACTATED RINGERS SOLUTION 1,000 ML/1,000 ML INFUS.BAG IV SCH ×3 (01:38→23:14)
[2019-09-10] MEDS: ACETAMINOPHEN 325 MG TABLET (FP) PO PRN (01:53)
[2019-09-10] MEDS: HEPARIN NA (PORCINE) 5,000 UNITS/ML 1ML VIAL SQ SCH ×3 (06:08→21:31)
[2019-09-10] MEDS: MORPHINE SULFATE 2 MG/ML VIAL IVPUSH PRN ×2 (06:28→23:26)
[2019-09-10] MEDS: IPRATROPIUM BR 0.02% 0.5 MG/2.5 ML VIAL.NEB. NEB SCH ×4 (07:38→19:35)
[2019-09-10 09:09] LABS: BASO % 1.2 % (0-2.0); EOS % 7.9 % (0-4.5); LYMPH % 29.6 % (8-40); MCH 31.6 pg (25.7-33.7); MCHC 34.1 g/dl (32.0-35.9); MEAN CELL VOLUME 92.6 fl (80-96); MEAN PLT VOLUME 7.2 fl (7.5-11.1); MONO % 12.4 % (3.8-10.2); NEUT % 48.9 % (42.8-82.8); PLATELET COUNT 196 K/MM3 (134-434); RBC 4.11 M/mm3 (4.00-5.60); RDW 14.6 % (11.9-15.9); WHITE BLOOD COUNT 5.3 K/mm3 (4.0-10.0)
[2019-09-10] MEDS: LIDOCAINE 5% TOPICAL PATCH TP SCH (09:56)
[2019-09-10] MEDS: AMIODARONE HCL 200 MG TABLET (FP) PO SCH ×2 (09:56→21:31)
[2019-09-10] MEDS: MULTIVITAMINS (DAILY MVI) TABLET (FP) PO SCH (09:56)
[2019-09-10] MEDS: SACUBITRIL/VALSARTAN 24 MG-26 MG TABLET PO SCH ×2 (09:57→21:40)
[2019-09-10] MEDS: PANTOPRAZOLE 40 MG TABLET (FP) PO SCH (09:57)
[2019-09-10] MEDS: BUDESONIDE/FORMETEROL FUMARATE 160/4.5 mcg INHALER IH SCH (09:57)
[2019-09-10] MEDS: FOLIC ACID 1 MG TABLET (FP) PO SCH (09:57)
[2019-09-10] MEDS: CARVEDILOL 12.5 MG TABLET (FP) PO SCH ×2 (09:57→21:31)
[2019-09-10] MEDS: THIAMINE HCL 100 MG TABLET (FP) PO SCH (09:58)
[2019-09-10 11:04] LABS: ALBUMIN 3.6 g/dl (3.4-5.0); BILIRUBIN,TOTAL 0.6 mg/dL (0.2-1); BLOOD UREA NITROGEN 6.9 mg/dL (7-18); CREATININE 0.9 mg/dL (0.55-1.3); POTASSIUM 3.3 mmol/L (3.5-5.1); TOT PROT 6.7 g/dl (6.4-8.2)
[2019-09-10] MEDS ORDERED: ONDANSETRON 4 MG/2 ML VIAL IVPB PRN (16:36)
--- NOTE | 2019-09-10 16:40 | PN.GI ---
GI Progress Note Subjective: No acute events Abdominal pain improved Complains of nausea, no vomiting - Objective Vital Signs: Vital Signs Temperature 97.5 F L 09/10/19 14:08 Pulse Rate 69 09/10/19 14:08 Respiratory Rate 20 09/10/19 09:00 Blood Pressure 137/88 09/10/19 14:08 O2 Sat by Pulse Oximetry (%) 96 09/08/19 09:00 Constitutional: Calm Eyes: No: Sclera Icterus Cardiovascular: Yes: Regular Rate and Rhythm Respiratory: Yes: Diminished (at bases bilaterally with poor insp effort) Gastrointestinal Inspection: No: Distention ...Auscultate: Yes: Normoactive Bowel Sounds ...Palpate: Yes: Soft. No: Hepatomegaly, Splenomegaly, Tenderness ...Percussion: No: Tympanitic Edema: No (No LE edema) 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: Alert Labs: CBC, BMP 09/10/19 08:40 09/10/19 08:40 INR, PTT INR 0.97 (0.83-1.09) 09/05/19 09:00 Hepatic Panel Total Bilirubin 0.6 mg/dL (0.2-1) 09/10/19 08:40 AST 56 U/L (15-37) H 09/10/19 08:40 ALT 78 U/L (13-61) H 09/10/19 08:40 Alkaline Phosphatase 62 U/L (45-117) 09/10/19 08:40 Albumin 3.6 g/dl (3.4-5.0) 09/10/19 08:40 Problem List - Problems (1) Pancreatitis, alcoholic, acute Assessment/Plan: Clinically improved Stop following lipase levels. Follow clinically Outpatient repeat imaging of pancreas if continued improvement, in 4 weeks Advance diet as tolerated If continued improvement, D/C IV fluids and advance to low fat diet Advised the need for complete alcohol abstinence Code(s): K85.20 - ALCOHOL INDUCED ACUTE PANCREATITIS WITHOUT NECROSIS OR INFCT Qualifiers: Acute pancreatitis complication: no infection or necrosis Qualified Code(s) : K85.20 - Alcohol induced acute pancreatitis without necrosis or infection
--- NOTE | 2019-09-10 17:47 | PN ---
Physical Exam: SUBJECTIVE: Patient seen and examined at the bedside, reports pain is improved. However still having some pain with clear diet, despite this would like to attempt full liquid diet either this evening or tomorrow morning. OBJECTIVE: Vital Signs Period Temp Pulse Resp BP Sys/Garg Pulse Ox Last 24 Hr 97.3 F-98.4 F 69-82 20-20 137-154/88-106 GENERAL: The patient is awake, alert, and fully oriented, in no acute distress. HEAD: Normal with no signs of trauma. EYES: PERRL, extraocular movements intact, sclera anicteric, conjunctiva clear. No ptosis. horizontal nystagmus present but improving ENT: Ears normal, nares patent, oropharynx clear without exudates, moist mucous membranes. NECK: C-collar in place LUNGS: Breath sounds equal, clear to auscultation bilaterally, no wheezes, some faint scattered wheezes in the inferior lung prater, no accessory muscle use. HEART: Regular rate and rhythm, S1, S2 without murmur, rub or gallop, no JVD ABDOMEN: Soft, obese, very mildly tender to palpation in the LUQ, nondistended, normoactive bowel sounds EXTREMITIES: 2+ pulses, warm, well-perfused, no edema, tremor not perceptible but able to be felt finger tip to finger tip. NEUROLOGICAL: Cranial nerves II through XII grossly intact. Normal speech, gait not observed. PSYCH: Normal mood, normal affect. SKIN: Warm, dry, normal turgor, no rashes or lesions noted Laboratory Results - last 24 hr 09/10/19 09/10/19 08:40 08:40 WBC 5.3 RBC 4.11 Hgb 13.0 Hct 38.0 MCV 92.6 MCH 31.6 MCHC 34.1 RDW 14.6 Plt Count 196 MPV 7.2 L Absolute Neuts (auto) 2.6 Neutrophils % 48.9 Lymphocytes % 29.6 D Monocytes % 12.4 H Eosinophils % 7.9 H Basophils % 1.2 Nucleated RBC % 0 Sodium 139 Potassium 3.3 L Chloride 105 Carbon Dioxide 26 Anion Gap 8 BUN 6.9 L Creatinine 0.9 Est GFR (CKD-EPI)AfAm 110.27 Est GFR (CKD-EPI)NonAf 95.14 Random Glucose 148 H Calcium 9.0 Total Bilirubin 0.6 AST 56 H ALT 78 H Alkaline Phosphatase 62 Total Protein 6.7 Albumin 3.6 Active Medications Generic Name Dose Route Start Last Admin Trade Name Freq PRN Reason Stop Dose Admin Acetaminophen 650 mg 09/06/19 10:35 09/10/19 01:53 Tylenol - PO 650 mg Q6H PRN Administration PAIN LEVEL 1-5 Albuterol Sulfate 2 puff 09/05/19 08:04 Ventolin Hfa Inhaler - IH Q6H PRN SHORT OF BREATH/WHEEZING Amiodarone HCl 200 mg 09/05/19 10:00 09/10/19 09:56 Cordarone - PO 200 mg BID RADHA Administration Budesonide/Formoterol Fumarate 1 puff 09/05/19 10:00 09/10/19 09:57 Symbicort 160/4.5mcg - IH 1 puff DAILY RADHA Administration Carvedilol 12.5 mg 09/05/19 10:00 09/10/19 09:57 Coreg - PO 12.5 mg BID RADHA Administration Folic Acid 1 mg 09/05/19 10:00 09/10/19 09:57 Folic Acid - PO 1 mg DAILY RADHA Administration Heparin Sodium (Porcine) 5,000 unit 09/04/19 22:00 09/10/19 06:08 Heparin - SQ 5,000 unit TID RADHA Administration Lactated Ringer's 1,000 ml in 1,000 mls @ 100 mls/hr 09/08/19 16:17 09/10/19 01:38 Lactated Ringers Solution IV 100 mls/hr ASDIR RADHA Administration Ipratropium [place] 1 amp 09/05/19 12:00 09/10/19 15:00 Atrovent 0.02% Nebulizer - NEB 1 amp RQID RADAH Administration Lidocaine 1 patch 09/04/19 17:45 09/10/19 09:56 Lidoderm Patch - TP 1 patch DAILY RDAHA Administration Miscellaneous 1 each 09/04/19 22:00 09/09/19 21:43 Lidoderm Patch Removal MC 1 each DAILY@2200 RADHA Administration Morphine Sulfate 2 mg 09/08/19 16:18 09/10/19 06:28 Morphine Sulfate IVPUSH 2 mg Q6H PRN Administration PAIN LEVEL 7 - 10 Multivitamins/Minerals/Vitamin C 1 tab 09/05/19 10:00 09/10/19 09:56 Tab-A-Vit - PO 1 tab DAILY RADHA Administration Ondansetron HCl 4 mg 09/10/19 16:36 Zofran Injection IVPB Q8H PRN NAUSEA AND/OR VOMITING Sacubitril/Valsartan 1 tab 09/05/19 10:00 09/10/19 09:57 Entresto 24 Mg-26 Mg Tablet PO 1 tab BID RADHA Administration Thiamine HCl 100 mg 09/05/19 10:00 09/10/19 09:58 Vitamin B1 - PO 100 mg DAILY RADHA Administration Imaging: - Head/c-spine CT showed oblique oriented fracture at junction of lateral mass and body of C2 with mild step-off, cortical disruption. Subtle nondisplaced fx similar location contralateral side. Neck supple, not rigid/tender. ASSESSMENT/PLAN: Mr. Sullivan is a 54 year old man with a past medical history of afib (not on eliquis), HTN, CHF (EF35%), asthma, and alcohol abuse who presents to the ED s/ p 2 falls in his bedroom while drunk. 1. Fall 2/2 acute alcohol intoxication with resultant bilateral C2 Fx on CT scan - continue C-collar (hard) - Neurosurgers (dr. keene) consulted, no surgical intervention at this time - MRI c-spine still > MRI showing chronic fx at C2 without edema - lidocaine patch - tylenol prn for pain - ibuprofen prn for pain - cont morphine 2- Acute pancreatitis most likely alcohol induced. No gall stones, and NL TG. Nl Calcium - cont IVF LR @ 100cc- patient did not appear vol overloaded on physical exam this morning. Lungs sounded clear and chest x ray yesterday without evidence of vol overload. Will continue to monitor closely and will decrease rate of fluids should patient begin to show signs of vol overload. - CT scan showing some peripancreatic fat stranding, consistent with pancreatitis, no evidence of necrosis - advance diet to full liquid diet, if continues to improve can d/c IV fluids and advance to low fat diet - cont morphine for now, will consider transitioning to toradol once patient' s pancreatitis is improving - GI following, appreciate recommendations; Mild pancreatitis by [place] and other criteria. Would continue with pain management and advance diet as tolerated. OK to advance diet to clear liquids at this time. If unable to tolerate dietary advance, would consider parenteral nutrition. - Outpatient repeat imaging of pancreas if continued improvement, in 4 weeks 3- Back pain: - patient complaining of new/ worsening back pain, will obtain lumbar/ thoracic ct to r/o any nerve impingement or compression 4. Alcohol withdrawal- no evidence of wernicke's, mild tremor, good coordination without cerebellar signs. No asterixis. - resolved - PO thiamine daily - PO folate daily - PO multivitamin 5. CHF -check Cxray to evaluate for pulm congestion as he has new cough and is on high vol fluids for pancreatitis - monitor on IVF - careful rehydration to avoid vol overload - Patient reported he does not have refills on his meds because he is uninsured and unable to follow up with his doctors. Will continue his old medications and discuss with social work about helping patient to apply for insurance - plan to have pt follow up at [facility] - will discuss with patient in the AM whether he wished to resume/ pay for eliquis or if he would prefer coumadin (with the understanding that it will require frequent blood draws and close follow up) 6. Afib - will hold AC for now pending results of lumbar thoracic CT - will consider resuming after result of above CT - continuing coreg for now 7. HTN: Cont coreg and Entresto FEN - LR@100cc/hr - replete lytes PRN - low fat diet DVT px : SQ heparin. can hold for any procedure Dispo: advancing diet as tolerated. Outpatient repeat imaging of pancreas if continued improvement, in 4 weeks. Visit type - Emergency Visit Emergency Visit: Yes ED Registration Date: 09/04/19 Care time: The patient presented to the Emergency Department on the above date and was hospitalized for further evaluation of their emergent condition. - New Patient This patient is new to me today: No - Critical Care Critical Care patient: No - Discharge Referral Referred to [facility] Med P.C.: No ATTENDING PHYSICIAN STATEMENT I saw and evaluated the patient. I reviewed the resident's note and discussed the case with the resident. I agree with the resident's findings and plan as documented. SUBJECTIVE: OBJECTIVE: ASSESSMENT AND PLAN:
--- NOTE | 2019-09-10 20:33 | PN ---
Teaching Attending Note Name of Resident: Janna Brannon ATTENDING PHYSICIAN STATEMENT I saw and evaluated the patient. I reviewed the resident's note and discussed the case with the resident. I agree with the resident's findings and plan as documented. SUBJECTIVE: Patient is comfortable, tolerating diet today. OBJECTIVE: Vital Signs Temperature 97.3 F L 09/10/19 18:00 Pulse Rate 85 09/10/19 18:00 Respiratory Rate 20 09/10/19 18:00 Blood Pressure 143/89 09/10/19 18:00 O2 Sat by Pulse Oximetry (%) 96 09/08/19 09:00 GENERAL: The patient is awake, alert, and fully oriented, in no acute distress. HEAD: Normal with no signs of trauma. in a hard neck Collar. EYES: PERRL, extraocular movements intact, sclera anicteric, conjunctiva clear. ENT: Ears normal, oropharynx clear without exudates, moist mucous membranes. NECK: Trachea midline, full range of motion, supple. LUNGS: Breath sounds equal, clear to auscultation bilaterally, no wheezes, no crackles, no accessory muscle use. HEART: Regular rate and rhythm, S1, S2 without murmur, rub or gallop. ABDOMEN: Soft, mild midepigastric tenderness improving , ND, +BS, no guarding , no rebound, no hepatosplenomegaly, no masses. EXTREMITIES: 2+ pulses, warm, well-perfused, no edema. NEUROLOGICAL: Cranial nerves II through XII grossly intact. Normal speech, gait not observed. PSYCH: Normal mood, normal affect. SKIN: Warm, dry, normal turgor, no rashes or lesions noted CBCD WBC 5.3 K/mm3 (4.0-10.0) 09/10/19 08:40 RBC 4.11 M/mm3 (4.00-5.60) 09/10/19 08:40 Hgb 13.0 GM/dL (11.7-16.9) 09/10/19 08:40 Hct 38.0 % (35.4-49) 09/10/19 08:40 MCV 92.6 fl (80-96) 09/10/19 08:40 MCHC 34.1 g/dl (32.0-35.9) 09/10/19 08:40 RDW 14.6 % (11.9-15.9) 09/10/19 08:40 Plt Count 196 K/MM3 (134-434) 09/10/19 08:40 MPV 7.2 fl (7.5-11.1) L 09/10/19 08:40 CMP Sodium 139 mmol/L (136-145) 09/10/19 08:40 Potassium 3.3 mmol/L (3.5-5.1) L 09/10/19 08:40 Chloride 105 mmol/L (98-107) 09/10/19 08:40 Carbon Dioxide 26 mmol/L (21-32) 09/10/19 08:40 Anion Gap 8 MMOL/L (8-16) 09/10/19 08:40 BUN 6.9 mg/dL (7-18) L 09/10/19 08:40 Creatinine 0.9 mg/dL (0.55-1.3) 09/10/19 08:40 Random Glucose 148 mg/dL (74-106) H 09/10/19 08:40 Calcium 9.0 mg/dL (8.5-10.1) 09/10/19 08:40 Total Bilirubin 0.6 mg/dL (0.2-1) 09/10/19 08:40 AST 56 U/L (15-37) H 09/10/19 08:40 ALT 78 U/L (13-61) H 09/10/19 08:40 Alkaline Phosphatase 62 U/L (45-117) 09/10/19 08:40 Total Protein 6.7 g/dl (6.4-8.2) 09/10/19 08:40 Albumin 3.6 g/dl (3.4-5.0) 09/10/19 08:40 CARDIAC ENZYMES Creatine Kinase 134 U/L (26-308) 09/04/19 12:30 Troponin I < 0.02 ng/ml (0.00-0.05) 09/04/19 12:30 Home Medications Medication Instructions Recorded Clonazepam [Klonopin] 0.5 mg PO DAILY 09/05/19 Escitalopram Oxalate [Lexapro -] 20 mg PO DAILY 09/05/19 Gabapentin [Neurontin] 300 mg PO DAILY 09/05/19 Current Medications Generic Name Dose Route Start Last Admin Trade Name Freq PRN Reason Stop Dose Admin Acetaminophen 650 mg 09/06/19 10:35 09/10/19 01:53 Tylenol - PO 650 mg Q6H PRN Administration PAIN LEVEL 1-5 Albuterol Sulfate 2 puff 09/05/19 08:04 Ventolin Hfa Inhaler - IH Q6H PRN SHORT OF BREATH/WHEEZING Amiodarone HCl 200 mg 09/05/19 10:00 09/10/19 09:56 Cordarone - PO 200 mg BID RADHA Administration Budesonide/Formoterol Fumarate 1 puff 09/05/19 10:00 09/10/19 09:57 Symbicort 160/4.5mcg - IH 1 puff DAILY RADHA Administration Carvedilol 12.5 mg 09/05/19 10:00 09/10/19 09:57 Coreg - PO 12.5 mg BID RADHA Administration Folic Acid 1 mg 09/05/19 10:00 09/10/19 09:57 Folic Acid - PO 1 mg DAILY RADHA Administration Heparin Sodium (Porcine) 5,000 unit 09/04/19 22:00 09/10/19 15:35 Heparin - SQ 5,000 unit TID RADHA Administration Lactated Ringer's 1,000 ml in 1,000 mls @ 100 mls/hr 09/08/19 16:17 09/10/19 13:35 Lactated Ringers Solution IV 100 mls/hr ASDIR RADHA Administration Ipratropium [place] 1 amp 09/05/19 12:00 09/10/19 19:35 Atrovent 0.02% Nebulizer - NEB 1 amp RQID RADHA Administration Lidocaine 1 patch 09/04/19 17:45 09/10/19 09:56 Lidoderm Patch - TP 1 patch DAILY RADHA Administration Miscellaneous 1 each 09/04/19 22:00 09/09/19 21:43 Lidoderm Patch Removal MC 1 each DAILY@2200 RADHA Administration Morphine Sulfate 2 mg 09/08/19 16:18 09/10/19 06:28 Morphine Sulfate IVPUSH 2 mg Q6H PRN Administration PAIN LEVEL 7 - 10 Multivitamins/Minerals/Vitamin C 1 tab 09/05/19 10:00 09/10/19 09:56 Tab-A-Vit - PO 1 tab DAILY RADHA Administration Ondansetron HCl 4 mg 09/10/19 16:36 Zofran Injection IVPB Q8H PRN NAUSEA AND/OR VOMITING Sacubitril/Valsartan 1 tab 09/05/19 10:00 09/10/19 09:57 Entresto 24 Mg-26 Mg Tablet PO 1 tab BID RADHA Administration Thiamine HCl 100 mg 09/05/19 10:00 09/10/19 09:58 Vitamin B1 - PO 100 mg DAILY RADHA Administration Assessment and plan: Patient is a 54 y/o man with h/o P AFib/A flutter, non ischemic cardiomyopathy, PFO, HTN, ETOH abuse, Asthma, who presented with a fall while intoxicated. he was found to have C2 Fx and ETOH Withdrawal #S/p fall with B/l C2 Fx on CT scan : Cont hard collar. MRI of spine , neuro sx on the case # Acute alcoholic pancreatitis . will advance diet as tolerated since tolerating the diet, no gall stones, and NL TG. continue Ivf and morphine. # H/o chronic Systolic heart failure:stable cont coreg # H/o AFib/A flutter. now in sinus. He is not compliant with his eliquis - will hold eliquis until decision on any procedure for C2 Fx # ETOH WD: completed librium protocol . Cont folate, thiamine , and MVT. # HTN: Cont coreg and Entresto. DVT px: SQ heparin. once tolerates diet will discharge the patient home.
[2019-09-10] MEDS: LIDOCAINE PATCH REMOVAL MC SCH (21:41)
[2019-09-10] MEDS ORDERED: PT OWN MED DRAWER 7, Y5N ONE (23:07)
[2019-09-11] MEDS: ALBUTEROL SO4 8 GM HFA INHALER IH PRN (05:55)
[2019-09-11] MEDS: HEPARIN NA (PORCINE) 5,000 UNITS/ML 1ML VIAL SQ SCH ×3 (05:55→21:49)
[2019-09-11] MEDS: IPRATROPIUM BR 0.02% 0.5 MG/2.5 ML VIAL.NEB. NEB SCH ×4 (07:35→20:11)
[2019-09-11] MEDS ORDERED: oxyCODONE HCL 5 MG TABLET PO PRN (09:07)
[2019-09-11] MEDS: LACTATED RINGERS SOLUTION 1,000 ML/1,000 ML INFUS.BAG IV SCH (09:29)
[2019-09-11] MEDS: THIAMINE HCL 100 MG TABLET (FP) PO SCH (09:34)
[2019-09-11] MEDS: AMIODARONE HCL 200 MG TABLET (FP) PO SCH ×2 (09:34→21:49)
[2019-09-11] MEDS: CARVEDILOL 12.5 MG TABLET (FP) PO SCH ×2 (09:34→21:51)
[2019-09-11] MEDS: LIDOCAINE 5% TOPICAL PATCH TP SCH (09:34)
[2019-09-11] MEDS: FOLIC ACID 1 MG TABLET (FP) PO SCH (09:34)
[2019-09-11] MEDS: MULTIVITAMINS (DAILY MVI) TABLET (FP) PO SCH (09:34)
--- NOTE | 2019-09-11 09:34 | PN.GI ---
GI Progress Note Subjective: No acute events some abdominal cramping, otherwise improved - Objective Vital Signs: Vital Signs Temperature 98.5 F 09/11/19 06:00 Pulse Rate 70 09/11/19 06:00 Respiratory Rate 20 09/11/19 06:00 Blood Pressure 157/109 H 09/11/19 06:00 O2 Sat by Pulse Oximetry (%) 96 09/08/19 09:00 Constitutional: Calm Eyes: No: Sclera Icterus Cardiovascular: Yes: Regular Rate and Rhythm Respiratory: Yes: CTA Bilaterally Gastrointestinal Inspection: No: Distention ...Auscultate: Yes: Normoactive Bowel Sounds ...Palpate: Yes: Soft. No: Hepatomegaly, Splenomegaly, Tenderness ...Percussion: No: Tympanitic Edema: No (No LE edema) 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: Alert Labs: INR, PTT INR 0.97 (0.83-1.09) 09/05/19 09:00 Problem List - Problems (1) Pancreatitis, alcoholic, acute Assessment/Plan: Clinically improved: Advance diet: low fat If continued improvement, repeat imaging of pancreas in 4 weeks as outpatient Code(s): K85.20 - ALCOHOL INDUCED ACUTE PANCREATITIS WITHOUT NECROSIS OR INFCT Qualifiers: Acute pancreatitis complication: no infection or necrosis Qualified Code(s) : K85.20 - Alcohol induced acute pancreatitis without necrosis or infection
[2019-09-11] MEDS ORDERED: PT OWN MED DRAWER 7, Y5N ONE ×2 (09:43→21:11)
[2019-09-11] MEDS: BUDESONIDE/FORMETEROL FUMARATE 160/4.5 mcg INHALER IH SCH (09:44)
[2019-09-11] MEDS: SACUBITRIL/VALSARTAN 24 MG-26 MG TABLET PO SCH ×2 (09:45→21:51)
[2019-09-11 10:12] LABS: BASO % 0.8 % (0-2.0); EOS % 6.5 % (0-4.5); HEMATOCRIT 39.6 % (35.4-49); HEMOGLOBIN 13.1 GM/dL (11.7-16.9); MCHC 33.1 g/dl (32.0-35.9); MEAN CELL VOLUME 93.7 fl (80-96); MEAN PLT VOLUME 7.9 fl (7.5-11.1); MONO % 12.6 % (3.8-10.2); NEUT % 56.1 % (42.8-82.8); PLATELET COUNT 205 K/MM3 (134-434); RBC 4.22 M/mm3 (4.00-5.60); RDW 14.6 % (11.9-15.9); WHITE BLOOD COUNT 6.1 K/mm3 (4.0-10.0)
[2019-09-11 10:14] LABS: ALBUMIN 3.6 g/dl (3.4-5.0); BILIRUBIN,TOTAL 0.5 mg/dL (0.2-1); BLOOD UREA NITROGEN 7.1 mg/dL (7-18); CALCIUM 9.2 mg/dL (8.5-10.1); CREATININE 0.9 mg/dL (0.55-1.3); POTASSIUM 3.5 mmol/L (3.5-5.1); TOT PROT 6.7 g/dl (6.4-8.2)
[2019-09-11] MEDS: oxyCODONE HCL 5 MG TABLET PO PRN ×2 (11:37→21:47)
--- NOTE | 2019-09-11 16:56 | PN ---
Teaching Attending Note Name of Resident: Janna Brannon ATTENDING PHYSICIAN STATEMENT I saw and evaluated the patient. I reviewed the resident's note and discussed the case with the resident. I agree with the resident's findings and plan as documented. SUBJECTIVE: Patient feels better with no acute distress, no nausea or vomiting. would like the food to be advanced. OBJECTIVE: Vital Signs Temperature 98.7 F 09/11/19 15:00 Pulse Rate 86 09/11/19 15:00 Respiratory Rate 20 09/11/19 15:00 Blood Pressure 148/96 09/11/19 15:00 O2 Sat by Pulse Oximetry (%) 96 09/08/19 09:00 GENERAL: The patient is awake, alert, and fully oriented, in no acute distress. HEAD: Normal with no signs of trauma. in a hard neck Collar. EYES: PERRL, extraocular movements intact, sclera anicteric, conjunctiva clear. ENT: Ears normal, oropharynx clear without exudates, moist mucous membranes. NECK: Trachea midline, full range of motion, supple. LUNGS: Breath sounds equal, clear to auscultation bilaterally, no wheezes, no crackles, no accessory muscle use. HEART: Regular rate and rhythm, S1, S2 without murmur, rub or gallop. ABDOMEN: Soft, mild midepigastric tenderness improving , ND, +BS, no guarding , no rebound, no hepatosplenomegaly, no masses. EXTREMITIES: 2+ pulses, warm, well-perfused, no edema. NEUROLOGICAL: Cranial nerves II through XII grossly intact. Normal speech, gait not observed. PSYCH: Normal mood, normal affect. SKIN: Warm, dry, normal turgor, no rashes or lesions noted CBCD WBC 6.1 K/mm3 (4.0-10.0) 09/11/19 09:05 RBC 4.22 M/mm3 (4.00-5.60) 09/11/19 09:05 Hgb 13.1 GM/dL (11.7-16.9) 09/11/19 09:05 Hct 39.6 % (35.4-49) 09/11/19 09:05 MCV 93.7 fl (80-96) 09/11/19 09:05 MCHC 33.1 g/dl (32.0-35.9) 09/11/19 09:05 RDW 14.6 % (11.9-15.9) 09/11/19 09:05 Plt Count 205 K/MM3 (134-434) 09/11/19 09:05 MPV 7.9 fl (7.5-11.1) 09/11/19 09:05 CMP Sodium 137 mmol/L (136-145) 09/11/19 09:05 Potassium 3.5 mmol/L (3.5-5.1) 09/11/19 09:05 Chloride 103 mmol/L (98-107) 09/11/19 09:05 Carbon Dioxide 25 mmol/L (21-32) 09/11/19 09:05 Anion Gap 9 MMOL/L (8-16) 09/11/19 09:05 BUN 7.1 mg/dL (7-18) 09/11/19 09:05 Creatinine 0.9 mg/dL (0.55-1.3) 09/11/19 09:05 Random Glucose 159 mg/dL (74-106) H 09/11/19 09:05 Calcium 9.2 mg/dL (8.5-10.1) 09/11/19 09:05 Total Bilirubin 0.5 mg/dL (0.2-1) 09/11/19 09:05 AST 50 U/L (15-37) H 09/11/19 09:05 ALT 77 U/L (13-61) H 09/11/19 09:05 Alkaline Phosphatase 61 U/L (45-117) 09/11/19 09:05 Total Protein 6.7 g/dl (6.4-8.2) 09/11/19 09:05 Albumin 3.6 g/dl (3.4-5.0) 09/11/19 09:05 CARDIAC ENZYMES Creatine Kinase 134 U/L (26-308) 09/04/19 12:30 Troponin I < 0.02 ng/ml (0.00-0.05) 09/04/19 12:30 Current Medications Generic Name Dose Route Start Last Admin Trade Name Freq PRN Reason Stop Dose Admin Acetaminophen 650 mg 09/06/19 10:35 09/10/19 01:53 Tylenol - PO 650 mg Q6H PRN Administration PAIN LEVEL 1-5 Albuterol Sulfate 2 puff 09/05/19 08:04 09/11/19 05:55 Ventolin Hfa Inhaler - IH 2 puff Q6H PRN Administration SHORT OF BREATH/WHEEZING Amiodarone HCl 200 mg 09/05/19 10:00 09/11/19 09:34 Cordarone - PO 200 mg BID RADHA Administration Budesonide/Formoterol Fumarate 1 puff 09/05/19 10:00 09/11/19 09:44 Symbicort 160/4.5mcg - IH 1 puff DAILY RADHA Administration Carvedilol 12.5 mg 09/05/19 10:00 09/11/19 09:34 Coreg - PO 12.5 mg BID RADHA Administration Folic Acid 1 mg 09/05/19 10:00 09/11/19 09:34 Folic Acid - PO 1 mg DAILY RADHA Administration Heparin Sodium (Porcine) 5,000 unit 09/04/19 22:00 09/11/19 14:32 Heparin - SQ 5,000 unit TID RADHA Administration Ipratropium [place] 1 amp 09/05/19 12:00 09/11/19 15:40 Atrovent 0.02% Nebulizer - NEB 1 amp RQID RADHA Administration Lidocaine 1 patch 09/04/19 17:45 09/11/19 09:34 Lidoderm Patch - TP 1 patch DAILY RADHA Administration Miscellaneous 1 each 09/04/19 22:00 09/10/19 21:41 Lidoderm Patch Removal MC 1 each DAILY@2200 RADHA Administration Multivitamins/Minerals/Vitamin C 1 tab 09/05/19 10:00 09/11/19 09:34 Tab-A-Vit - PO 1 tab DAILY RADHA Administration Ondansetron HCl 4 mg 09/10/19 16:36 Zofran Injection IVPB Q8H PRN NAUSEA AND/OR VOMITING Oxycodone HCl 5 mg 09/11/19 09:07 Roxicodone - PO Q6H PRN PAIN LEVEL 1-5 Oxycodone HCl 10 mg 09/11/19 09:07 09/11/19 11:37 Roxicodone - PO 10 mg Q6H PRN Administration PAIN LEVEL 6-10 Sacubitril/Valsartan 1 tab 09/05/19 10:00 09/11/19 09:45 Entresto 24 Mg-26 Mg Tablet PO 1 tab BID RADHA Administration Thiamine HCl 100 mg 09/05/19 10:00 09/11/19 09:34 Vitamin B1 - PO 100 mg DAILY RADHA Administration Home Medications Medication Instructions Recorded Clonazepam [Klonopin] 0.5 mg PO DAILY 09/05/19 Escitalopram Oxalate [Lexapro -] 20 mg PO DAILY 09/05/19 Gabapentin [Neurontin] 300 mg PO DAILY 09/05/19 Assessment and plan: Patient is a 54 y/o man with h/o P AFib/A flutter, non ischemic cardiomyopathy, PFO, HTN, ETOH abuse, Asthma, who presented with a fall while intoxicated. he was found to have C2 Fx and ETOH Withdrawal #S/p fall with B/l C2 Fx on CT scan : Cont hard collar. neuro sx on the case # Acute alcoholic pancreatitis . advance diet as tolerated, low fat diet. oxycodone for pain, If continued improvement, repeat imaging of pancreas in 4 weeks as outpatient # H/o chronic Systolic heart failure: stable cont coreg # H/o AFib/A flutter. now in sinus. He is not compliant with his Eliquis # ETOH WD: completed librium protocol . Cont folate, thiamine , and MVT. # HTN: Cont coreg and Entresto. DVT px: SQ heparin. once tolerates diet will discharge the patient home.
--- NOTE | 2019-09-11 17:26 | PN ---
Physical Exam: SUBJECTIVE: Patient seen and examined at the bedside, improving. Will try low fat lactose free diet today. OBJECTIVE: Vital Signs Period Temp Pulse Resp BP Sys/Garg Pulse Ox Last 24 Hr 97.3 F-98.7 F 70-86 20-20 143-157/89-109 GENERAL: The patient is awake, alert, and fully oriented, in no acute distress. HEAD: Normal with no signs of trauma. EYES: PERRL, extraocular movements intact, sclera anicteric, conjunctiva clear. No ptosis. horizontal nystagmus present but improving ENT: Ears normal, nares patent, oropharynx clear without exudates, moist mucous membranes. NECK: C-collar in place LUNGS: Breath sounds equal, clear to auscultation bilaterally, no wheezes, some faint scattered wheezes in the inferior lung prater, no accessory muscle use. HEART: Regular rate and rhythm, S1, S2 without murmur, rub or gallop, no JVD ABDOMEN: Soft, obese, very mildly tender to palpation in the LUQ, nondistended, normoactive bowel sounds EXTREMITIES: 2+ pulses, warm, well-perfused, no edema, tremor not perceptible but able to be felt finger tip to finger tip. NEUROLOGICAL: Cranial nerves II through XII grossly intact. Normal speech, gait not observed. PSYCH: Normal mood, normal affect. SKIN: Warm, dry, normal turgor, no rashes or lesions noted Laboratory Results - last 24 hr 09/11/19 09/11/19 09:05 09:05 WBC 6.1 RBC 4.22 Hgb 13.1 Hct 39.6 MCV 93.7 MCH 31.0 MCHC 33.1 RDW 14.6 Plt Count 205 MPV 7.9 Absolute Neuts (auto) 3.4 Neutrophils % 56.1 Lymphocytes % 24.0 Monocytes % 12.6 H Eosinophils % 6.5 H Basophils % 0.8 Nucleated RBC % 0 Sodium 137 Potassium 3.5 Chloride 103 Carbon Dioxide 25 Anion Gap 9 BUN 7.1 Creatinine 0.9 Est GFR (CKD-EPI)AfAm 110.27 Est GFR (CKD-EPI)NonAf 95.14 Random Glucose 159 H Calcium 9.2 Total Bilirubin 0.5 AST 50 H ALT 77 H Alkaline Phosphatase 61 Total Protein 6.7 Albumin 3.6 Active Medications Generic Name Dose Route Start Last Admin Trade Name Freq PRN Reason Stop Dose Admin Acetaminophen 650 mg 09/06/19 10:35 09/10/19 01:53 Tylenol - PO 650 mg Q6H PRN Administration PAIN LEVEL 1-5 Albuterol Sulfate 2 puff 09/05/19 08:04 09/11/19 05:55 Ventolin Hfa Inhaler - IH 2 puff Q6H PRN Administration SHORT OF BREATH/WHEEZING Amiodarone HCl 200 mg 09/05/19 10:00 09/11/19 09:34 Cordarone - PO 200 mg BID RADHA Administration Budesonide/Formoterol Fumarate 1 puff 09/05/19 10:00 09/11/19 09:44 Symbicort 160/4.5mcg - IH 1 puff DAILY RADHA Administration Carvedilol 12.5 mg 09/05/19 10:00 09/11/19 09:34 Coreg - PO 12.5 mg BID RADHA Administration Folic Acid 1 mg 09/05/19 10:00 09/11/19 09:34 Folic Acid - PO 1 mg DAILY RADHA Administration Heparin Sodium (Porcine) 5,000 unit 09/04/19 22:00 09/11/19 14:32 Heparin - SQ 5,000 unit TID RADHA Administration Ipratropium [place] 1 amp 09/05/19 12:00 09/11/19 15:40 Atrovent 0.02% Nebulizer - NEB 1 amp RQID RADHA Administration Lidocaine 1 patch 09/04/19 17:45 09/11/19 09:34 Lidoderm Patch - TP 1 patch DAILY RADHA Administration Miscellaneous 1 each 09/04/19 22:00 09/10/19 21:41 Lidoderm Patch Removal MC 1 each DAILY@2200 RADHA Administration Multivitamins/Minerals/Vitamin C 1 tab 09/05/19 10:00 09/11/19 09:34 Tab-A-Vit - PO 1 tab DAILY RADHA Administration Ondansetron HCl 4 mg 09/10/19 16:36 Zofran Injection IVPB Q8H PRN NAUSEA AND/OR VOMITING Oxycodone HCl 5 mg 09/11/19 09:07 Roxicodone - PO Q6H PRN PAIN LEVEL 1-5 Oxycodone HCl 10 mg 09/11/19 09:07 09/11/19 11:37 Roxicodone - PO 10 mg Q6H PRN Administration PAIN LEVEL 6-10 Sacubitril/Valsartan 1 tab 09/05/19 10:00 09/11/19 09:45 Entresto 24 Mg-26 Mg Tablet PO 1 tab BID RADHA Administration Thiamine HCl 100 mg 09/05/19 10:00 09/11/19 09:34 Vitamin B1 - PO 100 mg DAILY RADHA Administration Imaging: - Head/c-spine CT showed oblique oriented fracture at junction of lateral mass and body of C2 with mild step-off, cortical disruption. Subtle nondisplaced fx similar location contralateral side. Neck supple, not rigid/tender. ASSESSMENT/PLAN: Mr. Sullivan is a 54 year old man with a past medical history of afib (not on eliquis), HTN, CHF (EF35%), asthma, and alcohol abuse who presents to the ED s/ p 2 falls in his bedroom while drunk. 1. Fall 2/2 acute alcohol intoxication with resultant bilateral C2 Fx on CT scan - continue C-collar (hard), per Dr. Gardner if the patient does not have neck pain can be switched to a soft collar for two weeks. If the patient begins to have pain should switch back to hard collar. - Neurosurgers (Dr. Gardner ) consulted, no surgical intervention at this time - MRI c-spine still > MRI showing chronic fx at C2 without edema - lidocaine patch - tylenol prn for pain - ibuprofen prn for pain - d/c morphine 2- Acute pancreatitis most likely alcohol induced. No gall stones, and NL TG. Nl Calcium - cont IVF LR @ 100cc- patient did not appear vol overloaded on physical exam this morning. Lungs sounded clear and chest x ray yesterday without evidence of vol overload. Will continue to monitor closely and will decrease rate of fluids should patient begin to show signs of vol overload. - CT scan showing some peripancreatic fat stranding, consistent with pancreatitis, no evidence of necrosis - d/c IV fluids and advance to low fat diet - d/c morphine> now oxy 5 or 10 depending on pain level - GI following, appreciate recommendations - Outpatient repeat imaging of pancreas if continued improvement, in 4 weeks 3- Back pain: - patient complaining of new/ worsening back pain, will obtain lumbar/ thoracic ct to r/o any nerve impingement or compression 4. Alcohol withdrawal- no evidence of wernicke's, mild tremor, good coordination without cerebellar signs. No asterixis. - resolved - PO thiamine daily - PO folate daily - PO multivitamin 5. CHF - d/c IVF - Patient reported he does not have refills on his meds because he is uninsured and unable to follow up with his doctors. Will continue his old medications and discuss with social work about helping patient to apply for insurance - plan to have pt follow up at [facility] - will discuss with patient in the AM whether he wished to resume/ pay for eliquis or if he would prefer coumadin (with the understanding that it will require frequent blood draws and close follow up) 6. Afib - will hold AC for now pending results of lumbar thoracic CT - will consider resuming after result of above CT - continuing coreg for now 7. HTN: Cont coreg and Entresto FEN -PO fluids - replete lytes PRN - low fat diet DVT px : SQ heparin. can hold for any procedure Dispo: advancing diet as tolerated. Outpatient repeat imaging of pancreas if continued improvement, in 4 weeks. Visit type - Emergency Visit Emergency Visit: Yes ED Registration Date: 09/04/19 Care time: The patient presented to the Emergency Department on the above date and was hospitalized for further evaluation of their emergent condition. - New Patient This patient is new to me today: No - Critical Care Critical Care patient: No - Discharge Referral Referred to [facility] Med P.C.: No ATTENDING PHYSICIAN STATEMENT I saw and evaluated the patient. I reviewed the resident's note and discussed the case with the resident. I agree with the resident's findings and plan as documented. SUBJECTIVE: OBJECTIVE: ASSESSMENT AND PLAN:
[2019-09-11] MEDS: LIDOCAINE PATCH REMOVAL MC SCH (21:52)
[2019-09-12] MEDS: HEPARIN NA (PORCINE) 5,000 UNITS/ML 1ML VIAL SQ SCH ×3 (06:37→21:58)
[2019-09-12] MEDS: IPRATROPIUM BR 0.02% 0.5 MG/2.5 ML VIAL.NEB. NEB SCH ×4 (09:03→20:50)
[2019-09-12] MEDS: THIAMINE HCL 100 MG TABLET (FP) PO SCH (09:33)
[2019-09-12] MEDS: MULTIVITAMINS (DAILY MVI) TABLET (FP) PO SCH (09:33)
[2019-09-12] MEDS: AMIODARONE HCL 200 MG TABLET (FP) PO SCH ×2 (09:33→21:58)
[2019-09-12] MEDS: LIDOCAINE 5% TOPICAL PATCH TP SCH (09:33)
[2019-09-12] MEDS: FOLIC ACID 1 MG TABLET (FP) PO SCH (09:33)
[2019-09-12] MEDS: CARVEDILOL 12.5 MG TABLET (FP) PO SCH ×2 (09:33→21:58)
[2019-09-12] MEDS: BUDESONIDE/FORMETEROL FUMARATE 160/4.5 mcg INHALER IH SCH (09:35)
[2019-09-12] MEDS: SACUBITRIL/VALSARTAN 24 MG-26 MG TABLET PO SCH ×2 (09:35→21:59)
[2019-09-12] MEDS: oxyCODONE HCL 5 MG TABLET PO PRN ×2 (10:19→18:17)
[2019-09-12 10:54] LABS: EOS % 6.7 % (0-4.5); HEMATOCRIT 38.6 % (35.4-49); LYMPH % 23.2 % (8-40); MCH 31.3 pg (25.7-33.7); MCHC 33.8 g/dl (32.0-35.9); MEAN CELL VOLUME 92.7 fl (80-96); MEAN PLT VOLUME 8.2 fl (7.5-11.1); MONO % 14.2 % (3.8-10.2); NEUT % 54.9 % (42.8-82.8); PLATELET COUNT 223 K/MM3 (134-434); RBC 4.16 M/mm3 (4.00-5.60); RDW 14.3 % (11.9-15.9); WHITE BLOOD COUNT 6.2 K/mm3 (4.0-10.0)
--- NOTE | 2019-09-12 11:11 | PN ---
Progress Note (short form) - Note Progress Note: Patient is feeling better with no acute distress. tolerating diet as in a very small amount. Vital Signs Temperature 97.7 F 09/12/19 05:03 Pulse Rate 68 09/12/19 05:03 Respiratory Rate 20 09/12/19 05:03 Blood Pressure 127/68 09/12/19 05:03 O2 Sat by Pulse Oximetry (%) 96 09/08/19 09:00 GENERAL: The patient is awake, alert, and fully oriented, in no acute distress. HEAD: Normal with no signs of trauma. in a hard neck Collar. EYES: PERRL, extraocular movements intact, sclera anicteric, conjunctiva clear. ENT: Ears normal, oropharynx clear without exudates, moist mucous membranes. NECK: Trachea midline, full range of motion, supple. LUNGS: Breath sounds equal, clear to auscultation bilaterally, no wheezes, no crackles, no accessory muscle use. HEART: Regular rate and rhythm, S1, S2 without murmur, rub or gallop. ABDOMEN: Soft, mild midepigastric tenderness improving , ND, +BS, no guarding , no rebound, no hepatosplenomegaly, no masses. EXTREMITIES: 2+ pulses, warm, well-perfused, no edema. NEUROLOGICAL: Cranial nerves II through XII grossly intact. Normal speech, gait not observed. PSYCH: Normal mood, normal affect. SKIN: Warm, dry, normal turgor, no rashes or lesions noted CBCD WBC 6.2 K/mm3 (4.0-10.0) 09/12/19 09:40 RBC 4.16 M/mm3 (4.00-5.60) 09/12/19 09:40 Hgb 13.0 GM/dL (11.7-16.9) 09/12/19 09:40 Hct 38.6 % (35.4-49) 09/12/19 09:40 MCV 92.7 fl (80-96) 09/12/19 09:40 MCHC 33.8 g/dl (32.0-35.9) 09/12/19 09:40 RDW 14.3 % (11.9-15.9) 09/12/19 09:40 Plt Count 223 K/MM3 (134-434) 09/12/19 09:40 MPV 8.2 fl (7.5-11.1) 09/12/19 09:40 CMP Sodium 137 mmol/L (136-145) 09/11/19 09:05 Potassium 3.5 mmol/L (3.5-5.1) 09/11/19 09:05 Chloride 103 mmol/L (98-107) 09/11/19 09:05 Carbon Dioxide 25 mmol/L (21-32) 09/11/19 09:05 Anion Gap 9 MMOL/L (8-16) 09/11/19 09:05 BUN 7.1 mg/dL (7-18) 09/11/19 09:05 Creatinine 0.9 mg/dL (0.55-1.3) 09/11/19 09:05 Random Glucose 159 mg/dL (74-106) H 09/11/19 09:05 Calcium 9.2 mg/dL (8.5-10.1) 09/11/19 09:05 Total Bilirubin 0.5 mg/dL (0.2-1) 09/11/19 09:05 AST 50 U/L (15-37) H 09/11/19 09:05 ALT 77 U/L (13-61) H 09/11/19 09:05 Alkaline Phosphatase 61 U/L (45-117) 09/11/19 09:05 Total Protein 6.7 g/dl (6.4-8.2) 09/11/19 09:05 Albumin 3.6 g/dl (3.4-5.0) 09/11/19 09:05 CARDIAC ENZYMES Creatine Kinase 134 U/L (26-308) 09/04/19 12:30 Troponin I < 0.02 ng/ml (0.00-0.05) 09/04/19 12:30 Current Medications Generic Name Dose Route Start Last Admin Trade Name Freq PRN Reason Stop Dose Admin Acetaminophen 650 mg 09/06/19 10:35 09/10/19 01:53 Tylenol - PO 650 mg Q6H PRN Administration PAIN LEVEL 1-5 Albuterol Sulfate 2 puff 09/05/19 08:04 09/11/19 05:55 Ventolin Hfa Inhaler - IH 2 puff Q6H PRN Administration SHORT OF BREATH/WHEEZING Amiodarone HCl 200 mg 09/05/19 10:00 09/12/19 09:33 Cordarone - PO 200 mg BID RADHA Administration Budesonide/Formoterol Fumarate 1 puff 09/05/19 10:00 09/12/19 09:35 Symbicort 160/4.5mcg - IH 1 puff DAILY RADHA Administration Carvedilol 12.5 mg 09/05/19 10:00 09/12/19 09:33 Coreg - PO 12.5 mg BID RADHA Administration Folic Acid 1 mg 09/05/19 10:00 09/12/19 09:33 Folic Acid - PO 1 mg DAILY RADHA Administration Heparin Sodium (Porcine) 5,000 unit 09/04/19 22:00 09/12/19 06:37 Heparin - SQ 5,000 unit TID RADHA Administration Ipratropium [place] 1 amp 09/05/19 12:00 09/12/19 09:03 Atrovent 0.02% Nebulizer - NEB 1 amp RQID RADHA Administration Lidocaine 1 patch 09/04/19 17:45 09/12/19 09:33 Lidoderm Patch - TP 1 patch DAILY RADHA Administration Miscellaneous 1 each 09/04/19 22:00 09/11/19 21:52 Lidoderm Patch Removal MC 1 each DAILY@2200 RADHA Administration Multivitamins/Minerals/Vitamin C 1 tab 09/05/19 10:00 09/12/19 09:33 Tab-A-Vit - PO 1 tab DAILY RADHA Administration Ondansetron HCl 4 mg 09/10/19 16:36 09/11/19 23:28 Zofran Injection IVPB 4 mg Q8H PRN Administration NAUSEA AND/OR VOMITING Oxycodone HCl 5 mg 09/11/19 09:07 Roxicodone - PO Q6H PRN PAIN LEVEL 1-5 Oxycodone HCl 10 mg 09/11/19 09:07 09/12/19 10:19 Roxicodone - PO 10 mg Q6H PRN Administration PAIN LEVEL 6-10 Sacubitril/Valsartan 1 tab 09/05/19 10:00 09/12/19 09:35 Entresto 24 Mg-26 Mg Tablet PO 1 tab BID RADHA Administration Thiamine HCl 100 mg 09/05/19 10:00 09/12/19 09:33 Vitamin B1 - PO 100 mg DAILY RADHA Administration Home Medications Medication Instructions Recorded Clonazepam [Klonopin] 0.5 mg PO DAILY 09/05/19 Escitalopram Oxalate [Lexapro -] 20 mg PO DAILY 09/05/19 Gabapentin [Neurontin] 300 mg PO DAILY 09/05/19 Assessment and plan: Patient is a 54 y/o man with h/o P AFib/A flutter, non ischemic cardiomyopathy, PFO, HTN, ETOH abuse, Asthma, who presented with a fall while intoxicated. he was found to have C2 Fx and ETOH Withdrawal #S/p fall with B/l C2 Fx on CT scan : Cont hard collar as per neurosurgeon , patient needs to wear it for one month. # Acute alcoholic pancreatitis . advance diet as tolerated, low fat diet. oxycodone for pain, If continued improvement, repeat imaging of pancreas in 4 weeks as outpatient # H/o chronic Systolic heart failure: stable cont coreg # H/o AFib/A flutter. now in sinus. Patient cannot be on Eliquis since patient s /p C2 fx s/p fall, and drinks alcohol . patient is not compliant with Eliquis at this time. Risk > than the benefit. # ETOH WD: completed librium protocol . Cont folate, thiamine , and MVT. # HTN: Cont coreg , as per patient cannot continue taking Entresto since patient cannot afford. DVT px: SQ heparin. once tolerates diet will discharge the patient home. Visit type - Emergency Visit Emergency Visit: Yes ED Registration Date: 09/04/19 Care time: The patient presented to the Emergency Department on the above date and was hospitalized for further evaluation of their emergent condition. - New Patient This patient is new to me today: No - Critical Care Critical Care patient: No - Discharge Referral Referred to [facility] Med P.C.: No
[2019-09-12 11:32] LABS: ALBUMIN 3.6 g/dl (3.4-5.0); BILIRUBIN,TOTAL 0.5 mg/dL (0.2-1); BLOOD UREA NITROGEN 10.7 mg/dL (7-18); CALCIUM 9.3 mg/dL (8.5-10.1); CREATININE 0.9 mg/dL (0.55-1.3); POTASSIUM 3.7 mmol/L (3.5-5.1); TOT PROT 6.8 g/dl (6.4-8.2)
[2019-09-12] MEDS ORDERED: PT OWN MED DRAWER 7, Y5N ONE (21:45)
[2019-09-12] MEDS: LIDOCAINE PATCH REMOVAL MC SCH (21:59)
[2019-09-13] MEDS: oxyCODONE HCL 5 MG TABLET PO PRN ×3 (02:29→19:27)
[2019-09-13] MEDS: HEPARIN NA (PORCINE) 5,000 UNITS/ML 1ML VIAL SQ SCH ×3 (06:40→21:03)
[2019-09-13] MEDS: IPRATROPIUM BR 0.02% 0.5 MG/2.5 ML VIAL.NEB. NEB SCH ×4 (08:50→21:05)
[2019-09-13] MEDS: LIDOCAINE 5% TOPICAL PATCH TP SCH (09:30)
[2019-09-13] MEDS: MULTIVITAMINS (DAILY MVI) TABLET (FP) PO SCH (09:31)
[2019-09-13] MEDS: SACUBITRIL/VALSARTAN 24 MG-26 MG TABLET PO SCH (09:31)
[2019-09-13] MEDS: AMIODARONE HCL 200 MG TABLET (FP) PO SCH (09:32)
[2019-09-13] MEDS: CARVEDILOL 12.5 MG TABLET (FP) PO SCH ×2 (09:32→21:04)
[2019-09-13] MEDS: FOLIC ACID 1 MG TABLET (FP) PO SCH (09:32)
[2019-09-13] MEDS: THIAMINE HCL 100 MG TABLET (FP) PO SCH (09:32)
[2019-09-13] MEDS: ALBUTEROL SO4 8 GM HFA INHALER IH PRN (09:33)
--- NOTE | 2019-09-13 10:06 | PN ---
Teaching Attending Note Name of Resident: Janna Brannon ATTENDING PHYSICIAN STATEMENT I saw and evaluated the patient. I reviewed the resident's note and discussed the case with the resident. I agree with the resident's findings and plan as documented. SUBJECTIVE: Patient is able to tolerate diet today with no acute distress. OBJECTIVE: Vital Signs Temperature 98.2 F 09/13/19 05:00 Pulse Rate 65 09/13/19 05:00 Respiratory Rate 20 09/13/19 05:00 Blood Pressure 130/90 09/13/19 05:00 O2 Sat by Pulse Oximetry (%) 96 09/08/19 09:00 GENERAL: The patient is awake, alert, and fully oriented, in no acute distress. HEAD: Normal with no signs of trauma. in a hard neck Collar. EYES: PERRL, extraocular movements intact, sclera anicteric, conjunctiva clear. ENT: Ears normal, oropharynx clear without exudates, moist mucous membranes. NECK: Trachea midline, full range of motion, supple. LUNGS: Breath sounds equal, clear to auscultation bilaterally, no wheezes, no crackles, no accessory muscle use. HEART: Regular rate and rhythm, S1, S2 without murmur, rub or gallop. ABDOMEN: Soft, no further abdominal tenderness , ND, +BS, no guarding, no rebound, no hepatosplenomegaly, no masses. EXTREMITIES: 2+ pulses, warm, well-perfused, no edema. NEUROLOGICAL: Cranial nerves II through XII grossly intact. Normal speech, gait not observed. PSYCH: Normal mood, normal affect. SKIN: Warm, dry, normal turgor, no rashes or lesions noted CBCD WBC 6.2 K/mm3 (4.0-10.0) 09/12/19 09:40 RBC 4.16 M/mm3 (4.00-5.60) 09/12/19 09:40 Hgb 13.0 GM/dL (11.7-16.9) 09/12/19 09:40 Hct 38.6 % (35.4-49) 09/12/19 09:40 MCV 92.7 fl (80-96) 09/12/19 09:40 MCHC 33.8 g/dl (32.0-35.9) 09/12/19 09:40 RDW 14.3 % (11.9-15.9) 09/12/19 09:40 Plt Count 223 K/MM3 (134-434) 09/12/19 09:40 MPV 8.2 fl (7.5-11.1) 09/12/19 09:40 CMP Sodium 135 mmol/L (136-145) L 09/12/19 09:40 Potassium 3.7 mmol/L (3.5-5.1) 09/12/19 09:40 Chloride 102 mmol/L (98-107) 09/12/19 09:40 Carbon Dioxide 26 mmol/L (21-32) 09/12/19 09:40 Anion Gap 7 MMOL/L (8-16) L 09/12/19 09:40 BUN 10.7 mg/dL (7-18) 09/12/19 09:40 Creatinine 0.9 mg/dL (0.55-1.3) 09/12/19 09:40 Random Glucose 145 mg/dL (74-106) H 09/12/19 09:40 Calcium 9.3 mg/dL (8.5-10.1) 09/12/19 09:40 Total Bilirubin 0.5 mg/dL (0.2-1) 09/12/19 09:40 AST 41 U/L (15-37) H 09/12/19 09:40 ALT 72 U/L (13-61) H 09/12/19 09:40 Alkaline Phosphatase 64 U/L (45-117) 09/12/19 09:40 Total Protein 6.8 g/dl (6.4-8.2) 09/12/19 09:40 Albumin 3.6 g/dl (3.4-5.0) 09/12/19 09:40 CARDIAC ENZYMES Creatine Kinase 134 U/L (26-308) 09/04/19 12:30 Troponin I < 0.02 ng/ml (0.00-0.05) 09/04/19 12:30 Current Medications Generic Name Dose Route Start Last Admin Trade Name Freq PRN Reason Stop Dose Admin Acetaminophen 650 mg 09/06/19 10:35 09/10/19 01:53 Tylenol - PO 650 mg Q6H PRN Administration PAIN LEVEL 1-5 Albuterol Sulfate 2 puff 09/05/19 08:04 09/13/19 09:33 Ventolin Hfa Inhaler - IH 2 puff Q6H PRN Administration SHORT OF BREATH/WHEEZING Amiodarone HCl 200 mg 09/05/19 10:00 09/13/19 09:32 Cordarone - PO 200 mg BID RADHA Administration Budesonide/Formoterol Fumarate 1 puff 09/05/19 10:00 09/12/19 09:35 Symbicort 160/4.5mcg - IH 1 puff DAILY RADHA Administration Carvedilol 12.5 mg 09/05/19 10:00 09/13/19 09:32 Coreg - PO 12.5 mg BID RADHA Administration Folic Acid 1 mg 09/05/19 10:00 09/13/19 09:32 Folic Acid - PO 1 mg DAILY RADHA Administration Heparin Sodium (Porcine) 5,000 unit 09/04/19 22:00 09/13/19 06:40 Heparin - SQ 5,000 unit TID RADHA Administration Ipratropium [place] 1 amp 09/05/19 12:00 09/13/19 08:50 Atrovent 0.02% Nebulizer - NEB 1 amp RQID RADHA Administration Lidocaine 1 patch 09/04/19 17:45 09/13/19 09:30 Lidoderm Patch - TP 1 patch DAILY RADHA Administration Miscellaneous 1 each 09/04/19 22:00 09/12/19 21:59 Lidoderm Patch Removal MC 1 each DAILY@2200 RADHA Administration Multivitamins/Minerals/Vitamin C 1 tab 09/05/19 10:00 09/13/19 09:31 Tab-A-Vit - PO 1 tab DAILY RADHA Administration Ondansetron HCl 4 mg 09/10/19 16:36 09/11/19 23:28 Zofran Injection IVPB 4 mg Q8H PRN Administration NAUSEA AND/OR VOMITING Oxycodone HCl 5 mg 09/11/19 09:07 Roxicodone - PO Q6H PRN PAIN LEVEL 1-5 Oxycodone HCl 10 mg 09/11/19 09:07 09/13/19 02:29 Roxicodone - PO 10 mg Q6H PRN Administration PAIN LEVEL 6-10 Sacubitril/Valsartan 1 tab 09/05/19 10:00 09/13/19 09:31 Entresto 24 Mg-26 Mg Tablet PO 1 tab BID RADHA Administration Thiamine HCl 100 mg 09/05/19 10:00 09/13/19 09:32 Vitamin B1 - PO 100 mg DAILY RADHA Administration Home Medications Medication Instructions Recorded Clonazepam [Klonopin] 0.5 mg PO DAILY 09/05/19 Escitalopram Oxalate [Lexapro -] 20 mg PO DAILY 09/05/19 Gabapentin [Neurontin] 300 mg PO DAILY 09/05/19 Assessment and plan: Patient is a 54 y/o man with h/o P AFib/A flutter, non ischemic cardiomyopathy, PFO, HTN, ETOH abuse, Asthma, who presented with a fall while intoxicated. he was found to have C2 Fx and ETOH Withdrawal #S/p fall with B/l C2 Fx on CT scan : Cont hard collar as per neurosurgeon , patient needs to wear it for one month. # Acute alcoholic pancreatitis . advance diet as tolerated, low fat diet. oxycodone for pain, repeat imaging of pancreas in 4 weeks as outpatient # H/o chronic Systolic heart failure: stable cont coreg # H/o AFib/A flutter. now in sinus. Patient cannot be on Eliquis since patient s /p C2 fx s/p fall, and drinks alcohol . patient is not compliant with Eliquis or coumadin at this time. Risk > than the benefit, since drinks extensively and had a fracture of C2. # ETOH WD: completed librium protocol . Cont folate, thiamine , and MVT. # HTN: Cont coreg , patient does not want to take Entresto since patient stated that it is so expensive an does not have any insurance. will get social service involve. DVT px: SQ heparin. once tolerates diet will discharge the patient home.
[2019-09-13] MEDS: BUDESONIDE/FORMETEROL FUMARATE 160/4.5 mcg INHALER IH SCH (11:17)
--- NOTE | 2019-09-13 16:06 | PN ---
Physical Exam: SUBJECTIVE: Patient seen and examined at the bedside, there were no acute events overnight. OBJECTIVE: Vital Signs Period Temp Pulse Resp BP Sys/Garg Pulse Ox Last 24 Hr 97.6 F-98.2 F 65-85 20-20 117-136/78-90 GENERAL: The patient is awake, alert, and fully oriented, in no acute distress. HEAD: Normal with no signs of trauma. EYES: PERRL, extraocular movements intact, sclera anicteric, conjunctiva clear. No ptosis. ENT: Ears normal, nares patent, oropharynx clear without exudates, moist mucous membranes. NECK: C-collar in place LUNGS: Breath sounds equal, clear to auscultation bilaterally, no wheezes, some faint scattered wheezes in the inferior lung prater, no accessory muscle use. HEART: Regular rate and rhythm, S1, S2 without murmur, rub or gallop, no JVD ABDOMEN: Soft, obese, non- tender to palpation, nondistended, normoactive bowel sounds EXTREMITIES: 2+ pulses, warm, well-perfused, no edema, NEUROLOGICAL: Cranial nerves II through XII grossly intact. Normal speech, gait not observed. PSYCH: Normal mood, normal affect. SKIN: Warm, dry, normal turgor, no rashes or lesions noted Active Medications Generic Name Dose Route Start Last Admin Trade Name Freq PRN Reason Stop Dose Admin Acetaminophen 650 mg 09/06/19 10:35 09/10/19 01:53 Tylenol - PO 650 mg Q6H PRN Administration PAIN LEVEL 1-5 Albuterol Sulfate 2 puff 09/05/19 08:04 09/13/19 09:33 Ventolin Hfa Inhaler - IH 2 puff Q6H PRN Administration SHORT OF BREATH/WHEEZING Aspirin 81 mg 09/14/19 10:00 Ecotrin - PO DAILY RADHA Budesonide/Formoterol Fumarate 1 puff 09/05/19 10:00 09/13/19 11:17 Symbicort 160/4.5mcg - IH 1 puff DAILY RADHA Administration Carvedilol 12.5 mg 09/05/19 10:00 09/13/19 09:32 Coreg - PO 12.5 mg BID RADHA Administration Folic Acid 1 mg 09/05/19 10:00 09/13/19 09:32 Folic Acid - PO 1 mg DAILY RADHA Administration Heparin Sodium (Porcine) 5,000 unit 09/04/19 22:00 09/13/19 14:12 Heparin - SQ 5,000 unit TID RADHA Administration Ipratropium [place] 1 amp 09/05/19 12:00 09/13/19 08:50 Atrovent 0.02% Nebulizer - NEB 1 amp RQID RADHA Administration Lidocaine 1 patch 09/04/19 17:45 09/13/19 09:30 Lidoderm Patch - TP 1 patch DAILY RADHA Administration Miscellaneous 1 each 09/04/19 22:00 09/12/19 21:59 Lidoderm Patch Removal MC 1 each DAILY@2200 RADHA Administration Multivitamins/Minerals/Vitamin C 1 tab 09/05/19 10:00 09/13/19 09:31 Tab-A-Vit - PO 1 tab DAILY RADHA Administration Ondansetron HCl 4 mg 09/10/19 16:36 09/11/19 23:28 Zofran Injection IVPB 4 mg Q8H PRN Administration NAUSEA AND/OR VOMITING Oxycodone HCl 5 mg 09/11/19 09:07 Roxicodone - PO Q6H PRN PAIN LEVEL 1-5 Oxycodone HCl 10 mg 09/11/19 09:07 09/13/19 12:24 Roxicodone - PO 10 mg Q6H PRN Administration PAIN LEVEL 6-10 Thiamine HCl 100 mg 09/05/19 10:00 09/13/19 09:32 Vitamin B1 - PO 100 mg DAILY RADHA Administration Valsartan 40 mg 09/14/19 10:00 Diovan - PO BID [facility] Imaging: - Head/c-spine CT showed oblique oriented fracture at junction of lateral mass and body of C2 with mild step-off, cortical disruption. Subtle nondisplaced fx similar location contralateral side. Neck supple, not rigid/tender. ASSESSMENT/PLAN: Mr. Sullivan is a 54 year old man with a past medical history of afib (not on eliquis), HTN, CHF (EF35%), asthma, and alcohol abuse who presents to the ED s/ p 2 falls in his bedroom while drunk. 1. Fall 2/2 acute alcohol intoxication with resultant bilateral C2 Fx on CT scan - Neurosurgers (Dr. Gardner ) consulted, no surgical intervention at this time - MRI c-spine still > MRI showing chronic fx at C2 without edema - continue C-collar (hard) for 4 weeks until he follows up in Dr. Gardner's office. - lidocaine patch - tylenol prn for pain - ibuprofen prn for pain 2- Acute pancreatitis most likely alcohol induced. No gall stones, and NL TG. Nl Calcium - CT scan showing some peripancreatic fat stranding, consistent with pancreatitis, no evidence of necrosis - tolerating low fat diet - oxy 5 or 10 depending on pain level - GI following, appreciate recommendations - Outpatient repeat imaging of pancreas if continued improvement, in 4 weeks 3- Back pain: - patient complaining of new/ worsening back pain, will obtain lumbar/ thoracic ct to r/o any nerve impingement or compression 4. Alcohol withdrawal- no evidence of wernicke's, mild tremor, good coordination without cerebellar signs. No asterixis. - resolved - PO thiamine daily - PO folate daily - PO multivitamin 5. CHF - Patient reported he does not have refills on his meds because he is uninsured and unable to follow up with his doctors. Will continue his old medications and discuss with social work about helping patient to apply for insurance - plan to have pt follow up at [facility] - patient does not wish to resume eliquis due to the cost. Further, will not d/c the patient on AC now as he is a fall risk with recent history of falls resulting in fractures. The patient is very high risk of bleed and so we will d/ c him on ASA 81 until he is no longer consuming alcohol regularly. 6. Afib - will hold AC for now pending results of lumbar thoracic CT - will consider resuming after result of above CT - continuing coreg for now 7. HTN: Cont coreg - holding amiodarine for now as patient felt in the past and currently it makes his breathing worse. Will also observe off medications for 1 day before discharging home with instructions and a referral to follow up with cardiology within 1 week of discharge. FEN -PO fluids - replete lytes PRN - low fat diet DVT px : SQ heparin. Dispo: advancing diet as tolerated. Outpatient repeat imaging of pancreas if continued improvement, in 4 weeks. Visit type - Emergency Visit Emergency Visit: Yes ED Registration Date: 09/04/19 Care time: The patient presented to the Emergency Department on the above date and was hospitalized for further evaluation of their emergent condition. - New Patient This patient is new to me today: No - Critical Care Critical Care patient: No - Discharge Referral Referred to [facility] Med P.C.: No ATTENDING PHYSICIAN STATEMENT I saw and evaluated the patient. I reviewed the resident's note and discussed the case with the resident. I agree with the resident's findings and plan as documented. SUBJECTIVE: OBJECTIVE: ASSESSMENT AND PLAN:
[2019-09-13] MEDS: LIDOCAINE PATCH REMOVAL MC SCH (21:04)
[2019-09-14] MEDS: HEPARIN NA (PORCINE) 5,000 UNITS/ML 1ML VIAL SQ SCH (05:15)
[2019-09-14] MEDS: IPRATROPIUM BR 0.02% 0.5 MG/2.5 ML VIAL.NEB. NEB SCH ×2 (07:10→11:40)
[2019-09-14 08:25] LABS: BASO % 1.5 % (0-2.0); EOS % 7.3 % (0-4.5); HEMATOCRIT 41.3 % (35.4-49); HEMOGLOBIN 13.8 GM/dL (11.7-16.9); MCH 31.5 pg (25.7-33.7); MCHC 33.5 g/dl (32.0-35.9); MEAN CELL VOLUME 93.8 fl (80-96); MEAN PLT VOLUME 8.3 fl (7.5-11.1); MONO % 15.8 % (3.8-10.2); NEUT % 46.4 % (42.8-82.8); PLATELET COUNT 268 K/MM3 (134-434); RDW 14.5 % (11.9-15.9); WHITE BLOOD COUNT 5.8 K/mm3 (4.0-10.0)
[2019-09-14] MEDS: oxyCODONE HCL 5 MG TABLET PO PRN (08:37)
[2019-09-14] MEDS ORDERED: PT OWN MED DRAWER 7, Y5N ONE (08:48)
[2019-09-14 08:50] LABS: BILIRUBIN,TOTAL 0.6 mg/dL (0.2-1); BLOOD UREA NITROGEN 12.7 mg/dL (7-18); CALCIUM 9.7 mg/dL (8.5-10.1); POTASSIUM 3.9 mmol/L (3.5-5.1); TOT PROT 7.4 g/dl (6.4-8.2)
[2019-09-14 08:55] VITALS: BP 127/82; PULSE 78; TEMP 98.8
[2019-09-14] MEDS: THIAMINE HCL 100 MG TABLET (FP) PO SCH (09:06)
[2019-09-14] MEDS: MULTIVITAMINS (DAILY MVI) TABLET (FP) PO SCH (09:06)
[2019-09-14] MEDS: FOLIC ACID 1 MG TABLET (FP) PO SCH (09:06)
[2019-09-14] MEDS: LIDOCAINE 5% TOPICAL PATCH TP SCH (09:06)
[2019-09-14] MEDS: CARVEDILOL 12.5 MG TABLET (FP) PO SCH (09:06)
--- NOTE | 2019-09-14 09:08 | PN ---
Teaching Attending Note Name of Resident: Janna Brannon ATTENDING PHYSICIAN STATEMENT I saw and evaluated the patient. I reviewed the resident's note and discussed the case with the resident. I agree with the resident's findings and plan as documented. SUBJECTIVE: Patient is comfortable with no acute distress, tolerating diet well. OBJECTIVE: Vital Signs Temperature 98.8 F 09/14/19 08:54 Pulse Rate 78 09/14/19 08:54 Respiratory Rate 16 09/14/19 08:54 Blood Pressure 127/82 09/14/19 08:54 O2 Sat by Pulse Oximetry (%) 96 09/08/19 09:00 GENERAL: The patient is awake, alert, and fully oriented, in no acute distress. HEAD: Normal with no signs of trauma. in a hard neck Collar. EYES: PERRL, extraocular movements intact, sclera anicteric, conjunctiva clear. ENT: Ears normal, oropharynx clear without exudates, moist mucous membranes. NECK: Trachea midline, full range of motion, supple. LUNGS: Breath sounds equal, clear to auscultation bilaterally, no wheezes, no crackles, no accessory muscle use. HEART: Regular rate and rhythm, S1, S2 without murmur, rub or gallop. ABDOMEN: Soft, no further abdominal tenderness , ND, +BS, no guarding, no rebound, no hepatosplenomegaly, no masses. EXTREMITIES: 2+ pulses, warm, well-perfused, no edema. NEUROLOGICAL: Cranial nerves II through XII grossly intact. Normal speech, gait is stable . PSYCH: Normal mood, normal affect. SKIN: Warm, dry, normal turgor, no rashes or lesions noted CBCD WBC 5.8 K/mm3 (4.0-10.0) 09/14/19 07:45 RBC 4.40 M/mm3 (4.00-5.60) 09/14/19 07:45 Hgb 13.8 GM/dL (11.7-16.9) 09/14/19 07:45 Hct 41.3 % (35.4-49) 09/14/19 07:45 MCV 93.8 fl (80-96) 09/14/19 07:45 MCHC 33.5 g/dl (32.0-35.9) 09/14/19 07:45 RDW 14.5 % (11.9-15.9) 09/14/19 07:45 Plt Count 268 K/MM3 (134-434) D 09/14/19 07:45 MPV 8.3 fl (7.5-11.1) 09/14/19 07:45 CMP Sodium 138 mmol/L (136-145) 09/14/19 07:45 Potassium 3.9 mmol/L (3.5-5.1) 09/14/19 07:45 Chloride 102 mmol/L (98-107) 09/14/19 07:45 Carbon Dioxide 28 mmol/L (21-32) 09/14/19 07:45 Anion Gap 8 MMOL/L (8-16) 09/14/19 07:45 BUN 12.7 mg/dL (7-18) 09/14/19 07:45 Creatinine 1.0 mg/dL (0.55-1.3) 09/14/19 07:45 Random Glucose 98 mg/dL (74-106) 09/14/19 07:45 Calcium 9.7 mg/dL (8.5-10.1) 09/14/19 07:45 Total Bilirubin 0.6 mg/dL (0.2-1) 09/14/19 07:45 AST 34 U/L (15-37) 09/14/19 07:45 ALT 61 U/L (13-61) 09/14/19 07:45 Alkaline Phosphatase 87 U/L (45-117) 09/14/19 07:45 Total Protein 7.4 g/dl (6.4-8.2) 09/14/19 07:45 Albumin 4.0 g/dl (3.4-5.0) 09/14/19 07:45 CARDIAC ENZYMES Creatine Kinase 134 U/L (26-308) 09/04/19 12:30 Troponin I < 0.02 ng/ml (0.00-0.05) 09/04/19 12:30 Current Medications Generic Name Dose Route Start Last Admin Trade Name Freq PRN Reason Stop Dose Admin Acetaminophen 650 mg 09/06/19 10:35 09/10/19 01:53 Tylenol - PO 650 mg Q6H PRN Administration PAIN LEVEL 1-5 Albuterol Sulfate 2 puff 09/05/19 08:04 09/13/19 09:33 Ventolin Hfa Inhaler - IH 2 puff Q6H PRN Administration SHORT OF BREATH/WHEEZING Aspirin 81 mg 09/14/19 10:00 Ecotrin - PO DAILY RADHA Budesonide/Formoterol Fumarate 1 puff 09/05/19 10:00 09/13/19 11:17 Symbicort 160/4.5mcg - IH 1 puff DAILY RADHA Administration Carvedilol 12.5 mg 09/05/19 10:00 09/13/19 21:04 Coreg - PO 12.5 mg BID RADHA Administration Folic Acid 1 mg 09/05/19 10:00 09/13/19 09:32 Folic Acid - PO 1 mg DAILY RADHA Administration Heparin Sodium (Porcine) 5,000 unit 09/04/19 22:00 09/14/19 05:15 Heparin - SQ 5,000 unit TID RADHA Administration Ipratropium [place] 1 amp 09/05/19 12:00 09/14/19 07:10 Atrovent 0.02% Nebulizer - NEB 1 amp RQID RADHA Administration Lidocaine 1 patch 09/04/19 17:45 09/13/19 09:30 Lidoderm Patch - TP 1 patch DAILY RADHA Administration Miscellaneous 1 each 09/04/19 22:00 09/13/19 21:04 Lidoderm Patch Removal MC 1 each DAILY@2200 RADHA Administration Multivitamins/Minerals/Vitamin C 1 tab 09/05/19 10:00 09/13/19 09:31 Tab-A-Vit - PO 1 tab DAILY RADHA Administration Ondansetron HCl 4 mg 09/10/19 16:36 09/11/19 23:28 Zofran Injection IVPB 4 mg Q8H PRN Administration NAUSEA AND/OR VOMITING Thiamine HCl 100 mg 09/05/19 10:00 09/13/19 09:32 Vitamin B1 - PO 100 mg DAILY RADHA Administration Valsartan 40 mg 09/14/19 10:00 Diovan - PO BID [facility] Home Medications Medication Instructions Recorded Clonazepam [Klonopin] 0.5 mg PO DAILY 09/05/19 Escitalopram Oxalate [Lexapro -] 20 mg PO DAILY 09/05/19 Gabapentin [Neurontin] 300 mg PO DAILY 09/05/19 ASSESSMENT AND PLAN: Patient is a 54 y/o man with h/o P AFib/A flutter, non ischemic cardiomyopathy, PFO, HTN, ETOH abuse, Asthma, who presented with a fall while intoxicated. he was found to have C2 Fx and ETOH Withdrawal #S/p fall with B/l C2 Fx on CT scan : Cont hard collar as per neurosurgeon , patient needs to wear the hard collar for one month. # Acute alcoholic pancreatitis . advance diet as tolerated, low fat diet. oxycodone for pain, repeat imaging of pancreas in 4 weeks as outpatient # H/o chronic Systolic heart failure: stable cont coreg # H/o AFib/A flutter. now in sinus. Patient cannot be on Eliquis or any other AC since patient is s/p C2 fx s/p fall and presented with elevated alcohol level. patient is not compliant with Eliquis or coumadin at this time. Risk is worse > than the benefit, since drinks extensively and had a fracture of C2. # ETOH WD: completed librium protocol . Cont folate, thiamine , and MVT. # HTN: Cont coreg , patient does not want to take Entresto since patient stated that it is so expensive an does not have any insurance. will get social service involve. DVT px: SQ heparin. patient tolerated diet will discharge the patient home. will discharge on ASA 81mg EC Valsartan 40mg po bid in place of Entresto coreg 12.5mg po bid no eliquis/coumadin sine patient has a fall with fx and presented with alcohol level of 372.
[2019-09-14] MEDS: BUDESONIDE/FORMETEROL FUMARATE 160/4.5 mcg INHALER IH SCH (09:11)
[2019-09-14] MEDS ORDERED: ASPIRIN COATED 81 MG TABLET.EC PO SCH (10:00)
[2019-09-14] MEDS ORDERED: ASPIRIN 325 MG ENTERIC COATED TABLET (FP) PO SCH (10:00)
[2019-09-14] MEDS ORDERED: VALSARTAN 40 MG TABLET (FP) PO SCH (10:00)
[2019-09-14] MEDS ORDERED: POLYETHYLENE GLYCOL 3350 119 GM BTL PO ONE (11:06)
[2019-09-14] MEDS ORDERED: GLYCERIN 1 RECTAL SUPPOSITORY, ADULT RC ONE (11:06)
--- NOTE | 2019-09-14 13:37 | DS ---
Physical Exam: SUBJECTIVE: Patient seen and examined at the bedside, no acute events overnight. Patient reports he is feeling well. OBJECTIVE: Vital Signs Period Temp Pulse Resp BP Sys/Garg Pulse Ox Last 24 Hr 97.6 F-98.8 F 62-78 16-20 115-135/67-89 PHYSICAL EXAM GENERAL: The patient is awake, alert, and fully oriented, in no acute distress. HEAD: Normal with no signs of trauma. EYES: PERRL, extraocular movements intact, sclera anicteric, conjunctiva clear. No ptosis. ENT: Ears normal, nares patent, oropharynx clear without exudates, moist mucous membranes. NECK: C-collar in place LUNGS: Breath sounds equal, clear to auscultation bilaterally, no wheezes, some faint scattered wheezes in the inferior lung prater, no accessory muscle use. HEART: Regular rate and rhythm, S1, S2 without murmur, rub or gallop, no JVD ABDOMEN: Soft, obese, non- tender to palpation, nondistended, normoactive bowel sounds EXTREMITIES: 2+ pulses, warm, well-perfused, no edema, NEUROLOGICAL: Cranial nerves II through XII grossly intact. Normal speech, gait not observed. PSYCH: Normal mood, normal affect. SKIN: Warm, dry, normal turgor, no rashes or lesions noted LABS Laboratory Results - last 24 hr 09/14/19 09/14/19 07:45 07:45 WBC 5.8 RBC 4.40 Hgb 13.8 Hct 41.3 MCV 93.8 MCH 31.5 MCHC 33.5 RDW 14.5 Plt Count 268 D MPV 8.3 Absolute Neuts (auto) 2.7 Neutrophils % 46.4 Lymphocytes % 29.0 D Monocytes % 15.8 H Eosinophils % 7.3 H Basophils % 1.5 Nucleated RBC % 0 Sodium 138 Potassium 3.9 Chloride 102 Carbon Dioxide 28 Anion Gap 8 BUN 12.7 Creatinine 1.0 Est GFR (CKD-EPI)AfAm 97.08 Est GFR (CKD-EPI)NonAf 83.76 Random Glucose 98 Calcium 9.7 Total Bilirubin 0.6 AST 34 ALT 61 Alkaline Phosphatase 87 Total Protein 7.4 Albumin 4.0 Imaging: CT Cervical spine w/o con: Obliquely oriented fracture at the junction of the lateral mass of C2, body of C2 with mild step- off, cortical disruption. Subtle nondisplaced fracture is seen in the similar location on contralateral side. Fractures of indeterminate age. MRI cervical spine: C2 fractures appear to be chronic in nature without bone marrow edema. Normal signal intensity of the spinal cord. No evidence of acute compression deformities, or bone marrow edema. head c/t non-con: No evidence of acute intracranial hemorrhage, edema, midline shift, mass effect, or skull fracture. There is no CT evidence of acute territorial infarction. RUQ US: Hepatomegaly with mild fatty infiltration versus hepatocellular disease. Please correlate with liver enzymes. Over distended gallbladder without intraluminal stones, wall thickening or pericholecystic free fluid. Correlate clinically for further evaluation and follow-up. Abd CT: There appears to be minimal to mild peripancreatic soft tissue stranding in the region of the tail - ? acute pancreatitis. No pseudocyst is identified. Direct comparison with prior CT/MRI studies is suggested if available from a different facility. Borderline splenic size. HOSPITAL COURSE: Date of Admission:09/04/19 ASSESSMENT/PLAN: Mr. Sullivan is a 54 year old man with a past medical history of afib (not on eliquis), HTN, CHF (EF35%), asthma, and alcohol abuse who presents to the ED s/ p 2 falls in his bedroom while drunk. Patient was found to have bilateral C2fx on imaging. Evaluated by neurosurgery who determined there was no surgical intervention at this time but that the patient needed to wear a hard c-collar for 4 weeks until he could follow up in Dr. Gardner's office in 4 weeks. While hospitalized the patient also developed alcohol induced pancreatitis. There was no evidence of galstones, the patient was continued on IVF and kept NPO until pain resolved. Dr. Taylor was consulted and recommended outpatient imaging of pancreas in 4 weeks. After 10 days of hospitalization the patient's clinical condition improved and he was discharged home with instructions to follow up as an outpatient with his PCP, neurosurgeon, and GI. Patient d/c'd on tylenol for pain, PO thiamine daily, and a multivitamin. Additionally, patient reported he does not have refills on his home meds because he is uninsured and unable to follow up with his doctors. Plan to have pt follow up at [facility]. patient does not wish to resume eliquis due to the cost. Further, will not d/c the patient on AC now as he is a fall risk with recent history of falls resulting in fractures. The patient is very high risk of bleed and so we will d/ c him on ASA 81 until he is no longer consuming alcohol regularly. Continued patient on his home coreg. medication changes (patient instructions): Please STOP taking Eliquis. Please discuss with your PCP when to resume as you are increased risk for bleeding due to your drinking and frequent falls. Please know that because you are not taking this medication you are at increased risk of making blood clots. We have determined that the risk of you falling and bleeding however is greater than the risk of clots. Please discuss Detox and rehabilitation with your PCP so that you can resume anticoagulation Please STOP taking Entresto. Please resume your other home medications as prescribed. We have started you on some new medications Please take Carvedilol (Coreg) 12.5mg TWICE a Day Please take Valsartan (Diovan) 40mg bid a Day Thiamine 100mg ONCE a Day Folic Acid 1mg ONCE a Day Date of Discharge: 09/14/19 Minutes to complete discharge: 40 Discharge Summary Problems reviewed: Yes Reason For Visit: Alcohol intoxication, Fracture of second cervical Condition: Improved - Instructions Diet, Activity, Other Instructions: You came in for a fall while you were intoxicated with alcohol . We imaged your head and it showed nothing of immediately wrong. We imaged your neck and found that you have a C2 spine fracture. Neurosurgeon Dr. Cullen evaluated you and you were found not to need surgery. Neurosurgry placed you on a Neck Collar that you need to wear to at least 4-6 weeks. We also treated you for alcohol withdrawal. Please STOP drinking alcohol. We imaged your abdomen and you were found to have acute inflammation of your pancreas. We treated you with a short course of antibiotics, fluids and diet restriction. Please follow up in 4 weeks for a repeat imaging of your pancreas. Outpatient repeat imaging of pancreas if continued improvement, in 4 weeks. Please STOP taking Eliquis. Please discuss with your PCP when to resume as you are increased risk for bleeding due to your drinking and frequent falls. Please know that because you are not taking this medication you are at increased risk of making blood clots. We have determined that the risk of you falling and bleeding however is greater than the risk of clots. Please discuss Detox and rehabilitation with your PCP so that you can resume anticoagulation Please STOP taking Entresto. Please resume your other home medications as prescribed. We have started you on some new medications Please take Carvedilol (Coreg) 12.5mg TWICE a Day Please take Valsartan (Diovan) 40mg bid a Day Thiamine 100mg ONCE a Day Folic Acid 1mg ONCE a Day Please follow up at [facility] to receive your prescription medications. Please wear your hard collar for 4-6 weeks Please follow up with your Neurosurgeon, Dr. Mi, within 1 month. Please follow up with your Primary Care Physician within 1 week. If you do not have one please make an appointment with Dr. Díaz Please follow up with your Senior Environmental Technician, Dr. Taylor, within 1 week. Please discuss the re-imaging of your pancreas at this time. Please follow up with Dr. Urena within 1 week to discuss Drug and Alcohol Rehabilitation Please return to the ED if you are experiencing numbness/tingling, weakness in your extremities, chest pain, abdominal pain that wont go away, difficulty breathing or any concerning symptoms. Referrals: Brady Díaz MD [Staff Physician] - 1 Week Deandre Mi MD, FAANS [Staff Physician] - 1 Week Gary Taylor DO [Staff Physician] - 1 Week Wil Gallo MD [Staff Physician] - 1 Week Karen Urena DO [Staff Physician] - 1 Week Disposition: HOME - Home Medications Comprehensive Discharge Medication List: Ambulatory Orders Albuterol Sulfate Inhaler - [Ventolin HFA Inhaler -] 2 puff IH Q6H PRN inhaler 09/14/19 Aspirin Coated [Ecotrin -] 81 mg PO DAILY tablet.ec 09/14/19 Budesonide/Formeterol Fumarate [SYMBICORT 160/4.5mcg -] 1 puff IH DAILY inhaler 09/14/19 Carvedilol [Coreg -] 12.5 mg PO BID #60 tablet 09/14/19 Docusate Sodium [Colace -] 200 mg PO HS #20 capsule 09/14/19 Ipratropium 0.02% Nebulizer [Atrovent 0.02% Nebulizer -] 1 amp NEB RQID #25 amp 09/14/19 Multivitamins [Multivit ([facility] Formulary)] 1 tab PO DAILY tab 09/14/19 Thiamine HCl [Vitamin B1 -] 100 mg PO DAILY tablet 09/14/19 Valsartan [Diovan] 40 mg PO BID #60 tablet 09/14/19 This patient is new to me today: No Emergency Visit: Yes ED Registration Date: 09/04/19 Care time: The patient presented to the Emergency Department on the above date and was hospitalized for further evaluation of their emergent condition. Critical Care patient: No - Discharge Referral Referred to [facility] Med P.C.: No ATTENDING PHYSICIAN STATEMENT I saw and evaluated the patient. I reviewed the resident's note and discussed the case with the resident. I agree with the resident's findings and plan as documented. SUBJECTIVE: OBJECTIVE: ASSESSMENT AND PLAN:
== END 2019-09-14 12:34 | disposition home or self-care (01) | DRG 347 ==
LOC: JER 11:18 → JERBED 15:04 → J6S 20:18
PROVIDERS: ADMIT Internal Medicine; ATTEND Internal Medicine
PROC: HZ2ZZZZ Detoxification Services for Substance Abuse Treatment (ICD-10-PCS; principal; 2019-09-04)
DX: S12.100A Unspecified displaced fracture of second cervical vertebra, initial encounter for closed fracture (principal); K85.20 Alcohol induced acute pancreatitis without necrosis or infection; F10.229 Alcohol dependence with intoxication, unspecified; I10 Essential (primary) hypertension; I48.91 Unspecified atrial fibrillation; J45.909 Unspecified asthma, uncomplicated; I42.8 Other cardiomyopathies; I11.0 Hypertensive heart disease with heart failure; I50.22 Chronic systolic (congestive) heart failure; W18.39XA Other fall on same level, initial encounter; Y92.89 Other specified places as the place of occurrence of the external cause; R10.9 Unspecified abdominal pain; I48.92 Unspecified atrial flutter; F10.239 Alcohol dependence with withdrawal, unspecified; Y90.8 Blood alcohol level of 240 mg/100 ml or more
CPT/HCPCS: 36415; 70450-TC; 71045-TC-FY; 71046-TC-FY; 72100-TC-FY; 72125-TC; 72128-TC; 72131-TC; 72141-TC; 74177-TC; 76705-TC; 80048; 80053; 80307; 82150; 82550; 83690; 83735; 83880; 84100; 84478; 84484; 85025; 85027; 85610; 93005; 93010; 94640; 99283-25; J0131; J1644; J7030; Q2036

== ENCOUNTER 2019-09-25 13:14 | Emergency (ER) | payer OTHER ==
[2019-09-25 13:25] VITALS: BMI 29.2
--- NOTE | 2019-09-25 13:26 | PDOC ---
Rapid Medical Evaluation Chief Complaint: Chest Pain Time Seen by Provider: 09/25/19 13:21 Medical Evaluation: Allergies Allergy/AdvReac Type Severity Reaction Status Date / Time No Known Allergies Allergy Verified 09/13/14 10:16 09/25/19 13:21 I have performed a brief in-person evaluation of this patient. The patient presents with a chief complaint of: H/o Afib, CHF, asthma, alcohol abuse, c/o shortness of breath and chest tightness since midnight last night. Pt used neb which did not help. (+)h/o pancreatitis but CP does not radiate to the back (feels like tightness) I have ordered the following: EKG, CXR, labs, cardiac enzymes, lipase The patient will proceed to the ED for further evaluation. 09/25/19 13:25 Discharge Disposition - Diagnosis Chest tightness - Referrals - Patient Instructions - Post Discharge Activity
--- NOTE | 2019-09-25 14:14 | PDOC ---
Attending Attestation - Resident Resident Name: BishopSuhas - HPI HPI: 09/25/19 17:49 Pt presents to the ED complaining of >12 hours of chest pressure and nausea after recent ETOH use. Patient has a history of chronic ETOH use, chronic pancreatitis, CHF, HTN. Pain relieved with pepcid. Denies shortness of breath , vomiting or diaphoresis. Denies abdominal pain. 09/25/19 18:03 - Physicial Exam PE: 09/25/19 18:02 Agree with resident exam. Patient is alert and oriented x 3 and in no acute distress. CV: rrr no m/r/g. Pulm: cta b/l. abdomen: soft, non tender, non distended without guarding or rebound. ext: no edema. - Medical Decision Making 09/25/19 18:03 Pt presents to the ED complaining of atypical chest pain that resolved with pepcid. EKG shows no evidence of ischemia. LAbs including troponin are negative. Heart score is 3. Will discharge home with instructions to follow up with his PCP as an outpatient. 09/25/19 18:03
[2019-09-25 14:35] LABS: BASO % 1.5 % (0-2.0); EOS % 4.2 % (0-4.5); HEMOGLOBIN 15.1 GM/dL (11.7-16.9); LYMPH % 21.4 % (8-40); MCH 30.9 pg (25.7-33.7); MCHC 33.4 g/dl (32.0-35.9); MEAN CELL VOLUME 92.4 fl (80-96); MEAN PLT VOLUME 8.2 fl (7.5-11.1); MONO % 11.3 % (3.8-10.2); NEUT % 61.6 % (42.8-82.8); PLATELET COUNT 382 K/MM3 (134-434); RBC 4.87 M/mm3 (4.00-5.60); RDW 13.7 % (11.9-15.9); WHITE BLOOD COUNT 6.6 K/mm3 (4.0-10.0)
[2019-09-25] MEDS ORDERED: FAMOTIDINE 20 MG TABLET PO ONE (14:44)
[2019-09-25] MEDS ORDERED: MAG HYDROX/AL HYDROX/SIMETH -MYLANTA- ORAL SUSPENSION PO ONE (14:45)
[2019-09-25] MEDS ORDERED: MAG HYDROX/AL HYDROX/SIMETH 30 ML UNIT-DOSE CUP ONE (15:06)
[2019-09-25] MEDS ORDERED: FAMOTIDINE 20 MG/50 ML IVPB 20 MG/50 ML MG IVPB ONE ×2 (15:06)
[2019-09-25 15:15] LABS: ALBUMIN 4.1 g/dl (3.4-5.0); ALK PHOS 67 U/L (45-117); ANION GAP 11 MMOL/L (8-16); BILIRUBIN,TOTAL 0.3 mg/dL (0.2-1); BLOOD UREA NITROGEN 5.3 mg/dL (7-18); CALCIUM 9.2 mg/dL (8.5-10.1); CHLORIDE 95 mmol/L (98-107); CO2 25 mmol/L (21-32); CREATININE 0.8 mg/dL (0.55-1.3); GLUCOSE,RANDOM 117 mg/dL (74-106); PHOSPHOROUS 3.4 mg/dL (2.5-4.9); POTASSIUM 4.6 mmol/L (3.5-5.1); SGOT/AST 25 U/L (15-37); SGPT/ALT 40 U/L (13-61); SODIUM 132 mmol/L (136-145); TOT PROT 7.5 g/dl (6.4-8.2)
--- NOTE | 2019-09-25 16:19 | PDOC ---
History of Present Illness - General Chief Complaint: Chest Pain Stated Complaint: CHEST PAIN, DIFF BREATHING Time Seen by Provider: 09/25/19 13:21 History Source: Patient Exam Limitations: No Limitations - History of Present Illness Initial Comments: HPI: 54 y/o male presenting to [facility] complaining of epigastric pain, chest tightness, and upper back pain. Symptoms started this morning after drinking two beers. Further reports he drank >10 beers last evening after three weeks of sobriety. He was seen at this facility after sustaining a C2 fracture while intoxicated. Developed pancreatitis during course of admission. Expressed anxiety about his relapse and questioned if the symptoms are related to EtOH withdrawal. He attempted relief with his home inhaler without any relief. Medical Hx: - HTN - CHF - Asthma - EtOH Abuse - Former smoker - H/o pancreatitis - H/o of A-fib w/ cardioversion Review of Systems: In addition to that documented in the HPI above, the additional ROS was obtained : Constitutional- Denies fevers or chills Head- Denies vision changes ENMT- Denies sore throat CV- Denies palpitations Resp- Per HPI. Denies coughing. GI- Endorses nausea but denies vomiting - Denies painful urination MSK- Denies recent trauma (since last admission) Skin- Denies new rashes Neuro- Denies new numbness or tingling or weakness Endocrine- Denies polyuria Heme- Denies bleeding or bruising Physical Examination: Constitutional- Well-developed, well-nourished adult male in no acute distress or obvious discomfort. Found semi-fowlers on hospital bed. Head- Normocephalic. No obvious external signs of trauma. Cardiovascular / Chest- Regular rate and regular rhythm. No murmur, rubs, clicks , or gallops. Peripheral pulses- radial pulses full. Respiratory- Breathing unlabored. Equal chest rise and fall. Clear to auscultation bilaterally. No stridor, no wheezing, no rhonchi. Gastrointestinal- abdomen is mildly tender in epigastric region without grimace , rebound, or guarding. Globally, abdomen is soft and nondistended. Neuro- Alert and oriented x4. Moving all four extremities spontaneously. Skin- Warm, dry, and intact. Psych- Affect- appropriate. Mood- normal. Speech was non-labored, non- pressured. MDM: *Reviewed vital signs, nursing notes, and prior visit documentation (if available). 54 y/o male presenting with epigastric pain, chest tightness, and anxiety which started after EtOH abuse relapse. Afebrile. Vitals unremarkable for hypotension or tachycardia. Physical exam as described above. No acute abdominal signs. CXR unremarkable for acute findings. EKG unremarkable for ischemic findings. Troponin not elevated. Lipase normal. Low suspicion for chronic pancreatitis, rather suspect likely alcoholic gastritis. Pt reports symptoms improved with Pepcid and Maalox. Discussed labs and xrays results with pt . Answered all questions. Provided return precautions. Pt expressed verbal understanding and agreement with plan to discharge home with outpatient follow up. Provided copies of todays results. Encouraged further EtOH abstinence with assistance. Suhas Woodard M.D., PGY2 Emergency Medicine Resident Past History - Past Medical History Allergies/Adverse Reactions: Allergies Allergy/AdvReac Type Severity Reaction Status Date / Time No Known Allergies Allergy Verified 09/25/19 13:25 Home Medications: Ambulatory Orders Albuterol Sulfate Inhaler - [Ventolin HFA Inhaler -] 2 puff IH Q6H PRN inhaler 09/14/19 Aspirin Coated [Ecotrin -] 81 mg PO DAILY tablet.ec 09/14/19 Budesonide/Formeterol Fumarate [SYMBICORT 160/4.5mcg -] 1 puff IH DAILY inhaler 09/14/19 Carvedilol [Coreg -] 12.5 mg PO BID #60 tablet 09/14/19 Docusate Sodium [Colace -] 200 mg PO HS #20 capsule 09/14/19 Ipratropium 0.02% Nebulizer [Atrovent 0.02% Nebulizer -] 1 amp NEB RQID #25 amp 09/14/19 Multivitamins [Multivit ([facility] Formulary)] 1 tab PO DAILY tab 09/14/19 Thiamine HCl [Vitamin B1 -] 100 mg PO DAILY tablet 09/14/19 Valsartan [Diovan] 40 mg PO BID #60 tablet 09/14/19 Anemia: No Asthma: Yes Cancer: No Cardiac Disorders: Yes (TAA. 1 EPISODE ASTHMA RELATED A-FIB 5 YRS AGO) CVA: No COPD: No CHF: Yes Dementia: No Diabetes: No GI Disorders: No Disorders: No HTN: Yes Hypercholesterolemia: No Liver Disease: No Seizures: No Thyroid Disease: No Other medical history: C2 fracture - Surgical History Abdominal Surgery: No Appendectomy: No Cardiac Surgery: No Cholecystectomy: No Lung Surgery: No Neurologic Surgery: No Orthopedic Surgery: No - Psycho Social/Smoking Cessation Hx Smoking History: Never smoked Have you smoked in the past 12 months: No Number of Cigarettes Smoked Daily: 3 Information on smoking cessation initiated: No 'Breaking Loose' booklet given: 09/13/14 Hx Alcohol Use: Yes Drug/Substance Use Hx: No Substance Use Type: Alcohol Hx Substance Use Treatment: No *Physical Exam - Vital Signs Last Vital Signs Temp Pulse Resp BP Pulse Ox 97.4 F L 97 H 20 135/94 97 09/25/19 15:58 09/25/19 15:58 09/25/19 13:21 09/25/19 15:58 09/25/19 15:58 ED Treatment Course - LABORATORY CBC & Chemistry Diagram: 09/25/19 14:12 09/25/19 14:12 - ADDITIONAL ORDERS Additional order review: Laboratory Results 09/25/19 09/25/19 09/25/19 14:12 14:12 14:12 Sodium 132 L Potassium 4.6 Chloride 95 L Carbon Dioxide 25 Anion Gap 11 BUN 5.3 L Creatinine 0.8 Est GFR (CKD-EPI)AfAm 115.74 Est GFR (CKD-EPI)NonAf 99.86 Random Glucose 117 H Calcium 9.2 Phosphorus 3.4 Magnesium 2.0 Total Bilirubin 0.3 AST 25 ALT 40 Alkaline Phosphatase 67 Creatine Kinase 94 Troponin I < 0.02 B-Natriuretic Peptide 54.9 Total Protein 7.5 Albumin 4.1 Lipase 271 09/25/19 14:12 RBC 4.87 MCV 92.4 MCHC 33.4 RDW 13.7 MPV 8.2 Neutrophils % 61.6 D Lymphocytes % 21.4 D Monocytes % 11.3 H Eosinophils % 4.2 Basophils % 1.5 - RADIOLOGY Radiology Studies Ordered: Category Date Time Status CHEST PA & LAT [RAD] Stat Radiology 09/25/19 14:27 Ordered - Medications Given in the ED: ED Medications Discontinued Medications Generic Name Dose Route Start Last Admin Trade Name Freq PRN Reason Stop Dose Admin Al Hydroxide/Mg Hydroxide 30 ml 09/25/19 14:45 09/25/19 15:19 Mylanta Suspension - PO 09/25/19 14:46 30 ml ONCE ONE Administration Famotidine 20 mg 10/25/19 14:44 09/25/19 15:19 Pepcid - PO 09/25/19 14:45 Not Given ONCE ONE Famotidine/Sodium Chloride 20 mg in 50 mls @ 100 mls/hr 09/25/19 15:06 15:19 Pepcid 20 Mg Premixed Ivpb - IVPB 09/25/19 15:35 100 mls/hr ONCE ONE Administration Discharge - Discharge Information Problems reviewed: Yes Clinical Impression/Diagnosis: Chest tightness, Epigastric pain Condition: Good Disposition: HOME - Admission No - Follow up/Referral Referrals: Faustino Leach DO [Primary Care Provider] - - Patient Discharge Instructions Patient Printed Discharge Instructions: DI for Abdominal Pain-Adult, DI for Atypical Chest Pain Additional Instructions: You were seen today for chest tightness and upper abdominal pain since drinking this morning. Your EKG, blood work, and chest xray were normal today. Your symptoms may be related to anxiety. It could also be related to stomach irritation from the alcohol. You can try taking over the counter Zantac or Prilosec. Take as directed on the package insert. Do not take more than the recommended dose. Avoid taking NSAIDS, such as Advil, Motrin, or Ibuprofen. These may further irritate your stomach. Follow up with your primary care doctor within the next 2-3 days. You will need to call to make an appointment. The number is included in this packet. A copy of todays results are attached to this packet. Take it to the appointment so your doctor can review them. You need to stop drinking! You should consider talking to your primary care doctor about strategies to help. Go to the nearest emergency department if your condition worsens or you feel like you need additional emergency evaluation. Print Language: CAMBODIAN - Post Discharge Activity
[2019-09-25 18:20] VITALS: BP 136/78; PULSE 89; TEMP 98.5
--- NOTE | 2019-09-26 14:45 | EKG ---
Test Reason : Blood Pressure : / mmHG Vent. Rate : 097 BPM Atrial Rate : 097 BPM P-R Int : 188 ms QRS Dur : 084 ms QT Int : 352 ms P-R-T Axes : 100 003 057 degrees QTc Int : 447 ms POOR DATA QUALITY, INTERPRETATION MAY BE ADVERSELY AFFECTED NORMAL SINUS RHYTHM POSSIBLE INFERIOR INFARCT (CITED ON OR BEFORE 21-SEP-2018) ABNORMAL ECG WHEN COMPARED WITH ECG OF 04-SEP-2019 11:55, QUESTIONABLE CHANGE IN INITIAL FORCES OF INFERIOR LEADS Confirmed by RAJINDER GARCIA, SILVIANO ([id number]) on 09/26/2019 2:45:45 PM Referred By: Confirmed By:SILVIANO CALVILLO MD
--- NOTE | 2019-09-26 14:52 | EKG ---
Test Reason : Blood Pressure : / mmHG Vent. Rate : 093 BPM Atrial Rate : 093 BPM P-R Int : 150 ms QRS Dur : 088 ms QT Int : 372 ms P-R-T Axes : 023 -06 054 degrees QTc Int : 462 ms POOR DATA QUALITY, INTERPRETATION MAY BE ADVERSELY AFFECTED NORMAL SINUS RHYTHM POSSIBLE INFERIOR INFARCT (CITED ON OR BEFORE 21-SEP-2018) ABNORMAL ECG WHEN COMPARED WITH ECG OF 25-SEP-2019 13:11, NO SIGNIFICANT CHANGE WAS FOUND Confirmed by RAJINDER GARCIA, SILVIANO ([id number]) on 09/26/2019 2:52:30 PM Referred By: Confirmed By:SILVIANO CALVILLO MD
== END 2019-09-25 18:21 | disposition home or self-care (01) ==
LOC: JER 13:14
PROC: 3E033GC Introduction of Other Therapeutic Substance into Peripheral Vein, Percutaneous Approach (ICD-10-PCS; principal; 2019-09-25)
DX: R07.89 Other chest pain (principal); R10.13 Epigastric pain; I11.0 Hypertensive heart disease with heart failure; I50.9 Heart failure, unspecified; K86.9 Disease of pancreas, unspecified; J45.909 Unspecified asthma, uncomplicated; F10.10 Alcohol abuse, uncomplicated; Z86.79 Personal history of other diseases of the circulatory system; Z87.891 Personal history of nicotine dependence
CPT/HCPCS: 36415; 71045-TC-FY; 80053; 82550; 83690; 83735; 83880; 84100; 84484; 85025; 93005; 93010; 96365; 99283-25

== ENCOUNTER 2019-09-26 13:44 | Inpatient (IN) | payer OTHER ==
[2019-09-26 17:39] VITALS: BMI 29.7
--- NOTE | 2019-09-26 20:32 | HP ---
CIWA Score Nausea/Vomitin Muscle Tremors: 3 Anxiety: 3 Agitation: 2 Paroxysmal Sweats: 2 Orientation: 0-Oriented Tacttile Disturbances: 2-Mild Itch/Numbness/Burn Auditory Disturbances: 2-Mild Harshness/Frighten Visual Disturbances: 2-Mild Sensitivity Headache: 2-Mild CIWA-Ar Total Score: 20 - Admission Criteria [facility]AS[facility] Guidelines: Admission for Medically Managed Detox: Requires at least one of the followin. CIWA greater than 12 2. Seizures within the past 24 hours 3. Delirium tremens within the past 24 hours 4. Hallucinations within the past 24 hours 5. Acute intervention needed for co occurring medical disorder 6. Acute intervention needed for co occurring psychiatric disorder 7. Severe withdrawal that cannot be handled at a lower level of care (continued vomiting, continued diarrhea, abnormal vital signs) requiring intravenous medication and/or fluids 8. Admitting History and Physical - Past Medical History Cardiovascular: Yes: AFIB, CHF, HTN Pulmonary: Yes: Asthma, Bronchitis - Past Surgical History Past Surgical History: Yes: Laminectomy (cervical) - Smoking History Smoking history: Never smoked Have you smoked in the past 12 months: No Aproximately how many cigarettes per day: 3 - Alcohol/Substance Use Hx Alcohol Use: Yes - Social History ADL: Independent Occupation: [employer] History of Recent Travel: No Admission ROS S - HPI Chief Complaint: DEPENDENT ON ETOH ONLY Allergies/Adverse Reactions: Allergies Allergy/AdvReac Type Severity Reaction Status Date / Time No Known Allergies Allergy Verified 09/26/19 17:26 History of Present Illness: THE PT. IS REQUESTING ADMISSION TO THE DETOX UNIT AND CAME FOR MEDICAL CLEARANCE Exam Limitations: Physical Impairment - Ebola screening Have you traveled outside of the country in the last 21 days: No (N) Have you had contact with anyone from an Ebola affected area: No Have you been sick,other than usual withdrawal symptoms: No Do you have a fever: No - Review of Systems Constitutional: See HPI, Malaise, Weakness EENT: reports: See HPI Respiratory: reports: See HPI, Shortness of Breath Cardiac: reports: See HPI GI: reports: See HPI, Diarrhea, Nausea, Abdominal cramping : reports: No Symptoms Reported, See HPI Musculoskeletal: reports: See HPI, Muscle Pain, Muscle Weakness, Neck Pain, Joint Stiffness Integumentary: reports: See HPI, Sweating Neuro: reports: See HPI, Headache, Tremors, Weakness Endocrine: reports: See HPI Hematology: reports: See HPI Psychiatric: reports: Judgement Intact, Orientated x3, Anxious Patient History - Patient Medical History Hx Anemia: No Hx Asthma: Yes Hx Chronic Obstructive Pulmonary Disease (COPD): No Hx Cancer: No Hx Cardiac Disorders: Yes (TAA. 1 EPISODE ASTHMA RELATED A-FIB 5 YRS AGO) Hx Congestive Heart Failure: Yes Hx Hypertension: Yes Hx Hypercholesterolemia: No Hx Pacemaker: No HX Cerebrovascular Accident: No Hx Seizures: No Hx Dementia: No Hx Diabetes: No Hx Gastrointestinal Disorders: No Hx Liver Disease: No Hx Genitourinary Disorders: No Hx Renal Disease (ESRD): No Hx Thyroid Disease: No Hx Human Immunodeficiency Virus (HIV): No Hx Hepatitis C: No Hx Depression: No Other Medical History: H/O: FELL DOWN 3 WKS AGO AND FRACTURED C2 WITH HAIRLINE FRACTURE - Patient Surgical History Past Surgical History: Yes Hx Neurologic Surgery: No Hx Cataract Extraction: No Hx Cardiac Surgery: No Hx Lung Surgery: No Hx Breast Surgery: No Hx Breast Biopsy: No Hx Abdominal Surgery: No Hx Appendectomy: No Hx Cholecystectomy: No Hx Genitourinary Surgery: No Hx Section: No Hx Orthopedic Surgery: Yes (SURGERY ON C6-C7 25 YRS. AGO) Hx Hysterectomy: No Anesthesia Reaction: No - Smoking Cessation Smoking history: Former smoker Have you smoked in the past 12 months: No If you are a former smoker, when did you quit?: 5 YRS. AGO Hx Chewing Tobacco Use: No Initiated information on smoking cessation: No 'Breaking Loose' booklet given: 09/26/19 - Substance & Tx. History Hx Alcohol Use: Yes Hx Substance Use: No Substance Use Type: Alcohol Hx Substance Use Treatment: Yes - Substances abused Alcohol Substance route: Oral Frequency: Daily Amount used: 3 of 6 packs of beer Age of first use: 16 Date of last use: 09/26/19 Admission Physical Exam [facility] - Vital Signs Vital Signs: Vital Signs - 24 hr 09/26/19 17:34 Temperature 98.0 F Pulse Rate 98 H Respiratory 16 Rate Blood Pressure 171/112 H - Physical General Appearance: Yes: No Apparent Distress, Nourished, Appropriately Dressed , Tremorous, Sweating, Anxious HEENTM: Yes: Hearing grossly Normal, Normocephalic, Normal Voice, MILLIE, Pharynx Normal Respiratory: Yes: Chest Non-Tender, No Respiratory Distress, No Accessory Muscle Use, Rhonchi, Wheezing Neck: Yes: No masses,lesions,Nodules, Trachea in good position Breast: Yes: Breast Exam Deferred, Axillae without masses Cardiology: Yes: Regular Rhythm, S1, S2, Tachycardia Back: Yes: Normal Inspection, Decreased Range of Motion Musculoskeletal: Yes: full range of Motion, Gait Steady, Pelvis Stable, Back pain, Muscle Pain, Muscle weakness Extremities: Yes: Normal Capillary Refill, Normal Range of Motion, Non-Tender, Tremors 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: 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, Fully Oriented, Alert, Motor Strength 5/5, Normal Response Integumentary: Yes: Normal Color, Warm, Moist Lymphatic: Yes: Within Normal Limits - Diagnostic (1) EtOH dependence Current Visit: Yes Status: Chronic Qualifiers: Substance use status: other alcohol-induced disorder Qualified Code(s): F10.288 - Alcohol dependence with other alcohol-induced disorder (2) Back pain Current Visit: No Status: Chronic Qualifiers: Back pain location: low back pain Chronicity: acute Back pain laterality : midline Sciatica presence: without sciatica Qualified Code(s): M54.5 - Low back pain (3) Bronchial asthma Current Visit: No Status: Chronic Qualifiers: Asthma severity: unspecified severity Asthma persistence: unspecified Asthma complication type: unspecified Qualified Code(s): J45.909 - Unspecified asthma, uncomplicated (4) HTN (hypertension) Current Visit: No Status: Chronic Qualifiers: Hypertension type: essential hypertension Qualified Code(s): I10 - Essential (primary) hypertension (5) Heart failure Current Visit: No Status: Chronic Qualifiers: Heart failure type: unspecified Heart failure chronicity: unspecified Qualified Code(s): I50.9 - Heart failure, unspecified Cleared for Admission [facility] - Detox or Rehab S Level of Care: Medically Supervised Detox Regimen/Protocol: Librium Breathalyzer - Breathalyzer Breathalyzer: 0 Urine Drug Screen - Test Device Lot number: [id number] Expiration date: 05/31/21 - Control Is test valid?: Yes - Results Drug screen NEGATIVE: No Urine drug screen results: BZO-Benzodiazepines Inpatient Rehab Admission - Rehab Decision to Admit Inpatient rehab admission?: No
[2019-09-26] MEDS ORDERED: ACETAMINOPHEN 325 MG TABLET (FP) PO PRN (20:42)
[2019-09-26] MEDS ORDERED: NICOTINE POLACRILEX 2 MG GUM BUC PRN (20:42)
[2019-09-26] MEDS ORDERED: BISMUTH SUBSALICYLATE 524 MG/30 ML UD PO PRN (20:42)
[2019-09-26] MEDS ORDERED: MENTHOL/PHENOL 1 EACH UD MM PRN (20:42)
[2019-09-26] MEDS ORDERED: MAGNESIUM HYDROX 2400MG/30ML ORAL SUSPENSION 30 ML CUP PO PRN (20:42)
[2019-09-26] MEDS ORDERED: chlordiazePOXIDE HCL 25 MG CAPSULE PO ONE (20:42)
[2019-09-26] MEDS ORDERED: MAGNESIUM CITRATE 300 ML BOTTLE PO PRN (20:42)
[2019-09-26] MEDS: DOCUSATE SODIUM 100 MG CAPSULE (FP) PO SCH (22:01)
[2019-09-26] MEDS: chlordiazePOXIDE HCL 25 MG CAPSULE PO SCH (22:01)
[2019-09-26] MEDS: ASPIRIN COATED 81 MG TABLET.EC PO SCH (22:01)
[2019-09-26] MEDS: CARVEDILOL 12.5 MG TABLET (FP) PO SCH (22:01)
[2019-09-26] MEDS: FAMOTIDINE 20 MG TABLET PO SCH (22:02)
[2019-09-26] MEDS: ALBUTEROL SO4 8 GM HFA INHALER IH PRN (22:04)
[2019-09-26] MEDS: THIAMINE HCL 100 MG TABLET (FP) PO SCH (22:04)
[2019-09-26] MEDS: ACETAMINOPHEN 325 MG TABLET (FP) PO PRN (22:15)
[2019-09-26] MEDS: BUDESONIDE/FORMETEROL FUMARATE 160/4.5 mcg INHALER IH SCH (23:01)
[2019-09-26] MEDS: VALSARTAN 40 MG TABLET (FP) PO SCH (23:02)
[2019-09-26] MEDS: MAG HYDROX/AL HYDROX/SIMETH 30 ML UNIT-DOSE CUP PO PRN (23:02)
[2019-09-26] MEDS: MELATONIN 5 MG TABLETS PO PRN (23:50)
[2019-09-27] MEDS: chlordiazePOXIDE HCL 25 MG CAPSULE PO SCH ×3 (04:05→22:37)
[2019-09-27] MEDS: ACETAMINOPHEN 325 MG TABLET (FP) PO PRN ×2 (04:05→22:38)
[2019-09-27] MEDS: ALBUTEROL SO4 8 GM HFA INHALER IH PRN ×2 (04:08→09:13)
[2019-09-27 10:01] LABS: HEMATOCRIT 39.2 % (35.4-49); HEMOGLOBIN 13.3 GM/dL (11.7-16.9); MCH 31.1 pg (25.7-33.7); MEAN CELL VOLUME 91.5 fl (80-96); MEAN PLT VOLUME 8.3 fl (7.5-11.1); PLATELET COUNT 282 K/MM3 (134-434); RBC 4.28 M/mm3 (4.00-5.60); RDW 13.5 % (11.9-15.9); WHITE BLOOD COUNT 6.6 K/mm3 (4.0-10.0)
[2019-09-27 10:09] LABS: ALBUMIN 3.7 g/dl (3.4-5.0); BILIRUBIN,TOTAL 0.7 mg/dL (0.2-1); BLOOD UREA NITROGEN 8.1 mg/dL (7-18); CALCIUM 9.2 mg/dL (8.5-10.1); CREATININE 0.8 mg/dL (0.55-1.3); POTASSIUM 3.8 mmol/L (3.5-5.1); TOT PROT 6.5 g/dl (6.4-8.2)
[2019-09-27] MEDS: IPRATROPIUM BR 0.02% 0.5 MG/2.5 ML VIAL.NEB. NEB SCH ×3 (10:35→21:15)
[2019-09-27] MEDS: VALSARTAN 40 MG TABLET (FP) PO SCH ×2 (10:36→22:37)
[2019-09-27] MEDS: PRENATAL VITAMINS W/ FOLIC ACID TABLET (FP) PO SCH (10:36)
[2019-09-27] MEDS: FAMOTIDINE 20 MG TABLET PO SCH (10:36)
[2019-09-27] MEDS: ASPIRIN COATED 81 MG TABLET.EC PO SCH (10:36)
[2019-09-27] MEDS: CARVEDILOL 12.5 MG TABLET (FP) PO SCH ×2 (10:36→22:15)
[2019-09-27] MEDS: BUDESONIDE/FORMETEROL FUMARATE 160/4.5 mcg INHALER IH SCH ×2 (10:37→22:38)
[2019-09-27] MEDS: IBUPROFEN 400 MG TABLET (FP) PO PRN ×2 (10:39→18:46)
[2019-09-27] MEDS: chlordiazePOXIDE HCL 10 MG CAPSULE PO PRN ×2 (10:41→18:47)
--- NOTE | 2019-09-27 15:49 | PN ---
S CIWA - CIWA Score Nausea/Vomitin-Mild Nausea/No Vomiting Muscle Tremors: 4-Moderate,w/Arms Extend Anxiety: 4-Mod. Anxious/Guarded Agitation: 4-Moderately Restless Paroxysmal Sweats: 3 Orientation: 0-Oriented Tacttile Disturbances: 0-None Auditory Disturbances: 0-None Visual Disturbances: 0-None Headache: 0-None Present CIWA-Ar Total Score: 16 BHS Progress Note (SOAP) Subjective: Nausea, interrupted sleep, anxious. Patient wearing neck brace stating he was drunk and fell and was told he has a small non-displaced hairline fx and was told to wear the brace for 4-6 weeks Objective: 09/27/19 15:47 Last Vital Signs Temp Pulse Resp BP Pulse Ox 98.2 F 81 18 133/86 09/27/19 14:00 09/27/19 14:00 09/27/19 14:00 09/27/19 14:00 Elevated b/p noted: has htn (on med) Laboratory Tests 09/27/19 09/27/19 09/27/19 07:40 07:40 07:40 WBC 6.6 RBC 4.28 Hgb 13.3 Hct 39.2 MCV 91.5 MCH 31.1 MCHC 34.0 RDW 13.5 Plt Count 282 D MPV 8.3 Sodium 128 L Potassium 3.8 Chloride 94 L Carbon Dioxide 27 Anion Gap 7 L BUN 8.1 Creatinine 0.8 Est GFR (CKD-EPI)AfAm 115.74 Est GFR (CKD-EPI)NonAf 99.86 Random Glucose 107 H Calcium 9.2 Total Bilirubin 0.7 AST 16 ALT 31 Alkaline Phosphatase 58 Total Protein 6.5 Albumin 3.7 RPR Titer Nonreactive Labs reviewed: Na 128 (low) Assessment: 09/27/19 15:49 Withdrawal sxs Noted with hyponatremia Plan: Continue detox HTN: continue antihypertensive medication, continue to monitor b/p Hyponatremia: repeat serum sodium level
[2019-09-27] MEDS: DOCUSATE SODIUM 100 MG CAPSULE (FP) PO SCH (22:37)
[2019-09-27] MEDS: THIAMINE HCL 100 MG TABLET (FP) PO SCH (22:38)
[2019-09-27] MEDS: MELATONIN 5 MG TABLETS PO PRN (22:39)
[2019-09-27] MEDS: hydrOXYzine PAMOATE 25 MG CAPSULE (FP) PO PRN (22:41)
[2019-09-28] MEDS: chlordiazePOXIDE 5 MG CAPSULE PO SCH ×3 (05:42→22:08)
[2019-09-28] MEDS: MAG HYDROX/AL HYDROX/SIMETH 30 ML UNIT-DOSE CUP PO PRN (05:44)
[2019-09-28] MEDS: ACETAMINOPHEN 325 MG TABLET (FP) PO PRN ×2 (05:46→22:11)
[2019-09-28] MEDS: IPRATROPIUM BR 0.02% 0.5 MG/2.5 ML VIAL.NEB. NEB SCH ×5 (07:04→22:09)
[2019-09-28] MEDS: PRENATAL VITAMINS W/ FOLIC ACID TABLET (FP) PO SCH (10:44)
[2019-09-28] MEDS: FAMOTIDINE 20 MG TABLET PO SCH (10:44)
[2019-09-28] MEDS: VALSARTAN 40 MG TABLET (FP) PO SCH ×2 (10:44→22:25)
[2019-09-28] MEDS: ASPIRIN COATED 81 MG TABLET.EC PO SCH (10:44)
[2019-09-28] MEDS: CARVEDILOL 12.5 MG TABLET (FP) PO SCH ×2 (10:44→22:09)
[2019-09-28] MEDS: BUDESONIDE/FORMETEROL FUMARATE 160/4.5 mcg INHALER IH SCH ×2 (10:44→22:13)
[2019-09-28] MEDS: IBUPROFEN 400 MG TABLET (FP) PO PRN (14:11)
[2019-09-28] MEDS: METHOCARBAMOL 500 MG TABLET PO PRN (15:27)
--- NOTE | 2019-09-28 16:29 | PN ---
S CIWA - CIWA Score Nausea/Vomitin-Mild Nausea/No Vomiting Muscle Tremors: 1-None Visible, but [place] Anxiety: 2 Agitation: 2 Paroxysmal Sweats: No Perspiration Orientation: 0-Oriented Tacttile Disturbances: 1-Very Mild Itch/Numbness Auditory Disturbances: 0-None Visual Disturbances: 0-None Headache: 2-Mild CIWA-Ar Total Score: 9 BHS Progress Note (SOAP) Subjective: alert,irritable,anxious,interrupted sleep,wearing neck brace Objective: 09/28/19 16:27 Vital Signs Temperature 97.7 F 09/28/19 13:25 Pulse Rate 93 H 09/28/19 13:25 Respiratory Rate 20 09/28/19 13:25 Blood Pressure 124/71 09/28/19 13:25 O2 Sat by Pulse Oximetry (%) Laboratory Last Values WBC 6.6 K/mm3 (4.0-10.0) 09/27/19 07:40 RBC 4.28 M/mm3 (4.00-5.60) 09/27/19 07:40 Hgb 13.3 GM/dL (11.7-16.9) 09/27/19 07:40 Hct 39.2 % (35.4-49) 09/27/19 07:40 MCV 91.5 fl (80-96) 09/27/19 07:40 MCH 31.1 pg (25.7-33.7) 09/27/19 07:40 MCHC 34.0 g/dl (32.0-35.9) 09/27/19 07:40 RDW 13.5 % (11.9-15.9) 09/27/19 07:40 Plt Count 282 K/MM3 (134-434) D 09/27/19 07:40 MPV 8.3 fl (7.5-11.1) 09/27/19 07:40 Sodium 134 mmol/L (136-145) L 09/28/19 08:24 Potassium 3.8 mmol/L (3.5-5.1) 09/27/19 07:40 Chloride 94 mmol/L (98-107) L 09/27/19 07:40 Carbon Dioxide 27 mmol/L (21-32) 09/27/19 07:40 Anion Gap 7 MMOL/L (8-16) L 09/27/19 07:40 BUN 8.1 mg/dL (7-18) 09/27/19 07:40 Creatinine 0.8 mg/dL (0.55-1.3) 09/27/19 07:40 Est GFR (CKD-EPI)AfAm 115.74 09/27/19 07:40 Est GFR (CKD-EPI)NonAf 99.86 09/27/19 07:40 Random Glucose 107 mg/dL (74-106) H 09/27/19 07:40 Calcium 9.2 mg/dL (8.5-10.1) 09/27/19 07:40 Total Bilirubin 0.7 mg/dL (0.2-1) 09/27/19 07:40 AST 16 U/L (15-37) 09/27/19 07:40 ALT 31 U/L (13-61) 09/27/19 07:40 Alkaline Phosphatase 58 U/L (45-117) 09/27/19 07:40 Total Protein 6.5 g/dl (6.4-8.2) 09/27/19 07:40 Albumin 3.7 g/dl (3.4-5.0) 09/27/19 07:40 RPR Titer Nonreactive (NONREACTIVE) 09/27/19 07:40 09/28/19 16:28 repeat na is 134 Assessment: 09/28/19 16:28 withdrawal symptom Plan: continue detox librium regimen,wearing neck brace
[2019-09-28] MEDS: chlordiazePOXIDE HCL 10 MG CAPSULE PO PRN (17:32)
[2019-09-28] MEDS: DOCUSATE SODIUM 100 MG CAPSULE (FP) PO SCH (22:08)
[2019-09-28] MEDS: MELATONIN 5 MG TABLETS PO PRN (22:09)
[2019-09-28] MEDS: THIAMINE HCL 100 MG TABLET (FP) PO SCH (22:09)
[2019-09-28] MEDS: hydrOXYzine PAMOATE 25 MG CAPSULE (FP) PO PRN (22:10)
[2019-09-29] MEDS: chlordiazePOXIDE HCL 10 MG CAPSULE PO PRN ×2 (03:00→15:37)
[2019-09-29] MEDS: METHOCARBAMOL 500 MG TABLET PO PRN ×3 (03:00→22:13)
[2019-09-29] MEDS: chlordiazePOXIDE HCL 10 MG CAPSULE PO SCH ×3 (05:46→22:10)
[2019-09-29] MEDS: IBUPROFEN 400 MG TABLET (FP) PO PRN ×2 (05:47→15:37)
[2019-09-29] MEDS: ALBUTEROL SO4 8 GM HFA INHALER IH PRN (05:47)
[2019-09-29] MEDS: ASPIRIN COATED 81 MG TABLET.EC PO SCH (10:45)
[2019-09-29] MEDS: BUDESONIDE/FORMETEROL FUMARATE 160/4.5 mcg INHALER IH SCH ×2 (10:45→23:03)
[2019-09-29] MEDS: PRENATAL VITAMINS W/ FOLIC ACID TABLET (FP) PO SCH (10:45)
[2019-09-29] MEDS: IPRATROPIUM BR 0.02% 0.5 MG/2.5 ML VIAL.NEB. NEB SCH ×4 (10:45→20:05)
[2019-09-29] MEDS: CARVEDILOL 12.5 MG TABLET (FP) PO SCH ×2 (10:45→22:10)
[2019-09-29] MEDS: VALSARTAN 40 MG TABLET (FP) PO SCH ×2 (10:45→22:10)
[2019-09-29] MEDS: FAMOTIDINE 20 MG TABLET PO SCH (10:46)
[2019-09-29] MEDS ORDERED: LIDOCAINE 5% TOPICAL PATCH TP SCH (11:30)
--- NOTE | 2019-09-29 11:33 | PN ---
S CIWA - CIWA Score Nausea/Vomitin-No Nausea/No Vomiting Muscle Tremors: 1-None Visible, but [place] Anxiety: 1-Mildly Anxious Agitation: 2 Paroxysmal Sweats: No Perspiration Orientation: 0-Oriented Tacttile Disturbances: 0-None Auditory Disturbances: 0-None Visual Disturbances: 0-None Headache: 0-None Present CIWA-Ar Total Score: 4 BHS Progress Note (SOAP) Subjective: back pain sweats Objective: 09/29/19 11:33 Vital Signs Temperature 98.2 F 09/29/19 09:47 Pulse Rate 90 09/29/19 09:47 Respiratory Rate 18 09/29/19 09:47 Blood Pressure 147/88 09/29/19 09:47 O2 Sat by Pulse Oximetry (%) aaox3 ambulating no acute distress Assessment: 09/29/19 11:34 mild withdrawals Plan: continue detox lidocaine patch motrin 800mg tid prn d/c in am
[2019-09-29] MEDS: hydrOXYzine PAMOATE 25 MG CAPSULE (FP) PO PRN ×2 (12:04→22:13)
[2019-09-29] MEDS ORDERED: LIDOCAINE PATCH REMOVAL MC SCH (22:00)
[2019-09-29] MEDS: DOCUSATE SODIUM 100 MG CAPSULE (FP) PO SCH (22:10)
[2019-09-29] MEDS: THIAMINE HCL 100 MG TABLET (FP) PO SCH (22:11)
[2019-09-29] MEDS: MELATONIN 5 MG TABLETS PO PRN (22:12)
[2019-09-30] MEDS ORDERED: chlordiazePOXIDE HCL 10 MG CAPSULE PO ONE (05:00)
[2019-09-30] MEDS: IBUPROFEN 400 MG TABLET (FP) PO PRN (05:29)
[2019-09-30] MEDS: METHOCARBAMOL 500 MG TABLET PO PRN (05:29)
[2019-09-30] MEDS: ALBUTEROL SO4 8 GM HFA INHALER IH PRN (05:30)
--- NOTE | 2019-09-30 09:03 | DS ---
[facility] Detox Discharge Summary Admission Date: 09/26/19 Discharge Date: 09/30/19 - History Present History: Alcohol Dependence - Physical Exam Results Vital Signs: Vital Signs Temperature 97.2 F L 09/30/19 05:52 Pulse Rate 77 09/30/19 05:52 Respiratory Rate 18 09/30/19 05:52 Blood Pressure 143/82 09/30/19 05:52 O2 Sat by Pulse Oximetry (%) Pertinent Admission Physical Exam Findings: pt arrived in withdrawals Vital Signs Temperature 97.2 F L 09/30/19 05:52 Pulse Rate 77 09/30/19 05:52 Respiratory Rate 18 09/30/19 05:52 Blood Pressure 143/82 09/30/19 05:52 O2 Sat by Pulse Oximetry (%) Laboratory Tests 09/27/19 09/27/19 09/27/19 07:40 07:40 07:40 WBC 6.6 RBC 4.28 Hgb 13.3 Hct 39.2 MCV 91.5 MCH 31.1 MCHC 34.0 RDW 13.5 Plt Count 282 D MPV 8.3 Sodium 128 L Potassium 3.8 Chloride 94 L Carbon Dioxide 27 Anion Gap 7 L BUN 8.1 Creatinine 0.8 Est GFR (CKD-EPI)AfAm 115.74 Est GFR (CKD-EPI)NonAf 99.86 Random Glucose 107 H Calcium 9.2 Total Bilirubin 0.7 AST 16 ALT 31 Alkaline Phosphatase 58 Total Protein 6.5 Albumin 3.7 RPR Titer Nonreactive 09/28/19 08:24 WBC RBC Hgb Hct MCV MCH MCHC RDW Plt Count MPV Sodium 134 L Potassium Chloride Carbon Dioxide Anion Gap BUN Creatinine Est GFR (CKD-EPI)AfAm Est GFR (CKD-EPI)NonAf Random Glucose Calcium Total Bilirubin AST ALT Alkaline Phosphatase Total Protein Albumin RPR Titer pt aaox3 ambulating no acute distress no s/s of withdrawals - Treatment Hospital Course: Detox Protocol Followed, Detoxed Safely, Responded well, Discharged Condition Good, Rehab Referral Accepted Patient has Accepted a Rehab Referral to: pt referred to [facility] - Medication Discharge Medications: Ambulatory Orders Albuterol Sulfate Inhaler - [Ventolin HFA Inhaler -] 2 puff IH Q6H PRN inhaler 09/14/19 Aspirin Coated [Ecotrin -] 81 mg PO DAILY tablet.ec 09/14/19 Carvedilol [Coreg -] 12.5 mg PO BID #60 tablet 09/14/19 Docusate Sodium [Colace -] 200 mg PO HS #20 capsule 09/14/19 Ipratropium 0.02% Nebulizer [Atrovent 0.02% Nebulizer -] 1 amp NEB RQID #25 amp 09/14/19 Multivitamins [Multivit ([facility] Form[facility])] 1 tab PO DAILY tab 09/14/19 Thiamine HCl [Vitamin B1 -] 100 mg PO DAILY tablet 09/14/19 Valsartan [Diovan] 40 mg PO BID #60 tablet 09/14/19 Budesonide/Formeterol Fumarate [SYMBICORT 160/4.5mcg -] 1 puff IH DAILY inhaler 09/26/19 Loratadine [Claritin] 10 mg PO DAILY 09/26/19 Zantac 150 mg PO DAILY 09/26/19 - Diagnosis (1) EtOH dependence Current Visit: Yes Status: Chronic Qualifiers: Substance use status: uncomplicated Qualified Code(s): F10.20 - Alcohol dependence, uncomplicated (2) A-fib Current Visit: No Status: Chronic Qualifiers: Atrial fibrillation type: unspecified Qualified Code(s): I48.91 - Unspecified atrial fibrillation (3) Asthma Current Visit: Yes Status: Chronic Qualifiers: Asthma severity: mild Asthma persistence: intermittent (4) Atrial fibrillation Current Visit: No Status: Chronic Qualifiers: Atrial fibrillation type: paroxysmal Qualified Code(s): I48.0 - Paroxysmal atrial fibrillation (5) Atrial flutter Current Visit: No Status: Chronic Qualifiers: Atrial flutter type: typical Qualified Code(s): I48.3 - Typical atrial flutter (6) Back pain Current Visit: Yes Status: Chronic Qualifiers: Back pain location: low back pain Chronicity: acute Back pain laterality : midline Sciatica presence: without sciatica Qualified Code(s): M54.5 - Low back pain (7) Bronchial asthma Current Visit: No Status: Chronic Qualifiers: Asthma severity: unspecified severity Asthma persistence: unspecified Asthma complication type: unspecified Qualified Code(s): J45.909 - Unspecified asthma, uncomplicated (8) HTN (hypertension) Current Visit: Yes Status: Chronic Qualifiers: Hypertension type: essential hypertension Qualified Code(s): I10 - Essential (primary) hypertension (9) Heart failure Current Visit: No Status: Chronic Qualifiers: Heart failure type: unspecified Heart failure chronicity: unspecified Qualified Code(s): I50.9 - Heart failure, unspecified (10) Patent foramen ovale Current Visit: No Status: Chronic (11) Systolic 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
[2019-09-30 09:27] VITALS: BP 136/99; PULSE 83; TEMP 96.8
[2019-09-30] MEDS: CARVEDILOL 12.5 MG TABLET (FP) PO SCH (09:46)
[2019-09-30] MEDS: ASPIRIN COATED 81 MG TABLET.EC PO SCH (09:47)
[2019-09-30] MEDS: FAMOTIDINE 20 MG TABLET PO SCH (09:47)
[2019-09-30] MEDS: PRENATAL VITAMINS W/ FOLIC ACID TABLET (FP) PO SCH (09:47)
== END 2019-09-30 09:58 | disposition home or self-care (01) | DRG 775 ==
LOC: YASAS 13:44 → Y6N 21:12
PROVIDERS: ADMIT Allergy & Immunology; ATTEND Allergy & Immunology
PROC: HZ2ZZZZ Detoxification Services for Substance Abuse Treatment (ICD-10-PCS; principal; 2019-09-26)
DX: F10.230 Alcohol dependence with withdrawal, uncomplicated (principal); I11.0 Hypertensive heart disease with heart failure; I48.0 Paroxysmal atrial fibrillation; I48.3 Typical atrial flutter; I50.9 Heart failure, unspecified; J45.20 Mild intermittent asthma, uncomplicated; M54.5 Low back pain; G89.29 Other chronic pain; Q21.1 Atrial septal defect; R00.0 Tachycardia, unspecified; Z87.19 Personal history of other diseases of the digestive system; Z87.891 Personal history of nicotine dependence
CPT/HCPCS: 36415; 80053; 84295; 85027; 86593; 94640